=== PATIENT | male | born 1935 | race Caucasian/White ===

== ENCOUNTER 2023-05-02 19:00 | Emergency (ER) | payer MEDICARE, SELFPAY ==
[2023-05-02 19:20] VITALS: BP 172/79
[2023-05-02] MEDS: PERCOCET 5/325 1 TABLET PO (21:23)
--- NOTE | 2023-05-02 23:21 | ED.GENMED ---
History of Present Illness
General
Chief Complaint: Skin Problem
Source: patient, records and landcare facilitator
Exam Limitations: none
Time Seen by Provider: 05/02/23 19:48
Nursing documentation reviewed up to this point in time: agreed with
Travel History
Have you had any contact with someone who has COVID-19?: No
Do you have any symptoms of coronavirus? Fever > 100 degrees, chills, cough, shortness of breath, sore throat, loss of taste or smell, muscle aches, or headache?: No
History of Present Illness
History of Present Illness:
Patient is a 87-year-old male who was seen earlier today with an abscess of the scalp after having it repaired 11 days ago and striking it 3 days prior to that. Patient had fallen back and struck the back of his head. Patient is on Xarelto. CT at
that time was unremarkable. It is felt that the hematoma was palpated and no apparent laceration. However patient continued to bleed and returned 3 days later for repair. Patient had gone to his family doctor for suture removal and there was
found to be pus and abscess. Patient had it drained and iodoform gauze placed. However, it has continued bleeding and draining. Patient was placed on doxycycline.
Past History
Past History
ED Past Medical History: Arrthythmia (Atrial fibrillation), GERD, HTN and Other (Colitis)
ED Past Surgical History: Appendectomy, Cardiac (Catheterization 2005) and Other (Noncontributory)
Social History
Tobacco: Non-smoker
Alcohol: Occasional
Drug: None
Personal:
Living: with family
Employment: Employed
Family History
Family History: Other (Noncontributory)
Review of Systems
Review of Systems
All Other Systems: Not applicable
Phy Exam
Physical Exam
Physical Exam:
Physical Exam
General: mild distress, alert and appropriate, well nourished, well hydrated
HENT: Normocephalic with in the occiput a small incision with iodoform gauze and large eschar, supple with no lymphadenopathy
Eyes: Clear sclera, conjuctiva without injection
Neuro: Alert and oriented x 3, CN II - XII intact, no motor focality, no cerebellar dysfunction
Skin: See above
Psychiatric: well kept. interactive and cooperative
Extremities: No cyanosis
Course
Orders/Labs/Results
Orders:
Orders
05/02/23 21:19
Oxycodone/Acetaminophen [Percocet 5/325] 1 tablet PO NOW STA
Vital Signs
Initial and Last Documented VS:
Initial Vital Signs
Temp Pulse Resp BP Pulse Ox
98.4 F 65 20 172/79 97
05/02/23 19:20 05/02/23 19:20 05/02/23 19:20 05/02/23 19:20 05/02/23 19:20
Last Documented Vital Signs
Temp Pulse Resp BP Pulse Ox
98.4 F 65 20 172/79 97
05/02/23 19:20 05/02/23 19:20 05/02/23 19:20 05/02/23 19:20 05/02/23 19:20
*Radiology
Radiology exam reviewed: other (na)
*Pulse Oximetry
Patient hypoxic: no
*EKG
Interpreted by ED Provider?: NA
*Sales Forecast Analyst Interpretation
Rate: Sales Forecast Analyst- N/A
*Critical Care Note
Total Time (30-74mins, 75-104mins- exclusive of procedures): Not Applicable
Update Note
Update Note:
The area of eschar was sharply dissected out after being softened with hydrogen peroxide. The hematoma that was evacuated from the depth of the wound which in some places was as deep as a centimeter. Most of it was large clot. The wound then was
approximately a centimeter deep at its deepest and approximately 2-1/2 x 3 cm. This area was packed with iodoform gauze with good hemostasis. Given the fact that there was no cellulitis and no systemic signs of infection the doxycycline will be
stopped. This patient is to see his primary in 2 days to have it repacked or at least inspected. Patient is to go to the wound center 5 days. Patient is to hold his Xarelto.
ED Attending Note
-
Portions of this chart may have been created with voice recognition software.� Occasional wrong word or��sound alike� substitutions may have occurred due to the inherent limitations of voice recognition software.
Discharge Plan
Departure
Patient Disposition: Home (Routine Discharge)
Date of Disposition: 05/02/23
Time of Disposition: 23:21
Patient with high blood pressure during this ER visit?: Yes
Condition: Fair
Covid-19: Not Applicable
Discharge Problem:
Debridement of scalp wound
Instructions: Wound Care ([place]), [facility]
Prescriptions:
No Action
losartan 50 MG tablet
50 mg PO BID
glucosamine sulfate 2KCl 1,000 MG tablet
1,000 mg PO BID
[id number] [Cody Multivitamin For Men] 1 EACH tablet
1 ea PO DAILY
rivaroxaban [Xarelto] 20 MG tablet
20 mg PO QPM
atorvastatin 20 MG tablet
20 mg PO QPM
ascorbic acid (vitamin C) [Vitamin C] 500 MG tablet
1,900 mg PO DAILY
cholecalciferol (vitamin D3) [Vitamin D3] 1,000 UNIT capsule
1,000 unit PO DAILY
coenzyme Q10 [Co Q-10] 200 MG capsule
200 mg PO QPM
cyanocobalamin (vitamin B-12) 1,000 MCG capsule
1,000 mcg PO DAILY
amlodipine 5 MG tablet
2.5 mg PO HS
cetirizine 10 MG tablet
10 mg PO QPM
zinc 50 MG tablet
61 mg PO DAILY
Potassium Chloride [Klor-Con 10] 10 MEQ Tablet.Er
10 meq PO BID
fluticasone propionate [Flovent Diskus] 50 MCG blister with device
100 mcg IH QPM
omeprazole 20 MG capsule,delayed release(DR/EC)
20 mg PO DAILY
metoprolol succinate 100 MG tablet extended release 24 hr
100 mg PO DAILY Qty: 90 3RF
furosemide 20 MG tablet
20 mg PO Q48H Qty: 90 3RF
Rx Instructions:
One tablet every other day
oxycodone 5 mg tablet
5 mg PO Q4H PRN (Reason: Pain) Qty: 20 0RF
cephalexin 500 mg capsule
500 mg PO TID Qty: 15 0RF
doxycycline hyclate 100 mg tablet
100 mg PO BID Qty: 20 0RF
Referrals:
Ros Hernadez MD [Family Provider] - Keep scheduled appt
Activity Restrictions/Additional Instructions:
Continue present medications and therapy. You do not need to take the antibiotics. Keep the area clean with soap and water.
Interventions
Interventions:
*Risk Screen - Suicide Last Done: 05/02/23 19:20
*General Assessment Last Done: 05/02/23 19:20
*Neglect/Abuse Screening Last Done: 05/02/23 19:20
ED- Fall Risk Assessment Last Done: 05/02/23 19:20
*ED COVID-19 Vaccine History Last Done: 05/02/23 19:20
*Nursing Disposition Last Done: 05/03/23 00:17
Discharge Date and Time
Discharge Date/Time: 05/03/23 00:17
== END 2023-05-03 00:17 | disposition home or self-care (01) ==
LOC: EMR 19:00
PROVIDERS: EMERGENCY PHYSICIAN Emergency Medicine; FAMILY PHYSICIAN Student in an Organized Health Care Education/Training Program
DX: L02.811 Cutaneous abscess of head [any part, except face] (principal); I48.91 Unspecified atrial fibrillation; Z79.01 Long term (current) use of anticoagulants
CPT/HCPCS: 97597; 99283

== ENCOUNTER → 2023-05-21 08:37 | Outpatient (REF) | payer MEDICARE, SELFPAY | LOC: WOUND 08:37 | PROVIDERS: ATTENDING PHYSICIAN Surgery; REFERRING PHYSICIAN Student in an Organized Health Care Education/Training Program | DX: S01.01XA Laceration without foreign body of scalp, initial encounter (principal); I48.0 Paroxysmal atrial fibrillation; I25.10 Atherosclerotic heart disease of native coronary artery without angina pectoris; I42.1 Obstructive hypertrophic cardiomyopathy; J98.4 Other disorders of lung; J84.9 Interstitial pulmonary disease, unspecified; I27.20 Pulmonary hypertension, unspecified; Z79.01 Long term (current) use of anticoagulants; X58.XXXA Exposure to other specified factors, initial encounter | CPT/HCPCS: 11042; 11043 ==

== ENCOUNTER 2023-09-25 20:02 | Emergency (ER) | payer MEDICARE, SELFPAY ==
[2023-09-25 20:04] VITALS: BMI 25.0
[2023-09-25 20:14] VITALS: BP 162/76
[2023-09-25 20:19] LABS: Glucose - Point of Care 134 mg/dl (70-99)
[2023-09-25 20:22] LABS: % Basophils 0.6 % (0-2); % Eosinophils 3.2 % (0-6); % Immature Granulocytes 0.2 % (0-0.5); % Lymphocytes 17.5 % (20.5-51.1); % Monocytes 9.6 % (1.7-9.3); % Neutrophils 68.9 % (42.2-75.2); Absolute Basophils 0.1 10^3/uL (0-0.2); Absolute Eosinophils 0.3 10^3/uL (0-0.7); Absolute Lymphocytes 1.5 10^3/uL (1.2-3.4); Absolute Monocytes 0.8 10^3/uL (0.1-0.6); Hematocrit 37.2 % (39.0-52.0); Hemoglobin 12.3 g/dL (13.0-18.0); Mean Corp Hgb Conc. 33.1 g/dL (33.0-37.0); Mean Corpuscular Hgb 27.2 pg (27.0-31.0); Mean Corpuscular Volume 82.3 fL (80.0-94.0); Mean Platelet Volume 9.9 fL (7.4-10.4); Nucleated Red Blood Cells % 0 % (-); Platelet Count 190 10^3/uL (130-400); Red Blood Cell Count 4.52 10^6/uL (4.70-6.10); Red Cell Dist. Width 15.6 % (11.5-14.5); White Blood Cell Count 8.7 10^3/uL (4.8-10.8)
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
[2023-09-25 20:44] LABS: ALT (SGPT) 21 U/L (0-50); AST (SGOT) 34 U/L (17-59); Albumin 4.4 g/dl (3.5-5.0); Alkaline Phosphatase 82 U/L (38-126); Blood Urea Nitrogen 23 mg/dl (9-20); Calcium 9.7 mg/dl (8.4-10.2); Carbon Dioxide 28 mmol/L (22-30); Chloride 100 mmol/L (98-107); Estimated Creatinine Clearance 66 ml/min; Glucose 135 mg/dl (70-99); Potassium 3.7 mmol/L (3.5-5.1); Sodium 138 mmol/L (135-145); Total Bilirubin 1.8 mg/dl (0.2-1.3); Total Protein 7.3 g/dl (6.3-8.2); eGFR > 60.00
[2023-09-25 21:00] VITALS: BP 159/84
== END 2023-09-25 21:38 | disposition home or self-care (01) ==
LOC: EMR 20:02
PROVIDERS: EMERGENCY PHYSICIAN Emergency Medicine; FAMILY PHYSICIAN Student in an Organized Health Care Education/Training Program
DX: R55 Syncope and collapse (principal); I10 Essential (primary) hypertension; I48.91 Unspecified atrial fibrillation
CPT/HCPCS: 99284; 80053; 82962; 85025; 93005

== ENCOUNTER 2023-09-28 10:00 | Day surgery (SDC) | payer MEDICARE, SELFPAY ==
--- NOTE | 2023-09-28 15:26 | ITS.CL.CARDI ---
Inspecting Machine Adjuster - Cardioversion
Cardioversion
Procedure Report:
CARDIOVERSION REPORT
Date of Procedure: 09/28/2023
Referring: Edmundo Huynh MD
INDICATION: Recurrent PAF
MEDICATION: No AAD
ANESTHESIA: Propofol
CARDIOVERSION: Conversion of AF to NSR with single 150 J synchronized shock
COMPLICATIONS: None
CONCLUSION: Successful cardioversion of AF to NSR
RECOMMENDATION: Continue Xarelto and other medications
Copy to: Edmundo Huynh MD, Savanna Hernadez MD, PhD
Edmundo Huynh MD, FACC
== END 2023-09-28 15:30 | disposition home or self-care (01) ==
LOC: CATH 10:00
PROVIDERS: ATTENDING PHYSICIAN Internal Medicine Cardiovascular Disease; FAMILY PHYSICIAN Student in an Organized Health Care Education/Training Program
DX: I48.0 Paroxysmal atrial fibrillation (principal); R55 Syncope and collapse; I25.10 Atherosclerotic heart disease of native coronary artery without angina pectoris; I10 Essential (primary) hypertension; E78.5 Hyperlipidemia, unspecified; I44.0 Atrioventricular block, first degree; I08.1 Rheumatic disorders of both mitral and tricuspid valves; K21.9 Gastro-esophageal reflux disease without esophagitis; G47.33 Obstructive sleep apnea (adult) (pediatric); Z87.891 Personal history of nicotine dependence; Z79.01 Long term (current) use of anticoagulants
CPT/HCPCS: 92960; 93005

== ENCOUNTER → 2023-12-05 06:55 | Outpatient (REF) | payer MEDICARE, SELFPAY ==
[2023-12-05 08:50] LABS: Blood Urea Nitrogen 21 mg/dl (9-20); Calcium 9.7 mg/dl (8.4-10.2); Carbon Dioxide 23 mmol/L (22-30); Chloride 100 mmol/L (98-107); Glucose 115 mg/dl (70-99); Potassium 4.1 mmol/L (3.5-5.1); Sodium 135 mmol/L (135-145); eGFR > 60.00
== END ==
LOC: REG 06:55
PROVIDERS: ATTENDING PHYSICIAN Internal Medicine Cardiovascular Disease; FAMILY PHYSICIAN Student in an Organized Health Care Education/Training Program
DX: R60.9 Edema, unspecified (principal)
CPT/HCPCS: 36415; 80048

== ENCOUNTER → 2023-12-17 06:19 | Outpatient (REF) | payer MEDICARE, SELFPAY ==
[2023-12-17 07:27] LABS: % Basophils 0.8 % (0-2); % Eosinophils 3.8 % (0-6); % Immature Granulocytes 0.2 % (0-0.5); % Lymphocytes 16.9 % (20.5-51.1); % Monocytes 11.7 % (1.7-9.3); % Neutrophils 66.6 % (42.2-75.2); Absolute Basophils 0.1 10^3/uL (0-0.2); Absolute Eosinophils 0.3 10^3/uL (0-0.7); Absolute Lymphocytes 1.5 10^3/uL (1.2-3.4); Absolute Neutrophils 5.9 10^3/uL (1.4-6.5); Hemoglobin 11.3 g/dL (13.0-18.0); Mean Corp Hgb Conc. 31.4 g/dL (33.0-37.0); Mean Corpuscular Hgb 25.9 pg (27.0-31.0); Mean Corpuscular Volume 82.6 fL (80.0-94.0); Mean Platelet Volume 9.3 fL (7.4-10.4); Nucleated Red Blood Cells % 0 % (-); Platelet Count 246 10^3/uL (130-400); Red Blood Cell Count 4.36 10^6/uL (4.70-6.10); Red Cell Dist. Width 15.8 % (11.5-14.5); White Blood Cell Count 8.9 10^3/uL (4.8-10.8)
[2023-12-17 07:36] LABS: NT-proBNP 1130 pg/ml
[2023-12-17 08:03] LABS: ALT (SGPT) 24 U/L (0-50); AST (SGOT) 41 U/L (17-59); Albumin 4.3 g/dl (3.5-5.0); Alkaline Phosphatase 107 U/L (38-126); Blood Urea Nitrogen 17 mg/dl (9-20); Calcium 9.6 mg/dl (8.4-10.2); Carbon Dioxide 31 mmol/L (22-30); Chloride 99 mmol/L (98-107); Glucose 106 mg/dl (70-99); HDL Cholesterol 52 mg/dl; LDL Cholesterol, Calculated 48 mg/dl; Potassium 4.7 mmol/L (3.5-5.1); Sodium 138 mmol/L (135-145); Total Bilirubin 1.9 mg/dl (0.2-1.3); Total Cholesterol 111 mg/dl (50-199); Total Protein 7.3 g/dl (6.3-8.2); Triglyceride 57 mg/dl (10-149); Very Low Density Lipoprotein 11 mg/dl (0-30); eGFR > 60.00
[2023-12-17 10:39] LABS: TSH Reflex To Free T4 2.93 uIU/ml (0.47-4.68)
== END ==
LOC: REG 06:19
PROVIDERS: ATTENDING PHYSICIAN Student in an Organized Health Care Education/Training Program
DX: E78.2 Mixed hyperlipidemia (principal); M79.89 Other specified soft tissue disorders; I42.1 Obstructive hypertrophic cardiomyopathy; I48.0 Paroxysmal atrial fibrillation
CPT/HCPCS: 36415; 80053; 80061; 83880; 84443; 85025

== ENCOUNTER → 2023-12-18 15:47 | Outpatient (REF) | payer MEDICARE, SELFPAY | LOC: RAD 15:47 | PROVIDERS: ATTENDING PHYSICIAN Student in an Organized Health Care Education/Training Program | DX: M79.89 Other specified soft tissue disorders (principal) | CPT/HCPCS: 93970 ==

== ENCOUNTER 2023-12-20 12:54 | Inpatient (IN) | payer MEDICARE, SELFPAY ==
[2023-12-20] VITALS (19 sets, daily range): BP systolic 132–165; BP diastolic 51–85; PULSE 58; BMI 25.7
--- NOTE | 2023-12-20 10:39 | ED.GENMED ---
History of Present Illness
General
Chief Complaint: Chest Pain
Source: patient
Exam Limitations: none
Time Seen by Provider: 12/20/23 10:27
History of Present Illness
History of Present Illness:
See MDM
Past History
Past History
ED Past Medical History: Arrthythmia (Atrial fibrillation), GERD, HTN and Other (Colitis)
ED Past Surgical History: Appendectomy, Cardiac (Catheterization 2005) and Other (Noncontributory)
Social History
Tobacco: Non-smoker
Alcohol: Occasional
Drug: None
Personal:
Living: with family
Employment: Employed
Family History
Family History: Other (Noncontributory)
Phy Exam
Physical Exam
Physical Exam:
See MDM
Scores
Heart Score for Chest Pain Patients
STEMI patient?: No
History: Highly Suspicious
ECG: Nonspecific Repolarization
Age: >/= 65 years
Risk Factors: >/= 3 Risk Factors or History of CAD
Troponin: </= Normal Limit
Heart Score for Chest Pain Patients: 7
Heart Score Risk: 72.7 % MACE over next 6 weeks
Course
Orders/Labs/Results
Orders:
Orders
12/20/23 Lunch
NPO
Allow oral meds: Yes
Allow clear liquids: No
NPO with Ice Chips: Yes
12/20/23 10:29
Consult Cardiology [CARDIOLOGY CONSULT] Routine
Consulting Provider: Edmundo Huynh
Was physician already notified: Yes
CR Chest - 2 Views Urgent
Comment:
Reason For Exam: SOB
12/20/23 10:36
EKG [Electrocardiogram (*1)] Urgent
Reason for Study: Chest Pain
EKG- Treatment ONCE
12/20/23 10:50
Complete Blood Count/With Diff Urgent
Comprehensive Metabolic Panel Urgent
Ferritin Urgent
Comment: ADD ON
Iron Urgent
Comment: ADD ON
NT-proBNP Urgent
PTT Urgent
Prothrombin Time Urgent
TSH Urgent
Comment: ADD ON
Total Iron Binding Urgent
Comment: ADD ON
Troponin I Urgent
12/20/23 12:38
Admit/Transfer Patient As Directed
Co-Sign Provider:
Level of Care: Inpatient admission
Assign to:: IVU
Physician / Group: Espinoza
Diagnosis: ACS
Reason for Hospitalization: Above
Expected length of stay greater than two midnights?: Yes
ELOS- Estimated Length of Stay in days: 2
I certify the patient meets the requirements for IP care: Yes
12/20/23 12:42
Code Status As Directed
Resuscitation Status: Full Code
12/20/23 17:59
Ascorbic Acid [Vitamin C] 1,000 mg PO DAILY
Atenolol [Tenormin] 25 mg PO BID
Tramadol HCl [Ultram] 50 mg PO Q4HPRN PRN
coenzyme Q10 [Co Q-10] 200 mg PO Q48H
12/20/23 17:59
Add On- LAB Routine
Tests Added?: TSH, Iron, TIBC, Ferrtin
Anti-embolism (ANDREW) Hose As Directed
Type: Knee high
Pneumatic Compression Sleeves As Directed
Type: Knee high
Pneumatic Compression Sleeves As Directed
Type: Knee high
Cpap [RESP] Routine
Patient to use own unit?: Yes
Instructions: HS
DX Deep Vein Thrombosis Video Routine
12/20/23 18:00
Cetirizine HCl [Zyrtec] 10 mg PO QPM
12/20/23 20:00
Losartan [Cozaar] 50 mg PO BID
Potassium Chloride [KCl] 10 meq PO BID
12/21/23 05:35
BMP [Basic Metabolic Panel] IN AM
CBC/With Diff [Complete Blood Count/With Diff] IN AM
Lipid Profile [Cardiovascular Evaluation] IN AM
12/21/23 08:00
Cholecalciferol (Vitamin D3) [VITAMIN D3 (cholecalciferol)] 25 mcg PO DAILY
Cyanocobalamin [Vitamin B-12] 1,000 mcg PO DAILY
Diltiazem Extended Release [Cardizem Cd] 120 mg PO DAILY
Furosemide [Lasix] 20 mg PO DAILY
Multivitamin [Theragran] 1 tablet PO DAILY
glucosamine sulfate 2KCl 2,000 mg PO DAILY
Abnormal Lab Results
12/20/23
10:50
RBC 4.30 L 10^6/uL
(4.70-6.10)
Hgb 11.2 L g/dL
(13.0-18.0)
Hct 34.3 L %
(39.0-52.0)
MCV 79.8 L fL
(80.0-94.0)
MCH 26.0 L pg
(27.0-31.0)
MCHC 32.7 L g/dL
(33.0-37.0)
RDW 15.7 H %
(11.5-14.5)
Absolute Neuts (auto) 6.8 H 10^3/uL
(1.4-6.5)
Absolute Monos (auto) 1.0 H 10^3/uL
(0.1-0.6)
Lymphocytes % 16.2 L %
(20.5-51.1)
Monocytes % 10.2 H %
(1.7-9.3)
PT 15.1 H Sec
(11.4-14.6)
Creatinine 0.6 L mg/dL
(0.7-1.3)
Glucose 110 H mg/dl
(70-99)
TIBC 506 H ug/dl
(261-462)
% Saturation 10 L %
(20-50)
Total Bilirubin 1.8 H mg/dl
(0.2-1.3)
12/20/23 10:50
12/20/23 10:50
Vital Signs
Initial and Last Documented VS:
Initial Vital Signs
Temp Pulse Resp Pulse Ox
98.4 F 63 20 93
12/20/23 10:37 12/20/23 10:37 12/20/23 10:37 12/20/23 10:37
Last Documented Vital Signs
Temp Pulse Resp BP Pulse Ox
98.9 F 59 20 141/68 93
12/21/23 08:02 12/21/23 08:02 12/21/23 08:02 12/21/23 08:02 12/21/23 08:02
MDM/Problems Addressed
Differential Diagnosis Includes:
HPI and MDM Narrative:
88-year-old male presenting for evaluation of worsening shortness of breath with exertion. Patient has known history of heart failure and hypertrophic cardiomyopathy. Patient is followed closely by cardiology. There was a plan for catheterization
but patient becoming more symptomatic.
On exam, patient is sitting in bed comfortably. He does have bilateral pitting edema to both legs which she states is worse.
Physical exam
General: Well appearing and non-toxic
HEENT: protecting airway
Neck: appears supple
CV: No evidence of cyanosis. Regular rate and rhythm
Resp: No accessory muscle use. Lungs clear. Questional crackles at bases
Abd: Non-distended
Extremities: 2 pitting edema bilateral lower extremities
Neuro: alert
Psych: Normal affect
Skin: Intact
Problems Addressed including Acute and Chronic Conditions affecting care:
1. Acute exacerbation of congestive heart failure
Acuity: acute
Prognosis: unstable
Details: Given his prior history, case discussed with cardiology and will admit for catheterization
Updates
10:45 AM Case discussed with cardiology and plan for catheterization today in the afternoon
Differential Diagnosis (but not limited to): Congestive heart failure, coronary artery disease, pneumonia
Testing considered: D-dimer
Drug therapy (if applicable): OTC meds, please see d/c instruction regarding Rx drugs
Amount and/or Complexity of Data Reviewed
Clinical info obtained from: Patient
External data reviewed: History of congestive heart failure
Labs I independently reviewed (but not limited to): Stable anemia
Radiology: X-ray independently reviewed: Mild CHF exacerbation
Pulse Ox: not hypoxic
EKG independently reviewed: Sinus rhythm, normal axis, no STEMI
Crane Operator Cab: Sinus rhythm
Critical Care: N/A
Risk of Complication:
Social Determinants of health: Good social support
Discussed with other providers: Cardiology, hospitalist
Escalation of Care includes Admit/Obs: Given his cardiac history with worsening symptoms, will admit for cardiac catheterization
Occasional wrong word or 'sound a like' substitutions may have occurred due to the inherent limitations of voice recognition software. Read the chart carefully and recognize, using context, where substitutions have occurred.
*Critical Care Note
Total Time (30-74mins, 75-104mins- exclusive of procedures): Not Applicable
ED Attending Note
-
Portions of this chart may have been created with voice recognition software.� Occasional wrong word or��sound alike� substitutions may have occurred due to the inherent limitations of voice recognition software.
Discharge Plan
Departure
Patient Disposition: Admit
Date of Disposition: 12/20/23
Time of Disposition: 11:24
Presentation/result/management discussed w/ accepting MD/DO: Hospitalist
Discharge Problem:
Acute exacerbation of CHF (congestive heart failure)
Interventions
Interventions:
*Risk Screen - Suicide Last Done: 12/20/23 10:37
*General Assessment Last Done: 12/20/23 11:03
*Neglect/Abuse Screening Last Done: 12/20/23 10:37
ED- Fall Risk Assessment Last Done: 12/20/23 11:03
*ED COVID-19 Vaccine History Last Done: 12/20/23 10:37
*Nursing Disposition Last Done: 12/20/23 14:45
ED- Cardiac Assessment Last Done: 12/20/23 11:03
Discharge Date and Time
Discharge Date/Time: 12/20/23 14:45
[2023-12-20 11:00] LABS: % Basophils 0.4 % (0-2); % Eosinophils 2.5 % (0-6); % Immature Granulocytes 0.3 % (0-0.5); % Lymphocytes 16.2 % (20.5-51.1); % Monocytes 10.2 % (1.7-9.3); % Neutrophils 70.4 % (42.2-75.2); Absolute Eosinophils 0.2 10^3/uL (0-0.7); Absolute Lymphocytes 1.6 10^3/uL (1.2-3.4); Absolute Neutrophils 6.8 10^3/uL (1.4-6.5); Hematocrit 34.3 % (39.0-52.0); Hemoglobin 11.2 g/dL (13.0-18.0); Mean Corp Hgb Conc. 32.7 g/dL (33.0-37.0); Mean Corpuscular Volume 79.8 fL (80.0-94.0); Mean Platelet Volume 9.4 fL (7.4-10.4); Nucleated Red Blood Cells % 0 % (-); Platelet Count 231 10^3/uL (130-400); Red Cell Dist. Width 15.7 % (11.5-14.5); White Blood Cell Count 9.6 10^3/uL (4.8-10.8)
[2023-12-20 11:14] LABS: ALT (SGPT) 21 U/L (0-50); AST (SGOT) 36 U/L (17-59); Albumin 4.3 g/dl (3.5-5.0); Alkaline Phosphatase 105 U/L (38-126); Blood Urea Nitrogen 18 mg/dl (9-20); Calcium 9.5 mg/dl (8.4-10.2); Carbon Dioxide 28 mmol/L (22-30); Chloride 100 mmol/L (98-107); Glucose 110 mg/dl (70-99); Potassium 4.1 mmol/L (3.5-5.1); Sodium 137 mmol/L (135-145); Total Bilirubin 1.8 mg/dl (0.2-1.3); Total Protein 7.3 g/dl (6.3-8.2); eGFR > 60.00
[2023-12-20 11:16] LABS: INR 1.18; PT 15.1 Sec (11.4-14.6)
[2023-12-20 11:23] LABS: NT-proBNP 1270 pg/ml; Troponin I 0.014 ng/ml
--- NOTE | 2023-12-20 12:48 | HPS.HSE ---
Family Physician
-
Family Physician: Ros Hernadez MD
Chief Complaint
-
Exertional dyspnea and chest tightness. Peripheral edema.
History of Present Illness
Patient is 88 years old male with history of paroxysmal atrial fibrillation, hypertrophic cardiomyopathy, hypertension who presents to the emergency room with complaints of shortness of breath, exertional dyspnea and chest tightness with exertion.
Patient noticed exertional dyspnea and generalized tiredness since October 2023. He required admission in outside hospital and according to history required IV diuresis with significant weight reduction. Since that admission patient remains with
exertional dyspnea, periodic chest tightness mostly on the left side and persistent left greater than right lower extremity edema. Patient was seen by primary cardiology with plan for catheterization, with persistent symptoms presented to emergency
room.
He denies any fever, cough. Denies any gastrointestinal or urinary symptoms.
Medical History
Past Medical History
Past Medical History: Reports Arrhythmia (Paroxysmal atrial fibrillation), CHF (Hypertrophic cardiomyopathy), HTN and Hypercholesterolemia; Denies NIDDM
Past Surgical History: Reports Other (Ablation)
Social History
Tobacco: Non-smoker
Drug: None
Personal:
Living: With Family
Family History
Family History: Not pertinent
Allergies / Home Medications
Allergies reflects when Allergies were last updated in [facility].
Home Medications with original date entered in [facility]
Allergy/Medication List:
Allergies
Allergy/AdvReac Type Severity Reaction Status Date / Time
Sulfa (Sulfonamide Allergy Intermediate Rash Verified 12/20/23 10:47
Antibiotics)
prochlorperazine Allergy angioedema, Verified 12/20/23 10:47
anaphylaxis
sulfisoxazole Allergy Unknown Verified 12/20/23 10:47
clindamycin AdvReac GERD Verified 12/20/23 10:47
Home Medications
glucosamine sulfate 2KCl 1,000 mg tablet 2,000 mg PO DAILY Supplement 03/17/13
losartan 50 mg tablet 50 mg PO BID Blood pressure 03/17/13
khcetzie-khz-ntcsp 200 mcg-lycop 175 mcg-lutei 250 mcg-herb 178 tablet (Cody Multivitamin For Men) 1 ea PO DAILY Supplement 03/17/13
rivaroxaban 20 mg tablet (Xarelto) 20 mg PO QPM Blood clot prevention/tx 03/17/13
ascorbic acid (vitamin C) 500 mg tablet (Vitamin C) 1,000 mg PO DAILY Supplement 04/14/19
atorvastatin 20 mg tablet 20 mg PO Q48H High cholesterol 04/14/19
cholecalciferol (vitamin D3) 25 mcg (1,000 unit) capsule (Vitamin D3) 1,000 unit PO DAILY Supplement 04/14/19
coenzyme Q10 200 mg capsule (Co Q-10) 200 mg PO Q48H Supplement 04/14/19
cyanocobalamin (vitamin B-12) 1,000 mcg capsule 1,000 mcg PO DAILY Supplement 04/14/19
cetirizine 10 mg tablet 10 mg PO QPM Allergies 09/06/21
atenolol 25 mg tablet 25 mg PO BID 07/05/23
furosemide 20 mg tablet 20 mg PO DAILY 07/05/23
potassium chloride 10 mEq tablet,extended release 10 meq PO BID 07/05/23
acetaminophen 650 mg tablet,extended release (Tylenol Arthritis Pain) 1,300 mg PO PRN PRN pain 09/28/23
diltiazem HCl 120 mg capsule,extended release 24 hr, controlled (DILT-XR) 120 mg PO DAILY 09/28/23
omeprazole 40 mg capsule,delayed release 40 mg PO DAILY 09/28/23
tramadol 50 mg tablet 50 mg PO PRN PRN pain 09/28/23
Review of Systems
-
A 12 point ROS was completed and negative except as noted: Yes
Respiratory: Reports See HPI
Cardiac: Reports See HPI
Physical Exam
Vital Signs
Vital Signs
Temp Pulse Resp BP Pulse Ox
98.4 F 61 20 149/82 92
12/20/23 10:37 12/20/23 11:30 12/20/23 11:30 12/20/23 10:40 12/20/23 11:30
Physical Exam
General: Well Developed, Well Nourished and No Apparent Distress
HEENT: NormoCephalic, Moist mucous membranes, Atraumatic and PERRLA
Respiratory: Clear
Cardiac: Regular Rhythm (w/ occasional ectopy. ), Murmur, Peripheral Edema and Other (Bilateral left greater than right lower extremity edema); No JVD
GI: Soft, Non Tender and Non Distended
Musculoskeletal: Normal Gait & Station
Skin: Warm and Dry
Neuro: AO x 3 and Nonfocal/grossly intact
Laboratory Results
-
12/20/23 10:50
12/20/23 10:50
Laboratory Results
PT 15.1 Sec (11.4-14.6) H 12/20/23 10:50
INR 1.18 12/20/23 10:50
APTT 33.0 Sec (23.4-35.0) 12/20/23 10:50
Total Bilirubin 1.8 mg/dl (0.2-1.3) H 12/20/23 10:50
AST 36 U/L (17-59) 12/20/23 10:50
ALT 21 U/L (0-50) 12/20/23 10:50
Alkaline Phosphatase 105 U/L (38-126) 12/20/23 10:50
Troponin I 0.014 ng/ml 12/20/23 10:50
Data Reviewed
-
Lab Data: Labs Reviewed by me
Impression/Plan
-
IMPRESSION:
Presentation with exertional dyspnea, fatigue, periodic chest pressure and persistent bilateral lower extremity edema
Concern for accelerated angina.
Acute diastolic CHF
Conditions prior to admission:
Obstructive hypertrophic cardiomyopathy.
Paroxysmal atrial fibrillation
-History of cardioversion x 2
Anticoagulation with Xarelto.
Mixed hyperlipidemia.
Obstructive sleep apnea on nightly CPAP.
Pulmonary nodule.
Chronic anemia with microcytosis.
Essential hypertension
PLAN:
Presentation with exertional dyspnea, and chest pressure.
Recent nuclear stress test July 2022 with normal LVEF and normal perfusion.
ECG and cardiac markers on presentation with no ischemia
Plan is for cath
Hold Xarelto related patient to procedure
Obstructive hypertrophic cardiomyopathy.
Suspect acute CHF, diastolic type given exertional dyspnea and peripheral edema.
Recent echo with preserved ejection fraction, mild MR. Moderate to severe pulmonary hypertension. Brma-nw-pvpge shunt? Small PFO versus ASD.
Patient states that he has been adherent to dietary restrictions.
Plan possibly for right and left cath to determine volume status.
Outpatient regimen including atenolol, losartan, furosemide 20 mg daily with potassium supplementation.
Further guidance including diuresis with catheterization.
Essential hypertension
Will monitor blood pressure trend on preadmission regimen including atenolol, losartan, Cardizem and diuretics. Hold
Paroxysmal atrial fibrillation.
Recent cardioversion
In sinus rhythm upon presentation
Continue diltiazem
Hold Xarelto in anticipation for cardiac cath
Mild anemia with microcytosis.
He is recent colonoscopy 2020 with left-sided polyp and diverticulosis.
He does not report any symptoms of blood loss at this point
Will heme check stool.
Check iron studies
Dyslipidemia
Repeat lipid profile
Continue statin
Obstructive sleep apnea will continue CPAP at night.
He does have pulmonary hypertension which likely cardiac in nature
Would suggest outpatient pulmonary follow-up PFTs once volume status optimized.
Pulmonary nodule seen on CT chest 2019 at that time consistent with calcified granulomas.
Full code.
DVT prophylaxis Xarelto/mechanical
[2023-12-20 15:26] LABS: ACT-LR - POC 332 Seconds (116-155)
[2023-12-20 15:36] LABS: ACT-LR - POC 234 Seconds (116-155)
[2023-12-20 15:49] LABS: ACT-LR - POC 273 Seconds (116-155)
[2023-12-20] MEDS: NSS 500 IV (16:34)
--- NOTE | 2023-12-20 16:41 | ITS.CL.CATH ---
Addendum entered and electronically signed by Edmundo Huynh MD 12/20/23 17:51:
Addendum: Jayy had no chest discomfort with balloon occlusion of the LAD and similarly no chest discomfort with balloon occlusion of the diagonal branch. Accordingly, he has not impaired anginal warning system. Recommend serial screening stress
testing on a 1-2-year interval
Original Note:
[facility] - Catheterization
Cardiac Catheterization
Procedure Report:
CARDIAC CATHETERIZATION REPORT
Date of Procedure: 12/20/2023
Referring: Edmundo Huynh MD
Indication: Progressive exertional dyspnea/CHF with hypertrophic cardiomyopathy and known CAD
HEMODYNAMIC DATA
AO: 129/58
LV: 137/21
PCWP: 20
PA: 74/25
RV: 74/18
RA: 16
Oximetry: Ao 93%, PA 75%, cardiac output 7.9, cardiac index 4.1
There is a resting gradient of 7 mmHg across the left ventricular outflow tract. This gradient increases to 12 mmHg following PVC
LEFT VENTRICULOGRAPHY: Normal left ventricular wall motion with EF 68% with trace MR
CORONARY ANGIOGRAPHY
Dominance: Right
Left Main: Normal
LAD: Tandem 60% and 70% lesions distal to the takeoff of the first septal oyster floater and large first diagonal branch. There is 30% mid to distal LAD stenosis. The large first diagonal branch has tandem 80% proximal and 50% proximal to mid stenoses.
Circumflex: The circumflex proper has mild luminal irregularities. The large OM1 has 40% proximal stenosis. Medium sized OM 2 and OM 3 vessels have trivial luminal disease.
RCA: Dominant vessel with 20-30% stenosis proximal to the crux and otherwise mild luminal irregularities. This RCA terminates with a large PDA and large posterolateral system
FloWire assessment: At the conclusion the diagnostic study we proceeded with FloWire assessment of the tandem mid LAD disease. Heparin was used for anticoagulation. A 6 Czech EBU 3.5 guide catheter was used. A noodls wire was advanced into the
distal LAD. iFR measurements were 0.86, 0.84, and 0.83. These are all consistent with flow-limiting disease. Pullback showed that the drop in Pd/Pa was across the tandem mid LAD lesions. Accordingly, decision was made to proceed with
intervention of the LAD and also of the severely diseased first diagonal branch.
Angioplasty: The LAD disease was treated over the [place] wire. A 2.25 x 12 NC trek balloon was used to predilate the lesion to 12 akanksha with complete balloon expansion. We then placed a 3.0 x 18 Xience Skypoint SUNDEEP which was deployed for 14 akanksha.
Postdilatation was accomplished with a 3.0 NC trek to 17 akanksha along the entire length of the stent. The final angiographic result was outstanding with no residual stenosis. We then turned our attention to the high-grade diagonal disease. A short
BMW wire was advanced into the LAD and into the first diagonal branch across the 80% proximal stenosis in the 50% proximal to mid stenosis. We attempted to pass a 2.25 x 23 Xience SUNDEEP but it would not cross the lesion. The undeployed stent was
carefully removed and predilatation accomplished with a 2.25 x 12 NC trek to 12 akanksha. This allowed us to easily pass the 2.25 x 23 Xience SUNDEEP to the target location where was deployed at 14 akanksha then postdilated with a 2.5 NC trek to 17 akanksha. The
final angiographic result was outstanding. There were no procedural complications. Plavix 600 mg was administered at the procedure conclusion.
Closure Device: None-the procedure was performed via the right radial artery and right femoral vein. The Flo's test was normal prior to the procedure.
Radiation dose (mGy): 493
DAP (cm2.Gy): 43.3
Fluoroscopy time: 13.8 minutes
CONCLUSIONS:
1. Elevated filling pressures with severe pulmonary hypertension
2. No evidence of significant intracardiac shunt
3. Known hypertrophic cardiomyopathy with resting gradient of 7 mmHg across the LVOT. The gradient increases minimally to 12 mmHg following PVC
4. Normal left ventricular wall motion with EF 68%
5. Single-vessel CAD as described. The mid LAD disease is flow-limiting by FloWire criteria. The first diagonal disease is angiographically severe
6. Successful stenting of tandem 60 and 70% mid LAD lesions using 3.0 x 18 Xience janice point SUNDEEP
7. Successful stenting of tandem 80% and 50% D1 stenoses using 2.25 x 23 Xience janice point SUNDEEP postdilated with 2.5 mm noncompliant balloon
RECOMMENDATIONS: Triple therapy (Xarelto 15 mg, Plavix, aspirin) for 1 week then Xarelto 15 mg/Plavix for 12 months. After then would resume Xarelto 20 mg daily and stop Plavix in favor of aspirin 81 mg daily. Continue diuresis for elevated
pressures
Copy to: Ros Hernadez MD, PhD, Edmundo Huynh MD
Edmundo Huynh MD, [facility], [facility]
--- NOTE | 2023-12-20 17:36 | W.PN.UPDATE ---
Update Note
Progress Note Update
See cath report. On discharge would continue 40 mg bid (NOT 40AM and 20PM). Earlier this week I asked Jayy to hold atorvastatin for 2 wks due to severe fatigue just in case this was causing/contributing. Please remind him to complete a 2 wk
'holiday' off statin. OK for discharge tomorrow if stable.
ASA 81/Plavix 75/ Xarelto 15mg daily x one week then stop ASA and continue Plavix 75/Xarelto 15mg for 12 months. After then resume Xarelto 20mg and use ASA 81mg instead of Plavix.
[2023-12-20 19:04] LABS: Iron 53 ug/dl (49-181)
[2023-12-20 19:14] LABS: Percent Saturation 10 % (20-50); TSH 2.15 uIU/ml (0.47-4.68); Total Iron Binding Capacity 506 ug/dl (261-462)
[2023-12-20 19:18] LABS: Ferritin 37.8 ng/ml (17.9-464.0)
--- NOTE | 2023-12-20 19:21 | PTCARENOTE ---
Pt received post cath at 1800. Right rad site WNL. Right groin site soft, clean, dry and intact. Denies any chest pain or sob. Room air sat 93%.
[2023-12-20] MEDS: TENORMIN PO (20:23)
[2023-12-20] MEDS: ZYRTEC 10 MG PO (20:57)
[2023-12-20] MEDS: COZAAR 50 MG PO (20:57)
[2023-12-20] MEDS: KCL 10 MEQ PO (20:57)
[2023-12-20] MEDS: VITAMIN C 1000 MG PO (20:57)
[2023-12-20] MEDS: TENORMIN 25 MG PO (20:57)
--- NOTE | 2023-12-20 23:18 | PTCARENOTE ---
R radial band removed- without issues. R groin site- CDI. + pulses. Ambulating the room as a self. plan of care discussed- pt verbalized understanding. CAD and CHF booklet provided.
[2023-12-21 05:26] VITALS: BP 133/69
[2023-12-21 06:00] VITALS: BMI 25.2
[2023-12-21 06:01] LABS: % Basophils 0.6 % (0-2); % Eosinophils 2.8 % (0-6); % Immature Granulocytes 0.3 % (0-0.5); % Lymphocytes 13.2 % (20.5-51.1); % Neutrophils 71.1 % (42.2-75.2); Absolute Basophils 0.1 10^3/uL (0-0.2); Absolute Eosinophils 0.2 10^3/uL (0-0.7); Absolute Lymphocytes 1.2 10^3/uL (1.2-3.4); Absolute Monocytes 1.1 10^3/uL (0.1-0.6); Absolute Neutrophils 6.2 10^3/uL (1.4-6.5); Hematocrit 33.4 % (39.0-52.0); Hemoglobin 10.7 g/dL (13.0-18.0); Mean Corpuscular Hgb 25.8 pg (27.0-31.0); Mean Corpuscular Volume 80.5 fL (80.0-94.0); Mean Platelet Volume 9.9 fL (7.4-10.4); Nucleated Red Blood Cells % 0 % (-); Platelet Count 224 10^3/uL (130-400); Red Blood Cell Count 4.15 10^6/uL (4.70-6.10); Red Cell Dist. Width 15.6 % (11.5-14.5); White Blood Cell Count 8.7 10^3/uL (4.8-10.8)
[2023-12-21 06:24] LABS: Blood Urea Nitrogen 15 mg/dl (9-20); Calcium 9.2 mg/dl (8.4-10.2); Carbon Dioxide 24 mmol/L (22-30); Chloride 100 mmol/L (98-107); Estimated Creatinine Clearance 88 ml/min; Glucose 111 mg/dl (70-99); HDL Cholesterol 43 mg/dl; LDL Cholesterol, Calculated 52 mg/dl; Potassium 4.2 mmol/L (3.5-5.1); Sodium 133 mmol/L (135-145); Total Cholesterol 107 mg/dl (50-199); Triglyceride 64 mg/dl (10-149); Very Low Density Lipoprotein 12 mg/dl (0-30); eGFR > 60.00
[2023-12-21 08:02] VITALS: BP 141/68
[2023-12-21] MEDS: TENORMIN 25 MG PO (08:10)
[2023-12-21] MEDS: COZAAR 50 MG PO (08:11)
[2023-12-21] MEDS: LASIX 20 MG PO (08:11)
[2023-12-21] MEDS: VITAMIN B-12 1000 MCG PO (08:11)
[2023-12-21] MEDS: KCL 10 MEQ PO (08:11)
[2023-12-21] MEDS: THERAGRAN 1 TABLET PO (08:12)
[2023-12-21] MEDS: LOW STRENGTH ASPIRIN 81 MG PO (08:12)
[2023-12-21] MEDS: PLAVIX 75 MG PO (08:12)
[2023-12-21] MEDS: PROTONIX 40 MG PO (08:12)
[2023-12-21] MEDS: VITAMIN D3 (cholecalciferol) 25 MCG PO (08:13)
[2023-12-21] MEDS: VITAMIN C 1000 MG PO (08:13)
[2023-12-21] MEDS: CARDIZEM CD 120 MG PO (08:24)
--- NOTE | 2023-12-21 08:39 | W.PN.CD ---
Today's Communication / Plan
-
Triple therapy x1 week, then clopidogrel 75 mg daily + rivaroxaban 15 mg daily x 12 months.
After 12 months, d/c clopidogrel and restart aspirin 81 mg daily, increase rivaroxaban to 20 mg daily.
Furosemide increased to 40 mg PO BID.
BMP in one week to monitor renal function, potassium levels.
Stable for outpatient follow up.
Impression / Plan
-
Impression/Plan: 88 y/o male with HTN, HLD, PAF on rivaroxaban and HCM with HFpEF admitted with worsening SOB/OMSHER (likely his anginal equivalent) prompting cardiac catheterization and PCI of an obstructive mLAD lesion and large D1 lesion.
#CAD/Accelerating angina
-Acute.
-His anginal equivalent appears to be SOB/MOSHER, but this may be related to his HCM/HFpEF, indicating that his anginal warning system is impaired.
-Troponin [ ].
-S/P PCI of an 80% large D1 lesion (Xience Skypoint 2.25 x 23 SUNDEEP, post dilated with a 2.5 NCB) and an obstructive 60-70% mLAD lesion (iFR = 0.84, Xience Skypoint 3.0 x 18 SUNDEEP, post dilated with a 3.0 NCB).
-Antithrombotic therapy with ASA 81 mg shayy + clopidogrel 75 mg daily + rivaroxaban 15 mg daily x 7 days, then DC aspirin and maintain clopidogrel + rivaroxaban x 12 months. At one year, he can discontinue clopidogrel and start aspirin while
increasing his rivaroxaban dose to 20 mg daily (therapeutic).
-Currently completing a 2 week statin holiday. If he feels improved off of statin, he will require PCSK9i as an outpatient.
#HCM/HFpEF
-Chronic.
-Moderately elevated filling pressures at catheterization (LVEDP = 21 mmHg, PCWP = 20 mmHg).
-Furosemide increased to 40 mg PO BID (rather than 40 mg qAM, 20 mg qPM).
-BMP in one week to assess renal function, potassium.
#PHTN
-Chronic.
-Severe, post capillary (PCWP > 15, PVR < 3 harris units).
-Likely related to HCM (restrictive physiology, WHO group 2).
-Monitor with diuresis.
#PAF
-Currently in NSR.
-Rate/rhythm control with atenolol/diltiazem.
-CHADS2-Vasc = 5 (CHF, HTN, Age x2, vascular diseae).
-Therapeutic anticoagulation with rivaroxaban as detailed above.
#HTN
-Chronic, stable.
-Maintain home medications.
#HLD
-Chronic, stable.
-Currently on a statin holiday for some body aches.
-He should complete his holiday and report back if his symptoms have improved.
-If he is truly statin intolerant, we will consider PCSK9i.
-LDL at goal, currently 52.
Subjective/Interval History:
S/P PCI to LAD/D1 yesterday.
No subjective complaints.
DATA:
Cardiac Catheterization/PCI, 12/20/2023:
CONCLUSIONS:
1. Elevated filling pressures with severe pulmonary hypertension
2. No evidence of significant intracardiac shunt
3. Known hypertrophic cardiomyopathy with resting gradient of 7 mmHg across the LVOT. The gradient increases minimally to 12 mmHg following PVC
4. Normal left ventricular wall motion with EF 68%
5. Single-vessel CAD as described. The mid LAD disease is flow-limiting by FloWire criteria. The first diagonal disease is angiographically severe
6. Successful stenting of tandem 60 and 70% mid LAD lesions using 3.0 x 18 Xience janice point SUNDEEP
7. Successful stenting of tandem 80% and 50% D1 stenoses using 2.25 x 23 Xience janice point SUNDEEP postdilated with 2.5 mm noncompliant balloon
TTE, 04/12/2023:
CONCLUSIONS
Normal left ventricular systolic function.
Estimated left ventricular ejection fraction 65-70%.
Asymmetric septal hypertrophy.
Mitral annular calcification and mild mitral regurgitation.
Moderate tricuspid regurgitation.
Estimated pulmonary artery pressure of 66 mmHg
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
Compared to the previous study 07/02/2022 the PA systolic presure is mildly
lower. Previously estimated to be 75mmHg.
Physical Exam
Vital Signs/Labs
Vital Signs
Temp Pulse Resp BP Pulse Ox
37.2 C 60 20 133/69 93
12/21/23 08:02 12/21/23 06:00 12/21/23 08:02 12/21/23 05:26 12/21/23 08:02
12/19/23 12/20/23 12/21/23
11:59 11:59 11:59
Actual Weight 77.5 kg
12/21/23 05:35
12/21/23 05:35
PT 15.1 Sec (11.4-14.6) H 12/20/23 10:50
INR 1.18 12/20/23 10:50
APTT 33.0 Sec (23.4-35.0) 12/20/23 10:50
Triglycerides 64 mg/dl (10-149) 12/21/23 05:35
LDL Cholesterol, Calc 52 mg/dl 12/21/23 05:35
VLDL Cholesterol, Calc 12 mg/dl (0-30) 12/21/23 05:35
HDL Cholesterol 43 mg/dl 12/21/23 05:35
TSH 2.15 uIU/ml (0.47-4.68) 12/20/23 10:50
12/20/23
10:50
[id number] Pept 1270
LAB Results
12/20/23
10:50
Troponin I 0.014
Physical Exam
Constitutional: No acute distress and Comfortable
EENT: Anicteric and Moist mucous membranes
Cardiovascular: Rhythm & rate is regular, Pedal edema is absent, JVD pressure is normal, Systolic murmur present and S1S2 is normal
Respiratory: Respiratory effort normal, Lungs clear to auscul., Wheeze Absent, Crackles Absent and Rhonchi Absent
GI: Soft, Distention absent, Flat, Non tender and Normal bowel sounds
Neuro/Psych: AO x 3
Other: Cath Site (Right radial access site is C/D/I.)
Data Reviewed
-
Date of Service: December 21, 2023
Medical Decision Making: Reviewed Test Results, Independent Historian Assessment, Test Interpretation and Review of Case with other Provider
EKG: Tracing Personally Visualized and interpreted and Report Reviewed by me
Echo: Tracing Personally Visualized and interpreted and Report Reviewed by me
X-Ray/CT/US/MRI/NUC/PET: Image Personally Visualized and interpreted and Report Reviewed by me
Medical Tests (PFT, Pathology etc): Image Personally Visualized and interpreted and Report Reviewed by me
Labs: Labs Reviewed by me
Old Records: Reviewed
--- NOTE | 2023-12-21 09:52 | W.DS.TRANS ---
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
-
Discharge Instructions:
Discharge Diagnosis/Procedures Angioplasty with stent to LAD and Diagonal
artery
Diet Low Cholesterol
Driving Restrictions No driving for 24 hours
Other Services Cardiac Rehab
Instructions:
Stand-Alone Forms: DC Instructions- Cath/EP Lab
Changes to Home Medications: Yes
Discharge Medications:
DC Medications w/original date entered in [facility]
losartan 50 mg tablet 50 mg PO BID Blood pressure 03/17/13
ascorbic acid (vitamin C) 500 mg tablet (Vitamin C) 1,000 mg PO DAILY Supplement 04/14/19
cholecalciferol (vitamin D3) 25 mcg (1,000 unit) capsule (Vitamin D3) 1,000 unit PO DAILY Supplement 04/14/19
cyanocobalamin (vitamin B-12) 1,000 mcg capsule 1,000 mcg PO DAILY Supplement 04/14/19
cetirizine 10 mg tablet 10 mg PO QPM Allergies 09/06/21
atenolol 25 mg tablet 25 mg PO BID Blood Pressure 07/05/23
potassium chloride 10 mEq tablet,extended release 10 meq PO BID Electrolyte Repletion 07/05/23
therapeutic multivitamin 1 tab PO DAILY Supplement 12/20/23
aspirin 81 mg chewable tablet (Children's Aspirin) 81 mg PO DAILY #7 tabs 12/21/23
atorvastatin 20 mg tablet 20 mg PO Q48H High cholesterol #0 tabs 12/21/23
clopidogrel 75 mg tablet 75 mg PO DAILY #30 tabs 12/21/23
diltiazem HCl 120 mg capsule,extended release 24 hr 120 mg PO DAILY #30 caps 12/21/23
furosemide 20 mg tablet 40 mg (2 x 20 mg) PO BID Fluid Retention/Swelling #120 tabs 12/21/23
pantoprazole 40 mg tablet,delayed release 40 mg PO DAILY #30 tabs 12/21/23
rivaroxaban 15 mg tablet (Xarelto) 15 mg PO QPM #30 tabs 12/21/23
Home Medication Changes
ASA 81/Plavix 75/ Xarelto 15mg daily x one week then stop ASA and continue Plavix 75/Xarelto 15mg for 12 months. After then resume Xarelto 20mg and use ASA 81mg instead of Plavix.
Protonix replacing omeprazole
Lasix dose increased
Pending Results: No
--- NOTE | 2023-12-21 10:12 | CM ---
Reviewed chart. Met with Mr. Clarke to review discharge plans. He states prior to admission he resides alone in a multi -level home with six steps to enter. He states his spouse is at [facility]. He states he has a full flight of
steps to get to bedroom. He states he has a full bathroom on each level. He states prior to admission he was independent with ambulation and adls. He states he has a CPAP Machine at home and no other DME. He states he has a prescription plan.
Medical work-up in progress. The discharge plan is to return home when medically stable.
[2023-12-21] MEDS: NSS IV (11:23)
--- NOTE | 2023-12-21 11:28 | PTCARENOTE ---
Pt oob ad reji in the room. Denies any chest pain or sob. Right rad and groin sites dressings dry and intact with no hematoma. Pt discharged to home with a friend. Discharge instructions given and reviewed with good understanding.
== END 2023-12-21 11:32 | disposition home or self-care (01) | DRG 321 ==
LOC: IVU 12:54
PROVIDERS: ADMITTING PHYSICIAN Internal Medicine; CONSULT PHYSICIAN Internal Medicine Cardiovascular Disease; EMERGENCY PHYSICIAN Student in an Organized Health Care Education/Training Program; FAMILY PHYSICIAN Student in an Organized Health Care Education/Training Program
PROC: B2111ZZ Fluoroscopy of Multiple Coronary Arteries using Low Osmolar Contrast (ICD-10-PCS; 2023-12-20)
PROC: 4A023N8 Measurement of Cardiac Sampling and Pressure, Bilateral, Percutaneous Approach (ICD-10-PCS; 2023-12-20)
PROC: 027135Z Dilation of Coronary Artery, Two Arteries with Two Drug-eluting Intraluminal Devices, Percutaneous Approach (ICD-10-PCS; 2023-12-20)
PROC: 5A09357 Assistance with Respiratory Ventilation, Less than 24 Consecutive Hours, Continuous Positive Airway Pressure (ICD-10-PCS; 2023-12-20)
PROC: 4A033BC Measurement of Arterial Pressure, Coronary, Percutaneous Approach (ICD-10-PCS; 2023-12-20)
DX: I25.110 Atherosclerotic heart disease of native coronary artery with unstable angina pectoris (principal); I50.31 Acute diastolic (congestive) heart failure; I11.0 Hypertensive heart disease with heart failure; I48.0 Paroxysmal atrial fibrillation; K21.9 Gastro-esophageal reflux disease without esophagitis; I42.1 Obstructive hypertrophic cardiomyopathy; E78.2 Mixed hyperlipidemia; G47.33 Obstructive sleep apnea (adult) (pediatric); R91.1 Solitary pulmonary nodule; D64.9 Anemia, unspecified; I27.20 Pulmonary hypertension, unspecified; Z79.01 Long term (current) use of anticoagulants; Z79.899 Other long term (current) drug therapy
CPT/HCPCS: 71046; 80048; 80053; 80061; 82728; 83540; 83550; 83880; 84443; 84484; 85025; 85347; 85610; 85730; 93005; 93460; 93571; 94660; 99285; C1725; C1769; C1874; C1894; C9600; C9601; Q9967

== ENCOUNTER → 2024-01-03 10:10 | Outpatient (REF) | payer MEDICARE, SELFPAY ==
[2024-01-03 12:01] LABS: Blood Urea Nitrogen 21 mg/dl (9-20); Calcium 9.5 mg/dl (8.4-10.2); Carbon Dioxide 31 mmol/L (22-30); Chloride 99 mmol/L (98-107); Glucose 132 mg/dl (70-99); Potassium 3.6 mmol/L (3.5-5.1); Sodium 140 mmol/L (135-145); eGFR > 60.00
== END ==
LOC: REG 10:10
PROVIDERS: ATTENDING PHYSICIAN Nurse Practitioner; FAMILY PHYSICIAN Student in an Organized Health Care Education/Training Program
DX: I25.10 Atherosclerotic heart disease of native coronary artery without angina pectoris (principal); I50.32 Chronic diastolic (congestive) heart failure
CPT/HCPCS: 36415; 80048

== ENCOUNTER → 2024-01-24 09:59 | Outpatient (REF) | payer MEDICARE, SELFPAY | LOC: RAD 09:59 | PROVIDERS: ATTENDING PHYSICIAN Student in an Organized Health Care Education/Training Program | DX: M79.89 Other specified soft tissue disorders (principal) | CPT/HCPCS: 93970 ==

== ENCOUNTER → 2024-01-31 14:12 | Outpatient (REF) | payer MEDICARE, SELFPAY ==
[2024-01-31 14:48] LABS: % Basophils 0.7 % (0-2); % Eosinophils 3.4 % (0-6); % Immature Granulocytes 0.5 % (0-0.5); % Lymphocytes 18.5 % (20.5-51.1); % Neutrophils 64.9 % (42.2-75.2); Absolute Basophils 0.1 10^3/uL (0-0.2); Absolute Eosinophils 0.3 10^3/uL (0-0.7); Absolute Lymphocytes 1.5 10^3/uL (1.2-3.4); Absolute Neutrophils 5.4 10^3/uL (1.4-6.5); Hematocrit 30.8 % (39.0-52.0); Hemoglobin 10.1 g/dL (13.0-18.0); Mean Corp Hgb Conc. 32.8 g/dL (33.0-37.0); Mean Corpuscular Hgb 26.5 pg (27.0-31.0); Mean Corpuscular Volume 80.8 fL (80.0-94.0); Nucleated Red Blood Cells % 0 % (-); Platelet Count 199 10^3/uL (130-400); Red Blood Cell Count 3.81 10^6/uL (4.70-6.10); Red Cell Dist. Width 16.5 % (11.5-14.5); White Blood Cell Count 8.3 10^3/uL (4.8-10.8)
[2024-01-31 15:33] LABS: Blood Urea Nitrogen 23 mg/dl (9-20); Calcium 9.6 mg/dl (8.4-10.2); Carbon Dioxide 28 mmol/L (22-30); Chloride 98 mmol/L (98-107); Glucose 112 mg/dl (70-99); Sodium 137 mmol/L (135-145); eGFR > 60.00
== END ==
LOC: RCS 14:12
PROVIDERS: ATTENDING PHYSICIAN Internal Medicine Cardiovascular Disease; FAMILY PHYSICIAN Student in an Organized Health Care Education/Training Program
DX: I48.0 Paroxysmal atrial fibrillation (principal); D64.9 Anemia, unspecified; I50.32 Chronic diastolic (congestive) heart failure; I25.10 Atherosclerotic heart disease of native coronary artery without angina pectoris
CPT/HCPCS: 36415; 80048; 85025; 93005

== ENCOUNTER 2024-02-13 16:58 | Outpatient (RCR) | payer MEDICARE, SELFPAY | END 2024-02-13 23:59 | disposition home or self-care (01) | LOC: CRHB 16:58 | PROVIDERS: ATTENDING PHYSICIAN Internal Medicine Cardiovascular Disease | DX: I25.10 Atherosclerotic heart disease of native coronary artery without angina pectoris (principal); Z95.5 Presence of coronary angioplasty implant and graft | CPT/HCPCS: G0422; G0423 ==

== ENCOUNTER 2024-03-14 16:11 | Outpatient (RCR) | payer MEDICARE, SELFPAY | END 2024-03-14 23:59 | disposition home or self-care (01) | LOC: CRHB 16:11 | PROVIDERS: ATTENDING PHYSICIAN Internal Medicine Cardiovascular Disease | DX: I25.10 Atherosclerotic heart disease of native coronary artery without angina pectoris (principal); Z95.5 Presence of coronary angioplasty implant and graft | CPT/HCPCS: G0422; G0423 ==

== ENCOUNTER → 2024-03-20 14:27 | Outpatient (REF) | payer MEDICARE, SELFPAY ==
[2024-03-20 15:45] LABS: % Basophils 0.5 % (0-2); % Eosinophils 3.8 % (0-6); % Immature Granulocytes 0.4 % (0-0.5); % Lymphocytes 13.7 % (20.5-51.1); % Monocytes 9.1 % (1.7-9.3); % Neutrophils 72.5 % (42.2-75.2); Absolute Basophils 0.1 10^3/uL (0-0.2); Absolute Eosinophils 0.4 10^3/uL (0-0.7); Absolute Lymphocytes 1.4 10^3/uL (1.2-3.4); Absolute Monocytes 0.9 10^3/uL (0.1-0.6); Absolute Neutrophils 7.2 10^3/uL (1.4-6.5); Hematocrit 37.3 % (39.0-52.0); Hemoglobin 12.4 g/dL (13.0-18.0); Mean Corp Hgb Conc. 33.2 g/dL (33.0-37.0); Mean Corpuscular Volume 87.4 fL (80.0-94.0); Mean Platelet Volume 10.1 fL (7.4-10.4); Nucleated Red Blood Cells % 0 % (-); Platelet Count 198 10^3/uL (130-400); Red Blood Cell Count 4.27 10^6/uL (4.70-6.10); Red Cell Dist. Width 18.9 % (11.5-14.5); White Blood Cell Count 9.9 10^3/uL (4.8-10.8)
[2024-03-20 16:14] LABS: Iron 71 ug/dl (49-181)
[2024-03-20 16:24] LABS: Percent Saturation 17 % (20-50); Total Iron Binding Capacity 399 ug/dl (261-462)
[2024-03-20 16:50] LABS: Ferritin 53.1 ng/ml (17.9-464.0)
== END ==
LOC: REG 14:27
PROVIDERS: ATTENDING PHYSICIAN Student in an Organized Health Care Education/Training Program
DX: D50.9 Iron deficiency anemia, unspecified (principal)
CPT/HCPCS: 36415; 82728; 83540; 83550; 85025

== ENCOUNTER 2024-03-31 16:14 | Outpatient (RCR) | payer MEDICARE, SELFPAY | END 2024-03-31 23:59 | disposition home or self-care (01) | LOC: CRHB 16:14 | PROVIDERS: ATTENDING PHYSICIAN Internal Medicine Cardiovascular Disease | DX: I25.10 Atherosclerotic heart disease of native coronary artery without angina pectoris (principal); Z95.5 Presence of coronary angioplasty implant and graft | CPT/HCPCS: G0422; G0423 ==

== ENCOUNTER → 2024-04-08 06:47 | Outpatient (REF) | payer MEDICARE, SELFPAY ==
[2024-04-08 11:03] LABS: % Basophils 0.7 % (0-2); % Eosinophils 5.5 % (0-6); % Immature Granulocytes 0.2 % (0-0.5); % Lymphocytes 13.1 % (20.5-51.1); % Monocytes 6.8 % (1.7-9.3); % Neutrophils 73.7 % (42.2-75.2); Absolute Basophils 0.1 10^3/uL (0-0.2); Absolute Eosinophils 0.5 10^3/uL (0-0.7); Absolute Lymphocytes 1.2 10^3/uL (1.2-3.4); Absolute Monocytes 0.6 10^3/uL (0.1-0.6); Absolute Neutrophils 6.5 10^3/uL (1.4-6.5); Hemoglobin 14.4 g/dL (13.0-18.0); Mean Corp Hgb Conc. 32.7 g/dL (33.0-37.0); Mean Corpuscular Hgb 28.5 pg (27.0-31.0); Mean Platelet Volume 9.9 fL (7.4-10.4); Nucleated Red Blood Cells % 0 % (-); Platelet Count 233 10^3/uL (130-400); Red Blood Cell Count 5.06 10^6/uL (4.70-6.10); Red Cell Dist. Width 17.3 % (11.5-14.5); White Blood Cell Count 8.8 10^3/uL (4.8-10.8)
[2024-04-08 12:14] LABS: ALT (SGPT) 29 U/L (0-50); AST (SGOT) 39 U/L (17-59); Albumin 4.7 g/dl (3.5-5.0); Alkaline Phosphatase 100 U/L (38-126); Blood Urea Nitrogen 19 mg/dl (9-20); Calcium 9.7 mg/dl (8.4-10.2); Carbon Dioxide 33 mmol/L (22-30); Chloride 95 mmol/L (98-107); Glucose 133 mg/dl (70-99); Potassium 4.1 mmol/L (3.5-5.1); Sodium 141 mmol/L (135-145); Total Bilirubin 1.7 mg/dl (0.2-1.3); Total Protein 7.7 g/dl (6.3-8.2); eGFR > 60.00
[2024-04-08 12:23] LABS: NT-proBNP 1460 pg/ml
== END ==
LOC: RCS 06:47
PROVIDERS: ATTENDING PHYSICIAN Internal Medicine Cardiovascular Disease; FAMILY PHYSICIAN Student in an Organized Health Care Education/Training Program
DX: R06.09 Other forms of dyspnea (principal); I25.10 Atherosclerotic heart disease of native coronary artery without angina pectoris; I50.32 Chronic diastolic (congestive) heart failure; I42.2 Other hypertrophic cardiomyopathy; I48.0 Paroxysmal atrial fibrillation
CPT/HCPCS: 36415; 78452; 80053; 83880; 85025; 93017; A9500; J2785

== ENCOUNTER 2024-04-28 16:40 | Outpatient (RCR) | payer MEDICARE, SELFPAY | END 2024-04-28 23:59 | disposition home or self-care (01) | LOC: CRHB 16:40 | PROVIDERS: ATTENDING PHYSICIAN Internal Medicine Cardiovascular Disease | DX: I25.10 Atherosclerotic heart disease of native coronary artery without angina pectoris (principal); Z95.5 Presence of coronary angioplasty implant and graft | CPT/HCPCS: G0422; G0423 ==

== ENCOUNTER → 2024-04-29 08:03 | Outpatient (REF) | payer MEDICARE, SELFPAY | LOC: RCS 08:03 | PROVIDERS: ATTENDING PHYSICIAN Internal Medicine Cardiovascular Disease; FAMILY PHYSICIAN Student in an Organized Health Care Education/Training Program | DX: I42.2 Other hypertrophic cardiomyopathy (principal); I50.9 Heart failure, unspecified | CPT/HCPCS: 93306 ==

== ENCOUNTER → 2024-04-30 11:53 | Outpatient (REF) | payer MEDICARE, SELFPAY ==
[2024-04-30 14:19] LABS: Iron 114 ug/dl (49-181)
[2024-04-30 14:28] LABS: Percent Saturation 28 % (20-50); Total Iron Binding Capacity 404 ug/dl (261-462)
[2024-04-30 14:45] LABS: Ferritin 70.1 ng/ml (17.9-464.0)
== END ==
LOC: REG 11:53
PROVIDERS: FAMILY PHYSICIAN Student in an Organized Health Care Education/Training Program
DX: D50.9 Iron deficiency anemia, unspecified (principal)
CPT/HCPCS: 36415; 82728; 83540; 83550

== ENCOUNTER 2024-05-21 17:22 | Outpatient (RCR) | payer MEDICARE, SELFPAY | END 2024-05-21 23:59 | disposition home or self-care (01) | LOC: CRHB 17:22 | PROVIDERS: ATTENDING PHYSICIAN Internal Medicine Cardiovascular Disease; FAMILY PHYSICIAN Student in an Organized Health Care Education/Training Program | DX: I25.10 Atherosclerotic heart disease of native coronary artery without angina pectoris (principal); Z95.5 Presence of coronary angioplasty implant and graft | CPT/HCPCS: G0422; G0423 ==

== ENCOUNTER → 2024-05-27 12:06 | Outpatient (REF) | payer MEDICARE, SELFPAY ==
[2024-05-27 13:04] LABS: ALT (SGPT) 25 U/L (0-50); AST (SGOT) 38 U/L (17-59); Albumin 4.4 g/dl (3.5-5.0); Alkaline Phosphatase 88 U/L (38-126); Blood Urea Nitrogen 13 mg/dl (9-20); Carbon Dioxide 28 mmol/L (22-30); Chloride 100 mmol/L (98-107); Glucose 161 mg/dl (70-99); Potassium 3.9 mmol/L (3.5-5.1); Sodium 140 mmol/L (135-145); Total Bilirubin 1.3 mg/dl (0.2-1.3); Total Protein 7.2 g/dl (6.3-8.2); eGFR > 60.00
== END ==
LOC: REG 12:06
PROVIDERS: ATTENDING PHYSICIAN Internal Medicine Cardiovascular Disease; FAMILY PHYSICIAN Student in an Organized Health Care Education/Training Program
DX: I50.32 Chronic diastolic (congestive) heart failure (principal)
CPT/HCPCS: 36415; 80053

== ENCOUNTER 2024-06-15 11:45 | Emergency (ER) | payer MEDICARE, SELFPAY ==
[2024-06-15 12:06] VITALS: BP 182/85
--- NOTE | 2024-06-15 12:08 | ED.GENMED ---
History of Present Illness
General
Chief Complaint: Swallowing Problem
Time Seen by Provider: 06/15/24 12:08
History of Present Illness
History of Present Illness:
TIME OF INITIAL ENCOUNTER: 12:10 PM
HPI: The patient presents due to sensation of retained pill as he points to his anterior neck. He took a bigger than typical pill of zinc. He is able to clear his secretions and has no trouble swallowing. He has no trouble breathing.
EXAM:
GENERAL: Well appearing in no distress
HEENT: Moist oral mucosa, no evidence of foreign body to the posterior oropharynx, no palpable anterior neck mass
NEUROLOGIC: Excellent strength all extremities, no obvious coordination deficits
PSYCHIATRIC: Appropriate mental status, normal insight and judgement
EXTREMITIES: Nontender, no edema, moves all extremities equally
SKIN: No rash, no lesions
NUMBER AND COMPLEXITY OF PROBLEMS ADDRESSED AT THE ENCOUNTER
� Chronic conditions affecting care: A-fib, CHF, high blood pressure
� Acute Exacerbation and/or Progression of Chronic Illness: This is an acute problem
� Differential Diagnosis includes: Pill esophagitis
AMOUNT AND/OR COMPLEXITY OF DATA TO BE REVIEWED AND ANALYZED
� I performed an independent evaluation of and my interpretation is:
EKG:
CT:
X-rays:
Laboratory Studies:
Other:
� Review of other/old records: I reviewed records, the patient has been getting outpatient cardiac rehab
� Clinical information was obtained by an independent historian: None needed
� Prescriptions/Medications Considered but not given:
� Further testing considered but not performed: Considered imaging as the patient's pill may be radiopaque (Zinc) however GI did not feel this was necessary
RISK OF COMPLICATIONS AND/OR MORBIDITY OR MORTALITY OF PATIENT MANAGEMENT
� Social determinants of health affecting care: Lives at home
� Discussion with other providers: Discussed case with Dr. Garcia, covering for GI, who recommends Nexium in powder form
� Escalation of care including admission/observation vs risk of discharge considered: The patient is clearing his secretions and has no trouble drinking water here. Discussed with GI.
ANY OTHER UPDATES:
Just prior to discharge, the patient now reports no further symptoms and does not feel that he needs to follow-up with GI.
Past History
Past History
ED Past Medical History: Arrthythmia (Atrial fibrillation), GERD, HTN and Other (Colitis)
ED Past Surgical History: Appendectomy, Cardiac (Catheterization 2005) and Other (Noncontributory)
Social History
Tobacco: Non-smoker
Alcohol: Occasional
Drug: None
Personal:
Living: with family
Employment: Employed
Family History
Family History: Other (Noncontributory)
Phy Exam
Physical Exam
Physical Exam:
See HPI
Course
Vital Signs
Initial and Last Documented VS:
Initial Vital Signs
Temp Pulse Resp BP Pulse Ox
36.7 C 60 16 182/85 98
06/15/24 12:06 06/15/24 12:06 06/15/24 12:06 06/15/24 12:06 06/15/24 12:06
Last Documented Vital Signs
Temp Pulse Resp BP Pulse Ox
36.7 C 60 16 182/85 96
06/15/24 12:06 06/15/24 12:06 06/15/24 12:06 06/15/24 12:06 06/15/24 12:06
*Critical Care Note
Total Time (30-74mins, 75-104mins- exclusive of procedures): Not Applicable
ED Attending Note
-
Portions of this chart may have been created with voice recognition software.� Occasional wrong word or��sound alike� substitutions may have occurred due to the inherent limitations of voice recognition software.
Discharge Plan
Departure
Patient Disposition: Home (Routine Discharge)
Date of Disposition: 06/15/24
Time of Disposition: 12:29
Patient with high blood pressure during this ER visit?: Yes
Discharge Problem:
Pill esophagitis
Instructions: Esophagitis
Prescriptions:
New
esomeprazole magnesium [Nexium Packet] [address] for susp in packet
40 mg PO DAILY Qty: 14 0RF
No Action
losartan 50 MG tablet
50 mg PO BID
ascorbic acid (vitamin C) [Vitamin C] 500 MG tablet
1,000 mg PO DAILY
cholecalciferol (vitamin D3) [Vitamin D3] 1,000 UNIT capsule
1,000 unit PO DAILY
cyanocobalamin (vitamin B-12) 1,000 MCG capsule
1,000 mcg PO DAILY
cetirizine 10 MG tablet
10 mg PO QPM
atenolol 25 mg Tablet
25 mg PO BID
potassium chloride 10 mEq Tablet Extended Release
10 meq PO BID
therapeutic multivitamin Tablet
1 tab PO DAILY
aspirin [Children's Aspirin] 81 mg Tablet,Chewable
81 mg PO DAILY Qty: 7 0RF
diltiazem HCl 120 mg Capsule,Extended Release 24hr
120 mg PO DAILY Qty: 30 0RF
clopidogrel 75 mg Tablet
75 mg PO DAILY Qty: 30 0RF
pantoprazole 40 mg Tablet,Delayed Release (Dr/Ec)
40 mg PO DAILY Qty: 30 0RF
Xarelto 15 mg Tablet
15 mg PO QPM Qty: 30 0RF
atorvastatin 20 MG tablet
20 mg PO Q48H Qty: 0 0RF
Rx Instructions:
Resume after two weeks holiday on 12/30/23
furosemide 20 MG tablet
40 mg PO BID Qty: 120 0RF
Referrals:
Tony Garcia MD [Active] - Follow up in 2-3 days
Activity Restrictions/Additional Instructions:
I notified Dr. Wise, the on-call doctor with GI. She recommends that we prescribe Nexium and powdered form�I sent a prescription for this to your pharmacy. The sensation should continue to improve over the next several days could take over a
week to completely go away. Return here if worse or any other concerns.
Interventions
Interventions:
*Risk Screen - Suicide Last Done: 06/15/24 12:06
*General Assessment Last Done: 06/15/24 12:06
*Neglect/Abuse Screening Last Done: 06/15/24 12:06
*ED COVID-19 Vaccine History Last Done: 06/15/24 12:06
*Nursing Disposition Last Done: 06/15/24 12:45
LQ-Oqufod-Fcwodorctm Assessment Last Done: 06/15/24 12:16
ED- Pulmonary Assessment Last Done: 06/15/24 12:06
ED- Neurological Assessment Last Done: 06/15/24 12:06
ED-EENT Assessment Last Done: 06/15/24 12:16
ED Swallowing Screen Last Done: 06/15/24 12:06
Discharge Date and Time
Discharge Date/Time: 06/15/24 12:45
Print Language: MALTESE
== END 2024-06-15 12:45 | disposition home or self-care (01) ==
LOC: EMR 11:45
PROVIDERS: EMERGENCY PHYSICIAN Emergency Medicine; FAMILY PHYSICIAN Student in an Organized Health Care Education/Training Program
DX: K20.80 Other esophagitis without bleeding (principal); I48.91 Unspecified atrial fibrillation; I11.0 Hypertensive heart disease with heart failure; I50.9 Heart failure, unspecified; Z90.49 Acquired absence of other specified parts of digestive tract
CPT/HCPCS: 99282

== ENCOUNTER 2024-09-04 23:07 | Inpatient (IN) | payer MEDICARE, SELFPAY ==
[2024-09-04 21:01] VITALS: BMI 26.6
[2024-09-04 21:03] VITALS: BP 151/82
[2024-09-04 21:16] LABS: % Basophils 0.6 % (0-2); % Eosinophils 4.5 % (0-6); % Immature Granulocytes 0.4 % (0-0.5); % Monocytes 9.6 % (1.7-9.3); % Neutrophils 65.9 % (42.2-75.2); Absolute Basophils 0.1 10^3/uL (0-0.2); Absolute Eosinophils 0.4 10^3/uL (0-0.7); Absolute Lymphocytes 1.5 10^3/uL (1.2-3.4); Absolute Monocytes 0.8 10^3/uL (0.1-0.6); Absolute Neutrophils 5.3 10^3/uL (1.4-6.5); Hematocrit 45.1 % (39.0-52.0); Hemoglobin 14.7 g/dL (13.0-18.0); Mean Corp Hgb Conc. 32.6 g/dL (33.0-37.0); Mean Corpuscular Hgb 30.8 pg (27.0-31.0); Mean Corpuscular Volume 94.5 fL (80.0-94.0); Mean Platelet Volume 10.1 fL (7.4-10.4); Nucleated Red Blood Cells % 0 % (-); Platelet Count 156 10^3/uL (130-400); Red Blood Cell Count 4.77 10^6/uL (4.70-6.10); Red Cell Dist. Width 14.5 % (11.5-14.5); White Blood Cell Count 8.1 10^3/uL (4.8-10.8)
[2024-09-04 21:25] LABS: INR 2.98; PT 31.4 Sec (11.4-14.6)
[2024-09-04 21:26] LABS: APTT 49.6 Sec (23.4-35.0)
--- NOTE | 2024-09-04 21:36 | ED.GENMED ---
History of Present Illness
General
Chief Complaint: Chest Pain
Source: patient and records
Exam Limitations: none
Time Seen by Provider: 09/04/24 21:01
Nursing documentation reviewed up to this point in time: agreed with
History of Present Illness
History of Present Illness:
89-year-old male PAF CAD on Xarelto on Plavix believes he went into A-fib 3 days ago when he was in [facility] has had fatigue some shortness of breath dizziness, irregular rates but not fast nor particularly slow no fevers he has had leg
edema no weight gain takes a diuretic, similar symptoms when he required a stent previously, he has had cardioversions previously has not anything since 12 noon has not missed any doses of his Xarelto
Past History
Past History
ED Past Medical History: Arrthythmia (Atrial fibrillation), GERD, HTN and Other (Colitis)
ED Past Surgical History: Appendectomy, Cardiac (Catheterization 2005) and Other (Noncontributory)
Social History
Tobacco: Non-smoker
Alcohol: Occasional
Drug: None
Personal:
Living: with family
Employment: Employed
Family History
Family History: Other (Noncontributory)
Phy Exam
Physical Exam
Physical Exam:
Physical Exam
General: 89 male mild distress
Neck: No jaundice
Heart: Irregular
Lungs: Bibasilar crackles
Neuro: alert and oriented. no focal neurological deficits
Skin: no rash
Psychiatric: well kept. interactive and cooperative
Extremities: Lower extremity edema is present
Scores
Heart Failure Risk
Heart Failure Risk Score: Yes
History of Stroke or TIA: No
History of intubation for respiratory distress: No
Heart rate on ED arrival >/= 110: No
SaO2 <90% on arrival on room air: No
HR >/=110 during 3min walk test (or too ill to perform test): Yes
ECG has acute ischemic changes: No
Urea >/=12mmol/L (BUN 33.6mg/dL): No
Serum CO2>/=35mmol/L: No
Troponin I or T elevated to SD Level (0.4mg/dL): No
NT-proBNP >/=5,000ng/L (5,000pg/ml): No
HF Risk Score: 2
Admission Status: MEDIUM RISK 9.2% Consider observation or discharge to home with homecare & f/u visit to PCP/[place], or SNF for treatment
Heart Score for Chest Pain Patients
STEMI patient?: No
History: Slightly or Non-Suspicious
ECG: Nonspecific Repolarization
Age: >/= 65 years
Risk Factors: >/= 3 Risk Factors or History of CAD
Troponin: </= Normal Limit
Heart Score for Chest Pain Patients: 5
Heart Score Risk: 20.3% MACE over next 6 weeks
Course
Orders/Labs/Results
Orders:
Orders
09/04/24 20:59
Electrocardiogram (*1) Urgent
Reason for Study: Chest Pain
CXR2 [CR Chest - 2 Views ] Urgent
Comment:
Reason For Exam: cp
09/04/24 21:00
EKG- Treatment ONCE
09/04/24 21:03
Complete Blood Count/With Diff Urgent
Comprehensive Metabolic Panel Urgent
NT-proBNP Urgent
Comment: ADD ON
PTT Urgent
Prothrombin Time Urgent
Troponin I Urgent
09/04/24 21:17
Add On- LAB Urgent
Comments:: BNP
Tests Added?: BNP
09/04/24 22:11
Furosemide [Lasix] 60 mg IV NOW STA
09/04/24 22:36
Admit/Transfer Patient As Directed
Co-Sign Provider:
Level of Care: Inpatient admission
Assign to:: IVU
Physician / Group: brit reynolds
Diagnosis: Acute CHF, asymptomatic bradycardia
Reason for Hospitalization: Acute CHF, asymptomatic bradycardia
Expected length of stay greater than two midnights?: Yes
ELOS- Estimated Length of Stay in days: 4
I certify the patient meets the requirements for IP care: Yes
09/04/24 22:40
PRN Pain Medication Management As Directed
May give lesser potent ordered pain med per pt: Yes
preference::
Protocol:: Medication orders for pain may be administered in a
manner that supports deferring to patient preference
when the pt is:
- Requesting an ordered lesser potent pain medication.
Least to most potent pain medications are defined
as: acetaminophen < NSAID < tramadol < opioids
(morphine, oxycodone, hydromorphone).
- Requesting a lesser dose of the same medication IF
ORDERED.
- Requesting a less intrusive route of administration
if both routes are prescribed by the provider (PO <
IV).
09/05/24 00:03
Artificial Tears (Pf) [Refresh Eye Drops (Pf)] 1 drops OPHTH QIDPRN PRN
09/05/24 00:03
Consult Cardiology [CARDIOLOGY CONSULT] Routine
Consulting Provider: Jorje Araujo
Was physician already notified: Yes
Reason for consult: chf
Troponin I Urgent
Cpap [RESP] Routine
Patient to use own unit?: No
Set Pressure (cm H2O): 10
Instructions: full mask
09/05/24 03:00
Troponin I Urgent
09/05/24 08:00
Ascorbic Acid [Vitamin C] 1,000 mg PO DAILY
Atorvastatin [Lipitor] 20 mg PO Q48H
Cholecalciferol (Vitamin D3) [VITAMIN D3 (cholecalciferol)] 25 mcg PO DAILY
Clopidogrel Bisulfate [Plavix] 75 mg PO DAILY
Cyanocobalamin [Vitamin B-12] 1,000 mcg PO DAILY
Dapagliflozin [Farxiga] 5 mg PO DAILY
Ferrous Sulfate [Feosol] 325 mg PO BID
Furosemide [Lasix] 40 mg IV BID AT 0800,1600
Multivitamin [Theragran] 1 tablet PO DAILY
Pantoprazole [Protonix] 40 mg PO DAILY
Sacubitril 24/Valsartan 26 [Entresto 24 mg/26 mg] 1 tab PO BID
Zinc 50mg (Zinc Sulfate 220mg) [Zinc] 50 mg PO DAILY
09/05/24 22:00
Cetirizine HCl [Zyrtec] 10 mg PO HS
Rivaroxaban [Xarelto] 15 mg PO HS
Abnormal Lab Results
09/04/24
21:03
MCV 94.5 H fL
(80.0-94.0)
MCHC 32.6 L g/dL
(33.0-37.0)
Absolute Monos (auto) 0.8 H 10^3/uL
(0.1-0.6)
Lymphocytes % 19.0 L %
(20.5-51.1)
Monocytes % 9.6 H %
(1.7-9.3)
PT 31.4 H Sec
(11.4-14.6)
APTT 49.6 H Sec
(23.4-35.0)
Carbon Dioxide 33 H mmol/L
(22-30)
Glucose 141 H mg/dl
(70-99)
Total Bilirubin 2.2 H mg/dl
(0.2-1.3)
09/04/24 21:03
09/04/24 21:03
Vital Signs
Initial and Last Documented VS:
Initial Vital Signs
Temp Pulse Resp BP Pulse Ox
98.4 F 73 18 151/82 96
09/04/24 21:03 09/04/24 21:03 09/04/24 21:03 09/04/24 21:03 09/04/24 21:03
Last Documented Vital Signs
Temp Pulse Resp BP Pulse Ox
98.4 F 56 17 136/90 91
09/04/24 21:03 09/04/24 23:30 09/04/24 23:30 09/04/24 23:00 09/04/24 23:30
MDM/Problems Addressed
Differential Diagnosis Includes:
A-fib heart failure ACS electrolyte abnormality less likely infection
MDM/Problems Addressed:
Shortness of breath/AF/dizzy
Chronic conditions affecting care: CAD, Cardiomyopathy and Arrhythmia
Acute Exacerbation and/or Progression of Chronic Illness: CAD, Cardiomyopathy and Arrhythmia
*Radiology
Radiology exam reviewed: preliminary read by ED provider
*Pulse Oximetry
Patient hypoxic: no
*EKG
Interpreted by ED Provider?: Yes
Interpretation: normal
Comparison EKG: changes noted
Heart Rate: 78
*Critical Care Note
Total Time (30-74mins, 75-104mins- exclusive of procedures): Not Applicable
ED Attending Note
-
Portions of this chart may have been created with voice recognition software.� Occasional wrong word or��sound alike� substitutions may have occurred due to the inherent limitations of voice recognition software.
Discharge Plan
Departure
Patient Disposition: Admit
Date of Disposition: 09/04/24
Time of Disposition: 22:28
Admit to: IVU
Presentation/result/management discussed w/ accepting MD/DO: Hospitalist
Patient with high blood pressure during this ER visit?: No
Condition: Good
Discharge Problem:
Acute exacerbation of CHF (congestive heart failure), PAF (paroxysmal atrial fibrillation)
Interventions
Interventions:
*Risk Screen - Suicide Last Done: 09/04/24 21:09
*General Assessment Last Done: 09/04/24 21:09
*Neglect/Abuse Screening Last Done: 09/04/24 21:09
*ED COVID-19 Vaccine History Last Done: 09/04/24 21:09
*Nursing Disposition Last Done: 09/05/24 00:09
ED- Cardiac Assessment Last Done: 09/04/24 21:14
Discharge Date and Time
Discharge Date/Time: 09/05/24 00:10
[2024-09-04 21:37] LABS: ALT (SGPT) 39 U/L (0-50); AST (SGOT) 55 U/L (17-59); Albumin 4.1 g/dl (3.5-5.0); Alkaline Phosphatase 85 U/L (38-126); Blood Urea Nitrogen 20 mg/dl (9-20); Calcium 9.3 mg/dl (8.4-10.2); Carbon Dioxide 33 mmol/L (22-30); Chloride 98 mmol/L (98-107); Estimated Creatinine Clearance 74 ml/min; Glucose 141 mg/dl (70-99); Sodium 137 mmol/L (135-145); Total Bilirubin 2.2 mg/dl (0.2-1.3); Total Protein 6.8 g/dl (6.3-8.2); eGFR > 60.00
[2024-09-04 21:43] LABS: NT-proBNP 4380 pg/ml
--- NOTE | 2024-09-04 21:43 | HPS.HSE ---
Family Physician
-
Family Physician:
Chief Complaint
-
Dizzy, nauseous, MOSHER, x 3 days
History of Present Illness
89-year-old male from home complaining of feeling short of breath with dyspnea on exertion upon mild activities like getting dressed. He also complains of increased leg edema over the past 3 days. He denies any chest pain. he was given aspirin 324
mg en route by EMS he takes both Xarelto and Plavix daily for history of A-fib and cardiac stents. He denies fever, chills, sore throat, chest pain, palpitations, cough, abdominal pain, nausea, vomiting, diarrhea, urinary symptoms.
He has past medical history of paroxysmal A-fib, CAD�cardiac stents mid and large D1 LAD lesion, angina, pulmonary HTN, hypertrophic cardiomyopathy, HTN, HLD, sleep apnea/CPAP, ex-smoker, diverticulosis/diverticulitis, hemorrhoids status post
hemorrhoidectomy, arthritis, basal cell skin CA status post removal forehead 02/2002, GERD, bilateral eye lens replacement
Medical History
Past Medical History
Past Medical History: Reports Arrhythmia (Paroxysmal atrial fibrillation), CHF (Hypertrophic cardiomyopathy), HTN and Hypercholesterolemia; Denies NIDDM
Additional Past Medical History:
Paroxysmal A-fib
HCM
Severe pulm HTN PASP 90 mmHg
Chronic heart failure
HTN
HLD
Ex-smoker
Sleep apnea�CPAP
GERD
Diverticulosis/diverticulitis
Hemorrhoids
Bilateral lens replacements eyes
Basal cell removal forehead 03/07/2002
Past Surgical History: Reports Other
Additional Past Surgical History:
Basal cell removal forehead 03/07/2002
Tonsillectomy
Hemorrhoidectomy
Ablation x 2 paroxysmal A-fib
Cardiac cath 09/2005, 01/03/2024
Successful stenting of tandem 60 and 70% mid LAD lesions using 3.0 x 18 Xience janice point SUNDEEP
Successful stenting of tandem 80% and 50% D1 stenoses using 2.25 x 23 Xience janice point SUNDEEP postdilated with 2.5 mm noncompliant balloon
Social History
Tobacco: Non-smoker
Alcohol: Occasional (2 days of week 1 glass homemade wine)
Drug: None
Personal:
Living: With Family
Family History
Family History: Not pertinent
Allergies / Home Medications
Allergies reflects when Allergies were last updated in [facility].
Home Medications with original date entered in [facility]
Allergy/Medication List:
Allergies
Allergy/AdvReac Type Severity Reaction Status Date / Time
clindamycin Allergy GERD AND Verified 09/04/24 21:01
DIARRHEA
prochlorperazine Allergy angioedema, Verified 09/04/24 21:01
anaphylaxis
Sulfa (Sulfonamide Allergy Rash Verified 09/04/24 21:01
Antibiotics)
sulfisoxazole Allergy Unknown Verified 09/04/24 21:01
Home Medications
cholecalciferol (vitamin D3) 25 mcg (1,000 unit) capsule (Vitamin D3) 1,000 unit PO DAILY Supplement 04/14/19
cyanocobalamin (vitamin B-12) 1,000 mcg capsule 1,000 mcg PO DAILY Supplement 04/14/19
cetirizine 10 mg tablet 10 mg PO QPM Allergies 09/06/21
atenolol 25 mg tablet 25 mg PO BID Blood Pressure 07/05/23
potassium chloride 10 mEq tablet,extended release 10 meq PO BID Electrolyte Repletion 07/05/23
therapeutic multivitamin 1 tab PO DAILY Supplement 12/20/23
atorvastatin 20 mg tablet 20 mg PO Q48H High cholesterol #0 tabs 12/21/23
clopidogrel 75 mg tablet 75 mg PO DAILY #30 tabs 12/21/23
diltiazem HCl 120 mg capsule,extended release 24 hr 120 mg PO DAILY #30 caps 12/21/23
furosemide 20 mg tablet 40 mg (2 x 20 mg) PO BID Fluid Retention/Swelling #120 tabs 12/21/23
ascorbic acid (vitamin C) 1,000 mg tablet (Vitamin C) 1,000 mg PO DAILY 09/04/24
coenzyme Q10 100 mg capsule (CoQ-10) 100 mg PO Q48H 09/04/24
dapagliflozin propanediol 5 mg tablet (Farxiga) 5 mg PO DAILY 09/04/24
ferrous sulfate 325 mg (65 mg iron) tablet 325 mg PO BID 09/04/24
fluticasone propionate 50 mcg/actuation nasal spray,suspension 1 spray intranasal HS 09/04/24
glucosamine sulfate 500 mg tablet (Glucosamine) 1,000 mg PO DAILY 09/04/24
omeprazole 40 mg capsule,delayed release 40 mg PO DAILY 09/04/24
peg 400-propylene glycol (PF) 0.4 %-0.3 % eye drops in a dropperette (Systane (PF)) 1 drp BOTH EYES DAILYPRN PRN dry eyes 09/04/24
rivaroxaban 15 mg tablet (Xarelto) 15 mg PO HS 09/04/24
sacubitril 24 mg-valsartan 26 mg tablet (Entresto) 1 tab PO BID 09/04/24
zinc sulfate 50 mg zinc (220 mg) tablet 50 mg PO DAILY 09/04/24
Review of Systems
-
History Source: Patient
A 12 point ROS was completed and negative except as noted: Yes
Constitutional: Reports Weight Gain; Denies Fever or Chills
EENT: Denies Sore Throat or Runny Nose
Respiratory: Reports Trouble Breathing (MOSHER); Denies Cough
Cardiac: Denies Chest Pain, Diaphoresis, Palpitations or Syncope
Abdomen/GI: Denies Abdominal Pain, Nausea, Vomiting, Diarrhea, Constipated, Bloody Stools or Black Stools
: Denies Dysuria, Frequency, Flank Pain, Incontinence, Difficulty Voiding or Urgency
Musculoskeletal: Reports Edema (+2 bilateral lower leg edema); Denies Joint Pain
Skin: Denies Itching or Rash
Neurological: Denies Dizzy, Headache or Weakness
Endocrine: Reports No Symptoms
Hematologic/Lymphatic: Reports No Symptoms
Psych: Reports Calm
Physical Exam
Vital Signs
Vital Signs
Temp Pulse Resp BP Pulse Ox
98.4 F 73 18 151/82 96
09/04/24 21:03 09/04/24 21:03 09/04/24 21:03 09/04/24 21:03 09/04/24 21:03
Physical Exam
General: Conversant; No Pain or Chills
HEENT: NormoCephalic, Anicteric, PERRLA, [place] Conjunctivae and No Ptosis
Respiratory: Rales (Right lower lung); No Wheezes or Rhonchi
Cardiac: S1/S2, Bradycardia (Heart rate 43 to 57 bpm on monitor at bedside), Peripheral Edema (+2 bilateral lower extremity) and JVD; No Murmur, Rub or Gallop
Breast: Deferred by me
GI: Soft, Non Tender, Non Distended, Normal Bowel Sounds and No Hepatosplenomegaly
Rectal: Deferred by Provider
Genito-urinary: Deferred by me
Musculoskeletal: No Clubbing, No Cyanosis, Edema, Left Lower Extremity (+2 pitting) and Edema, Right Lower Extremity (+2 pitting); No Edema, Left Upper Extremity or Edema, Right Upper Extremity
Skin: Warm and Dry; No Rash
Neuro: No Motor Deficits, Nonfocal/grossly intact, Cranial Nerves Intact and No Sensory Deficits; No Slurred Speech, Facial Droop, Tremors or Sedated
Psych: Calm
Laboratory Results
-
09/04/24 21:03
09/04/24 21:03
Laboratory Results
PT 31.4 Sec (11.4-14.6) H 09/04/24 21:03
INR 2.98 09/04/24 21:03
APTT 49.6 Sec (23.4-35.0) H 09/04/24 21:03
Total Bilirubin 2.2 mg/dl (0.2-1.3) H 09/04/24 21:03
AST 55 U/L (17-59) 09/04/24 21:03
ALT 39 U/L (0-50) 09/04/24 21:03
Alkaline Phosphatase 85 U/L (38-126) 09/04/24 21:03
Troponin I 0.020 ng/ml 09/04/24 21:03
Data Reviewed
-
Diagnostic Radiology: Report Reviewed by me
Lab Data: Labs Reviewed by me
Impression/Plan
-
Impression/plan:
Admit to IVU
# Acute on chronic heart failure
#Hypertrophic cardiomyopathy-EF 65%
Feels winded with light MOSHER, leg edema denies CP
I/O, daily weights, weight gain 4 kg/8.8 LBS past 8 months 81.5 today <77.5 kg on 12/21/2023
BNP 4380 -baseline appears 1400 last was March 2024
-IV Lasix 60 mg given in ER
-Continue IV Lasix 40 mg twice daily
-Continue Entresto 1 tab twice daily, Farxiga 5 mg daily
-Check CXR
-Trend troponins
-Consult [facility] cardiology Dr. Araujo aware
2D echo 04/29/2024: EF 65 to 70%, septal hypertrophy, bilateral atrial enlargement, mitral annular calcification with mild MR, mild to moderate TR, pulm HTN PA pressure 90 mmHg
#Asymptomatic bradycardia
Heart rate as low as 43 bpm to 57 bpm on monitor at bedside
-Hold atenolol 25 mg twice daily, diltiazem 120 mg p.o. daily
#Severe pulm HTN
PASP 90 mmHg per echo 04/29/2024
#Chronic paroxysmal A-fib
-Consult [facility] cardiology Dr. Araujo aware
#CAD
#Angina Hx
-12/20/2023 S/P PCI of an 80% large D1 lesion (Xience [place] 2.25 x 23 SUNDEEP, post dilated with a 2.5 NCB) and an obstructive 60-70% mLAD lesion (iFR = 0.84, Xience [place] 3.0 x 18 SUNDEEP, post dilated with a 3.0 NCB).
-Continue aspirin 81 mg daily, Plavix 75 mg daily, Xarelto 15 mg every afternoon
Cardiac Catheterization/PCI, 12/20/2023:
1. Elevated filling pressures with severe pulmonary hypertension
2. No evidence of significant intracardiac shunt
3. Known hypertrophic cardiomyopathy with resting gradient of 7 mmHg across the LVOT. The gradient increases minimally to 12 mmHg following PVC
4. Normal left ventricular wall motion with EF 68%
5. Single-vessel CAD as described. The mid LAD disease is flow-limiting by [employer] criteria. The first diagonal disease is angiographically severe
6. Successful stenting of tandem 60 and 70% mid LAD lesions using 3.0 x 18 Xience janice point SUNDEEP
7. Successful stenting of tandem 80% and 50% D1 stenoses using 2.25 x 23 Xience janice point SUNDEEP postdilated with 2.5 mm noncompliant balloon
#HTN�benign
BP 151/82
-Hold atenolol, diltiazem due to bradycardia
#HLD
-Check lipid profile
-Continue atorvastatin 20 mg every 48 H
#Ex-smoker
#Sleep apnea�CPAP full mask setting 10
#GERD
-Continue omeprazole 40 mg daily or equivalent
#Dry eyes
-Continue artificial tears as needed
Other PMH:
Diverticulosis/diverticulitis
Hemorrhoids
Bilateral lens replacements eyes
Basal cell removal forehead 03/07/2002
DVT prophylaxis
Continue [employer] Xarelto 15 mg every afternoon
Full code
[2024-09-04 22:00] VITALS: BP 126/74
[2024-09-04 22:33] VITALS: BP 130/80
[2024-09-04 22:35] VITALS: BP 130/80
--- NOTE | 2024-09-04 22:47 | W.PN.UPDATE ---
Update Note
Progress Note Update
This is an addendum to H&P written by April Munson on 09/04/2024. Patient seen and examined independently with [facility].
89-year-old male past medical history of paroxysmal atrial fibrillation on Xarelto status post pulmonary vein isolation,, patent [place] with [id number] shunt, CAD status post stent on Plavix, hypertrophic cardiomyopathy/HFrEF, mild to
moderate tricuspid regurgitation, pulmonary hypertension, obstructive sleep apnea on CPAP, hypertension, GERD, distant upper GI bleeding, GERD, presenting with fatigue and shortness of breath and chest pressre with minimal activity. Increased lower
extremity edema.
EKG shows atrial fibrillation heart rate of 74. Heart rate fluctuating down to 40s.
Cardiac BNP of 4300. Chest x-ray report pending. Appears similar to prior when it appeared as interstitial pulmonary fibrosis.
Patient with acute CHF exacerbation.
Trend troponins. 40 IV Lasix twice daily. Hold atenolol and Cardizem.
Cardiology consulted.
[2024-09-04 23:00] VITALS: BP 136/90
[2024-09-04] MEDS: LASIX 60 MG IV (23:03)
[2024-09-05] VITALS (8 sets, daily range): BP systolic 136–149; BP diastolic 72–99; PULSE 57; BMI 26.6; BMI 26.3
[2024-09-05 01:42] LABS: Troponin I 0.019 ng/ml
--- NOTE | 2024-09-05 01:50 | PTCARENOTE ---
Received patient from ED. Pt AAOx3, pleasant. Pt A-fib on tele, denies any chest pain or SOB. Irregular pulses. HR in the 80's. +2 pitting edema in b/l lower extremities. Pt 97% on RA. RT bedside to place pt on CPAP. Pt frequently voiding using the
urinal. Pt oriented to the unit, call oliver is within reach.
[2024-09-05 04:44] LABS: Troponin I 0.021 ng/ml
[2024-09-05] MEDS: PLAVIX 75 MG PO (08:45)
[2024-09-05] MEDS: VITAMIN C 1000 MG PO (08:45)
[2024-09-05] MEDS: PROTONIX 40 MG PO (08:45)
[2024-09-05] MEDS: VITAMIN D3 (cholecalciferol) 25 MCG PO (08:45)
[2024-09-05] MEDS: FEOSOL 325 MG PO (08:45)
[2024-09-05] MEDS: ENTRESTO 24 MG/26 MG 1 TAB PO (08:45)
[2024-09-05] MEDS: ZINC 50 MG PO (08:46)
[2024-09-05] MEDS: LASIX 40 MG IV (08:46)
[2024-09-05] MEDS: THERAGRAN 1 TABLET PO (08:46)
[2024-09-05] MEDS: FARXIGA 5 MG PO (08:46)
[2024-09-05] MEDS: VITAMIN B-12 1000 MCG PO (08:46)
--- NOTE | 2024-09-05 09:22 | CON.CAR ---
Addendum entered and electronically signed by Jaswinder Gregorio MD 09/05/24 10:17:
I saw and examined the patient.
The [employer]'s note was reviewed and I agree with the note.
Comment: 89 yo male with CAD (drug-eluting stent to tandem lesions in the mid LAD and D1 12/20/2023), hypertension, paroxysmal atrial fibrillation on Xarelto, dyslipidemia, SERGIO on CPAP and pulmonary hypertension followed by Dr. Lopes at [place], who
presents to the ER with complaints of dyspnea on exertion, fatigue and chest pressure. HE was found to have a mild CHF exacerbation and in AF.
- IV diuresis has improved symptoms feeling normal
-DCCV today
- lasix 80 mg in am and 40 mg in pm, bmp early next week Sunday/Sunday
Likely d/c after DCCV
Original Note:
Consultation
Consultation Request
Date/Time Consultation Requested: 09/05/24 12a
Date/Time Consultation Performed: 09/05/24 9a
Requesting Provider: RUFINA Pop
Performing Provider: RUFINA Triana for Dr. Gregorio
Reason for Consultation: afib, chest pressure, sob
Medical History
-
Chief Complaint: sob/david, afib
History of Present Illness:
Mr. Clarke is an 89 yo male with CAD (drug-eluting stent to tandem lesions in the mid LAD and D1 12/20/2023), hypertension, paroxysmal atrial fibrillation on Xarelto, dyslipidemia, SERGIO on CPAP and pulmonary hypertension followed by Dr. Chau at
[place], who presents to the ER with complaints of dyspnea on exertion, fatigue and chest pressure. He was out of town since Sunday and began feeling dyspnea on exertion with fatigue and checked his [employer] mobile device that showed rate controlled
A-fib. His symptoms persisted and he noted chest pressure. He got home last night and when climbing the stairs had worsened dyspnea, therefore he came to the ER for evaluation. He was noted to be in rate controlled A-fib and have mild acute HFpEF
and therefore was admitted by the hospitalist. We are consulted for acute HFpEF, rate controlled A-fib and dyspnea exertion. He currently feels well at rest. EKG shows A-fib 74 bpm, nonspecific intraventricular conduction block. His troponin
trend 0.020, 0.019, 0.021. proBNP 4380, and chest x-ray with mild CHF.
Past Medical History
Past Medical History: Other (as above)
Social History
Tobacco: Former Smoker
Alcohol: Occasional
Personal:
Living: With Family
Employment: Retired
Family History
Family History: Reviewed & Not Pertinent
Allergies / Home Medications
Allergy/AdvReac Type Severity Reaction Status Date / Time
clindamycin Allergy GERD AND Verified 09/04/24 21:01
DIARRHEA
prochlorperazine Allergy angioedema, Verified 09/04/24 21:01
anaphylaxis
Sulfa (Sulfonamide Allergy Rash Verified 09/04/24 21:01
Antibiotics)
sulfisoxazole Allergy Unknown Verified 09/04/24 21:01
�Medication �Instructions �Recorded �Confirmed �Type
cholecalciferol (vitamin D3) 25 1,000 unit PO DAILY Supplement 04/14/19 09/04/24 History
mcg (1,000 unit) capsule (Vitamin
D3)
cyanocobalamin (vitamin B-12) 1,000 mcg PO DAILY Supplement 04/14/19 09/04/24 History
1,000 mcg capsule
cetirizine 10 mg tablet 10 mg PO HS Allergies 09/06/21 09/04/24 History
atenolol 25 mg tablet 25 mg PO BID Blood Pressure 07/05/23 09/04/24 History
potassium chloride 10 mEq 10 meq PO BID Electrolyte Repletion 07/05/23 09/04/24 History
tablet,extended release
therapeutic multivitamin 1 tab PO DAILY Supplement 12/20/23 09/04/24 History
atorvastatin 20 mg tablet 20 mg PO Q48H High cholesterol #0 12/21/23 09/04/24 Rx
tabs
clopidogrel 75 mg tablet 75 mg PO DAILY #30 tabs 12/21/23 09/04/24 Rx
diltiazem HCl 120 mg 120 mg PO DAILY #30 caps 12/21/23 09/04/24 Rx
capsule,extended release 24 hr
furosemide 20 mg tablet 40 mg (2 x 20 mg) PO BID Fluid 12/21/23 09/04/24 Rx
Retention/Swelling #120 tabs
ascorbic acid (vitamin C) 1,000 mg 1,000 mg PO DAILY Supplement 09/04/24 09/04/24 History
tablet (Vitamin C)
coenzyme Q10 100 mg capsule 100 mg PO Q48H Supplement 09/04/24 09/04/24 History
(CoQ-10)
dapagliflozin propanediol 5 mg 5 mg PO DAILY Diabetes 09/04/24 09/04/24 History
tablet (Farxiga)
ferrous sulfate 325 mg (65 mg 325 mg PO BID Supplement 09/04/24 09/04/24 History
iron) tablet
fluticasone propionate 50 1 spray intranasal HS Allergies 09/04/24 09/04/24 History
mcg/actuation nasal
spray,suspension
glucosamine sulfate 500 mg tablet 1,000 mg PO DAILY Supplement 09/04/24 09/04/24 History
(Glucosamine)
omeprazole 40 mg capsule,delayed 40 mg PO DAILY Gastrointestinal 09/04/24 09/04/24 History
release Issue
peg 400-propylene glycol (PF) 0.4 1 drp BOTH EYES DAILYPRN PRN dry 09/04/24 09/04/24 History
%-0.3 % eye drops in a dropperette eyes
(Systane (PF))
rivaroxaban 15 mg tablet (Xarelto) 15 mg PO HS Blood Clot 09/04/24 09/04/24 History
Prevention/Tx
sacubitril 24 mg-valsartan 26 mg 1 tab PO BID Heart 09/04/24 09/04/24 History
tablet (Entresto) Disease/Condition
zinc sulfate 50 mg zinc (220 mg) 50 mg PO DAILY Supplement 09/04/24 09/04/24 History
tablet
Review of Systems
-
History Source: Patient
All other systems: Negative unless noted
Physical Exam
Vital Signs
Temp Pulse Resp BP Pulse Ox
97.7 F 68 16 143/99 95
09/05/24 04:42 09/05/24 08:46 09/05/24 06:00 09/05/24 08:46 09/05/24 06:00
Lab Results
09/04/24 21:03
09/04/24 21:03
Troponin I 0.021 ng/ml 09/05/24 03:58
Imc-N-Smsnkznugws Pept 4380 pg/ml 09/04/24 21:03
Physical Exam
General: Well Developed, Well Nourished and No Apparent Distress
HEENT: Normocephalic, Anicteric and Moist Mucous Membranes
Respiratory: Crackles (bibasilar)
Cardiac: S1/S2, Irregular Rhythm and Peripheral Edema (mild b/l LE)
Breast: Deferred by me
GI: Soft, Non Tender and Normal Bowel Sounds
Rectal: Deferred by Provider
Genito-urinary: Clear Urine
Musculoskeletal: No Clubbing and No Cyanosis
Neuro: AO x 3
Hematologic/Lymphatic: No Lymphadenopathy
Psych: Calm
Impression / Plan
-
Afib - paroxysmal.
- Rate controlled on atenolol and diltiazem, continue.
- CHADS2-Vasc = 5 (CHF, HTN, Age x2, vascular disease).
- Therapeutic anticoagulation with rivaroxaban, continue.
- Will plan for cardioversion today.
CAD - symptoms of dyspnea on exertion and fatigue are similar to his anginal equivalent.
- Troponin trend 0.020, 0.019, 0.021.
- EKG A-fib 74 bpm, lateral infarct age undetermined.
- Status post drug-eluting stent to D1 and mid LAD 12/20/2023.
-Continue medical therapy with Xarelto 15 mg daily, Plavix 75 mg daily. Plan at 1 year to discontinue Plavix and start aspirin 81 mg daily with Xarelto 20 mg daily (therapeutic A-fib dose).
HFpEF - acute on chronic.
- EF 65-70% on echo 04/2024.
- He takes Lasix 40 mg twice daily at home, he denies missed doses and his weight has been stable at 174 pounds at home.
- Agree with IV diuresis Lasix 40 mg twice daily, monitor renal function closely and electrolytes.
PHTN - chronic, severe.
- Post capillary (PCWP > 15, PVR < 3 harris units) on cath 12/20/23.
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
- Has seen Dr. Lopes at [place], recommends continue Entresto and Farxiga.
HTN - chronic, stable.
- Continue home medications.
HLD - chronic, stable.
- Continue Lipitor 20mg Q48hr.
- LDL at goal, 52.
Data Reviewed
-
EKG: Tracing Personally Visualized and interpreted (EKG A-fib 74 bpm, lateral infarct age undetermined. )
Radiology: Report Reviewed by me (Mild CHF)
Medical Tests (Nuc Med, Echo etc): Report Reviewed by me (Echo 04/29/2024: Asymmetric septal hypertrophy EF 65-70%, TAVO, MAC with mild MR, aortic sclerosis without stenosis, severe PHTN with PASP 90 mmHg) and Other (Lexiscan 03/2024: normal, no
ischemia )
Labs: Labs Reviewed by me
Old Records: Reviewed
--- NOTE | 2024-09-05 10:31 | PTCARENOTE ---
Assumed care of patient this morning. Patient aaox3, pleasant. Pt diuresed with Lasix this morning. Pt able to use urinal for accurate I&O. Pt wanting to walk so we did 2 laps around IMU unit and then he sat in the lounge for about 25 minutes. Pt
settled back in bed. He denies any chest pain/pressure. He did have slight short of breath with increasing his walking speed. He reports he was 'testing himself.' He will be for cardioversion this afternoon per cardiology. Pt remains NPO.
Assessment, care and VS as charted.
--- NOTE | 2024-09-05 10:57 | W.PN.HOSP.TC ---
Today's Communication/Plan
-
IV diuresis
DCCV.
Assessment / Plan
Assessment / Plan
Impression:
Acute CHF exacerbation baseline chronic CHF preserved EF/HCM
Paroxysmal atrial fibrillation
CAD with history of stenting.
Pulmonary hypertension.
Obstructive sleep apnea on CPAP at night
Dyslipidemia
Plan:
Acute CHF preserved EF
Patient presents with gradual increase shortness of breath, tiredness, weight gain, bilateral lower extremity edema.
Noted with elevated pro CHF BNP of baseline.
Chest x-ray with chronic interstitial changes, not indicative of pulmonary edema.
Troponin and then normal range.
ECG atrial fibrillation.
Suspect dietary indiscretion could precipitate decompensation. Possibly paroxysmal A-fib contributing.
Good symptomatic response to IV diuresis. Patient reports good exercise tolerance today. Has been off oxygen
Continue IV Lasix for now.
Plan is to increase oral dose to 80 mg a.m. and 40 mg p.m.
Has been on GDMT including calcium channel quinn, Entresto, Farxiga
CAD
S/P PCI of an 80% large D1 lesion (Xience Skypoint 2.25 x 23 SUNDEEP, post dilated with a 2.5 NCB) and an obstructive 60-70% mLAD lesion (iFR = 0.84, Xience Skypoint 3.0 x 18 SUNDEEP, post dilated with a 3.0 NCB).
Continue Plavix.
Has intolerance to statin
Has been considered for PCSK9i.
HCM
Most current echo 05/08 with asymmetric septal hypertrophy with EF of 65-70%. Normal RV systolic function. Mild to moderate TR with pulmonary artery pressure at 90 mmHg.
Severe pulmonary hypertension with PCW P greater than 15 likely secondary to left heart failure.
Paroxysmal atrial fibrillation, currently rate controlled, plan is for DCCV today.
C- vascular score 5
Had been on anticoagulation with Xarelto
Obstructive sleep apnea
On nightly CPAP
Anticipated Discharge: Within 24 hours
Subjective/Interval History
-
Date of Service: September 05, 2024
Objective Data
-
Vital Signs:
Vital Signs
Temp Pulse Resp BP Pulse Ox
97.7 F 68 28 138/78 93
09/05/24 04:42 09/05/24 10:00 09/05/24 10:00 09/05/24 10:00 09/05/24 10:00
I&O
09/04/24 09/05/24 09/06/24
06:59 06:59 06:59
Output Total 2450 / 2450 650 / 650
Balance -2450 / -2450 -650 / -650
Physical Exam
-
General: Well Developed and No Apparent Distress
HEENT: Normocephalic, Atraumatic and Moist Mucous Membranes
Respiratory: Clear to Auscultation
Cardiac: Regular Rhythm, S1/S2 and Murmur; Negative Rub or Gallop
GI: Soft, Nontender, Nondistended and Normal Bowel Sounds; Negative Organomegaly
Rectal: Deferred by Provider
Musculoskeletal: No Clubbing, No Cyanosis and Other (+1 bilateral lower extremity edema)
Skin: Negative Rash
Neuro: Nonfocal/Grossly Intact
--- NOTE | 2024-09-05 13:45 | ITS.CL.CARDI ---
[facility] - Cardioversion
Cardioversion
Procedure Report:
Date of Procedure: 09/05/24
Procedure: Cardioversion
Indication: Symptomatic atrial fibrillation
Performing Physician: Jose Auguste MD
Technique: The patient was brought to the holding area. Signed informed consent was obtained. A time out was called and performed. The patient was anesthetized by the anesthesia service. Anticoagulation status was reviewed and appropriate. R2 pads
were placed anteriorly and posteriorly. A 200 J synchronized biphasic shock restored normal sinus rhythm without significant bradycardia. There were no complications.
Conclusion: Uncomplicated cardioversion from atrial fibrillation to sinus rhythm.
Recommendation: Routine post cardioversion care. Continue penitentiary anticoagulation.
--- NOTE | 2024-09-05 14:19 | W.DS.TRANS ---
DC Summary - [employer]
-
Discharge Instructions:
Discharge Diagnosis/Procedures Acute CHF exacerbation baseline chronic CHF
preserved EF/HCM
Paroxysmal atrial fibrillation
CAD with history of stenting.
Pulmonary hypertension.
Obstructive sleep apnea on CPAP at night
Dyslipidemia
Diet 2 Gram Sodium
Instructions:
Stand-Alone Forms:
Changes to Home Medications: Yes
Discharge Medications:
DC Medications w/original date entered in [employer]
cholecalciferol (vitamin D3) 25 mcg (1,000 unit) capsule (Vitamin D3) 1,000 unit PO DAILY Supplement 04/14/19
cyanocobalamin (vitamin B-12) 1,000 mcg capsule 1,000 mcg PO DAILY Supplement 04/14/19
cetirizine 10 mg tablet 10 mg PO HS Allergies 09/06/21
atenolol 25 mg tablet 25 mg PO BID Blood Pressure 07/05/23
potassium chloride 10 mEq tablet,extended release 10 meq PO BID Electrolyte Repletion 07/05/23
therapeutic multivitamin 1 tab PO DAILY Supplement 12/20/23
atorvastatin 20 mg tablet 20 mg PO Q48H High cholesterol #0 tabs 12/21/23
clopidogrel 75 mg tablet 75 mg PO DAILY #30 tabs 12/21/23
diltiazem HCl 120 mg capsule,extended release 24 hr 120 mg PO DAILY #30 caps 12/21/23
ascorbic acid (vitamin C) 1,000 mg tablet (Vitamin C) 1,000 mg PO DAILY Supplement 09/04/24
coenzyme Q10 100 mg capsule (CoQ-10) 100 mg PO Q48H Supplement 09/04/24
dapagliflozin propanediol 5 mg tablet (Farxiga) 5 mg PO DAILY Diabetes 09/04/24
ferrous sulfate 325 mg (65 mg iron) tablet 325 mg PO BID Supplement 09/04/24
fluticasone propionate 50 mcg/actuation nasal spray,suspension 1 spray intranasal HS Allergies 09/04/24
glucosamine sulfate 500 mg tablet (Glucosamine) 1,000 mg PO DAILY Supplement 09/04/24
omeprazole 40 mg capsule,delayed release 40 mg PO DAILY Gastrointestinal Issue 09/04/24
peg 400-propylene glycol (PF) 0.4 %-0.3 % eye drops in a dropperette (Systane (PF)) 1 drp BOTH EYES DAILYPRN PRN dry eyes 09/04/24
rivaroxaban 15 mg tablet (Xarelto) 15 mg PO HS Blood Clot Prevention/Tx 09/04/24
sacubitril 24 mg-valsartan 26 mg tablet (Entresto) 1 tab PO BID Heart Disease/Condition 09/04/24
zinc sulfate 50 mg zinc (220 mg) tablet 50 mg PO DAILY Supplement 09/04/24
furosemide 40 mg tablet (Lasix) 80 mg (2 x 40 mg) PO .see instruction #120 tabs 09/05/24
Home Medication Changes
Lasix dose increased
Pending Results: No
--- NOTE | 2024-09-05 16:11 | CM ---
Patient with Dx Acute CHF exacerbation who is s/p cardioversion today. Room air.
Met with patient who resides alone in a 2 story house.
The patient was independent in ADLs and ambulation.
He was active and driving.
Patient shares that his resides at [facility].
DME - CPAP
Prior VN - unsure which agency
PCP - [facility]
Pharmacy - [facility]
Offered VN and patient declined.
The patient says he feels ready for d/c home today. IMM completed. His friend will provide transport home.
No CM d/c needs identified.
Plan home today.
== END 2024-09-05 16:24 | disposition home or self-care (01) | DRG 291 ==
LOC: IMU 23:07
PROVIDERS: Clinical Nurse Specialist Family Health; Internal Medicine Cardiovascular Disease; ADMITTING PHYSICIAN Hospitalist; ATTENDING PHYSICIAN Internal Medicine; EMERGENCY PHYSICIAN Emergency Medicine; FAMILY PHYSICIAN Student in an Organized Health Care Education/Training Program; OTHER PHYSICIAN Internal Medicine Cardiovascular Disease
PROC: 5A2204Z Restoration of Cardiac Rhythm, Single (ICD-10-PCS; 2024-09-05)
DX: I11.0 Hypertensive heart disease with heart failure (principal); I50.33 Acute on chronic diastolic (congestive) heart failure; I42.2 Other hypertrophic cardiomyopathy; I48.0 Paroxysmal atrial fibrillation; K21.9 Gastro-esophageal reflux disease without esophagitis; G47.33 Obstructive sleep apnea (adult) (pediatric); I25.10 Atherosclerotic heart disease of native coronary artery without angina pectoris; I27.20 Pulmonary hypertension, unspecified; Z95.5 Presence of coronary angioplasty implant and graft; Z88.2 Allergy status to sulfonamides; Z88.1 Allergy status to other antibiotic agents; Z87.891 Personal history of nicotine dependence; Z85.828 Personal history of other malignant neoplasm of skin; Z79.899 Other long term (current) drug therapy; Z79.02 Long term (current) use of antithrombotics/antiplatelets; Z79.01 Long term (current) use of anticoagulants; Z79.84 Long term (current) use of oral hypoglycemic drugs
CPT/HCPCS: 71046; 80053; 83880; 84484; 85025; 85610; 85730; 87070; 93005; 99285

== ENCOUNTER → 2024-09-09 16:35 | Outpatient (REF) | payer MEDICARE, SELFPAY ==
[2024-09-09 16:59] LABS: Albumin 4.4 g/dl (3.5-5.0); Blood Urea Nitrogen 17 mg/dl (9-20); Calcium 9.9 mg/dl (8.4-10.2); Carbon Dioxide 32 mmol/L (22-30); Chloride 96 mmol/L (98-107); Glucose 114 mg/dl (70-99); Iron 119 ug/dl (49-181); Phosphorus 2.8 mg/dl (2.5-4.5); Potassium 3.5 mmol/L (3.5-5.1); Sodium 139 mmol/L (135-145); eGFR > 60.00
[2024-09-09 17:06] LABS: NT-proBNP 1390 pg/ml
[2024-09-09 17:08] LABS: Percent Saturation 30 % (20-50); Total Iron Binding Capacity 389 ug/dl (261-462)
[2024-09-09 17:30] LABS: TSH Reflex To Free T4 2.38 uIU/ml (0.47-4.68)
== END ==
LOC: CLAB 16:35
PROVIDERS: ATTENDING PHYSICIAN Student in an Organized Health Care Education/Training Program
DX: Z09 Encounter for follow-up examination after completed treatment for conditions other than malignant neoplasm (principal); I50.32 Chronic diastolic (congestive) heart failure; Z86.39 Personal history of other endocrine, nutritional and metabolic disease; I48.0 Paroxysmal atrial fibrillation
CPT/HCPCS: 36415; 80069; 82728; 83540; 83550; 83880; 84443

== ENCOUNTER → 2024-11-11 12:46 | Outpatient (REF) | payer MEDICARE, SELFPAY ==
[2024-11-11 14:30] LABS: % Basophils 0.4 % (0-2); % Eosinophils 3.6 % (0-6); % Immature Granulocytes 0.1 % (0-0.5); % Lymphocytes 17.1 % (20.5-51.1); % Monocytes 10.3 % (1.7-9.3); % Neutrophils 68.5 % (42.2-75.2); Absolute Eosinophils 0.3 10^3/uL (0-0.7); Absolute Lymphocytes 1.4 10^3/uL (1.2-3.4); Absolute Monocytes 0.9 10^3/uL (0.1-0.6); Absolute Neutrophils 5.7 10^3/uL (1.4-6.5); Hematocrit 49.2 % (39.0-52.0); Mean Corp Hgb Conc. 32.5 g/dL (33.0-37.0); Mean Corpuscular Hgb 30.6 pg (27.0-31.0); Mean Corpuscular Volume 94.1 fL (80.0-94.0); Mean Platelet Volume 10.8 fL (7.4-10.4); Nucleated Red Blood Cells % 0 % (-); Platelet Count 171 10^3/uL (130-400); Red Blood Cell Count 5.23 10^6/uL (4.70-6.10); Red Cell Dist. Width 13.2 % (11.5-14.5); White Blood Cell Count 8.4 10^3/uL (4.8-10.8)
[2024-11-11 15:12] LABS: Albumin 4.8 g/dl (3.5-5.0); Blood Urea Nitrogen 22 mg/dl (9-20); Calcium 9.7 mg/dl (8.4-10.2); Carbon Dioxide 34 mmol/L (22-30); Chloride 98 mmol/L (98-107); Glucose 96 mg/dl (70-99); Iron 119 ug/dl (49-181); Magnesium 2.4 mg/dl (1.6-2.3); Phosphorus 3.6 mg/dl (2.5-4.5); Potassium 4.1 mmol/L (3.5-5.1); Sodium 143 mmol/L (135-145); eGFR > 60.00
[2024-11-11 15:21] LABS: Percent Saturation 31 % (20-50); Total Iron Binding Capacity 374 ug/dl (261-462)
[2024-11-11 15:38] LABS: Ferritin 60.3 ng/ml (17.9-464.0)
== END ==
LOC: REG 12:46
PROVIDERS: ATTENDING PHYSICIAN Student in an Organized Health Care Education/Training Program; OTHER PHYSICIAN Student in an Organized Health Care Education/Training Program
DX: D50.9 Iron deficiency anemia, unspecified (principal); I50.32 Chronic diastolic (congestive) heart failure
CPT/HCPCS: 36415; 80069; 82728; 83540; 83550; 83735; 85025

== ENCOUNTER 2025-01-13 15:33 | Emergency (ER) | payer MEDICARE, SELFPAY ==
[2025-01-13] VITALS (38 sets, daily range): BP systolic 84–116; BP diastolic 52–88; BMI 23.9
[2025-01-13 15:57] LABS: Hematocrit 45.0 % (39.0-52.0); Hemoglobin 15.3 g/dL (13.0-18.0); Mean Corp Hgb Conc. 34.0 g/dL (33.0-37.0); Mean Corpuscular Volume 90.5 fL (80.0-94.0); Nucleated Red Blood Cells % 0 % (-); Platelet Count 183 10^3/uL (130-400); Red Cell Dist. Width 13.6 % (11.5-14.5)
[2025-01-13 16:07] LABS: INR 1.63; PT 19.5 Sec (11.4-14.6)
[2025-01-13 16:08] LABS: APTT 40.7 Sec (23.4-35.0)
[2025-01-13 16:26] LABS: Troponin I 0.017 ng/ml
[2025-01-13 16:27] LABS: ALT (SGPT) 24 U/L (0-50); AST (SGOT) 33 U/L (17-59); Albumin 4.8 g/dl (3.5-5.0); Alkaline Phosphatase 79 U/L (38-126); Blood Urea Nitrogen 21 mg/dl (9-20); Calcium 10.0 mg/dl (8.4-10.2); Carbon Dioxide 28 mmol/L (22-30); Chloride 104 mmol/L (98-107); Glucose 112 mg/dl (70-99); Potassium 4.3 mmol/L (3.5-5.1); Sodium 138 mmol/L (135-145); Total Protein 7.9 g/dl (6.3-8.2); eGFR > 60.00
--- NOTE | 2025-01-13 16:52 | ED.GENMED ---
History of Present Illness
General
Chief Complaint: Heart Rate Problem
Source: patient
Exam Limitations: none
Time Seen by Provider: 01/13/25 16:40
History of Present Illness
History of Present Illness:
See MDM
Past History
Past History
ED Past Medical History: Arrthythmia (Atrial fibrillation), GERD, HTN and Other (Colitis)
ED Past Surgical History: Appendectomy, Cardiac (Catheterization 2005) and Other (Noncontributory)
Social History
Tobacco: Non-smoker
Alcohol: Occasional
Drug: None
Personal:
Living: with family
Employment: Employed
Family History
Family History: Other (Noncontributory)
Phy Exam
Physical Exam
Physical Exam:
See MDM
Course
Orders/Labs/Results
Orders:
Orders
01/13/25 15:34
EKG [Electrocardiogram (*1)] Urgent
Reason for Study: Atrial Fibrillation
EKG- Treatment ONCE
01/13/25 15:50
Complete Blood Count/With Diff Urgent
Comprehensive Metabolic Panel Urgent
PT/INR [Prothrombin Time] Urgent
Is patient on Coumadin/Warfarin?: No
Comment: [email or web address]
PTT Urgent
Troponin I Urgent
01/13/25 16:50
0.9% Sodium Chloride 500 ml [Nss] 500 ml IV BOLUS
Diltiazem HCl [Cardizem] 5 mg IV NOW STA
01/13/25 17:31
Propofol [Diprivan] 20 ml .ROUTE .STK-MED
01/13/25 17:38
Electrocardiogram (*1) Urgent
Reason for Study: Abnormal EKG
EKG- Treatment ONCE
Abnormal Lab Results
01/13/25
15:50
WBC 11.2 H 10^3/uL
(4.8-10.8)
Absolute Neuts (auto) 7.9 H 10^3/uL
(1.4-6.5)
Absolute Monos (auto) 1.4 H 10^3/uL
(0.1-0.6)
Lymphocytes % 14.2 L %
(20.5-51.1)
Monocytes % 12.3 H %
(1.7-9.3)
PT 19.5 H Sec
(11.4-14.6)
APTT 40.7 H Sec
(23.4-35.0)
BUN 21 H mg/dl
(9-20)
Glucose 112 H mg/dl
(70-99)
Total Bilirubin 1.9 H mg/dl
(0.2-1.3)
01/13/25 15:50
01/13/25 15:50
Vital Signs
Initial and Last Documented VS:
Initial Vital Signs
Temp Pulse Resp BP Pulse Ox
98.4 F 68 16 113/63 96
01/13/25 15:35 01/13/25 15:35 01/13/25 15:35 01/13/25 15:35 01/13/25 15:35
Last Documented Vital Signs
Temp Pulse Resp BP Pulse Ox
98.4 F 51 16 105/62 96
01/13/25 17:33 01/13/25 18:55 01/13/25 18:55 01/13/25 18:55 01/13/25 18:55
Procedures
Moderate Sedation
ASA Risk Score: Class II
Chart and allergies reviewed: Yes
Consent for anesthesia obtained: Yes
Time out completed (validating right patient & procedure): Yes
Moderate Sedation Start Time(when first medication is given): 17:34
History of difficult intubation: No
Airway free of obstruction: Yes
Patient has a gag reflex: Yes
Patient is able to open mouth: Yes
Patient has no dentures: Yes
Patient has no loose teeth: Yes
Medication administered by Provider during Moderate Sedation: IV Propofol (mg)
Total dose administered: 60
Time drug administered: 17:34
Moderate Sedation Procedure End Time: 17:45
Cardioversion
Indication:: Afib
Performed by:: Zak Jones DO
Synchronized?: Yes
Energy Used: Other (100J)
Number of attempts: 1
Successful?: Yes
ASA Risk Score: Class II
Any reaction or bad outcome to prior sedation/anesthesia?: No history of a reaction
Sedation level to be attained: moderate
Chart and allergies reviewed: Yes
Patient reassessed prior to sedation: Yes
Time out completed at (validating right patient & procedure): 17:28
History of difficult intubation: No
Airway free of obstruction: Yes
Patient has a gag reflex: Yes
Patient is able to open mouth: Yes
Patient has no dentures: Yes
Patient has no loose teeth: Yes
Medication administered by Provider during Moderate Sedation: IV Propofol (mg)
Total dose administered: 60
Time drug administered: 17:34
Start Time: 17:34
Stop Time: 17:45
MDM/Problems Addressed
Differential Diagnosis Includes:
Note:
CHIEF COMPLAINT(S)
Atrial fibrillation.
HISTORY OF PRESENT ILLNESS
The patient is an 89-year-old male with a past medical history significant for congestive heart failure and A fib, who presents with new atrial fibrillation. The patient noted the onset of symptoms approximately midday today, around 11:30 AM, after
consuming a strong cup of iced coffee, which he acknowledges may have contributed to the arrhythmia. He initially recorded his rhythm as sinus on a home device but noted atrial fibrillation approximately 30 minutes later. The patient reported
feeling 'a little woozy' and a blood pressure reading was 108/68 mmHg, which he considered low for him. He denies taking any medications specifically for atrial fibrillation prior to arrival.
The patient is on Xarelto. He has experience with electrical cardioversion in the past and is agreeable to this if deemed necessary. He also takes lasix and Diltiazem.
PHYSICAL EXAM
General: Well appearing and non-toxic
HEENT: protecting airway
Neck: appears supple
CV: No evidence of cyanosis. Rate controlled A-fib
Resp: No accessory muscle use
Abd: Non-distended
Extremities: No deformities. No leg edema or tenderness
Neuro: alert
Psych: Normal affect
Skin: Intact
- Nursing notes reviewed and vital signs reviewed.
PROBLEM LIST
- Acute: atrial fibrillation
- Chronic: Congestive heart failure
PLAN
- Administer a small intravenous dose of Diltiazem to assist with rate control and observe for any conversion of rhythm.
- Provide a limited amount of intravenous fluids to maintain blood pressure without exacerbating congestive heart failure.
- Monitor the patient closely for conversion to normal sinus rhythm and re-evaluate based on lab results.
- Consider electrical cardioversion if there is no improvement with medication, with patients consent already obtained.
DIFFERENTIAL DIAGNOSIS
The Differential Diagnosis includes, in no particular order and is not limited to:
1. Paroxysmal atrial fibrillation
2. Atrial flutter
3. Sinus tachycardia secondary to caffeine
4. Hypertensive crisis
5. Acute coronary syndrome
CARE-UPDATE
01/13/25 - 17:49
Patient remains in rate-controlled AFib but symptomatic. Case discussed with interventional cardiology, and a bedside cardioversion was performed. Patient signed consent and tolerated the procedure well. Now converted to sinus rhythm and reports
feeling better.
SUMMARY OF ENCOUNTER
The patient, an 89-year-old male with a history of congestive heart failure, presented with new onset atrial fibrillation that began after the consumption of a strong cup of iced coffee. An intravenous dose of Diltiazem was administered for rate
control, and the patient was monitored closely for conversion to sinus rhythm. After further consultation with interventional cardiology, the patient underwent a successful bedside cardioversion and converted to sinus rhythm, which he tolerated well.
DISPOSITION
Discharge.
ASSESSMENT
atrial fibrillation in the context of congestive heart failure and potential caffeine-induced arrhythmia.
EMERGENCY TREATMENTS ADMINISTERED
Intravenous Diltiazem for rate control; electrical cardioversion performed.
MANAGEMENT OF THE PATIENTS CARE WAS DISCUSSED WITH
Interventional cardiology team.
PLAN
The patient is to follow up with cardiology to ensure continued stability and evaluation of atrial fibrillation.
FOLLOW-UP INSTRUCTIONS
The patient will follow up with cardiology.
MEDICATION RECONCILIATION
The patient was on a blood thinner, likely Apixaban, and is also taking Lixisenatide at home.
MEDICAL DECISION MAKING
-Complexity of Data Reviewed: Chronic conditions affecting care [congestive heart failure] Differential Diagnosis includes paroxysmal atrial fibrillation, atrial flutter, caffeine-induced tachyarrhythmia, and others.
-Data:
Category 1
Reviewed nursing notes and monitored for atrial fibrillation.
My independent review of the monitor: showed presence of atrial fibrillation with a moderate rate and occasional flutter type appearance.
Category 3
Discussion of management with interventional cardiology.
-Risk: Prescription medication was administered, including Diltiazem and electrical cardioversion, to manage the patients arrhythmia. The decision for discharge was made following a stable sinus rhythm and informed patient consent to follow up with
cardiology care.
DIAGNOSIS
- Atrial fibrillation, unspecified (I48.91)
- Congestive heart failure, unspecified (I50.9)
*Pulse Oximetry
SaO2: 98
Oxygen Mode of Delivery: Room air
Patient hypoxic: no
*Critical Care Note
Total Time (30-74mins, 75-104mins- exclusive of procedures): Not Applicable
ED Attending Note
-
Portions of this chart may have been created with voice recognition software.� Occasional wrong word or��sound alike� substitutions may have occurred due to the inherent limitations of voice recognition software.
Discharge Plan
Departure
Patient Disposition: Home (Routine Discharge)
Date of Disposition: 01/13/25
Time of Disposition: 19:32
Patient with high blood pressure during this ER visit?: No
Discharge Problem:
PAF (paroxysmal atrial fibrillation)
Instructions: Cardioversion - Discharge instructions, MODERATE SEDATION ADULT
Prescriptions:
No Action
cholecalciferol (vitamin D3) [Vitamin D3] 1,000 UNIT capsule
1,000 unit PO DAILY
cyanocobalamin (vitamin B-12) 1,000 MCG capsule
1,000 mcg PO DAILY
cetirizine 10 MG tablet
10 mg PO HS
atenolol 25 mg Tablet
25 mg PO BID
potassium chloride 10 mEq Tablet Extended Release
10 meq PO BID
therapeutic multivitamin Tablet
1 tab PO DAILY
diltiazem HCl 120 mg Capsule,Extended Release 24hr
120 mg PO DAILY Qty: 30 0RF
clopidogrel 75 mg Tablet
75 mg PO DAILY Qty: 30 0RF
atorvastatin 20 MG tablet
20 mg PO Q48H Qty: 0 0RF
ascorbic acid (vitamin C) [Vitamin C] 1,000 mg Tablet
1,000 mg PO DAILY
glucosamine sulfate [Glucosamine] 500 mg Tablet
1,000 mg PO DAILY
omeprazole 40 mg Capsule,Delayed Release(Dr/Ec)
40 mg PO DAILY
zinc sulfate 50 mg zinc (220 mg) Tablet
50 mg PO DAILY
ferrous sulfate 325 mg (65 mg iron) Tablet
325 mg PO BID
fluticasone propionate 50 mcg/actuation [place],Suspension
1 spray INTRANASAL HS
coenzyme Q10 [CoQ-10] 100 mg Capsule
100 mg PO Q48H
Systane (PF) 0.4-0.3 % Dropperette
1 drp BOTH EYES DAILYPRN PRN (Reason: dry eyes)
dapagliflozin propanediol [Farxiga] 5 mg Tablet
5 mg PO DAILY
sacubitril-valsartan [Entresto] 24-26 mg Tablet
1 tab PO BID
Xarelto 15 mg tablet
15 mg PO HS
furosemide [Lasix] 40 mg tablet
80 mg PO .see instruction Qty: 120 0RF
Rx Instructions:
80 mg in am
40 mg in pm
Referrals:
Ros Hernadez MD [Family Provider, Internal Medicine]
Activity Restrictions/Additional Instructions:
Please follow-up with your cardiology team and return for worsening symptoms.
Interventions
Interventions:
*Risk Screen - Suicide Last Done: 01/13/25 15:42
*General Assessment Last Done: 01/13/25 17:00
*Neglect/Abuse Screening Last Done: 01/13/25 15:42
*ED- Fall Risk Assessment Last Done: 01/13/25 17:00
*ED COVID-19 Vaccine History Last Done: 01/13/25 17:00
ED- Cardiac Assessment Last Done: 01/13/25 16:52
ED- Pulmonary Assessment Last Done: 01/13/25 16:52
Discharge Date and Time
Print Language: CAMBODIAN
[2025-01-13] MEDS: CARDIZEM 5 MG IV (16:54)
[2025-01-13] MEDS: NSS 500 IV (16:55)
== END 2025-01-13 20:28 | disposition home or self-care (01) ==
LOC: EMR 15:33
PROVIDERS: Student in an Organized Health Care Education/Training Program; EMERGENCY PHYSICIAN Student in an Organized Health Care Education/Training Program; FAMILY PHYSICIAN Student in an Organized Health Care Education/Training Program
DX: I48.0 Paroxysmal atrial fibrillation (principal); R42 Dizziness and giddiness; I11.0 Hypertensive heart disease with heart failure; I50.9 Heart failure, unspecified; K21.9 Gastro-esophageal reflux disease without esophagitis; K52.9 Noninfective gastroenteritis and colitis, unspecified; Z79.01 Long term (current) use of anticoagulants; Z79.899 Other long term (current) drug therapy; Z88.1 Allergy status to other antibiotic agents; Z88.2 Allergy status to sulfonamides; Z88.8 Allergy status to other drugs, medicaments and biological substances
CPT/HCPCS: 92960; 99285; 96374; 96361 ×2; 99152; 80053; 84484; 85025; 85610; 85730; 93005

== ENCOUNTER 2025-02-05 11:07 | Inpatient (IN) | payer MEDICARE, SELFPAY ==
[2025-02-05] VITALS (31 sets, daily range): BP systolic 78–115; BP diastolic 46–74; PULSE 67–82; BMI 26.1
[2025-02-05 03:40] LABS: Hematocrit 40.8 % (39.0-52.0); Hemoglobin 13.7 g/dL (13.0-18.0); Mean Corp Hgb Conc. 33.6 g/dL (33.0-37.0); Mean Corpuscular Volume 91.7 fL (80.0-94.0); Nucleated Red Blood Cells % 0 % (-); Platelet Count 173 10^3/uL (130-400); Red Cell Dist. Width 13.7 % (11.5-14.5)
--- NOTE | 2025-02-05 03:49 | ED.GENMED ---
History of Present Illness
General
Chief Complaint: Dizziness
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 ED visit January 13 with complaints of palpitations, found to be in
atrial fibrillation requiring cardioversion.)
Exam Limitations: none
Time Seen by Provider: 02/05/25 03:27
Nursing documentation reviewed up to this point in time: agreed with
History of Present Illness
History of Present Illness:
This is an 89-year-old gentleman with history of CAD, CHF, hypertrophic cardiomyopathy, paroxysmal atrial fibrillation with previous hospitalization here August of this year for exacerbation of CHF and was found to be in A-fib at that time
requiring electrical cardioversion. Diuretics were increased during that hospitalization.
He was last evaluated in this ED January 13 with complaints of palpitations and was noted to be in A-fib flutter with controlled ventricular response in the 60s. Underwent successful cardioversion at that time. Chronically maintained on Xarelto and
Plavix.
Tonight he awoke feeling that his CPAP was not working effectively, awoke moderately short of breath and also noted some chest pressure, heaviness and dizziness. Dizziness is much worse with sitting up and standing feeling moderately lightheaded.
Prior to going to bed he was feeling well and in fact he golfed 18 holes yesterday without symptomatology.
He has been weighing himself daily, weight has been fairly stable. He denies leg pain or swelling.
Upon EMS arrival noted to be hypotensive with systolic blood pressure in the 80s. Received 150 cc normal saline bolus prehospital.
He admits to mild nausea but has had no vomiting. No diarrhea or constipation. No black or tarry stools. No coughing or fever.
Past History
Past History
ED Past Medical History: Arrthythmia (Atrial fibrillation), CHF, GERD, HTN and Other (Colitis)
ED Past Surgical History: Appendectomy, Cardiac (Catheterization 2005) and Other (Noncontributory)
Social History
Tobacco: Non-smoker
Alcohol: Occasional
Drug: None
Personal:
Living: with family
Employment: Retired
Family History
Family History: Other (Noncontributory)
Phy Exam
Physical Exam
Physical Exam:
GENERAL: 89-year-old gentleman appears his stated age, awake and alert, pleasant, appears in no acute distress. Lying supine.
EYE: pupils equal and reactive. anicteric
NECK: Supple, nontender, no meningismus, no significant adenopathy. Mild JVD.
ENT: oral mucosa is moist. No rhinorrhea.
CARDIAC: Regular rhythm rate in the 60s, no murmur.
LUNGS: No acute respiratory distress, bibasilar rales noted right greater than left.
ABDOMEN: Soft, nondistended, without focal tenderness, no r/g, no cvat. normoactive BS.
NEUROLOGICAL: Alert and oriented x3, no focal neuro deficits.
SKIN: Warm and dry, normal color, skin intact. No rash.
MUSCULOSKELETAL: No clubbing or cyanosis. Trace pretibial edema. Peripheral pulses are full and equal b/l. No palpable tenderness.
PSYCH: Normal and appropriate interaction.
Course
Orders/Labs/Results
Orders:
Orders
02/05/25 03:32
Electrocardiogram (*1) Urgent
Reason for Study: Vertigo / Dizzy
02/05/25 03:33
EKG- Treatment ONCE
02/05/25 03:34
Complete Blood Count/With Diff Urgent
Comprehensive Metabolic Panel Urgent
NT-proBNP Urgent
Comment: ADDED
Prothrombin Time Urgent
Troponin I Urgent
02/05/25 03:40
Add On- LAB Urgent
Tests Added?: BNP
02/05/25 03:41
CR Chest Portable - 1 View Urgent
Comment:
Reason For Exam: SOB, CP , hypotension
Reason Study Needs to be Portable: Unable to Transport
02/05/25 04:09
Ondansetron Injectable [Zofran] 4 mg .ROUTE .STK-MED ONE
02/05/25 04:16
Ondansetron Injectable [Zofran] 4 mg IV NOW STA
02/05/25 04:19
Lactic Acid Urgent
02/05/25 05:39
Troponin I Urgent
02/05/25 06:35
Orthostatic VS- Treatment ONCE
Abnormal Lab Results
02/05/25
03:34
RBC 4.45 L 10^6/uL
(4.70-6.10)
MPV 10.7 H fL
(7.4-10.4)
Absolute Monos (auto) 0.9 H 10^3/uL
(0.1-0.6)
PT 21.5 H Sec
(11.4-14.6)
Glucose 109 H mg/dl
(70-99)
Total Bilirubin 1.5 H mg/dl
(0.2-1.3)
02/05/25 03:34
02/05/25 03:34
Vital Signs
Initial and Last Documented VS:
Initial Vital Signs
Pulse
66
02/05/25 03:10
Last Documented Vital Signs
Temp Pulse Resp BP Pulse Ox
95.8 F L 67 16 90/50 94
02/05/25 03:30 02/05/25 06:15 02/05/25 06:15 02/05/25 06:00 02/05/25 06:15
MDM/Problems Addressed
Differential Diagnosis Includes:
Acute hypotension, concern for dehydration, gastroenteritis, ACS, occult GI bleed, arrhythmia, recurrent CHF, vertigo.
EKG shows atrial fibrillation with controlled ventricular response in the 60s. Patient denies palpitations thus at this point unclear as to onset of atrial fibrillation.
Previous episodes of A-fib were not accompanied with hypotension.
A-fib is rate controlled, at this point no indication for urgent cardioversion especially is unclear as to how long has been in A-fib however reassuring that he has been compliant with Xarelto.
IV fluid bolus infusing.
EKG shows atrial fibrillation with controlled ventricular response in the 60s. LVH. Flattened/minimally flipped T wave in aVL which is new compared to previous, otherwise similar and unchanged.
Labs are pending.
Will check portable chest x-ray and continue IV fluids.
Chronic conditions affecting care: CAD, Cardiomyopathy and Arrhythmia
*Radiology
Radiology exam reviewed: preliminary read by ED provider (Chest x-ray shows diffuse interstitial fullness overall similar to previous August 2024.)
*Pulse Oximetry
SaO2: 97
Oxygen Mode of Delivery: Room air
Patient hypoxic: no
*EKG
Interpreted by ED Provider?: Yes
Interpretation: abnormal
Comparison EKG: changes noted (Atrial fibrillation has replaced sinus bradycardia noted on previous EKG January 13, 2025)
Rate: normal
Rhythm: a-fib
[place]: normal axis
Interval: normal QT interval
QRS Pattern: left vent hypertrophy
Ischemia: non-specific ST changes
*Screw Machine Operator [place] Type Interpretation
Rate: normal
Interpretation: abnormal
Rhythm: a-fib
*Critical Care Note
Total Time (30-74mins, 75-104mins- exclusive of procedures): Not Applicable
Update Note
Update Note:
With IV fluids blood pressure improving, now systolic in the 90s.
Shortly after arrival to the ED patient complaining of some nausea and also a sense of having to pass a bowel movement. He fears he may pass some diarrhea and requesting to ambulate to the bathroom. Due to hypotension, I have offered a bedside
commode versus bedpan. At this point he wishes to hold off on passing a bowel movement.
Will give an IV dose of Zofran for nausea.
Concern for potential GI illness such as gastroenteritis. Other consideration is ischemic bowel however abdomen is soft without appreciable tenderness. Will check lactic acid.
07:00
Nausea has resolved after 1 IV dose of Zofran.
Patient tolerating oral fluids.
He continues to deny chest pain. No shortness of breath. Abdomen remains soft without appreciable tenderness.
Troponin x 2 are negative.
Lactic acid is normal.
Patient has passed 1 bowel movement, somewhat hard in nature. No hematochezia.
Blood pressure remains in the 90s, overall unchanged with orthostatics however heart rate trends up from the 60s to the 80s while standing. He is however asymptomatic with standing and has ambulated to and from the bathroom without difficulty.
Monitor continues to show atrial fibrillation with controlled ventricular response in the 60s to 70s.
Again, I do not suspect A-fib is cause for hypotension as he has had PAF in the past without accompanying hypotension. And, as he is rate controlled, no indication for urgent cardioversion.
BNP 2800 but actually improved from previous hospitalization in August where BNP was over 4000.
Chest x-ray shows mild patchy interstitial fullness, overall similar to previous.
Currently without dyspnea on exertion nor shortness of breath. No clear-cut evidence of CHF exacerbation.
Will continue gentle hydration and will plan to admit to hospitalist service.
ED Attending Note
-
Portions of this chart may have been created with voice recognition software.� Occasional wrong word or��sound alike� substitutions may have occurred due to the inherent limitations of voice recognition software.
Discharge Plan
Departure
Patient Disposition: Admit
Date of Disposition: 02/05/25
Time of Disposition: 07:10
Admit to: Telemetry
Admit to doctor: Srinivas
Presentation/result/management discussed w/ accepting MD/DO: Hospitalist
Condition: Fair
Discharge Problem:
Acute hypotension, PAF with controlled ventricular response
Prescriptions:
No Action
cholecalciferol (vitamin D3) [Vitamin D3] 1,000 UNIT capsule
1,000 unit PO DAILY
cyanocobalamin (vitamin B-12) 1,000 MCG capsule
1,000 mcg PO DAILY
cetirizine 10 MG tablet
10 mg PO HS
atenolol 25 mg Tablet
25 mg PO BID
potassium chloride 10 mEq Tablet Extended Release
10 meq PO BID
therapeutic multivitamin Tablet
1 tab PO DAILY
diltiazem HCl 120 mg Capsule,Extended Release 24hr
120 mg PO DAILY Qty: 30 0RF
clopidogrel 75 mg Tablet
75 mg PO DAILY Qty: 30 0RF
atorvastatin 20 MG tablet
20 mg PO Q48H Qty: 0 0RF
ascorbic acid (vitamin C) [Vitamin C] 1,000 mg Tablet
1,000 mg PO DAILY
glucosamine sulfate [Glucosamine] 500 mg Tablet
1,000 mg PO DAILY
omeprazole 40 mg Capsule,Delayed Release(Dr/Ec)
40 mg PO DAILY
zinc sulfate 50 mg zinc (220 mg) Tablet
50 mg PO DAILY
ferrous sulfate 325 mg (65 mg iron) Tablet
325 mg PO BID
fluticasone propionate 50 mcg/actuation [place],Suspension
1 spray INTRANASAL HS
coenzyme Q10 [CoQ-10] 100 mg Capsule
100 mg PO Q48H
Systane (PF) 0.4-0.3 % Dropperette
1 drp BOTH EYES DAILYPRN PRN (Reason: dry eyes)
dapagliflozin propanediol [Farxiga] 5 mg Tablet
5 mg PO DAILY
sacubitril-valsartan [Entresto] 24-26 mg Tablet
1 tab PO BID
Xarelto 15 mg tablet
15 mg PO HS
furosemide [Lasix] 40 mg tablet
80 mg PO .see instruction Qty: 120 0RF
Rx Instructions:
80 mg in am
40 mg in pm
Referrals:
UNKNOWN - PT DOES,NOT KNOW [Family Provider]
Interventions
Interventions:
*Risk Screen - Suicide Last Done: 02/05/25 03:10
*General Assessment Last Done: 02/05/25 03:10
*Neglect/Abuse Screening Last Done: 02/05/25 03:10
*ED- Fall Risk Assessment Last Done: 02/05/25 03:10
*ED COVID-19 Vaccine History Last Done: 02/05/25 03:10
ED- Neurological Assessment Last Done: 02/05/25 03:42
ED- Cardiac Assessment Last Done: 02/05/25 03:42
ED Swallowing Screen Last Done: 02/05/25 03:42
Discharge Date and Time
Print Language: FRENCH
[2025-02-05 03:56] LABS: INR 1.81; PT 21.5 Sec (11.4-14.6)
[2025-02-05 04:08] LABS: ALT (SGPT) 20 U/L (0-50); AST (SGOT) 29 U/L (17-59); Albumin 4.2 g/dl (3.5-5.0); Alkaline Phosphatase 86 U/L (38-126); Blood Urea Nitrogen 19 mg/dl (9-20); Calcium 9.0 mg/dl (8.4-10.2); Carbon Dioxide 27 mmol/L (22-30); Chloride 103 mmol/L (98-107); Estimated Creatinine Clearance 65 ml/min; Glucose 109 mg/dl (70-99); Potassium 3.5 mmol/L (3.5-5.1); Sodium 139 mmol/L (135-145); Total Protein 6.6 g/dl (6.3-8.2); eGFR > 60.00
[2025-02-05 04:20] LABS: Troponin I 0.020 ng/ml
[2025-02-05] MEDS: ZOFRAN 4 MG IV (04:23)
[2025-02-05 06:20] LABS: Troponin I 0.021 ng/ml
--- NOTE | 2025-02-05 07:59 | HPS.HSE ---
Addendum entered and electronically signed by Bernard Espino MD 02/05/25 14:35:
Seen and examined by me independently in collaboration with the FP resident Jose.
Past medical history/social history/medication/allergies reviewed.
Lab data and imaging data reviewed.
Patient with a history of paroxysmal atrial fibrillation with a recent need of electrical cardioversion was in his usual state of health but last night he had to wake up because he was only feeling short of breath and his home monitor showed he was
in A-fib. He was also feeling dizzy and noted his blood pressure was low in his 80s so called an ambulance and presented to the ER.
Currently he is asymptomatic without chest pain, shortness of breath, dizziness. His blood pressure is improved. He is in A-fib but rate controlled.
Chest is clear. Bilateral lower extremity edema less than 1+. Chest x-ray does not suggest heart failure. BNP is higher than his recent baseline. CBC and BMP unremarkable. Troponins x 2 are in negative for an acute SC.
Clinical concern is of symptomatic A-fib.
Cardiology recommends admission for Tikosyn load. Patient will be admitted to IVU.
Echo will be obtained.
Full code
Original Note:
Family Physician
-
Family Physician: NOT KNOW UNKNOWN - PT DOES
Chief Complaint
-
Dizziness, Lightheadedness, Palpitations
History of Present Illness
Patient is an 89-year-old man with past medical history of paroxysmal A-fib with implantable loop recorder, HFpEF, CAD status post multivessel PCI, hyperlipidemia, essential hypertension pulmonary hypertension, SERGIO on home CPAP who presents to the
emergency room for symptoms of dizziness, palpitations, lightheadedness. Patient was in his usual state of health 02/04/2025 and was outside playing 18 holes of golf. He reports keeping hydrated. There was no shortness of breath chest pain
palpitations or other cardiac symptoms during exertion. He went home that night and went to bed with his CPAP as usual. Woke up in the middle of the night with symptoms of palpitations, lightheadedness, trouble breathing, reminiscent of being in
A-fib per prior episodes. Patient has implantable loop recorder which she was able to check on his phone and confirmed twice that he was in A-fib with a rate in the 80s (usual rate bradycardic in the 50s). He did not feel well enough to drive
himself in and so he called the ambulance. Of note, he had a recent ED visit on January 13, 2025 for symptomatic A-fib which required cardioversion. He was also seen at this hospital in August 2024 for acute exacerbation of heart failure and A-fib,
requiring cardioversion after sinus rhythm. The dose of Lasix at that time was increased to 80 mg in the a.m. and 40 mg p.m. at that time, which she has been continuing to today.
Pressures were 70s to 80s systolic and he was given IV bolus 150cc. ECG in the ED showed rate controlled atrial fibrillation. He has been taking his medication without missing a dose. At my time of seeing him he is resting comfortably in bed with
no acute complaints.
Medical History
Past Medical History
Past Medical History: Reports Arrhythmia, CAD, CHF, HTN and Hypercholesterolemia
Additional Past Medical History:
Pulmonary hypertension, SERGIO
Past Surgical History: Reports Other
Additional Past Surgical History:
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
Social History
Tobacco: Non-smoker
Alcohol: None
Drug: None
Living: Alone
Employment: Retired
Family History
Family History: Not pertinent
Allergies / Home Medications
Allergies reflects when Allergies were last updated in [employer].
Home Medications with original date entered in [employer]
Allergy/Medication List:
Allergies
Allergy/AdvReac Type Severity Reaction Status Date / Time
clindamycin Allergy GERD AND Verified 09/04/24 21:01
DIARRHEA
prochlorperazine Allergy angioedema, Verified 09/04/24 21:01
anaphylaxis
Sulfa (Sulfonamide Allergy Rash Verified 09/04/24 21:01
Antibiotics)
sulfisoxazole Allergy Unknown Verified 09/04/24 21:01
Home Medications
cholecalciferol (vitamin D3) 25 mcg (1,000 unit) capsule (Vitamin D3) 1,000 unit PO DAILY Supplement 04/14/19
cyanocobalamin (vitamin B-12) 1,000 mcg capsule 1,000 mcg PO DAILY Supplement 04/14/19
cetirizine 10 mg tablet 10 mg PO HS Allergies 09/06/21
atenolol 25 mg tablet 25 mg PO BID Blood Pressure 07/05/23
potassium chloride 10 mEq tablet,extended release 20 meq PO DAILY Electrolyte Repletion 07/05/23
therapeutic multivitamin 1 tab PO DAILY Supplement 12/20/23
diltiazem HCl 120 mg capsule,extended release 24 hr 120 mg PO DAILY #30 caps 12/21/23
ascorbic acid (vitamin C) 1,000 mg tablet (Vitamin C) 1,000 mg PO DAILY Supplement 09/04/24
dapagliflozin propanediol 5 mg tablet (Farxiga) 5 mg PO DAILY Diabetes 09/04/24
ferrous sulfate 325 mg (65 mg iron) tablet 325 mg PO DAILY Supplement 09/04/24
fluticasone propionate 50 mcg/actuation nasal spray,suspension 1 spray intranasal HS Allergies 09/04/24
glucosamine sulfate 500 mg tablet (Glucosamine) 1,000 mg PO DAILY Supplement 09/04/24
omeprazole 40 mg capsule,delayed release 40 mg PO DAILY Gastrointestinal Issue 09/04/24
peg 400-propylene glycol (PF) 0.4 %-0.3 % eye drops in a dropperette (Systane (PF)) 1 drp BOTH EYES DAILYPRN PRN dry eyes 09/04/24
sacubitril 24 mg-valsartan 26 mg tablet (Entresto) 1 tab PO BID Heart Disease/Condition 09/04/24
zinc sulfate 50 mg zinc (220 mg) tablet 50 mg PO DAILY Supplement 09/04/24
evolocumab 140 mg/mL subcutaneous pen injector (Repatha SureClick) 140 mg SC Q2W 02/05/25
furosemide 40 mg tablet (Lasix) 40 mg PO QPM 02/05/25
furosemide 40 mg tablet (Lasix) 80 mg PO DAILY 02/05/25
potassium chloride 10 mEq tablet,extended release 10 meq PO QPM 02/05/25
Review of Systems
-
History Source: Patient
A 12 point ROS was completed and negative except as noted: Yes
Constitutional: Reports No Symptoms
EENT: Reports No Symptoms
Respiratory: Reports No Symptoms
Cardiac: Reports No Symptoms
Abdomen/GI: Reports No Symptoms
: Reports No Symptoms
Musculoskeletal: Reports No Symptoms
Skin: Reports No Symptoms
Neurological: Reports No Symptoms
Endocrine: Reports No Symptoms
Hematologic/Lymphatic: Reports No Symptoms
Psych: Reports No Symptoms
Physical Exam
Vital Signs
Vital Signs
Temp Pulse Resp BP Pulse Ox
95.8 F L 67 16 90/50 94
02/05/25 03:30 02/05/25 06:15 02/05/25 06:15 02/05/25 06:00 02/05/25 06:15
Physical Exam
General: Well Developed, Well Nourished, No Apparent Distress, Comfortable and Conversant
HEENT: NormoCephalic, Anicteric, Moist mucous membranes, Atraumatic, PERRLA, [place] Conjunctivae, No Ptosis, Nose Appears Normal and Ears Appear Normal
Respiratory: Clear and Non Labored Respirations; No Wheezes, Rales or Rhonchi
Cardiac: S1/S2 and Irregular Rhythm; No Murmur, Rub or Gallop
Breast: N/A
GI: Soft, Non Tender, Non Distended and Normal Bowel Sounds
Rectal: Deferred by Provider
Genito-urinary: No costovertebral tender
Musculoskeletal: No Clubbing, No Cyanosis and No Edema
Skin: Warm, Dry and IV/Catheter Site
Neuro: AO x 3 and Nonfocal/grossly intact
Hematologic/Lymphatic: No Lymphadenopathy
Psych: Calm
Laboratory Results
-
02/05/25 03:34
02/05/25 03:34
Laboratory Results
PT 21.5 Sec (11.4-14.6) H 02/05/25 03:34
INR 1.81 02/05/25 03:34
Lactic Acid 1.7 mmol/L (0.7-2.0) 02/05/25 04:19
Total Bilirubin 1.5 mg/dl (0.2-1.3) H 02/05/25 03:34
AST 29 U/L (17-59) 02/05/25 03:34
ALT 20 U/L (0-50) 02/05/25 03:34
Alkaline Phosphatase 86 U/L (38-126) 02/05/25 03:34
Troponin I 0.021 ng/ml 02/05/25 05:39
Impression/Plan
-
Patient is an 89-year-old man with past medical history of paroxysmal A-fib with implantable loop recorder, requiring multiple cardioversions within the past 6 months, HFpEF, CAD status post multivessel PCI, hyperlipidemia, essential hypertension
pulmonary hypertension, SERGIO on home CPAP who presents to the emergency room for symptoms of dizziness, palpitations, lightheadedness.
#Paroxysmal Atrial Fibrillation
- recent ED visit in 01/13/2025 for symptomatic atrial fibrillation requiring cardioversion
- Afib on personal monitor during symptomatic episode which brought him to ED
- Seen by EP -- admit to IVU for trial of Tikosyn
- currently rate controlled afib
- admit to IVU
- c/w tele monitoring
- c/w OAC Xarelto
- c/w atenolol/Diltiazem per EP/Cardio discretion
#Acute Hypotension
- hypotensive in ED 70-90s/40-50s
- responsive to IV bolus 150cc and 500cc
- pressure now 100s/50s, MAP >65, asymptomatic
- possible component of dehydration vs. cardiogenic from afib
- finish out 500cc IVF, encourage PO intake, reassess in AM
#?Hypothermia
- no leukocytosis, tachypnea, or tachycardia, no respiratory, GI or urinary sx to suggest occult infection
- repeat sublingual temp by me 97.9F
- possible measurement error vs. consequence of hypotension, now resolved
#Chronic HFpEF
- Last echo 2023 showing LVEF 65-70%, with estimated severe pulm HTN, PA systolic pressure 90mmHg
- Pro-BNP here 2900
- c/w GDMT Daniel Abreu, BB
- c/w Lasix 80 mg AM, 40mg PM, KCl supplement
- trend I/Os, Daily weights
#CAD status post multivessel PCI
#Essential hypertension
#Hypercholesterolemia
- no anginal symptoms, negative troponins
- c/w GDMT as above
- takes repatha injections q2w as outpatient
- cholesterol lowering diet
#History of pulmonary hypertension
- Echo 2023 demonstrating severe pulmonary hypertension
- Follows with pulmonology outpatient Dr. Garrett
#SERGIO
- uses CPAP at night
- c/w CPAP 8mmH20
#GERD
- c/w PPI qd
#Iron deficiency
- c/w iron supplementation
PCP: Dr. Ros Hernadez
DVT PPx: On Xarelto
Code Status: Full Code
--- NOTE | 2025-02-05 10:41 | W.CARD.TIKOS ---
Initiate Tikosyn
-
I verify that the patient has not taken any verapamil (Isoptin/Calan), ketoconazole (Nizoral), cimetidine (Tagamet), trimethoprim (Trimpex), trimethoprim/sulfamethoxazole (Bactrim), megesterol (Megace), prochlorperazine (Compazine),
hydrochlorothiazide (HCTZ), dolutegravir (Tivicay) or any Class I or Class III anti-arrhythmic within the last three days
AND
I verify that the patient has not taken amiodarone within the last THREE months, or that the patient's amiodarone plasma concentration is <0.3 mcg/mL.
Creatinine 0.8 mg/dL (0.7-1.3) 02/05/25 03:34
Estimated Creat Clear 65 ml/min 02/05/25 03:34
Does patient have a Ventricular Conduction Abnormality: Yes
I have assessed the baseline QTc interval (using QT for heart rate less than 60 bpm) and deemed the patient is appropriate for Dofetilide therapy. I understand that Tikosyn is contraindicated if the QTc is >440msec (500msec in patients with
ventricular conduction abnormalities).
Dr. العلي saw patient today and recommends initiation of Dofetilide- will order.
Baseline QTc (in msec): 484
QTc interval is greater than 440msec without conduction abnormality OR greater than 500msec with a conduction abnormality, but acceptable to proceed per Cardiology attending.
Ordering Physician: Santo العلي
--- NOTE | 2025-02-05 10:49 | W.PN.UPDATE ---
Addendum entered and electronically signed by RUFINA Sepncer 02/05/25 10:59:
Xarelto ordered as he was on this on OP cardiac med list.
Original Note:
Update Note
Progress Note Update
Full consult per Dr. العلي who saw patient, but plan is to start dofetilide- orders placed. Stop diltiazem. Obtain echo- order placed.
--- NOTE | 2025-02-05 10:50 | CM ---
Patient seen at bedside in ED. Patient states that he lives alone at this time as his is in [place]. Patient home is 3 story and he has no DME at this time. Patient PCP is Dr. Savanna Camarillo and patient uses the [email or web address] pharmacy. Patient has no
DME. Patient reports that she has no needs at this time. CM will continue to follow for discharge planning needs.
Plan; home with no needs pending medical treatment plan
--- NOTE | 2025-02-05 10:58 | CON.CAR ---
Consultation
Consultation Request
Date/Time Consultation Requested: 02/05/25
Date/Time Consultation Performed: 02/05/25
Reason for Consultation: atrial fibrillation
Medical History
-
Chief Complaint: Symptomatic atrial fibrillation
History of Present Illness:
Mr. Clarke is an 89 years old man with CAD (drug-eluting stent to tandem lesions in the mid LAD and D1 12/20/2023), hypertension, h/p persistent atrial fibrillation s/p AF ablation (2019 - PVI, 2021 - PWI) now paroxysmal atrial fibrillation on
Xarelto, dyslipidemia, SERGIO on CPAP and pulmonary hypertension followed by Dr. Lopes at [facility], s/p Escalante ILR placed on 07/17/2023 for syncope presented to the ER with dizziness and not feeling well.
He was seen in the ER on 01/13/25 when he was noted to be in atrial flutter - atypical and underwent cardioversion. He has had recurrent AF that is paroxysmal since Aug 2024. He underwent DCCV on 09/05/24.
He had ILR placed [place] 07/17/2023 for unexplained syncope. The battery is depleted and could not be interrogated today.
He was noted to have baseline bradycardia and was wondering if he needs a pacemaker. His EKG done today when he presented showed AF - rate coenrolled in 60s. At the time of my evaluation, he was back in sinus rhythm in 50s to 60s bpm. The EKG did
show IVCD that is unchanged.
CXR done today showed vascular congestion but no effusion.
Last ECHO 04/29/2024:
1. Asymmetric septal hypertrophy with EF 65-70%
2. RVE with normal RV systolic function
3. TAVO
4. MAC with mild MR. No detectable DL
5. Aortic sclerosis without stenosis
6. Mild to moderate TR with severe pulmonary hypertension with estimated PA
systolic pressure 90mm Hg
Past Medical History
Past Medical History: Arrhythmias (PerAF), CAD, CHF, COPD, HTN and Hypercholesterolemia
Social History
Tobacco: Former Smoker
Alcohol: Occasional
Personal:
Living: With Family
Employment: Retired
Family History
Family History: Reviewed & Not Pertinent
Allergies / Home Medications
Allergy/AdvReac Type Severity Reaction Status Date / Time
clindamycin Allergy GERD AND Verified 09/04/24 21:01
DIARRHEA
prochlorperazine Allergy angioedema, Verified 09/04/24 21:01
anaphylaxis
Sulfa (Sulfonamide Allergy Rash Verified 09/04/24 21:01
Antibiotics)
sulfisoxazole Allergy Unknown Verified 09/04/24 21:01
�Medication �Instructions �Recorded �Confirmed �Type
cholecalciferol (vitamin D3) 25 1,000 unit PO DAILY Supplement 04/14/19 02/05/25 History
mcg (1,000 unit) capsule (Vitamin
D3)
cyanocobalamin (vitamin B-12) 1,000 mcg PO DAILY Supplement 04/14/19 02/05/25 History
1,000 mcg capsule
cetirizine 10 mg tablet 10 mg PO HS Allergies 09/06/21 02/05/25 History
atenolol 25 mg tablet 25 mg PO BID Blood Pressure 07/05/23 02/05/25 History
potassium chloride 10 mEq 20 meq PO DAILY Electrolyte 07/05/23 02/05/25 History
tablet,extended release Repletion
therapeutic multivitamin 1 tab PO DAILY Supplement 12/20/23 02/05/25 History
diltiazem HCl 120 mg 120 mg PO DAILY #30 caps 12/21/23 02/05/25 Rx
capsule,extended release 24 hr
ascorbic acid (vitamin C) 1,000 mg 1,000 mg PO DAILY Supplement 09/04/24 02/05/25 History
tablet (Vitamin C)
dapagliflozin propanediol 5 mg 5 mg PO DAILY Diabetes 09/04/24 02/05/25 History
tablet (Farxiga)
ferrous sulfate 325 mg (65 mg 325 mg PO DAILY Supplement 09/04/24 02/05/25 History
iron) tablet
fluticasone propionate 50 1 spray intranasal HS Allergies 09/04/24 02/05/25 History
mcg/actuation nasal
spray,suspension
glucosamine sulfate 500 mg tablet 1,000 mg PO DAILY Supplement 09/04/24 02/05/25 History
(Glucosamine)
omeprazole 40 mg capsule,delayed 40 mg PO DAILY Gastrointestinal 09/04/24 02/05/25 History
release Issue
peg 400-propylene glycol (PF) 0.4 1 drp BOTH EYES DAILYPRN PRN dry 09/04/24 02/05/25 History
%-0.3 % eye drops in a dropperette eyes
(Systane (PF))
sacubitril 24 mg-valsartan 26 mg 1 tab PO BID Heart 09/04/24 02/05/25 History
tablet (Entresto) Disease/Condition
zinc sulfate 50 mg zinc (220 mg) 50 mg PO DAILY Supplement 09/04/24 02/05/25 History
tablet
evolocumab 140 mg/mL subcutaneous 140 mg SC Q2W 02/05/25 02/05/25 History
pen injector (Repatha SureClick)
furosemide 40 mg tablet (Lasix) 40 mg PO QPM 02/05/25 02/05/25 History
furosemide 40 mg tablet (Lasix) 80 mg PO DAILY 02/05/25 02/05/25 History
potassium chloride 10 mEq 10 meq PO QPM 02/05/25 02/05/25 History
tablet,extended release
Review of Systems
-
All other systems: Negative unless noted
Physical Exam
Vital Signs
Temp Pulse Resp BP Pulse Ox
95.8 F L 54 23 100/62 95
02/05/25 03:30 02/05/25 10:15 02/05/25 10:15 02/05/25 10:00 02/05/25 06:45
Lab Results
02/05/25 03:34
02/05/25 03:34
Troponin I 0.021 ng/ml 02/05/25 05:39
Klj-L-Jgnzbwuaaan Pept 2850 pg/ml 02/05/25 03:34
Physical Exam
General: Well Developed, Well Nourished, No Apparent Distress and Other (feeling better now that he is back in sinus rhythm)
HEENT: Normocephalic and Moist Mucous Membranes
Respiratory: Clear and Non Labored Respirations
Cardiac: S1/S2, Regular Rhythm, Peripheral Edema and JVD
GI: Soft, Non Tender and Non Distended
Musculoskeletal: No Clubbing, No Cyanosis and No Edema
Skin: Warm and Dry
Neuro: Awake, Alert, Oriented, AO x 3 and No Motor Deficits
Impression / Plan
-
Mr. Clarke is an 89 years old man with CAD (drug-eluting stent to tandem lesions in the mid LAD and D1 12/20/2023), hypertension, h/p persistent atrial fibrillation s/p AF ablation (2019 - PVI, 2021 - PWI) now paroxysmal atrial fibrillation on
Xarelto, dyslipidemia, SERGIO on CPAP and pulmonary hypertension is here in mild CHF and recurrent atrial fibrillation.
Afib - paroxysmal.
- Persistent AF s/p abaltion and remained AF free for 5 years.
- Now paroxysmal AF noted. He was in atypical flutter on 01/13/25 s/p DCCV.
- Ablations included PVI (2019) and PWI (2021).
- Converted to sinus spontaneously and symptoms are improved.
- Bradycardiac - Rate controlled on atenolol and diltiazem. Will stop Diltiazem.
- Start Tikosyn for shelter rhythm control.
- TSH - 2.38 on 09/09/24
- ECHO to assess any ne changes.
- CHADS2-Vasc = 5 (CHF, HTN, Age x2, vascular disease).
- Therapeutic anticoagulation with rivaroxaban, continue.
- Tikosyn loading.
CAD - symptoms of dyspnea on exertion and fatigue are similar to his anginal equivalent.
- Troponin trend 0.020, 0.021.
- EKG A-fib 65 bpm, lateral infarct age undetermined.
- Status post drug-eluting stent to D1 and mid LAD 12/20/2023.
-Continue medical therapy with Xarelto 15 mg daily, Plavix 75 mg daily. Plan at 1 year to discontinue Plavix and start aspirin 81 mg daily with Xarelto 20 mg daily (therapeutic A-fib dose).
HFpEF - acute on chronic.
- EF 65-70% on echo 04/2024.
- He takes Lasix 40 mg twice daily at home, he denies missed doses.
- Dry weight is 174 and is at 176 lbs today.
- Elevated BNP but CXR is clear.
- Continue home dose of Lasix 40 mg twice daily, monitor renal function closely and electrolytes.
PHTN - chronic, severe.
- Post capillary (PCWP > 15, PVR < 3 harris units) on cath 12/20/23.
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
- Has seen Dr. Lopes at [facility], recommends continue Entresto and Farxiga.
HTN - chronic, stable.
- Continue home medications.
HLD - chronic, stable.
- Continue Lipitor 20mg Q48hr.
- LDL was at goal, 52.
Data Reviewed
-
EKG: Tracing Personally Visualized and interpreted and Report Reviewed by me
Radiology: Image Personally Visualized and interpreted and Report Reviewed by me
Medical Tests (Nuc Med, Echo etc): Image Personally Visualized and interpreted, Discussed with Nurse and Discussed with Patient
Labs: Labs Reviewed by me, Discussed with Physician, Discussed with Nurse and Discussed with Patient
Old Records: Reviewed
--- NOTE | 2025-02-05 15:54 | PTCARENOTE ---
Rec'd Pt A,A+OX3, denies pain. VSS.
--- NOTE | 2025-02-05 16:06 | CM ---
spoke to pt in room, discussed dofetilide loading. cm to check for availability at [facility] tomorrow.
[2025-02-05] MEDS: KCL 10 MEQ PO (18:02)
[2025-02-05] MEDS: LASIX 40 MG PO (18:02)
[2025-02-05] MEDS: XARELTO 20 MG PO (18:02)
[2025-02-05] MEDS: TIKOSYN 500 MCG PO (18:02)
[2025-02-05] MEDS: ENTRESTO 24 MG/26 MG 1 TAB PO (20:43)
--- NOTE | 2025-02-05 21:45 | PTCARENOTE ---
Pt.'s post Tikosyn dose #1 EKG reading 'sinus tachycardia' (rate 58?) with 2nd degree AV block with 3:1 AV conduction with PAC's, lateral infarct (age undetermined), QTc 439 ms. Pt. states he feels fine, denies any dizziness, SOB or chest
discomfort. BP 106/60. EKG shown to both Dr. Araujo and Neo Goddard , CV-PA; (per Dr. Araujo A -flutter with variable conduction in lead V1); instructed to hold atenolol for HR>60, still okay to administer next dose Tikosyn in AM . Pt. updated to plan
of care, understanding verbalized. Currently resting quietly.
[2025-02-05 22:59] LABS: Urine Character Clear (Clear)
[2025-02-05 23:10] LABS: Urine Red Blood Cell 0-2 /HPF (0-2)
[2025-02-06] VITALS (9 sets, daily range): BP systolic 119–165; BP diastolic 66–92; PULSE 66; BMI 25.5
[2025-02-06] MEDS: REFRESH EYE DROPS (PF) 1 DROPS BOTH EYES (02:55)
[2025-02-06] MEDS: TIKOSYN 500 MCG PO ×2 (06:02→17:50)
--- NOTE | 2025-02-06 07:50 | W.PN.HOSP.TC ---
Addendum entered and electronically signed by Bernard Espino MD 02/06/25 14:43:
Seen and examined by me independently in collaboration with the neuropsychology medical consultant.
Lab data reviewed.
Addendum as below :
Patient currently in sinus rhythm and asymptomatic. Hemodynamically stable.
Continue Tikosyn load.
Permanent pacemaker planned on Sunday.
Original Note:
Today's Communication/Plan
-
c/w Tikosyn per Cardiology
Echo pending
Assessment / Plan
Assessment / Plan
Patient is an 89-year-old man with past medical history of paroxysmal A-fib with implantable loop recorder, requiring multiple cardioversions within the past 6 months, HFpEF, CAD status post multivessel PCI, hyperlipidemia, essential hypertension
pulmonary hypertension, SERGIO on home CPAP who presents to the emergency room for symptoms of dizziness, palpitations, lightheadedness.
#Paroxysmal Atrial Fibrillation
- recent ED visit in 01/13/2025 for symptomatic atrial fibrillation requiring cardioversion
- Afib on personal monitor during symptomatic episode which brought him to ED
- Seen by EP -- admit to IVU for trial of Tikosyn
- c/w tele monitoring
- c/w OAC Xarelto
- c/w atenolol, stop Diltiazem
- ECG from 02/06 -- sinus rhythm with 1st degree AV block
#Chronic HFpEF
- Last echo 2023 showing LVEF 65-70%, with estimated severe pulm HTN, PA systolic pressure 90mmHg
- Pro-BNP here 2900
- c/w GDMT Daniel Abreu, BB
- c/w Lasix 80 mg AM, 40mg PM, KCl supplement
- trend I/Os, Daily weights
- repeat Echo pending
#CAD status post multivessel PCI
#Essential hypertension
#Hypercholesterolemia
- no anginal symptoms, negative troponins
- c/w GDMT as above
- takes repatha injections q2w as outpatient
- cholesterol lowering diet
#Acute Hypotension (resolved)
- hypotensive on arrival to ED 70-90s/40-50s
- responsive to IV bolus 150cc and 500cc
- pressure now 100s/50s, MAP >65, asymptomatic
- possible component of dehydration vs. cardiogenic from afib
- finish out 500cc IVF, encourage PO intake, reassess in AM
#?Hypothermia (resolved)
- no leukocytosis, tachypnea, or tachycardia, no respiratory, GI or urinary sx to suggest occult infection
- repeat sublingual temp by me 97.9F
- possible measurement error vs. consequence of hypotension, now resolved
#History of pulmonary hypertension
- Echo 2023 demonstrating severe pulmonary hypertension
- Follows with pulmonology outpatient Dr. Garrett
#SERGIO
- uses CPAP at home
- c/w CPAP 8mmH20
#GERD
- c/w PPI qd
#Iron deficiency
- c/w iron supplementation
PCP: Dr. Ros Hernadez
DVT PPx: On Xarelto
Code Status: Full Code
Anticipated Discharge: > 48 hours
Subjective/Interval History
-
Date of Service: February 06, 2025
Intermittent episodes of Afib on tele overnight, rate controlled, with one 2sec pause, asymptomatic. No acute complaints this morning and no other acute overnight events.
Objective Data
-
Vital Signs:
Vital Signs
Temp Pulse Resp BP Pulse Ox
97.6 F 72 20 119/66 93
02/06/25 07:36 02/06/25 04:00 02/06/25 07:36 02/06/25 02:53 02/06/25 07:36
I&O
02/05/25 02/06/25 02/07/25
06:59 06:59 06:59
Intake Total 480 / 480
Balance 480 / 480
Review of Systems
-
History Source: Patient
All other systems: Reviewed and negative
Constitutional: Reports No Symptoms
EENT: Reports No Symptoms Reported
Respiratory: Reports No Symptoms
Cardiac: Reports No Symptoms
Abdomen/GI: Reports No Symptoms
Breast: Reports N/A
Genitourinary: Reports No Symptoms
Musculoskeletal: Reports No Symptoms
Skin: Reports No Symptoms
Neuro: Reports No Symptoms
Endocrine: Reports No Symptoms
Hematologic / Lymphatic: Reports No Symptoms
Physical Exam
-
General: Well Developed, Well Nourished, No Apparent Distress and Comfortable
HEENT: Normocephalic, Atraumatic, Moist Mucous Membranes, Anicteric, [place] Conjunctivae, No Ptosis, PERRLA, Nose Appears Normal and Ears Appear Normal
Respiratory: Clear to Auscultation and Non Labored Respirations; Negative Wheezes, Rales or Rhonchi
Cardiac: Regular Rhythm and S1/S2; Negative Murmur, Rub or Gallop
Breast: N/A
GI: Soft, Nontender, Nondistended and Normal Bowel Sounds
Rectal: Deferred by Provider
Genito-urinary: No Costovertebral Tender
Musculoskeletal: No Clubbing, No Cyanosis and No Edema
Skin: Warm, Dry and IV Access / Catheter Site
Neuro: AO x 3
Psych: Calm
[2025-02-06] MEDS: KCL 20 MEQ PO (08:36)
[2025-02-06] MEDS: LASIX 80 MG PO (08:36)
[2025-02-06] MEDS: ENTRESTO 24 MG/26 MG 1 TAB PO ×2 (08:36→20:29)
[2025-02-06] MEDS: PROTONIX 40 MG PO (08:36)
[2025-02-06] MEDS: FARXIGA 5 MG PO (08:37)
[2025-02-06] MEDS: FEOSOL PO (08:37)
[2025-02-06] MEDS: ZINC 50 MG PO (08:37)
[2025-02-06 09:31] LABS: Blood Urea Nitrogen 18 mg/dl (9-20); Calcium 8.9 mg/dl (8.4-10.2); Carbon Dioxide 27 mmol/L (22-30); Chloride 104 mmol/L (98-107); Estimated Creatinine Clearance 74 ml/min; Glucose 110 mg/dl (70-99); Potassium 3.9 mmol/L (3.5-5.1); Sodium 138 mmol/L (135-145); eGFR > 60.00
--- NOTE | 2025-02-06 10:28 | CM ---
Reviewed chart. Met with Mr. Clarke to review discharge plans. He states prior to admission he resides alone in a two story home with six steps to enter. His spouse is currently in [facility]. He states prior to admission he
was independent with ambulation and adls. He has a CPAP MAchine at home and no other DME. He uses [facility]. Telephone call to [facility] to check on co-pay for Dofetilide 500 mcg bid. His co-pay is zero. [facility] has
Dofetilide 500 mcg in stock. Will need to send a script to [facility] for a three day supply of Dofetilide to go home with him. Medical work-up in progress. The discharge plan is to return home when medically stable.
--- NOTE | 2025-02-06 10:58 | W.PN.CD ---
Today's Communication / Plan
-
- PPM on Sunday
- Tikosyn loading til then
- Holding CCB and BB due to bradycardia
Impression / Plan
-
Mr. Clarke is an 89 years old man with CAD (drug-eluting stent to tandem lesions in the mid LAD and D1 12/20/2023), hypertension, h/p persistent atrial fibrillation s/p AF ablation (2019 - PVI, 2021 - PWI) now paroxysmal atrial fibrillation on
Xarelto, dyslipidemia, SERGIO on CPAP and pulmonary hypertension is here in mild CHF and recurrent atrial fibrillation.
Afib - paroxysmal.
- Persistent AF s/p abaltion and remained AF free for 5 years.
- Now paroxysmal AF noted. He was in atypical flutter on 01/13/25 s/p DCCV.
- Ablations included PVI (2019) and PWI (2021).
- Converted to sinus spontaneously and symptoms are improved.
- Bradycardiac - Rate controlled on atenolol and diltiazem. Will stop Diltiazem.
- Start Tikosyn for lifter rhythm control.
- TSH - 2.38 on 09/09/24
- ECHO to assess any ne changes.
- CHADS2-Vasc = 5 (CHF, HTN, Age x2, vascular disease).
- Therapeutic anticoagulation with rivaroxaban, continue.
- Tikosyn loading - dose 08/21 AM
- EKG is normal.
Tachy shahla syndrome
- Severe baseline bradycardia and AF/FL is induced with bradycardia.
- Case discussed in detail with his IC - Dr. Mixon from [place].
- The bradycardia is symptomatic and both of themn are interested in pursuing a dual chamber PPM.
- Plan for PPM on Sunday
CAD - symptoms of dyspnea on exertion and fatigue are similar to his anginal equivalent.
- Troponin trend 0.020, 0.021.
- EKG A-fib 65 bpm, lateral infarct age undetermined.
- Status post drug-eluting stent to D1 and mid LAD 12/20/2023.
-Continue medical therapy with Xarelto 15 mg daily, Plavix 75 mg daily. Plan at 1 year to discontinue Plavix and start aspirin 81 mg daily with Xarelto 20 mg daily (therapeutic A-fib dose).
HFpEF - acute on chronic.
- EF 65-70% on echo 04/2024.
- He takes Lasix 40 mg twice daily at home, he denies missed doses.
- Dry weight is 174 and is at 176 lbs today.
- Elevated BNP but CXR is clear.
- Continue home dose of Lasix 40 mg twice daily, monitor renal function closely and electrolytes.
PHTN - chronic, severe.
- Post capillary (PCWP > 15, PVR < 3 harris units) on cath 12/20/23.
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
- Has seen Dr. Lopes at [facility] and is now looking for another (Dr. Lopes has moved out of [place]), recommends continue Entresto and Farxiga.
HTN - chronic, stable.
- Continue home medications.
HLD - chronic, stable.
- Continue Lipitor 20mg Q48hr.
- LDL was at goal, 52.
Physical Exam
Vital Signs/Labs
Vital Signs
Temp Pulse Resp BP Pulse Ox
97.6 F 66 20 140/77 93
02/06/25 07:36 02/06/25 07:36 02/06/25 07:36 02/06/25 07:36 02/06/25 07:36
02/05/25 02/06/25 02/07/25
06:59 06:59 06:59
Actual Weight 80.1 kg 78.3 kg
02/05/25 03:34
02/06/25 08:47
PT 21.5 Sec (11.4-14.6) H 07/24/25 03:34
INR 1.81 02/05/25 03:34
02/05/25
03:34
Ali-Y-Lmlbwjsgniu Pept 2850
LAB Results
02/05/25 02/05/25
03:34 05:39
Troponin I 0.020 0.021
Physical Exam
Constitutional: No acute distress and Comfortable
EENT: Anicteric and Moist mucous membranes
Cardiovascular: Rhythm & rate is regular, Pedal edema is absent and JVD pressure is normal
Respiratory: Respiratory effort normal, Lungs clear to auscul. and Wheeze Absent
GI: Soft, Distention absent, Non tender and Normal bowel sounds
Neuro/Psych: Alert, Oriented and AO x 3
Data Reviewed
-
Date of Service: February 06, 2025
Medical Decision Making: Reviewed Test Results, Test Interpretation and Review of Case with other Provider
EKG: Tracing Personally Visualized and interpreted
Echo: Report Reviewed by me
Labs: Labs Reviewed by me
Old Records: Reviewed
--- NOTE | 2025-02-06 14:18 | PTCARENOTE ---
Assumed care at 0700. Patient comfortable at rest. EKG completed, VSS, call oliver in reach
[2025-02-06] MEDS: XARELTO 20 MG PO (17:50)
[2025-02-06] MEDS: LASIX 40 MG PO (17:51)
[2025-02-06] MEDS: KCL 10 MEQ PO (17:51)
--- NOTE | 2025-02-06 22:06 | PTCARENOTE ---
Received pt at change of shift resting in bed. SR on tele, HR in the 70's. EKG obtained 2 hrs post Tikosyn dose #3. pt ambulating in hallway, denies any CP or SOB. RT applied CPAP to pt for HS. Encouraged pt to call staff assistant with any
questions/concerns. Call oliver within reach
[2025-02-07] VITALS (8 sets, daily range): BP systolic 132–167; BP diastolic 77–86; PULSE 71; BMI 24.9
[2025-02-07 03:53] LABS: Blood Urea Nitrogen 17 mg/dl (9-20); Calcium 9.1 mg/dl (8.4-10.2); Carbon Dioxide 27 mmol/L (22-30); Chloride 102 mmol/L (98-107); Estimated Creatinine Clearance 87 ml/min; Glucose 96 mg/dl (70-99); Magnesium 1.8 mg/dl (1.6-2.3); Potassium 3.8 mmol/L (3.5-5.1); Sodium 138 mmol/L (135-145); eGFR > 60.00
[2025-02-07] MEDS: KCL 40 MEQ PO (04:22)
[2025-02-07] MEDS: MAGNESIUM SULFATE 50 IV (04:23)
--- NOTE | 2025-02-07 04:45 | PTCARENOTE ---
AM labs sent. pt with 6-beat run of vtach on tele monitor. pt OOB in chair, asymptomatic. HEIDI Martinez notified and ordered K and mag. Administered per order--see SEP.
--- NOTE | 2025-02-07 06:26 | PTCARENOTE ---
HEIDI Martinez instructed RN to hold 0600 dose of Tikosyn.
--- NOTE | 2025-02-07 07:31 | W.PN.HOSP.TC ---
Addendum entered and electronically signed by Bernard Espino MD 02/07/25 15:22:
Seen and examined by me independently in collaboration with the medical historian.
Lab data reviewed.
Addendum as below :
Patient remains asymptomatic. In sinus rhythm.
Bradycardia [id number] and diltiazem stopped. Tikosyn dose decreased.
Permanent pacemaker planned for Sunday.
Original Note:
Today's Communication/Plan
-
c/w Tikosyn loading per cardiology
PPM placement scheduled tentatively for Friday 02/09
Assessment / Plan
Assessment / Plan
Patient is an 89-year-old man with past medical history of paroxysmal A-fib with implantable loop recorder, requiring multiple cardioversions within the past 6 months, HFpEF, CAD status post multivessel PCI, hyperlipidemia, essential hypertension
pulmonary hypertension, SERGIO on home CPAP who presents to the emergency room for symptoms of dizziness, palpitations, lightheadedness.
#Paroxysmal Atrial Fibrillation
- recent ED visit in 01/13/2025 for symptomatic atrial fibrillation requiring cardioversion
- Afib on personal monitor during symptomatic episode which brought him to ED
- Seen by EP -- admit to IVU for trial of Tikosyn
- c/w tele monitoring
- c/w OAC Xarelto
- holding Diltiazem/BB per cardiology for bradycardia
- ECG from 02/06 -- sinus rhythm with 1st degree AV block
- PPM placement on Sunday
#Chronic HFpEF
- Last echo 2023 showing LVEF 65-70%, with estimated severe pulm HTN, PA systolic pressure 90mmHg
- Pro-BNP here 2900
- c/w GDMT Daniel Abreu, holding BB as above
- c/w Lasix 80 mg AM, 40mg PM, KCl supplement
- trend I/Os, Daily weights
- Echo 02/07
- LVEF 60%
- severe mitral annular calc, mod L and mild R atrial dilation, mild MR, mod TR, PASP est. 61mmHg
#CAD status post multivessel PCI
#Essential hypertension
#Hypercholesterolemia
- no anginal symptoms, negative troponins
- c/w GDMT as above
- takes repatha injections q2w as outpatient
- cholesterol lowering diet
#Acute Hypotension (resolved)
- hypotensive on arrival to ED 70-90s/40-50s
- responsive to IV bolus 150cc and 500cc
- pressure now 100s/50s, MAP >65, asymptomatic
- possible component of dehydration vs. cardiogenic from afib
- finish out 500cc IVF, encourage PO intake, reassess in AM
#?Hypothermia (resolved)
- no leukocytosis, tachypnea, or tachycardia, no respiratory, GI or urinary sx to suggest occult infection
- repeat sublingual temp by me 97.9F
- possible measurement error vs. consequence of hypotension, now resolved
#History of pulmonary hypertension
- Echo 2023 demonstrating severe pulmonary hypertension, repeat as above demonstrating improvement in PASP to 61mmHg
- Follows with pulmonology outpatient Dr. Garrett
#SERGIO
- uses CPAP at home
- c/w CPAP 8mmH20
#GERD
- c/w PPI qd
#Iron deficiency
- c/w iron supplementation
PCP: Dr. Ros Hernadez
DVT PPx: On Xarelto
Code Status: Full Code
Anticipated Discharge: > 48 hours
Subjective/Interval History
-
Date of Service: February 07, 2025
6 beat run of Vtach in early AM, asymptomatic. 6 AM dose Tikosyn held. Otherwise no acute complaints and no other overnight events.
Objective Data
-
Labs:
Laboratory Results
02/07/25
03:04
Sodium 138
Potassium 3.8
Chloride 102
Carbon Dioxide 27
BUN 17
Creatinine 0.6 L
Glucose 96
Calcium 9.1
Vital Signs:
Vital Signs
Temp Pulse Resp BP Pulse Ox
97.7 F 66 16 146/86 94
02/07/25 02:58 02/07/25 05:00 02/07/25 02:58 02/07/25 02:57 02/07/25 02:58
I&O
02/06/25 02/07/25 02/08/25
06:59 06:59 06:59
Intake Total 480 / 480 360 / 360
Output Total 150 / 150
Balance 480 / 480 210 / 210
Review of Systems
-
History Source: Patient
All other systems: Reviewed and negative
Constitutional: Reports No Symptoms
EENT: Reports No Symptoms Reported
Respiratory: Reports No Symptoms
Cardiac: Reports No Symptoms
Abdomen/GI: Reports No Symptoms
Genitourinary: Reports No Symptoms
Musculoskeletal: Reports No Symptoms
Skin: Reports No Symptoms
Neuro: Reports No Symptoms
Hematologic / Lymphatic: Reports No Symptoms
Physical Exam
-
General: Well Developed, Well Nourished, No Apparent Distress and Comfortable
HEENT: Normocephalic, Atraumatic, Moist Mucous Membranes, Anicteric, [place] Conjunctivae, No Ptosis, PERRLA, Nose Appears Normal and Ears Appear Normal
Respiratory: Clear to Auscultation and Non Labored Respirations; Negative Wheezes, Rales or Rhonchi
Cardiac: Regular Rhythm and S1/S2; Negative Murmur, Rub or Gallop
Breast: N/A
GI: Soft, Nontender, Nondistended and Normal Bowel Sounds
Rectal: Deferred by Provider
Genito-urinary: Deferred by me
Musculoskeletal: No Clubbing, No Cyanosis and No Edema
Skin: Warm, Dry and IV Access / Catheter Site
Neuro: AO x 3
Psych: Calm
--- NOTE | 2025-02-07 08:08 | W.PN.CD ---
Today's Communication / Plan
-
- Decrease Tikosyn dose to 250 mcg q12h
Impression / Plan
-
Mr. Clarke is an 89 years old man with CAD (drug-eluting stent to tandem lesions in the mid LAD and D1 12/20/2023), hypertension, h/p persistent atrial fibrillation s/p AF ablation (2019 - PVI, 2021 - PWI) now paroxysmal atrial fibrillation on
Xarelto, dyslipidemia, SERGIO on CPAP and pulmonary hypertension is here in mild CHF and recurrent atrial fibrillation.
Afib - paroxysmal.
- Persistent AF s/p abaltion and remained AF free for 5 years.
- Now paroxysmal AF noted. He was in atypical flutter on 01/13/25 s/p DCCV.
- Ablations included PVI (2019) and PWI (2021).
- Converted to sinus spontaneously and symptoms are improved.
- Bradycardiac - Rate controlled on atenolol and diltiazem. Will stop Diltiazem.
- Start Tikosyn for half-way rhythm control.
- TSH - 2.38 on 09/09/24
- ECHO 02/05/25: LVEF 60%, asymmetric septal hypertrophy; Moderate left atrial dilation. Mild right atrial dilation.
Severe mitral annular calcification, posterior > anterior with leaflet thickening and mitral sclerosis and mild mitral regurgitation.
At least moderate tricuspid regurgitation.
- CHADS2-Vasc = 5 (CHF, HTN, Age x2, vascular disease).
- Therapeutic anticoagulation with rivaroxaban, continue.
- Tikosyn loading - dose 09/18 last night.
- NSVT noted. Tikosyn was held this AM and now restarted with 250 mcg dose.
- EKG is unchanged with IVCD and QTc is stable.
Tachy shahla syndrome
- Severe baseline bradycardia and AF/FL is induced with bradycardia.
- Case discussed in detail with his IC - Dr. Mixon from [place].
- Atenolol and Dilt is discontinued. Plan to start Toprol after the PPM.
- The bradycardia is symptomatic and both of them are interested in pursuing a dual chamber PPM.
- Plan for PPM on Sunday
CAD - symptoms of dyspnea on exertion and fatigue are similar to his anginal equivalent.
- Troponin trend 0.020, 0.021.
- EKG A-fib 65 bpm, lateral infarct age undetermined.
- Status post drug-eluting stent to D1 and mid LAD 12/20/2023.
- Xarelto 20 mg qPM - continued.
HFpEF - acute on chronic.
- EF 65-70% on echo 04/2024.
- He takes Lasix 40 mg twice daily at home, he denies missed doses.
- Dry weight is 174 and is at 176 lbs today.
- Elevated BNP but CXR is clear.
- Continue home dose of Lasix 40 mg twice daily, monitor renal function closely and electrolytes.
PHTN - chronic, severe.
- Post capillary (PCWP > 15, PVR < 3 harris units) on cath 12/20/23.
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
- Has seen Dr. Lopes at [place] and is now looking for another (Dr. Lopes has moved out of [place]), recommends continue Entresto and Farxiga.
HTN - chronic, stable.
- Continue home medications.
HLD - chronic, stable.
- Continue Lipitor 20mg Q48hr.
- LDL was at goal, 52.
Physical Exam
Vital Signs/Labs
Vital Signs
Temp Pulse Resp BP Pulse Ox
97.7 F 66 16 146/86 94
02/07/25 02:58 02/07/25 05:00 02/07/25 02:58 02/07/25 02:57 02/07/25 02:58
02/06/25 02/07/25 02/08/25
06:59 06:59 06:59
Actual Weight 78.3 kg 76.4 kg
02/05/25 03:34
02/07/25 03:04
PT 21.5 Sec (11.4-14.6) H 02/05/25 03:34
INR 1.81 02/05/25 03:34
Magnesium 1.8 mg/dl (1.6-2.3) 02/07/25 03:04
02/05/25
03:34
Tbu-M-Uyvqimemjpn Pept 2850
LAB Results
02/05/25 02/05/25
03:34 05:39
Troponin I 0.020 0.021
Physical Exam
Constitutional: No acute distress and Comfortable
EENT: Anicteric and Moist mucous membranes
Cardiovascular: Rhythm & rate is regular, Pedal edema is absent and JVD pressure is normal
Respiratory: Respiratory effort normal, Lungs clear to auscul. and Wheeze Absent
GI: Soft, Non tender and Normal bowel sounds
Neuro/Psych: Alert, Oriented and AO x 3
Data Reviewed
-
Date of Service: February 07, 2025
Medical Decision Making: Reviewed Test Results, Test Interpretation and Review of Case with other Provider
EKG: Tracing Personally Visualized and interpreted
Echo: Report Reviewed by me
Labs: Labs Reviewed by me
Old Records: Reviewed
[2025-02-07] MEDS: ZINC 50 MG PO (08:24)
[2025-02-07] MEDS: LASIX 80 MG PO (08:25)
[2025-02-07] MEDS: ENTRESTO 24 MG/26 MG 1 TAB PO ×2 (08:25→20:04)
[2025-02-07] MEDS: FEOSOL 325 MG PO (08:26)
[2025-02-07] MEDS: PROTONIX 40 MG PO (08:26)
[2025-02-07] MEDS: FARXIGA 5 MG PO (08:31)
[2025-02-07] MEDS: TIKOSYN 250 MCG PO ×2 (08:41→20:04)
[2025-02-07] MEDS: TIKOSYN PO (13:28)
[2025-02-07] MEDS: LASIX 40 MG PO (17:57)
[2025-02-07] MEDS: XARELTO 20 MG PO (17:57)
[2025-02-07] MEDS: KCL 10 MEQ PO (17:57)
--- NOTE | 2025-02-07 18:16 | PTCARENOTE ---
Pt received this am with no c/o dizziness, lightheadedness, or sob. Tikosyn dose decreased to 250mg. Pt tolerating well. No further NSVT. Pt oob ad reji in the room and the hallway.
--- NOTE | 2025-02-07 22:43 | PTCARENOTE ---
Assumed care of the pt @ 1900. Pt is AAOx3 ambulating in the room. SR 1st degree AVB on the monitor VSS #5 dose Tikosyn given and 2 post EKG done QTc 451. Call oliver within reach. Respiratory placed pt on CPAP at 2215.
[2025-02-08 04:40] VITALS: BP 155/86
[2025-02-08 04:45] VITALS: BMI 24.4
[2025-02-08 05:29] LABS: Blood Urea Nitrogen 20 mg/dl (9-20); Calcium 9.5 mg/dl (8.4-10.2); Carbon Dioxide 30 mmol/L (22-30); Chloride 101 mmol/L (98-107); Estimated Creatinine Clearance 74 ml/min; Glucose 109 mg/dl (70-99); Potassium 3.8 mmol/L (3.5-5.1); Sodium 137 mmol/L (135-145); eGFR > 60.00
[2025-02-08 07:52] VITALS: BP 159/91
[2025-02-08] MEDS: KCL 20 MEQ PO (07:54)
[2025-02-08] MEDS: ZINC 50 MG PO (07:54)
[2025-02-08] MEDS: FARXIGA 5 MG PO (07:54)
[2025-02-08] MEDS: PROTONIX 40 MG PO (07:54)
[2025-02-08] MEDS: LASIX 80 MG PO (07:54)
[2025-02-08] MEDS: ENTRESTO 24 MG/26 MG 1 TAB PO ×2 (07:54→20:06)
[2025-02-08] MEDS: TIKOSYN 250 MCG PO ×2 (07:54→20:06)
[2025-02-08] MEDS: FEOSOL 325 MG PO (07:54)
--- NOTE | 2025-02-08 08:44 | W.PN.HOSP.TC ---
Today's Communication/Plan
-
c/w with Tikosyn loading per cardiology
speak with cards regarding BB/CCB as pt has been hypertensive and non-bradycardic
Assessment / Plan
Assessment / Plan
Patient is an 89-year-old man with past medical history of paroxysmal A-fib with implantable loop recorder, requiring multiple cardioversions within the past 6 months, HFpEF, CAD status post multivessel PCI, hyperlipidemia, essential hypertension
pulmonary hypertension, SERGIO on home CPAP who presents to the emergency room for symptoms of dizziness, palpitations, lightheadedness.
#Paroxysmal Atrial Fibrillation
- recent ED visit in 01/13/2025 for symptomatic atrial fibrillation requiring cardioversion
- Afib on personal monitor during symptomatic episode which brought him to ED
- Seen by EP -- admit to IVU for trial of Tikosyn
- c/w tele monitoring
- c/w OAC Xarelto
- holding Diltiazem/BB per cardiology for initial bradycardia
- ECG from 02/06 -- sinus rhythm with 1st degree AV block
- PPM placement on Sunday
#Chronic HFpEF
- Last echo 2023 showing LVEF 65-70%, with estimated severe pulm HTN, PA systolic pressure 90mmHg
- Pro-BNP here 2900
- c/w GDMT Daniel Abreu, holding BB as above
- c/w Lasix 80 mg AM, 40mg PM, KCl supplement
- trend I/Os, Daily weights
- Echo 02/07
- LVEF 60%
- severe mitral annular calc, mod L and mild R atrial dilation, mild MR, mod TR, PASP est. 61mmHg
#CAD status post multivessel PCI
#Essential hypertension
#Hypercholesterolemia
- no anginal symptoms, negative troponins
- c/w GDMT as above
- takes repatha injections q2w as outpatient
- cholesterol lowering diet
#Acute Hypotension (resolved)
- hypotensive on arrival to ED 70-90s/40-50s
- responsive to IV bolus 150cc and 500cc
- pressure now 100s/50s, MAP >65, asymptomatic
- possible component of dehydration vs. cardiogenic from afib
- finish out 500cc IVF, encourage PO intake, reassess in AM
#?Hypothermia (resolved)
- no leukocytosis, tachypnea, or tachycardia, no respiratory, GI or urinary sx to suggest occult infection
- repeat sublingual temp by me 97.9F
- possible measurement error vs. consequence of hypotension, now resolved
#History of pulmonary hypertension
- Echo 2023 demonstrating severe pulmonary hypertension, repeat as above demonstrating improvement in PASP to 61mmHg
- Follows with pulmonology outpatient Dr. Garrett
#SERGIO
- uses CPAP at home
- c/w CPAP 8mmH20
#GERD
- c/w PPI qd
#Iron deficiency
- c/w iron supplementation
PCP: Dr. Ros Hernadez
DVT PPx: On Xarelto
Code Status: Full Code
Anticipated Discharge: > 48 hours
Subjective/Interval History
-
Date of Service: February 08, 2025
no acute complaints, no acute overnight events.
Objective Data
-
Labs:
Laboratory Results
02/08/25
04:44
Sodium 137
Potassium 3.8
Chloride 101
Carbon Dioxide 30
BUN 20
Creatinine 0.7
Glucose 109 H
Calcium 9.5
Vital Signs:
Vital Signs
Temp Pulse Resp BP Pulse Ox
97.6 F 90 22 159/91 97
02/08/25 07:51 02/08/25 07:54 02/08/25 07:51 02/08/25 07:54 02/08/25 07:52
I&O
02/07/25 02/08/25 02/09/25
06:59 06:59 06:59
Intake Total 360 / 360
Output Total 150 / 150
Balance 210 / 210
Review of Systems
-
History Source: Patient
All other systems: Reviewed and negative
Constitutional: Reports No Symptoms
EENT: Reports No Symptoms Reported
Respiratory: Reports No Symptoms
Cardiac: Reports No Symptoms
Abdomen/GI: Reports No Symptoms
Breast: Reports N/A
Genitourinary: Reports No Symptoms
Musculoskeletal: Reports No Symptoms
Skin: Reports No Symptoms
Neuro: Reports No Symptoms
Endocrine: Reports No Symptoms
Hematologic / Lymphatic: Reports No Symptoms
Allergy / Immunology: Reports No Symptoms
Physical Exam
-
General: Well Developed, Well Nourished, No Apparent Distress and Comfortable
HEENT: Normocephalic, Atraumatic, Moist Mucous Membranes, Anicteric, [place] Conjunctivae, No Ptosis, PERRLA, Nose Appears Normal and Ears Appear Normal
Respiratory: Clear to Auscultation; Negative Wheezes, Rales or Rhonchi
Cardiac: S1/S2 and Irregular Rhythm; Negative Murmur, Rub or Gallop
Breast: N/A
GI: Soft, Nontender, Nondistended and Normal Bowel Sounds
Rectal: Deferred by Provider
Genito-urinary: Deferred by me
Musculoskeletal: No Clubbing, No Cyanosis and No Edema
Skin: Warm, Dry and IV Access / Catheter Site
Neuro: AO x 3
Psych: Calm
--- NOTE | 2025-02-08 09:43 | PTCARENOTE ---
Pt is AOx3, no complaints of pain or discomfort. SR w/ !st HB on tele monitor, VSS. Tikosyn dose #6 given this AM. Call oliver within reach.
--- NOTE | 2025-02-08 09:46 | W.PN.CD ---
Today's Communication / Plan
-
- PPM in AM
- Holding Dilt and Atenolol
- Plan to start Toprol XL post PPM.
Impression / Plan
-
Mr. Clarke is an 89 years old man with CAD (drug-eluting stent to tandem lesions in the mid LAD and D1 12/20/2023), hypertension, h/p persistent atrial fibrillation s/p AF ablation (2019 - PVI, 2021 - PWI) now paroxysmal atrial fibrillation on
Xarelto, dyslipidemia, SERGIO on CPAP and pulmonary hypertension is here in mild CHF and recurrent atrial fibrillation.
Afib - paroxysmal.
- Persistent AF s/p abaltion and remained AF free for 5 years.
- Now paroxysmal AF noted. He was in atypical flutter on 01/13/25 s/p DCCV.
- Ablations included PVI (2019) and PWI (2021).
- Converted to sinus spontaneously and symptoms are improved.
- Bradycardiac - Rate controlled on atenolol and diltiazem. Will stop Diltiazem.
- Start Tikosyn for prison rhythm control.
- TSH - 2.38 on 09/09/24
- ECHO 02/05/25: LVEF 60%, asymmetric septal hypertrophy; Moderate left atrial dilation. Mild right atrial dilation.
Severe mitral annular calcification, posterior > anterior with leaflet thickening and mitral sclerosis and mild mitral regurgitation.
At least moderate tricuspid regurgitation.
- CHADS2-Vasc = 5 (CHF, HTN, Age x2, vascular disease).
- Therapeutic anticoagulation with rivaroxaban, continue.
- Tikosyn loading - dose 5/6 last night.
- no more NSVT noted. Tikosyn is reduced at 250 mcg dose q12h.
- EKG is unchanged with IVCD and QTc is stable.
Tachy shahla syndrome
- Severe baseline bradycardia and AF/FL is induced with bradycardia.
- Case discussed in detail with his IC - Dr. Mixon from [place].
- Atenolol and Dilt is discontinued. Plan to start Toprol after the PPM.
- The bradycardia is symptomatic and both of them are interested in pursuing a dual chamber PPM.
- Plan for PPM on Sunday
- NPO after midnight.
CAD - symptoms of dyspnea on exertion and fatigue are similar to his anginal equivalent.
- Troponin trend 0.020, 0.021.
- EKG A-fib 65 bpm, lateral infarct age undetermined.
- Status post drug-eluting stent to D1 and mid LAD 12/20/2023.
- Xarelto 20 mg qPM - continued.
HFpEF - acute on chronic.
- EF 65-70% on echo 04/2024.
- He takes Lasix 40 mg twice daily at home, he denies missed doses.
- Dry weight is 174 and is at 176 lbs today.
- Elevated BNP but CXR is clear.
- Continue home dose of Lasix 40 mg twice daily, monitor renal function closely and electrolytes.
PHTN - chronic, severe.
- Post capillary (PCWP > 15, PVR < 3 harris units) on cath 12/20/23.
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
- Has seen Dr. Lopes at [place] and is now looking for another (Dr. Lopes has moved out of [place]), recommends continue Entresto and Farxiga.
HTN - chronic, stable.
- Continue home medications.
HLD - chronic, stable.
- Continue Lipitor 20mg Q48hr.
- LDL was at goal, 52.
Physical Exam
Vital Signs/Labs
Vital Signs
Temp Pulse Resp BP Pulse Ox
97.6 F 90 22 159/91 97
02/08/25 07:51 02/08/25 07:54 02/08/25 07:51 02/08/25 07:54 02/08/25 07:52
02/07/25 02/08/25 02/09/25
06:59 06:59 06:59
Actual Weight 76.4 kg 75 kg
PT 21.5 Sec (11.4-14.6) H 02/05/25 03:34
INR 1.81 02/05/25 03:34
Magnesium 1.8 mg/dl (1.6-2.3) 02/07/25 03:04
02/05/25
03:34
Tcy-Z-Nzwhysptwhv Pept 2850
Physical Exam
Constitutional: No acute distress and Comfortable
EENT: Anicteric and Moist mucous membranes
Cardiovascular: Rhythm & rate is regular, Pedal edema is absent and JVD pressure is normal
Respiratory: Respiratory effort normal, Lungs clear to auscul. and Wheeze Absent
GI: Soft, Flat, Non tender and Normal bowel sounds
Neuro/Psych: Alert, Oriented and AO x 3
Data Reviewed
-
Date of Service: February 08, 2025
Medical Decision Making: Reviewed Test Results, Test Interpretation and Review of Case with other Provider
EKG: Tracing Personally Visualized and interpreted
Echo: Report Reviewed by me
Labs: Labs Reviewed by me
Old Records: Reviewed
[2025-02-08 11:38] LABS: Hematocrit 43.5 % (39.0-52.0); Hemoglobin 15.1 g/dL (13.0-18.0); Mean Corp Hgb Conc. 34.7 g/dL (33.0-37.0); Mean Corpuscular Volume 88.8 fL (80.0-94.0); Platelet Count 179 10^3/uL (130-400); Red Cell Dist. Width 13.2 % (11.5-14.5)
[2025-02-08 11:52] VITALS: BP 140/85
[2025-02-08 12:06] LABS: ALT (SGPT) 21 U/L (0-50); AST (SGOT) 31 U/L (17-59); Albumin 4.3 g/dl (3.5-5.0); Alkaline Phosphatase 66 U/L (38-126); Blood Urea Nitrogen 18 mg/dl (9-20); Calcium 9.4 mg/dl (8.4-10.2); Carbon Dioxide 31 mmol/L (22-30); Chloride 101 mmol/L (98-107); Estimated Creatinine Clearance 87 ml/min; Glucose 115 mg/dl (70-99); Potassium 4.1 mmol/L (3.5-5.1); Sodium 137 mmol/L (135-145); Total Protein 7.2 g/dl (6.3-8.2); eGFR > 60.00
[2025-02-08 15:40] VITALS: BP 156/82
[2025-02-08] MEDS: XARELTO 20 MG PO (17:17)
[2025-02-08] MEDS: KCL 10 MEQ PO (17:17)
[2025-02-08] MEDS: LASIX 40 MG PO (17:17)
[2025-02-08 20:11] VITALS: BP 155/93
--- NOTE | 2025-02-08 22:17 | PTCARENOTE ---
Assumed care of the pt @ 1900. Pt is AAOx3 SR on the monitor VSS Denies CP. Pt is up ambulating in [place] this evening. Pt was instructed on plan of care including NPO after midnight for PPM procedure tomorrow. Pt verbalized understanding. Call oliver
within reach
[2025-02-08 22:22] VITALS: BP 144/83
[2025-02-09] VITALS (10 sets, daily range): BP systolic 102–171; BP diastolic 68–107; BMI 24.4
[2025-02-09 06:19] LABS: Hematocrit 44.0 % (39.0-52.0); Hemoglobin 15.1 g/dL (13.0-18.0); Mean Corp Hgb Conc. 34.3 g/dL (33.0-37.0); Mean Corpuscular Volume 89.1 fL (80.0-94.0); Platelet Count 199 10^3/uL (130-400); Red Cell Dist. Width 13.3 % (11.5-14.5)
[2025-02-09 06:46] LABS: ALT (SGPT) 21 U/L (0-50); AST (SGOT) 28 U/L (17-59); Albumin 4.5 g/dl (3.5-5.0); Alkaline Phosphatase 86 U/L (38-126); Blood Urea Nitrogen 25 mg/dl (9-20); Calcium 10.0 mg/dl (8.4-10.2); Carbon Dioxide 28 mmol/L (22-30); Chloride 100 mmol/L (98-107); Estimated Creatinine Clearance 74 ml/min; Glucose 115 mg/dl (70-99); HDL Cholesterol 61 mg/dl; LDL Cholesterol, Calculated 47 mg/dl; Potassium 4.0 mmol/L (3.5-5.1); Sodium 137 mmol/L (135-145); Total Protein 7.5 g/dl (6.3-8.2); Very Low Density Lipoprotein 17 mg/dl (0-30); eGFR > 60.00
--- NOTE | 2025-02-09 07:18 | W.PN.HOSP.TC ---
Addendum entered and electronically signed by Justo Barker MD 02/11/25 14:33:
for ppm placement
tikosyn started
Original Note:
Today's Communication/Plan
-
- PPM has been placed
- f/u cardiology regarding medication adjustments/restarting
Assessment / Plan
Assessment / Plan
Patient is an 89-year-old man with past medical history of paroxysmal A-fib with implantable loop recorder, requiring multiple cardioversions within the past 6 months, HFpEF, CAD status post multivessel PCI, hyperlipidemia, essential hypertension
pulmonary hypertension, SERGIO on home CPAP who presents to the emergency room for symptoms of dizziness, palpitations, lightheadedness.
#Paroxysmal Atrial Fibrillation
- recent ED visit in 01/13/2025 for symptomatic atrial fibrillation requiring cardioversion
- Afib on personal monitor during symptomatic episode which brought him to ED
- Seen by EP -- admit to IVU for trial of Tikosyn
- c/w tele monitoring
- c/w OAC Xarelto
- holding Diltiazem/BB per cardiology for initial bradycardia
- ECG from 02/06 -- sinus rhythm with 1st degree AV block
- PPM has been placed on 02/09/2025, likely discharge to home tomorrow
- follow up cardiology regarding medication adjustments/restarts
#Chronic HFpEF
- Last echo 2023 showing LVEF 65-70%, with estimated severe pulm HTN, PA systolic pressure 90mmHg
- Pro-BNP here 2900
- c/w GDMT Entresto, Farxiga, holding BB as above
- c/w Lasix 80 mg AM, 40mg PM, KCl supplement
- trend I/Os, Daily weights
- Echo 02/07
- LVEF 60%
- severe mitral annular calc, mod L and mild R atrial dilation, mild MR, mod TR, PASP est. 61mmHg
#CAD status post multivessel PCI
#Essential hypertension
#Hypercholesterolemia
- no anginal symptoms, negative troponins
- c/w GDMT as above
- takes repatha injections q2w as outpatient
- cholesterol lowering diet
#Acute Hypotension (resolved)
- hypotensive on arrival to ED 70-90s/40-50s
- responsive to IV bolus 150cc and 500cc
- pressure now 100s/50s, MAP >65, asymptomatic
- possible component of dehydration vs. cardiogenic from afib
- finish out 500cc IVF, encourage PO intake, reassess in AM
#?Hypothermia (resolved)
- no leukocytosis, tachypnea, or tachycardia, no respiratory, GI or urinary sx to suggest occult infection
- repeat sublingual temp by me 97.9F
- possible measurement error vs. consequence of hypotension, now resolved
#History of pulmonary hypertension
- Echo 2023 demonstrating severe pulmonary hypertension, repeat as above demonstrating improvement in PASP to 61mmHg
- Follows with pulmonology outpatient Dr. Garrett
#SERGIO
- uses CPAP at home
- c/w CPAP 8mmH20
#GERD
- c/w PPI qd
#Iron deficiency
- c/w iron supplementation
PCP: Dr. Ros Hernadez
DVT PPx: On Xarelto
Code Status: Full Code
Anticipated Discharge: Within 24 hours
Subjective/Interval History
-
Date of Service: February 09, 2025
Patient is doing well, I saw him pre-procedure. denies chest pain, shortness of breath
Objective Data
-
Labs:
Laboratory Results
02/09/25
05:55
WBC 10.0
Hgb 15.1
Hct 44.0
Plt Count 199
Sodium 137
Potassium 4.0
Chloride 100
Carbon Dioxide 28
BUN 25 H
Creatinine 0.7
Glucose 115 H
Calcium 10.0
Total Bilirubin 2.2 H
AST 28
ALT 21
Alkaline Phosphatase 86
Vital Signs:
Vital Signs
Temp Pulse Resp BP Pulse Ox
97.8 F 73 16 160/96 95
02/09/25 05:41 02/09/25 05:41 02/09/25 05:41 02/09/25 05:39 02/09/25 05:41
Review of Systems
-
History Source: Other (per HPI)
Physical Exam
-
General: Comfortable
HEENT: Normocephalic and Atraumatic
Respiratory: Clear to Auscultation
Cardiac: Regular Rhythm and Murmur (holosystolic murmur near left parasternal border)
GI: Soft and Nontender
Musculoskeletal: Other (no lower extremity edema)
Skin: Warm and Dry
Neuro: Awake and Alert
Psych: Calm
[2025-02-09] MEDS: ENTRESTO 24 MG/26 MG 1 TAB PO ×2 (08:34→19:59)
[2025-02-09] MEDS: PROTONIX 40 MG PO (08:34)
[2025-02-09] MEDS: TIKOSYN 250 MCG PO ×2 (08:35→19:59)
--- NOTE | 2025-02-09 10:02 | CM ---
Reviewed chart. Met with Mr. Clarke to review discharge plans. He states he is feeling well, waiting for his PPM. Telephone call to [facility] to check if they have Dofetilide 250 in stock. [facility] only has Thirty tablets in stock. He will
need a script sent to [facility] for a three day supply to go home with him. Prior to admission he resides alone in a two story home with six steps to enter. Prior to admission he was independent with ambulation and adls. He has a CPAP
Machine at home. He has a prescription plan and uses [facility]. Medical work-up in progress. The discharge plan is to return home when medically stable
--- NOTE | 2025-02-09 10:08 | W.PN.CD ---
Today's Communication / Plan
-
- PPM today
Impression / Plan
-
Mr. Clarke is an 89 years old man with CAD (drug-eluting stent to tandem lesions in the mid LAD and D1 12/20/2023), hypertension, h/p persistent atrial fibrillation s/p AF ablation (2019 - PVI, 2021 - PWI) now paroxysmal atrial fibrillation on
Xarelto, dyslipidemia, SERGIO on CPAP and pulmonary hypertension is here in mild CHF and recurrent atrial fibrillation.
Afib - paroxysmal.
- Persistent AF s/p abaltion and remained AF free for 5 years.
- Now paroxysmal AF noted. He was in atypical flutter on 01/13/25 s/p DCCV.
- Ablations included PVI (2019) and PWI (2021).
- Converted to sinus spontaneously and symptoms are improved.
- Bradycardiac - Rate controlled on atenolol and diltiazem. Holding both.
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
- TSH - 2.38 on 09/09/24
- ECHO 02/05/25: LVEF 60%, asymmetric septal hypertrophy; Moderate left atrial dilation. Mild right atrial dilation.
Severe mitral annular calcification, posterior > anterior with leaflet thickening and mitral sclerosis and mild mitral regurgitation.
At least moderate tricuspid regurgitation.
- CHADS2-Vasc = 5 (CHF, HTN, Age x2, vascular disease).
- Therapeutic anticoagulation with rivaroxaban, continue.
- Tikosyn loading - complete.
- no more NSVT noted. Tikosyn is reduced at 250 mcg dose q12h.
- EKG is unchanged with IVCD and QTc is stable.
Tachy shahla syndrome
- Severe baseline bradycardia and AF/FL is induced with bradycardia.
- Case discussed in detail with his IC - Dr. Mixon from [place].
- Atenolol and Dilt is discontinued. Plan to start Toprol after the PPM.
- The bradycardia is symptomatic and both of them are interested in pursuing a dual chamber PPM.
- Plan for PPM today
CAD - symptoms of dyspnea on exertion and fatigue are similar to his anginal equivalent.
- Troponin trend 0.020, 0.021.
- EKG A-fib 65 bpm, lateral infarct age undetermined.
- Status post drug-eluting stent to D1 and mid LAD 12/20/2023.
- Xarelto 20 mg qPM - continued.
HFpEF - acute on chronic.
- EF 65-70% on echo 04/2024.
- He takes Lasix 40 mg twice daily at home, he denies missed doses.
- Dry weight is 174 and is at 176 lbs today.
- Elevated BNP but CXR is clear.
- Continue home dose of Lasix 40 mg twice daily, monitor renal function closely and electrolytes.
PHTN - chronic, severe.
- Post capillary (PCWP > 15, PVR < 3 harris units) on cath 12/20/23.
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
- Has seen Dr. Lopes at [place] and is now looking for another (Dr. Lopes has moved out of [place]), recommends continue Entresto and Farxiga.
HTN - chronic, stable.
- Continue home medications.
HLD - chronic, stable.
- Continue Lipitor 20mg Q48hr.
- LDL was at goal, 52.
Physical Exam
Vital Signs/Labs
Vital Signs
Temp Pulse Resp BP Pulse Ox
97.7 F 79 20 149/88 96
02/09/25 07:55 02/09/25 09:00 02/09/25 07:55 02/09/25 08:38 02/09/25 07:55
02/08/25 02/09/25 02/10/25
06:59 06:59 06:59
Actual Weight 75 kg 74.8 kg
02/09/25 05:55
02/09/25 05:55
PT 21.5 Sec (11.4-14.6) H 02/05/25 03:34
INR 1.81 02/05/25 03:34
Magnesium 1.8 mg/dl (1.6-2.3) 02/07/25 03:04
Triglycerides 85 mg/dl (10-149) 02/09/25 05:55
LDL Cholesterol, Calc 47 mg/dl 02/09/25 05:55
VLDL Cholesterol, Calc 17 mg/dl (0-30) 02/09/25 05:55
HDL Cholesterol 61 mg/dl 02/09/25 05:55
02/05/25
03:34
Xir-R-Pfpetbkfqco Pept 2850
Physical Exam
Constitutional: No acute distress and Comfortable
EENT: Anicteric and Moist mucous membranes
Cardiovascular: Rhythm & rate is regular, Pedal edema is absent and JVD pressure is normal
Respiratory: Respiratory effort normal, Lungs clear to auscul. and Wheeze Absent
GI: Soft, Non tender and Normal bowel sounds
Neuro/Psych: Alert, Oriented and AO x 3
Data Reviewed
-
Date of Service: February 09, 2025
Medical Decision Making: Reviewed Test Results, Test Interpretation and Review of Case with other Provider
EKG: Tracing Personally Visualized and interpreted
Echo: Report Reviewed by me
Labs: Labs Reviewed by me
Old Records: Reviewed
[2025-02-09] MEDS: VANCOCIN 200 IV (10:36)
[2025-02-09] MEDS: FLUSH (NSS) 1 FLUSH IV (10:36)
--- NOTE | 2025-02-09 12:38 | ITS.CL.PACE ---
Asset Availability Leader - Pacemaker Implant
Pacemaker Implant
Procedure Report:
Conduction system pacing Permanent Pacemaker Placement:
Mr. Clarke is an 89 yrs old gentleman with h/o atrial fibrillation s/p ablation, HTN and HFpEF who has developed sick sinus syndrome with severe symptmatic bradycardia leading to discontinuation of beta blockers and calcium channel blockers and is
advised for PPM.
Indications:
Sick sinus syndrome and Tachy Cristian syndrome
Date of the Procedure:
02/09/25
Pre-Operative Diagnosis: Sick sinus syndrome and Tachy Cristina syndrome
Post-Operative Diagnosis: Sick sinus syndrome and Tachy Cristian syndrome
Procedure Performed: Conduction system pacing permanent pacemaker
Performing Physician:
Santo العلي MD
Anesthesia:
See anesthesia report.
Detailed Description of the Procedure:
The patient was identified using hospital identification and informed consent obtained for the procedure. The risks were explained to the patient and the family including, but not limited to: Bleeding, infection, arrhythmia, stroke,
vascular/cardiac/lung puncture, surgery, pacemaker dependency/device malfunction. All questions were answered.
A surgical pause was performed in accordance with hospital regulations. Anesthesia service provided sedation as reported separately. Antibiotics administered IV for risk of bacterial colonization. After obtaining informed and written consent, the
patient was brought to the electrophysiology laboratory.
The initial rhythm was sinus bradycardia.
The procedure site was meticulously prepared with surgical scrub and allowed to dry with no pooling. Sterile draping was applied to cover the procedure site. The image intensifier was draped with sterile bag and positioned over the patient.
A surgical pause and time out was performed immediately prior to the procedure with review of her medical history, recent labs, allergies and medications with site of procedure identified and consent noted in the chart. Antibiotics pre operatively
given. All team members concurred.
The left infraclavicular region was prepped and draped in the usual sterile fashion. Local anesthesia was administered subcutaneously using 1% lidocaine / Bupivacaine. The left cephalic vein cutdown was performed with an incision at the
delto-pectoral groove, and vascular sheath was introduced for lead access.
A subcutaneous pocket was created with blunt dissection and use of electrocautery. Hemostasis was excellent.
The guide wire was advanced to the RA and was advanced to the RV. The preformed curved long hemostatic peel away HIS sheath was advanced into the RV cavity. A left bundle pacing wire was advanced into the sheath to the tip with ventricular signals
noted with unipolar manner.
The HIS location was identified under guidance of the fluoroscopy and the pacing wire signals. The sheath with the pacing lead was moved deeper into the RV cavity on the septum at a more inferior and distal to the HIS signals.
There was sheath approximation confirmed on SAMOAN view. Once adequate signals were noted on the electrograms of the pacing lead in the sheath with W pattern signals on the RV septum, the lead was advanced and clockwise turns were done under
fluoroscopic guidance. The septum was engaged and the lead was paced intermittently after every 2-3 turns. The Impedance of the lead was measured that remained stable around 1000 Ohm. The lead was paced and septal pacing was noted. The sheath was
placed again to the septum and the lead was advanced 2-3 turns with pacing with each advancement. The ventricular capture was monitored throughout and the captures gradually changed from RV pacing to non-selective pacing to LBB pacing with R wave on
V1 morphology. �
The long guiding sheath was cut and removed from the RV without change in lead position, impedance, sensing, or capture. The lead was sutured to the underlying pectoralis fascia with 2-0 Ethibond stitches.
Then the attention was given to atrial lead. Atrial active lead was placed in the RA and into the RAA. There were excellent impedance and thresholds.
The leads were attached to the pulse generator in standard configuration with acceptable sensing and threshold parameters. The pocket was irrigated with antibiotic solution; the pocket was inspected with no active bleeding noted. The device and the
leads were placed in the pocket.
The pocket was rinsed with antibiotics soaked solution. A Tyrx pouch was placed around the PPM and the leads.
Deep subcutaneous tissues were closed with three layers of 2-0 V loc sutures; and the dermis was reopposed using a running 4-0 Monochryl subcuticular suture.
Sponge counts / sharp counts were appropriate.
Procedure End:
The procedure was tolerated well. Aquacel bandaged was applied.
Estimated Blood loss:
5 cc
Specimens Removed:
No cultures and no specimens were obtained. No intraoperative pathology was identified.
Urine output:
None
Packs / Drains/ Tubes:
None
Instrument / Sponge Count Correct:
Yes
Flouro time:
2.1min / 0.7 Gycm2
Complications of the Procedure:
None
Condition of Patient at Time of Transfer:
Hemodynamically stable with no neurological or vascular compromise.
Device information:�
Generator: [employer] SYSTEM[employer]; Model: W1DR01; Serial # [id number]�
����������� RA pacing lead: Medtronic; Model: 5076-52; Serial # [id number]
����������� Measured data on the RV lead was sensing of 4.8 mV, impedance of 533 ohms and threshold of 0.75 V at 0.4ms. �
����������� RV LBB pacing lead: Medtronic; Model: 3830-69; Serial # [id number]
����������� Measured data on the RV lead was sensing of 20mV, impedance of 1140 ohms and threshold of 0.5 V at 0.4ms�
PROGRAMMING PARAMETERS:�
Cristian parameter settings were AAIR <=> DDDR 70-130 �
����������� Paced AV interval: 180ms
����������� Sensed AV interval: 150 ms.
����������� Rate Adaptive A-V Interval: on
����������� Mode switch ON
�
Summary:
Successful implantation of MRI compatible dual chamber conduction system pacing permanent pacemaker.
Results/Recommendations:
-Please follow up CXR�
1. Please provide patient with adequate pain control�
2. Atrial rate is set at high rates with addition of Tikosyn and start of Metoprolol. Plan to reduce to 60 bpm in 1-2 months.
Instructions to be given to patient:�
- Please follow up with [facility] at [address] [place] [address] ([phone]) to get your wound checked in 2 weeks of your discharge. Then follow with
- Do not wet incision site until after it is evaluated at cardiology clinic. No baths or showers until then. Sponge baths / showers are OK but dab dry the dressing after it is wet.�
- Allow 'steri strips' to fall off on their own�
- Do not lift left elbow above shoulder, particularly with sudden jerking movements, for 1 month�
- Do not lift anything weighing more than 5 pounds with the left arm for 1 month�
- If you notice any fevers, shortness of breath, lightheadedness, chest pain, or worsening swelling in the wound site, please contact the arrhythmia clinic, contact your real estate associate, or present to the hospital for evaluation.�
Santo العلي MD
Electrophysiology
--- NOTE | 2025-02-09 12:46 | ITS.CL.IMPLP ---
Quality Control Tester - Implant Loop
Implant Loop
Procedure Report:
Procedure: Extraction of Loop Recorder.
Date of the procedure: 02/09/25
Procedure Physician: Santo العلي MD [facility]
Indication: Old ILR and now s/p PPM placement.
Description of the procedure:
Patient was brought to the holding area after informed consent was obtained. The time out was performed immediately before the procedure.
The left parasternal chest area was prepped and draped in sterile fashion with chlorahexidine prep x 3 times. Lidocaine 1% was injected subcutaneously for local anesthesia. The loop recorder was palpated and the location was identified. An incision
was made at the previous insertion location. The blunt dissection was done to identify the location of the ILR. The capsule was cut and the ILR was pulled out of the capsule. The dermis was closed with 4-0 Monocryl sutures and steristrips and a
pressure Tegaderm dressing was placed.
There were no immediate complications.
Patient can be discharged home.
Explanted device:
[employer] JOT - Assert-IQ; Model: 5300 Serial #:[id number]
Conclusion:
Successful removal of the loop recorder.
--- NOTE | 2025-02-09 13:00 | PTCARENOTE ---
Rec'd report from Maria Del Rosario in the EP lab & rec'd pt back AAOX3, mildly drowsy but easily arousable. Pt c/o 3/10 L chest wall pain at his new device site. PRN Tylenol administered as ordered. Pt w/L chest wall device site w/post-op dressing including
gauze pressure dressing C/D/I w/no signs or symptoms of bleeding or hematoma & LUE immobilizer in place. Pt's VSS w/HR in the 70's & BP 116/80 on arrival back to the unit. Pt is SR w/occas PVC's w/occas v-pacing on telemetry monitoring. LUE
restrictions discussed w/pt & caregiver. Pt w/call oliver within reach & plan of care ongoing.
[2025-02-09] MEDS: LASIX 80 MG PO (13:26)
[2025-02-09] MEDS: FEOSOL 325 MG PO (13:26)
[2025-02-09] MEDS: ZINC 50 MG PO (13:26)
[2025-02-09] MEDS: ANESTHETIC LOZENGE 1 LOZENGE PO (13:26)
[2025-02-09] MEDS: TOPROL XL 50 MG PO ×2 (13:27→20:00)
[2025-02-09] MEDS: TYLENOL 650 MG PO ×3 (13:27→22:20)
[2025-02-09] MEDS: KCL 20 MEQ PO (13:27)
[2025-02-09] MEDS: FARXIGA 5 MG PO (13:37)
[2025-02-09] MEDS: KCL 10 MEQ PO (18:21)
[2025-02-09] MEDS: XARELTO 20 MG PO (18:22)
[2025-02-09] MEDS: LASIX 40 MG PO (18:22)
[2025-02-10] MEDS: VANCOCIN 200 IV (00:13)
[2025-02-10 04:31] VITALS: BP 134/89; BMI 24.6
[2025-02-10 04:55] LABS: Hematocrit 42.8 % (39.0-52.0); Hemoglobin 14.5 g/dL (13.0-18.0); Mean Corp Hgb Conc. 33.9 g/dL (33.0-37.0); Mean Corpuscular Volume 89.9 fL (80.0-94.0); Platelet Count 180 10^3/uL (130-400); Red Cell Dist. Width 13.2 % (11.5-14.5)
[2025-02-10] MEDS: TYLENOL 650 MG PO (04:55)
[2025-02-10 05:24] LABS: ALT (SGPT) 17 U/L (0-50); AST (SGOT) 29 U/L (17-59); Albumin 4.0 g/dl (3.5-5.0); Alkaline Phosphatase 76 U/L (38-126); Blood Urea Nitrogen 21 mg/dl (9-20); Calcium 9.2 mg/dl (8.4-10.2); Carbon Dioxide 30 mmol/L (22-30); Chloride 102 mmol/L (98-107); Estimated Creatinine Clearance 74 ml/min; Glucose 96 mg/dl (70-99); Potassium 4.1 mmol/L (3.5-5.1); Sodium 137 mmol/L (135-145); Total Protein 6.7 g/dl (6.3-8.2); eGFR > 60.00
--- NOTE | 2025-02-10 06:35 | PTCARENOTE ---
Pt Apaced on monitor, VSS. c/o left shoulder/chest mild pain. Tylenol PRN given. Pt independent int room. Call benito w/in reach
--- NOTE | 2025-02-10 07:15 | W.PN.HOSP.TC ---
Addendum entered and electronically signed by Ellis Casas MD, Resident 02/11/25 16:38:
Patient is an 89-year-old man with past medical history of paroxysmal A-fib with implantable loop recorder, requiring multiple cardioversions within the past 6 months, HFpEF, CAD status post multivessel PCI, hyperlipidemia, essential hypertension
pulmonary hypertension, SERGIO on home CPAP who was admitted for an episode of atrial fibrillation and underwent pacemaker placement on 02/09/2025.
Please see updated problem below
# Suspected acute on chronic HFpEF with acute component resolved
- Pro-BNP during this admission 2900; it is suspected that an acute exacerbation of chronic HFpEF may have occurred.
- However, since this is less than a prior BNP lab value of 4000, the discrepancy in the BNP suggests that he may have not had an acute on chronic HFpEF exacerbation. That being said, this type of exacerbation cannot necessarily be excluded.
- c/w GDMT Debra Abreuga
- c/w Lasix 80 mg AM, 40mg PM, KCl supplement.
- Patient has been receiving lasix 80mg AM, 40mg PM, and per med reconciliation is taking this at home as well. Upon discharge, he was continued on these doses.
- Echo 02/07/2025
- LVEF 60%
- severe mitral annular calc, mod L and mild R atrial dilation, mild MR, mod TR, PASP est. 61mmHg
- Last echo in 2023 showing LVEF 65-70%, with estimated severe pulm HTN, PA systolic pressure 90mmHg
Addendum entered and electronically signed by Justo Barker MD 02/11/25 14:32:
ppm placed, toelrated procedure well
cardizem and atenolol stopped
started on toprolol and tikosyn
dc home
More than 30 minutes spent in discharge including
Final examination of the patient
Summarizing hospital stay
Instructions for continuing care to all relevant caregivers
Preparation of discharge records, prescriptions, and referral forms
Total time spent (in minutes):33m
Original Note:
Today's Communication/Plan
-
discharge to home
Assessment / Plan
Assessment / Plan
Patient is an 89-year-old man with past medical history of paroxysmal A-fib with implantable loop recorder, requiring multiple cardioversions within the past 6 months, HFpEF, CAD status post multivessel PCI, hyperlipidemia, essential hypertension
pulmonary hypertension, SERGIO on home CPAP who was admitted for an episode of atrial fibrillation and underwent pacemaker placement on 02/09/2025.
#Paroxysmal Atrial Fibrillation
- Had pacemaker placed on 02/09/2025
- Medication plan confirmed with cardiology:
- continue Tikosyn 250mg q12h
- Start toprol 50mg bid
- Continue Xarelto 20 mg qpm
- discontinue atenolol, diltiazem
- Cardiology is okay with discharge today 02/10
#Chronic HFpEF
- Last echo 2023 showing LVEF 65-70%, with estimated severe pulm HTN, PA systolic pressure 90mmHg
- Pro-BNP here 2900
- c/w GDMT Debra Abreuga
- c/w Lasix 80 mg AM, 40mg PM, KCl supplement
- Echo 02/07
- LVEF 60%
- severe mitral annular calc, mod L and mild R atrial dilation, mild MR, mod TR, PASP est. 61mmHg
#CAD status post multivessel PCI
#Essential hypertension
#Hypercholesterolemia
- c/w GDMT as above
- repatha injections q2w as outpatient
- cholesterol lowering diet
# Chronic issues per below
#History of pulmonary hypertension
- Echo 2023 demonstrating severe pulmonary hypertension, repeat as above demonstrating improvement in PASP to 61mmHg
- Follows with pulmonology outpatient Dr. Garrett
#SERGIO
- uses CPAP at home
- c/w CPAP 8mmH20
#GERD
- c/w PPI qd
#Iron deficiency
- c/w iron supplementation
PCP: Dr. Ros Hernadez
DVT PPx: On Xarelto
Code Status: Full Code
Anticipated Discharge: Today
Subjective/Interval History
-
Date of Service: February 10, 2025
He feels well this morning, denies dyspnea, chest pain, headaches, abdominal pain. He is ready to go home and has arranged for a ride at 11am.
Objective Data
-
Labs:
Laboratory Results
02/10/25
04:37
WBC 8.2
Hgb 14.5
Hct 42.8
Plt Count 180
Sodium 137
Potassium 4.1
Chloride 102
Carbon Dioxide 30
BUN 21 H
Creatinine 0.7
Glucose 96
Calcium 9.2
Total Bilirubin 1.7 H
AST 29
ALT 17
Alkaline Phosphatase 76
Vital Signs:
Vital Signs
Temp Pulse Resp BP Pulse Ox
97.7 F 70 20 134/89 95
02/10/25 04:31 02/10/25 05:00 02/10/25 04:31 02/10/25 04:31 02/10/25 04:31
I&O
02/09/25 02/10/25 02/11/25
06:59 06:59 06:59
Intake Total 2139
Balance 2139
Review of Systems
-
Constitutional: Reports No Symptoms
EENT: Reports No Symptoms Reported
Respiratory: Reports No Symptoms
Cardiac: Reports No Symptoms
Abdomen/GI: Reports No Symptoms
Neuro: Reports No Symptoms
Physical Exam
-
General: No Apparent Distress
HEENT: Normocephalic and Atraumatic
Respiratory: Clear to Auscultation
Cardiac: Regular Rhythm and Murmur (holosystolic murmur near left parasternal border on my exam)
GI: Nontender
Musculoskeletal: Other (no lower extremity edema)
Skin: Warm and Dry
Neuro: Awake and Alert
Psych: Calm
[2025-02-10 07:24] VITALS: BP 145/83
[2025-02-10] MEDS: ZINC 50 MG PO (07:57)
[2025-02-10] MEDS: FARXIGA 5 MG PO (07:57)
[2025-02-10] MEDS: ENTRESTO 24 MG/26 MG 1 TAB PO (07:57)
[2025-02-10] MEDS: PROTONIX 40 MG PO (07:57)
[2025-02-10] MEDS: LASIX 80 MG PO (07:58)
[2025-02-10] MEDS: FEOSOL 325 MG PO (07:58)
[2025-02-10] MEDS: TOPROL XL 50 MG PO (07:58)
[2025-02-10] MEDS: TIKOSYN 250 MCG PO (07:58)
[2025-02-10] MEDS: KCL 20 MEQ PO (07:58)
--- NOTE | 2025-02-10 09:50 | CM ---
Reviewed chart. Asked N.P to send three day script for Dofetilide to go to . Pharmacy for a three day supply to go home with him. Telephone call to [facility] to check if Dofetilide script has been fiiled. Script is ready for pick-up. Met
with Mr. Clarke to review above. He has a zero co-pay. Prior to admission resides alone in a two story home with six steps to enter. Prior to admission he was independent with ambulation and adls. He has a CPAP Machine at home and no other DME.
He has a prescription plan and uses [facility]. Medical work-up in progress. The discharge plan is to return home when medically stable.
--- NOTE | 2025-02-10 11:15 | PTCARENOTE ---
Pt received this am with no c/o of any pain or sob. Left chest pressure dressing removed by Dr. العلي. Aquacell dressing intact, site with no redness or swelling. Pt oob ad reji in the hallway and the room. Pt discharged to home with a friend.
Discharge instructions given and reviewed with good understanding and all questions answered. Pt sent with the extra doses of Tikosyn as ordered for our pharmacy.
--- NOTE | 2025-02-10 15:36 | W.DCSUMMARY ---
Discharge Summary
Discharge Data
Date of Admission: 02/05/25
Date of Discharge: 02/10/25
-
Pending Results: No
Hospital Course
Discharging Physician : Ellis Casas MD; Justo Barker MD
Disposition : Home
Principal Discharge diagnosis : Paroxysmal Atrial Fibrillation
Chronic Discharge diagnosis : Chronic HFpEF, CAD status post multivessel PCI, Essential hypertension, Hypercholesterolemia, SERGIO, GERD, Iron deficiency
Hospital Course :
89 yo M paroxysmal A-fib with implantable loop recorder, HFpEF, CAD status post multivessel PCI, hyperlipidemia, essential hypertension pulmonary hypertension, SERGIO on home CPAP who presents to the emergency room for symptoms of dizziness,
palpitations, lightheadedness. Patient was in his usual state of health 02/04/2025 and was outside playing 18 holes of golf. He reports keeping hydrated. There was no shortness of breath chest pain palpitations or other cardiac symptoms during
exertion. He went home that night and went to bed with his CPAP as usual. Woke up in the middle of the night with symptoms of palpitations, lightheadedness, trouble breathing, reminiscent of being in A-fib per prior episodes. Patient has
implantable loop recorder which she was able to check on his phone and confirmed twice that he was in A-fib with a rate in the 80s (usual rate bradycardic in the 50s). He did not feel well enough to drive himself in and so he called the ambulance.
Of note, he had a recent ED visit on January 13, 2025 for symptomatic A-fib which required cardioversion. He was also seen at this hospital in August 2024 for acute exacerbation of heart failure and A-fib, requiring cardioversion after sinus rhythm.
The dose of Lasix at that time was increased to 80 mg in the a.m. and 40 mg p.m. at that time, which she has been continuing to today.
Initial Blood pressures were 70s to 80s systolic and he was given IV bolus 150cc. ECG in the ED showed rate controlled atrial fibrillation. He has been taking his medication without missing a dose. ED labs n/f troponin x 2 are negative; Lactic acid
is normal. BNP 2800 but actually improved from previous hospitalization in August where BNP was over 4000. Chest x-ray shows mild patchy interstitial fullness, overall similar to previous.
He was then admitted for further management to address the following problems.
# Paroxysmal atrial fibrillation
For paroxysmal atrial fibrillation, in consultation with cardiology, the patient was started with Tikosyn (completed loading doses over 6 days) and then had a permanent pacemaker placed on 02/09/2025. His medication regimen was adjusted to
discontinue atenolol and diltiazem, while continuing rivaroxaban for anticoagulation. Atenolol was discontinued due to concern for bradycardia. Upon discharge, the patient was advised to continue Tikosyn and start Toprol (metoprolol succinate).
# Permanent pacemaker placement
The patient tolerated the procedure well. Vital signs remained within normal limits and the patient denies chest pain, dyspnea, or palpitations after completing the procedure.
# Tachy-Cristian syndrome
In consultation with cardiology and the patient's primary interventional cardiology from [place], and the patient himself, the plan was made for pacemaker placement due to severe baseline bradycardia, which may be inducing atrial fibrillation and/or
atrial flutter. The pacemaker was placed on 02/09/2025.
#Chronic HFpEF
At admission, the patient's proBNP was elevated at 2900 but not as high as prior (4000). A recent ejection fraction was 65-70% on echo from April 2024. A repeat echocardiogram on 02/05/2025 noted LVEF of 60% and moderate tricuspid regurgitation
(which is able to be auscultated on physical exam), and a pulmonary artery systolic pressure of 61 mmHg which is similar to the findings from 04/2024. His GDMT medications were continued, which include Entresto, Farxiga, furosemide, and KCl
supplement. The beta-quinn, atenolol, was discontinued due to concern for bradycardia, as mentioned above.
#CAD status post multivessel PCI
#Essential hypertension
#Hypercholesterolemia
The patient denies anginal symptoms, and lab studies disclosed negative troponins x2. GDMT as specified per above can be continued. He notes that he takes Repatha (evolocumab) injections and lipitor as outpatient and has been instructed to continue
those upon discharge. He was counseled to adhere to a cholesterol lowering diet.
# Acute Hypotension (resolved)
EMS notes that the patient was hypotensive to 80s/50s during transport to ED. During this admission, his BP ranged initially from 100s/60s, and he received fluid boluses earlier during the course of his hospitalization. More recently near discharge,
the blood pressure readings were near 140s/70-80s.
# Chronic issues
The patient has been advised to continue CPAP for SERGIO; omeprazole for GERD; iron supplementation for iron deficiency. He was also advised to follow-up with pulmonology outpatient (Dr. Garrett) to manage his PMH of pulmonary hypertension.
Important imaging findings :
CXR (02/05/2025):
FINDINGS:
Lines and tubes: None.
Lungs: The lungs show increased reticulonodular markings which are stable considering difference in imaging technique and likely due to pulmonary fibrosis. There is no pneumothorax. There are no definitive pleural effusions. There is mild flattening
of the diaphragms suggesting COPD.
Heart: The heart is mildly enlarged. The patient is rotated to the right.
Osseous structures: Visualized osseous structures are within normal limits.
IMPRESSION:
No acute disease of the chest. Stable findings suggesting pulmonary fibrosis.
Mild cardiomegaly. Stable
Mild flattening of the diaphragms suggesting COPD. Stable
CXR (02/09/2025):
FINDINGS: Interval placement of left chest wall pacemaker with lead tips over the right atrium and the right ventricle. There is no evidence for pneumothorax.
Increased interstitial markings within the mid to lower lungs, probably slightly increased compared to examination of November 23, 2022. Findings suggest interstitial fibrosis and/or changes of chronic congestive heart failure.
Cardiac silhouette size is enlarged. Vasculature does not appear to be actively congested, and no significant pleural effusions are identified.
IMPRESSION:
Interval placement of left chest wall pacemaker with lead tips over the right atrium and the right ventricle.
There is no evidence for pneumothorax.
ECHOCARDIOGRAM (02/05/2025):
CONCLUSIONS
Normal left ventricular size with asymmetric septal hypertrophy. Left
ventricular ejection fraction is 60%. Diastolic function indeterminate due to
mitral annular calcification.
Normal right ventricular size and function.
Moderate left atrial dilation.
Mild right atrial dilation.
Severe mitral annular calcification, posterior > anterior with leaflet
thickening and mitral sclerosis and mild mitral regurgitation.
At least moderate tricuspid regurgitation.
The IVC is mildly dilated with normal inspiratory collapse.
Color flow pattern suggestive of PFO/ASD.
Severe pulmonary hypertension. PASP estimated at 61 mmHg assuming a right
atrial pressure of 8 mmHg.
Compared to prior study of 04/29/2024, asymmetric septal hypertrophy remains
unchanged, LV systolic function is similar, the atria appear slightly less
dilated, tricuspid regurgitation remains moderate and pulmonary hypertension
remains severe, though significantly lower (now 61 mmHg compared to 90 mmHg).
Procedure findings :
Permanent pacemaker placement on (02/09/2025)
Discharge Plan
-
Patient Disposition: Home (Routine Discharge)
Discharge Diagnosis/Procedures: Paroxysmal Atrial Fibrillation, Chronic HFpEF, CAD status post multivessel PCI, Essential hypertension, Hypercholesterolemia, SERGIO, GERD, Iron deficiency,
Condition: Good
Diet: 2 Gram Sodium
Activity: As tolerated
Driving Restrictions: As prior to admission
Bathing Restrictions: None
Stand Alone Forms: DC Inst - Implanted Device
Referrals:
Santo العلي MD [Active, Cardiology] - in one to two weeks
UNKNOWN - PT DOES,NOT KNOW [Family Provider]
Prescriptions:
New
dofetilide 250 mcg Capsule
250 mcg PO Q12 Qty: 60 2RF
acetaminophen 325 mg Tablet
650 mg PO Q4HPRN PRN (Reason: MILD PAIN) Qty: 60 0RF
metoprolol succinate 50 mg Tablet Extended Release 24 Hr
50 mg PO BID Qty: 60 0RF
Chloraseptic Sore Throat 6-10 mg Lozenge
1 muna PO Q4HPRN PRN (Reason: sore throat) Qty: 3 0RF
Xarelto 20 mg Tablet
20 mg PO QPM Qty: 30 0RF
Continued
cholecalciferol (vitamin D3) [Vitamin D3] 1,000 UNIT capsule
1,000 unit PO DAILY
cyanocobalamin (vitamin B-12) 1,000 MCG capsule
1,000 mcg PO DAILY
cetirizine 10 MG tablet
10 mg PO HS
potassium chloride 10 mEq Tablet Extended Release
20 meq PO DAILY
therapeutic multivitamin Tablet
1 tab PO DAILY
ascorbic acid (vitamin C) [Vitamin C] 1,000 mg Tablet
1,000 mg PO DAILY
glucosamine sulfate [Glucosamine] 500 mg Tablet
1,000 mg PO DAILY
omeprazole 40 mg Capsule,Delayed Release(Dr/Ec)
40 mg PO DAILY
zinc sulfate 50 mg zinc (220 mg) Tablet
50 mg PO DAILY
ferrous sulfate 325 mg (65 mg iron) Tablet
325 mg PO DAILY
fluticasone propionate 50 mcg/actuation [place],Suspension
1 spray INTRANASAL HS
Systane (PF) 0.4-0.3 % Dropperette
1 drp BOTH EYES DAILYPRN PRN (Reason: dry eyes)
dapagliflozin propanediol [Farxiga] 5 mg Tablet
5 mg PO DAILY
sacubitril-valsartan [Entresto] 24-26 mg Tablet
1 tab PO BID
furosemide [Lasix] 40 mg Tablet
40 mg PO QPM
potassium chloride 10 mEq Tablet Extended Release
10 meq PO QPM
Repatha SureClick 140 mg/mL Pen Injector
140 mg SC Q2W
furosemide [Lasix] 40 mg tablet
80 mg PO DAILY
Discontinued
atenolol 25 mg Tablet
25 mg PO BID
diltiazem HCl 120 mg capsule,extended release 24hr
120 mg PO DAILY
Discharge Orders:
Discharge Patient (As Directed); Ordered 02/10/25
Ordered By: Justo Barker
Care Plan Goals
Care Plan Goals:
Problem: Readiness for enhanced knowledge related to diagnosis and treatment plan
Goal: Understand your diagnosis and treatment plan needs, including medications if applicable.
Instructions: Know your diagnosis, underlying causes and treatment plan options, including medications if applicable. Consult with your health care team to learn about your diagnosis and treatment plan, including medications if applicable.
Discharge Date and Time
Discharge Date/Time: 02/10/25 11:15
Print Language: SOUTH AFRICAN
--- NOTE | 2025-02-11 08:01 | PN.CDI ---
CDI
- -
CDI:
Physician Documentation Request
Admit Date: 02/05/25 11:07
Dear Doctor Mj and Dr. Casas,
Please review the following and provide your response in the progress notes.
The purpose of this query is to ensure the accuracy of the conditions reported for your patient.
Diagnosis:
The diagnosis of Acute on Chronic HFpEF is documented in the record, Cardiology PN, 02/09.
Clinical indicators:
Cardiology, PN, 02/09
#HFpEF - acute on chronic.
#...- He takes Lasix 40 mg twice daily at home, he denies missed doses.
#...- Dry weight is 174 and is at 176 lbs today.
#...- Elevated BNP but CXR is clear.
#- Continue home dose of Lasix 40 mg twice daily, monitor renal function closely
#...and electrolytes.
PN, 02/10
#Chronic HFpEF
#...- Pro-BNP here 2900
#...- c/w Lasix 80 mg AM, 40mg PM, KCl supplement
Discharge Summary, 02/10
#Chronic HFpEF
#...At admission, the patient's proBNP was elevated at 2900 but not as high as prior (4000).
#...A recent ejection fraction was 65-70% on echo from April 2024.
#...A repeat echocardiogram on 02/05/2025 noted LVEF of 60%
#...and moderate tricuspid regurgitation (which is able to be auscultated on physical exam),
#...and a pulmonary artery systolic pressure of 61 mmHg
#...which is similar to the findings from 04/2024.
#...GDMT medications were continued, which include Entresto, Farxiga, furosemide,
#...and KCl supplement.
#Discharge Medication
#furosemide [Lasix] 40 mg Tablet
#40 mg PO QPM
Medications
#Furosemide (Furosemide 40 Mg Tablet) 40 mg PO QPM MYRON
Stop: 03/05/25 17:59
Last Admin: 02/09/25 18:22 Dose: 40 mg
02/05, 02/06, 02/07, 02/08, 02/09
#lasix 40 mg po
#Furosemide (Furosemide 80 Mg Tablet) 80 mg PO DAILY MYRON
Stop: 03/06/25 07:59
Last Admin: 02/10/25 07:58 Dose: 80 mg
02/06, 02/07, 02/08, 02/09, 02/10
#Lasix 80 mg po
Please clarify the acuity of the documented HFpEF and increased po dose of lasix (40 mg and 80mg po) during the admission
Acute on chronic HFpEF
Chronic HFpEF only
A more appropriate diagnosis, reflecting the patient's condition(please specify)
Other (please specify)
Use of terms such as suspected, likely, concern for, or probable (associated with a specific diagnosis that is being evaluated, monitored, or treated as if it exists) are acceptable and can be coded in the inpatient setting, when documented at the
time of discharge.
Thank you,
Kimberlee Polanco RN BSN CCDS
CDI Specialist
Please contact via tiger text
Please use your independent medical judgment in providing your response.
== END 2025-02-10 11:15 | disposition home or self-care (01) | DRG 242 ==
LOC: IVU 11:07
PROVIDERS: ADMITTING PHYSICIAN Internal Medicine; ATTENDING PHYSICIAN Hospitalist; CONSULT PHYSICIAN Internal Medicine Cardiovascular Disease; EMERGENCY PHYSICIAN Emergency Medicine
PROC: 5A09357 Assistance with Respiratory Ventilation, Less than 24 Consecutive Hours, Continuous Positive Airway Pressure (ICD-10-PCS; 2025-02-05)
PROC: 02HK3JZ Insertion of Pacemaker Lead into Right Ventricle, Percutaneous Approach (ICD-10-PCS; 2025-02-09)
PROC: 3E0102A Introduction of Anti-Infective Envelope into Subcutaneous Tissue, Open Approach (ICD-10-PCS; 2025-02-09)
PROC: 0JH606Z Insertion of Pacemaker, Dual Chamber into Chest Subcutaneous Tissue and Fascia, Open Approach (ICD-10-PCS; 2025-02-09)
PROC: 02H63JZ Insertion of Pacemaker Lead into Right Atrium, Percutaneous Approach (ICD-10-PCS; 2025-02-09)
PROC: 0JPT02Z Removal of Monitoring Device from Trunk Subcutaneous Tissue and Fascia, Open Approach (ICD-10-PCS; 2025-02-09)
DX: I48.0 Paroxysmal atrial fibrillation (principal); I50.33 Acute on chronic diastolic (congestive) heart failure; E78.00 Pure hypercholesterolemia, unspecified; I11.0 Hypertensive heart disease with heart failure; I25.10 Atherosclerotic heart disease of native coronary artery without angina pectoris; I27.20 Pulmonary hypertension, unspecified; G47.33 Obstructive sleep apnea (adult) (pediatric); I49.5 Sick sinus syndrome; I95.9 Hypotension, unspecified; R68.0 Hypothermia, not associated with low environmental temperature; K21.9 Gastro-esophageal reflux disease without esophagitis; E61.1 Iron deficiency; I42.2 Other hypertrophic cardiomyopathy; J44.9 Chronic obstructive pulmonary disease, unspecified; Z95.5 Presence of coronary angioplasty implant and graft; Z87.891 Personal history of nicotine dependence; Z79.01 Long term (current) use of anticoagulants
CPT/HCPCS: 33208; 33286; 71045; 80048; 80053; 80061; 81003; 81015; 83605; 83735; 83880; 84443; 84484; 85025; 85027; 85610; 87070; 87086; 87147; 93005; 93306; 94660; 96361; 96374; 99285; C1785; C1887; C1892; C1898

== ENCOUNTER 2025-02-13 13:29 | Emergency (ER) | payer MEDICARE, SELFPAY ==
[2025-02-13 13:39] VITALS: BP 154/132
[2025-02-13] MEDS: NORCO 5/325 1 TABLET PO (14:22)
--- NOTE | 2025-02-13 14:36 | ED.GENMED ---
History of Present Illness
General
Chief Complaint: Musculo-Skeletal Complaint
Source: patient and spouse
Exam Limitations: none
Time Seen by Provider: 02/13/25 14:01
History of Present Illness
History of Present Illness:
Patient with nontraumatic left shoulder pain. Very positional in nature. Severe with abduction. Some with flexion and extension. No distal numbness tingling or weakness. Patient had a pacemaker placed 4 days ago. Was in a sling for days.
Denies chest pain shortness of breath pleuritic pain or any other complaints
Past History
Past History
ED Past Medical History: Arrthythmia (Atrial fibrillation), CHF, GERD, HTN and Other (Colitis)
ED Past Surgical History: Appendectomy, Cardiac (Catheterization 2005) and Other (Noncontributory)
Social History
Tobacco: Non-smoker
Alcohol: Occasional
Drug: None
Personal:
Living: with family
Employment: Retired
Family History
Family History: Other (Noncontributory)
Review of Systems
Review of Systems
All Other Systems: Not applicable
Phy Exam
Physical Exam
Physical Exam:
GENERAL: Alert and oriented in no apparent distress. Ambulating without difficulty
EYE: Orbits normal.
NECK: Supple, nontender
CARDIAC: Regular rate and rhythm without any obvious murmurs. Pacemaker bandage left upper chest wall without surrounding ecchymosis or erythema
LUNGS: Clear breath sounds,normal
NEUROLOGICAL: Alert and oriented , grossly non-focal
SKIN: Warm and dry, no rash or lesion, no discoloration, skin intact.
MUSCULOSKELETAL: No edema,no deformity.Good color. Very point tender to the left proximal lateral shoulder and anteriorly. Severe pain with attempted abduction. Some pain with flexion and extension. Good distal pulses and color. No unusual
swelling.
PSYCH: Normal and appropriate interaction.
Course
Orders/Labs/Results
Orders:
Orders
02/13/25 13:31
Shoulder, Left, Trauma CR [CR Shoulder, Trauma - Left] Urgent
Comment:
Reason For Exam: shoulder pain 1 day after pacemaker insertion.
02/13/25 14:16
Hydrocodone 5/APAP 325 [Graham 5/325] 1 tablet PO NOW STA
02/13/25 14:18
CXR2 [CR Chest - 2 Views ] Urgent
Comment:
Reason For Exam: Left shoulder pain. Recent pacer.
Vital Signs
Initial and Last Documented VS:
Initial Vital Signs
Temp Pulse Resp BP Pulse Ox
98.1 F 74 16 154/132 97
02/13/25 13:39 02/13/25 13:39 02/13/25 13:39 02/13/25 13:39 02/13/25 13:39
Last Documented Vital Signs
Temp Pulse Resp BP Pulse Ox
98.1 F 74 16 144/74 97
02/13/25 13:39 02/13/25 13:39 02/13/25 13:39 02/13/25 15:51 02/13/25 14:40
MDM/Problems Addressed
Differential Diagnosis Includes:
Patient symptoms are very musculoskeletal in nature. Nothing to suspect cardiac issue or direct pacer issue. Calcific tendinitis by x-ray. Cardiology did assess to get a chest x-ray just to double check the leads. No need or indication for
interrogation or cardiac workup at this time. Nothing to suspect a DVT of the arm. Patient is anticoagulated. No swelling no warmth or erythema. Nothing to suspect infectious issue related to the pacemaker. Discussed with orthopedics who can
see the patient shortly. Has a history of the same.
*Radiology
Radiology exam reviewed: preliminary read by ED provider (Stable x-ray. Pacemaker leads okay calcific tendinitis)
*Pulse Oximetry
SaO2: 97
Oxygen Mode of Delivery: Room air
Patient hypoxic: no
*Critical Care Note
Total Time (30-74mins, 75-104mins- exclusive of procedures): Not Applicable
ED Attending Note
-
Portions of this chart may have been created with voice recognition software.� Occasional wrong word or��sound alike� substitutions may have occurred due to the inherent limitations of voice recognition software.
Discharge Plan
Departure
Patient Disposition: Home (Routine Discharge)
Date of Disposition: 02/13/25
Time of Disposition: 14:39
Patient with high blood pressure during this ER visit?: Yes
Discharge Problem:
Calcific tendinitis left shoulder, Recent pacemaker placement
Instructions: Tendinopathy (DC), Shoulder pain - ED discharge instructions, BLOOD PRESSURE
Prescriptions:
New
hydrocodone-acetaminophen 5-325 mg tablet
1 tab PO Q6H PRN (Reason: Pain) Qty: 14 0RF
No Action
cholecalciferol (vitamin D3) [Vitamin D3] 1,000 UNIT capsule
1,000 unit PO DAILY
cyanocobalamin (vitamin B-12) 1,000 MCG capsule
1,000 mcg PO DAILY
cetirizine 10 MG tablet
10 mg PO HS
potassium chloride 10 mEq Tablet Extended Release
20 meq PO DAILY
therapeutic multivitamin Tablet
1 tab PO DAILY
ascorbic acid (vitamin C) [Vitamin C] 1,000 mg Tablet
1,000 mg PO DAILY
glucosamine sulfate [Glucosamine] 500 mg Tablet
1,000 mg PO DAILY
omeprazole 40 mg Capsule,Delayed Release(Dr/Ec)
40 mg PO DAILY
zinc sulfate 50 mg zinc (220 mg) Tablet
50 mg PO DAILY
ferrous sulfate 325 mg (65 mg iron) Tablet
325 mg PO DAILY
fluticasone propionate 50 mcg/actuation [place],Suspension
1 spray INTRANASAL HS
Systane (PF) 0.4-0.3 % [place]rette
1 drp BOTH EYES DAILYPRN PRN (Reason: dry eyes)
dapagliflozin propanediol [Farxiga] 5 mg Tablet
5 mg PO DAILY
sacubitril-valsartan [Entresto] 24-26 mg Tablet
1 tab PO BID
furosemide [Lasix] 40 mg Tablet
40 mg PO QPM
potassium chloride 10 mEq Tablet Extended Release
10 meq PO QPM
Repatha SureClick 140 mg/mL Pen Injector
140 mg SC Q2W
furosemide [Lasix] 40 mg tablet
80 mg PO DAILY
dofetilide 250 mcg Capsule
250 mcg PO Q12 Qty: 60 2RF
acetaminophen 325 mg Tablet
650 mg PO Q4HPRN PRN (Reason: MILD PAIN) Qty: 60 0RF
metoprolol succinate 50 mg Tablet Extended Release 24 Hr
50 mg PO BID Qty: 60 0RF
Chloraseptic Sore Throat 6-10 mg Lozenge
1 muna PO Q4HPRN PRN (Reason: sore throat) Qty: 3 0RF
Xarelto 20 mg Tablet
20 mg PO QPM Qty: 30 0RF
Referrals:
Ros Hernadez MD [Family Provider, Internal Medicine]
Activity Restrictions/Additional Instructions:
Follow-up per cardiology. Return immediately with chest pain shortness of breath lightheadedness feeling like you are in a pass out or any other symptoms of concern related to the recent pacemaker insertion.
Dr. Boss will see you now for further evaluation of your shoulder
The prescription was sent to your pharmacy for stronger pain medication if you need
Interventions
Interventions:
*Risk Screen - Suicide Last Done: 02/13/25 13:39
*General Assessment Last Done: 02/13/25 13:39
*Neglect/Abuse Screening Last Done: 02/13/25 14:13
*ED- Fall Risk Assessment Last Done: 02/13/25 15:10
*ED COVID-19 Vaccine History Last Done: 02/13/25 13:39
*Nursing Disposition Last Done: 02/13/25 15:10
ED-Musculoskeletal Assessment Last Done: 02/13/25 14:13
Discharge Date and Time
Discharge Date/Time: 02/13/25 15:12
Print Language: BARBADIAN
[2025-02-13 15:51] VITALS: BP 144/74
== END 2025-02-13 15:12 | disposition home or self-care (01) ==
LOC: EMR 13:29
PROVIDERS: EMERGENCY PHYSICIAN Emergency Medicine; FAMILY PHYSICIAN Student in an Organized Health Care Education/Training Program
DX: M75.32 Calcific tendinitis of left shoulder (principal); I48.91 Unspecified atrial fibrillation; I11.0 Hypertensive heart disease with heart failure; I50.9 Heart failure, unspecified; K21.9 Gastro-esophageal reflux disease without esophagitis; K52.9 Noninfective gastroenteritis and colitis, unspecified; Z95.0 Presence of cardiac pacemaker; Z79.01 Long term (current) use of anticoagulants
CPT/HCPCS: 99284; 71046; 73030

== ENCOUNTER → 2025-03-13 06:42 | Outpatient (REF) | payer MEDICARE, SELFPAY ==
[2025-03-13 08:09] LABS: HDL Cholesterol 70 mg/dl; LDL Cholesterol, Calculated 50 mg/dl; Very Low Density Lipoprotein 12 mg/dl (0-30)
== END ==
LOC: REG 06:42
PROVIDERS: ATTENDING PHYSICIAN Student in an Organized Health Care Education/Training Program; FAMILY PHYSICIAN Student in an Organized Health Care Education/Training Program
DX: I25.10 Atherosclerotic heart disease of native coronary artery without angina pectoris (principal)
CPT/HCPCS: 36415; 80061

== ENCOUNTER 2025-03-21 13:49 | Inpatient (IN) | payer MEDICARE, SELFPAY ==
[2025-03-21] VITALS (44 sets, daily range): BP systolic 66–138; BP diastolic 43–95; PULSE 71; BMI 27.3
[2025-03-21 10:50] LABS: Hematocrit 44.4 % (39.0-52.0); Hemoglobin 15.2 g/dL (13.0-18.0); Mean Corp Hgb Conc. 34.2 g/dL (33.0-37.0); Mean Corpuscular Volume 90.1 fL (80.0-94.0); Nucleated Red Blood Cells % 0 % (-); Platelet Count 156 10^3/uL (130-400); Red Cell Dist. Width 12.9 % (11.5-14.5)
[2025-03-21 11:09] LABS: ALT (SGPT) 25 U/L (0-50); AST (SGOT) 39 U/L (17-59); Albumin 4.3 g/dl (3.5-5.0); Alkaline Phosphatase 75 U/L (38-126); Blood Urea Nitrogen 14 mg/dl (9-20); Calcium 9.2 mg/dl (8.4-10.2); Carbon Dioxide 24 mmol/L (22-30); Chloride 105 mmol/L (98-107); Estimated Creatinine Clearance 74 ml/min; Glucose 126 mg/dl (70-99); Potassium 4.2 mmol/L (3.5-5.1); Sodium 137 mmol/L (135-145); Total Protein 7.0 g/dl (6.3-8.2); eGFR > 60.00
[2025-03-21] MEDS: NSS 1000 IV (11:39)
[2025-03-21 11:48] LABS: Troponin I 0.015 ng/ml
[2025-03-21] MEDS: LEVOPHED 250 IV (12:15)
--- NOTE | 2025-03-21 12:21 | ED.GENMED ---
History of Present Illness
General
Chief Complaint: Heart Rate Problem
Source: patient and other (friend)
Time Seen by Provider: 03/21/25 10:35
History of Present Illness
History of Present Illness:
Note:
CHIEF COMPLAINT(S)
Chest pain, weakness, and diaphoresis.
HISTORY OF PRESENT ILLNESS
The patient is an 89-year-old male presenting with weakness, sweating, and chest pain that began suddenly this morning. He reports feeling well the previous day with no history of fever. He describes the chest pain as not dull and initially a little
sharp. He denies any previous episodes similar to this pain. The patient had a pacemaker implanted six weeks ago due to atrial fibrillation for which he had recurrent episodes over the past 20 years. The patient reports that after the pacemaker
insertion, there were no issues and he felt 'fantastic.' His blood pressure upon arrival was noted to be low at 73 mmHg. He expresses concern about the possibility of an acute myocardial infarction and has a 'terrible feeling' that something bad is
about to happen if not intervened quickly. He has been taking Rivaroxaban (Xarelto). His vitals also showed a blood pressure of 90/75 during the conversation. He denies any abdominal pain or blood in the stool but reports hemorrhoids without active
bleeding.
PAST MEDICAL AND SURGICAL HISTORY
- Atrial Fibrillation for 20 years.
- Pacemaker implantation 6 weeks ago for atrial fibrillation management.
- History of heart murmur.
SOCIAL DETERMINANTS AFFECTING HEALTH
The patient expresses concern about his health due to the recent onset of symptoms and fears of an acute myocardial infarction, affecting his state of mind and stressing the need for urgent care.
MEDICATIONS
- Rivaroxaban (Xarelto), verified use.
REVIEW OF SYSTEMS
- Cardiovascular: Chest pain onset this morning, history of heart murmur.
- Hematologic: No blood in stool or significant bleeding despite current hemorrhoids.
PHYSICAL EXAM
General: Alert, expressing concerns about his condition. appears ill
Skin: Warm, dry.
Head: Normocephalic, atraumatic.
Neck: Supple, trachea midline.
Eye, Ears, Nose, Mouth, and Throat: Oral mucosa moist.
Cardiovascular: Normal peripheral perfusion, No edema. Irregularly irregular with harsh systolic murmur
Respiratory: Respirations are non-labored.
Gastrointestinal: Abdomen nondistended.
Back: Normal range of motion, Normal alignment.
Musculoskeletal: Normal ROM, normal strength.
Neurological: Alert and oriented to person, place, time, and situation. No focal neurological deficit observed.
Psychiatric: Cooperative, appropriate mood & affect.
PROBLEM LIST
- Acute chest pain
- Hypotension
- Atrial fibrillation with pacemaker.
- Valvulopathy
PLAN
- Obtain a chest X-ray.
- Obtain an electrocardiogram (EKG).
DIFFERENTIAL DIAGNOSIS
The Differential Diagnosis includes, in no particular order and is not limited to:
1. Acute myocardial infarction (AMI)
2. Pulmonary embolism
3. Aortic dissection
4. Congestive heart failure exacerbation
5. Pericarditis
6. Pneumothorax
7. Gastroesophageal reflux disease (GERD)
8. Pulmonary infection
9. Anxiety disorder
10. Cardiac arrhythmia
CARE-UPDATE
03/21/25 - 12:24
Cardiology consulted for bedside evaluation. h/o severe pulmonary hypertension and significant mitral annular calcification observed on recent echo. Moderate tricuspid regurgitation also noted. Await further recommendations post-assessment.
CARE-UPDATE
03/21/25 - 12:42
Cardiology was consulted; current left ventricular ejection fraction shows improvement. Recommended increase in medication dosage to 20 mg.
Disposition:
SUMMARY OF ENCOUNTER
An 89-year-old male with a history of atrial fibrillation, heart failure, and coronary artery disease presented with hypotension, atrial fibrillation, and chest tightness. The patient was evaluated in the emergency department where an EKG was
performed, which showed nonspecific findings without ST elevation. Troponin levels were 0.015, which is close to his baseline of 0.021 from previous records. A CBC and CMP were both normal. A chest X-ray revealed a narrow mediastinum with slight
prominence of vascular markings. Despite administration of Levophed, the patient remained hypotensive. Cardiology was consulted, and after a bedside ultrasound showed no pericardial effusion, it was decided by interventional cardiology to take the
patient to the cardiac catheterization lab. Aspirin was administered as ordered by cardiology. Do not suspect aortic dissection given chest x-ray and equal blood pressures bilaterally. Suspect cardiogenic shock as he is afebrile and no clinical
evidence of sepsis. He is anticoagulated and not hypoxic so do not suspect pulmonary embolism.
MANAGEMENT OF THE PATIENTS CARE WAS DISCUSSED WITH
Cardiology was consulted and discussed management with interventional cardiology.
INDEPENDENT REVIEW OF LABS AND INTERPRETATION OF TESTS
-My independent review of EKG shows nonspecific findings; no ST elevation noted.
-My independent review of troponin level is 0.015, indicating levels near baseline.
-My independent review of CBC is normal.
-My independent review of CMP is normal.
-My independent chest X-ray interpretation is a narrow mediastinum with slight prominence of vascular markings.
MEDICATION RECONCILIATION
Aspirin was administered as ordered by cardiology.
MEDICAL DECISION MAKING
-Complexity of Data Reviewed: Chronic conditions affecting care, including atrial fibrillation, heart failure, and coronary artery disease. Differential diagnosis includes Acute myocardial infarction (AMI), pulmonary embolism, aortic dissection,
congestive heart failure exacerbation, pericarditis, pneumothorax, gastroesophageal reflux disease (GERD), pulmonary infection, anxiety disorder, and cardiac arrhythmia.
-Data:
Category 1: Tests and documents reviewed include independent interpretation of EKG, chest X-ray, CBC, CMP, and troponin level. External records reviewed include comparison of current and past troponin levels.
Category 3: Discussion of management with cardiology and interventional cardiology regarding patient care and decision to take the patient to the cardiac catheterization lab.
DIAGNOSIS
1. Hypotension (ICD-10: I95.9)
2. Atrial fibrillation (ICD-10: I48.91)
3. Chest Pain, unspecified (ICD-10: R07.9)
Past History
Past History
ED Past Medical History: Arrthythmia (Atrial fibrillation), CHF, GERD, HTN and Other (Colitis)
ED Past Surgical History: Appendectomy, Cardiac (Catheterization 2005) and Other (Noncontributory)
Social History
Tobacco: Non-smoker
Alcohol: Occasional
Drug: None
Personal:
Living: with family
Employment: Retired
Family History
Family History: Other (Noncontributory)
Phy Exam
Physical Exam
Physical Exam:
.
Course
Orders/Labs/Results
Orders:
Orders
03/21/25 10:34
Electrocardiogram (*1) Urgent
Reason for Study: Atrial Fibrillation
03/21/25 10:35
EKG- Treatment ONCE
03/21/25 10:39
Complete Blood Count/With Diff Urgent
Comprehensive Metabolic Panel Urgent
NT-proBNP Urgent
Comment: ADD ON
Troponin I Urgent
03/21/25 11:10
CR Chest Portable - 1 View Stat
Comment:
Reason For Exam: cp
Reason Study Needs to be Portable: Unable to Transport
03/21/25 11:16
Electrocardiogram (*1) Urgent
Reason for Study: Atrial Fibrillation
Other Reason for Exam: repeat EKG
EKG- Treatment ONCE
03/21/25 11:45
0.9% Sodium Chloride 1000 ml [Nss] 1,000 ml IV Wide Open mls/hr
03/21/25 11:55
Add On- LAB Urgent
Tests Added?: BNP
03/21/25 12:06
NORepinephrine 4 MG/250 ML [Levophed] 4 mg in 250 ml .ROUTE .STK-MED
03/21/25 12:08
NORepinephrine 4 MG/250 ML [Levophed] 4 mg in 250 ml IV NOW
Initial dose in mcg/min, then titrate:: 2
Titrate to keep:: MAP > 65 mmHg
Titrate by mcg/min:: 1-2 mcg/min
Frequency of titrations (minutes):: 5
Maximum dose in ICU in mcg/min:: 30
Maximum dose in IMU in mcg/min:: 8
Maximum dose in IVU in mcg/min:: 4
Begin to taper infusion when:: Remained at goal for 4hrs
Taper by mcg/min:: 1-2 mcg/min
Frequency of taper (minutes) if patient maintains goal:: 30
Taper to off?: Yes
If infusion off & no longer maintaining goal:: Contact Provider
03/21/25 12:32
Electrocardiogram (*1) Urgent
Reason for Study: Chest Pain
EKG- Treatment ONCE
03/21/25 13:13
Aspirin Chewable [Low Strength Aspirin] 324 mg .ROUTE .STK-MED ONE
Heparin 5,000 units .ROUTE .STK-MED ONE
03/21/25 13:19
Admit/Transfer Patient As Directed
Co-Sign Provider:
Level of Care: Inpatient admission
Assign to:: CVICU
Physician / Group: micaela
Diagnosis: cardiogenic shock
Reason for Hospitalization: cardiogenic shock
Expected length of stay greater than two midnights?: Yes
ELOS- Estimated Length of Stay in days: 5
I certify the patient meets the requirements for IP care: Yes
Code Status As Directed
Resuscitation Status: Full Code
03/21/25 13:23
Fentanyl Citrate/Pf [Sublimaze] 100 mcg .ROUTE .STK-MED ONE
Heparin 10,000 units .ROUTE .STK-MED ONE
Heparin 1000 Units/500 ml [Heparin] 1,000 units in 500 ml .ROUTE .STK-MED
Midazolam HCl [Versed] 2 mg .ROUTE .STK-MED ONE
Verapamil Injectable [Isoptin/Verapamil Injection] 5 mg .ROUTE .STK-MED ONE
03/21/25 13:24
Heparin Sodium,Porcine/Ns/Pf [Heparin 2000 Units/1000 ml] 2,000 unit in 1,000 ml .ROUTE .STK-MED
Lidocaine HCl/Pf [Xylocaine-Mpf 1% Vial] 100 mg .ROUTE .STK-MED ONE
Nitroglycerin [Tridil] 1,500 mcg .ROUTE .STK-MED ONE
Abnormal Lab Results
03/21/25
10:39
MPV 10.5 H fL
(7.4-10.4)
Absolute Monos (auto) 0.8 H 10^3/uL
(0.1-0.6)
Glucose 126 H mg/dl
(70-99)
Total Bilirubin 1.7 H mg/dl
(0.2-1.3)
03/21/25 10:39
03/21/25 10:39
Vital Signs
Initial and Last Documented VS:
Initial Vital Signs
Pulse Resp BP Pulse Ox
103 18 79/52 100
03/21/25 10:34 03/21/25 10:34 03/21/25 10:34 03/21/25 10:34
Last Documented Vital Signs
Temp Pulse Resp BP Pulse Ox
97.7 F 124 14 85/65 98
03/21/25 10:35 03/21/25 13:25 03/21/25 13:25 03/21/25 13:35 03/21/25 13:20
*Pulse Oximetry
SaO2: 96
Oxygen Mode of Delivery: Room air
Patient hypoxic: no
*Parker Interpretation
Rate: tachycardiac
Interpretation: abnormal
Rhythm: a-fib
*Critical Care Note
Total Time (30-74mins, 75-104mins- exclusive of procedures): 65 minutes
ED Attending Note
-
Portions of this chart may have been created with voice recognition software.� Occasional wrong word or��sound alike� substitutions may have occurred due to the inherent limitations of voice recognition software.
Discharge Plan
Departure
Patient Disposition: Admit
Date of Disposition: 03/21/25
Time of Disposition: 12:22
Admit to: IMU
Presentation/result/management discussed w/ accepting MD/DO: Hospitalist
Discharge Problem:
Cardiogenic shock, Atrial fibrillation with RVR
Interventions
Interventions:
*Risk Screen - Suicide Last Done: 03/21/25 10:35
*General Assessment Last Done: 03/21/25 10:35
*Neglect/Abuse Screening Last Done: 03/21/25 10:35
*Nursing Disposition Last Done: 03/21/25 13:45
ED- Cardiac Assessment Last Done: 03/21/25 11:00
ED- Pulmonary Assessment Last Done: 03/21/25 11:00
Discharge Date and Time
Discharge Date/Time: 03/21/25 13:46
--- NOTE | 2025-03-21 13:32 | HPS.HSE ---
Family Physician
-
Family Physician: Ros Hernadez MD
Chief Complaint
-
chest pain
History of Present Illness
89-year-old gentleman with past medical history of CAD status post PCI to the LAD/D1 in tandem in December 2023, persistent atrial fibrillation status post permanent pacemaker placement on 02/09/2025 when he was noted to be bradycardic on necessary rate
controlling agents, pulmonary hypertension (followed by For fever), GERD, sleep apnea, ELLA who presented for urgent eval ration of chest pain. Patient reports he was in his usual state of health until this morning when he woke up and noted he
had chest pressure across the top of his chest associated with an elevated heart rate. He checked his Kardia device and was in atrial fibrillation. He had nausea and diaphoresis prompting him to seek care. Since arrival in the ED, he has ongoing
symptoms of chest pressure. He rates it a 5 out of 10. Blood pressure has been hypotensive and he has been started on levophed.
Medical History
Past Medical History
Past Medical History: Reports Arrhythmia (Persistent AF, now Paroxysmal, s/p PPM 02/09/25), CAD (s/p PC SUNDEEP LAD and D1 12/20/23), CHF, HTN and Hypercholesterolemia
Additional Past Medical History:
Pulmonary hypertension, SERGIO, ELLA
Past Surgical History: Reports Other
Additional Past Surgical History:
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
Social History
Tobacco: Non-smoker
Alcohol: None
Drug: None
Living: Alone
Employment: Retired
Family History
Family History: Not pertinent
Allergies / Home Medications
Allergies reflects when Allergies were last updated in [facility].
Home Medications with original date entered in [facility]
Allergy/Medication List:
Allergies prochlorperazine/Compazine
Per last note 03/10/2025 and [facility]:
Dofetilide to 50 mcg 1 capsule every 12 hours
Entresto 24/26 mg 1 tablet orally twice daily
Farxiga 5 mg tablet once daily
Fluticasone 50 mcg 2 sprays into each nostril daily
Lasix 40 mg tablet: 2 tablets a.m. 1 tablet p.m.
Metoprolol succinate 50 mg twice daily
Omeprazole 40 mg daily
Potassium 10 mEq 2 AM 1 PM
Rivaroxaban 20 mg 1 tablet daily.
Repatha 140 mg/mL every 2 weeks subcu autoinjector.
If medication reconciliation has not been performed, why?: Other (emergency management in acute decompensation )
Review of Systems
-
A 12 point ROS was completed and negative except as noted: Yes
Physical Exam
Vital Signs
Vital Signs
Temp Pulse Resp BP Pulse Ox
97.7 F 107 17 80/56 97
03/21/25 10:35 03/21/25 12:55 03/21/25 12:55 03/21/25 12:55 03/21/25 12:55
Physical Exam
General: Appears in Distress and Other (clammy and pale)
HEENT: NormoCephalic and Moist mucous membranes
Respiratory: Clear; No Wheezes, Rales or Rhonchi
Cardiac: S1/S2 and Irregular Rhythm; No Murmur, Rub, Gallop or Peripheral Edema
GI: Soft, Non Tender, Non Distended and Normal Bowel Sounds
Genito-urinary: Deferred by me
Musculoskeletal: No Clubbing and No Cyanosis
Neuro: AO x 3
Laboratory Results
-
03/21/25 10:39
03/21/25 10:39
Laboratory Results
Total Bilirubin 1.7 mg/dl (0.2-1.3) H 03/21/25 10:39
AST 39 U/L (17-59) 03/21/25 10:39
ALT 25 U/L (0-50) 03/21/25 10:39
Alkaline Phosphatase 75 U/L (38-126) 03/21/25 10:39
Troponin I 0.015 ng/ml 03/21/25 10:39
BED side Echo didn't show any significant large pericardial edema
Data Reviewed
-
Critical Care Time (in minutes): 85 minutes
Medical Tests (Nuc Med, Echo, EKG etc): Image Personally Visualized and interpreted (CXR normal heart silhouette, mild cephalization)
Impression/Plan
-
IMPRESSION:
Cardiogenic shock: this is a threat to life
ACS: seems to be primary concern, received aspirin
Atrial fib with rvr-initial rates were 90-110's, increased with vasopressor. He tool Xarelto last night
Chronic conditions:
CAD with prior PCI
tachybrady syndrome s/p ppm : interrogated in ED 85.7% apaces , <00.1% v oacesd, 1 Brief NSVT 03/20/25, now in fib
pHTN
ELLA
htn
hld
PLAN:
Continue Levophed with titration to keep MAP >65
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
full med reconcilliation upon improvement
heparin bolus prior to cath
Data:
ECG afib with NSIVD, intermittent pacing
ECHO 02/05/25: LVEF 60%, asymmetric septal hypertrophy; Moderate left atrial dilation. Mild right atrial dilation.
Severe mitral annular calcification, posterior > anterior with leaflet thickening and mitral sclerosis and mild mitral regurgitation.
At least moderate tricuspid regurgitation.
[2025-03-21 14:30] LABS: B.E. -5.8 mmol/L; HCO3 21.9 mmol/L (21-28); O2 Saturation % 99.3 % (94-98); PCO2 50 mmHg (35-48); PO2 168 mmHg (83-108); Potassium 3.6 mMOL/L (3.5-5.1); Sodium 134 mMOL/L (136-145)
--- NOTE | 2025-03-21 15:23 | ITS.CL.CATH ---
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
Cardiac Catheterization
Procedure Report:
CARDIAC CATHETERIZATION REPORT
Date of Procedure: 03/21/2025
Referring: Kimberlee Bey M.D.
INDICATION: Abrupt onset chest pain, known coronary artery disease, hypotension.
PROCEDURE:
1. Left heart catheterization.
2. Coronary angiography.
3. Left ventriculography.
4. DC cardioversion x 2.
5. Titration of vasoactive medications.
6. Placement of a left radial artery pressure line.
7. Placement of a right IJ triple-lumen central venous catheter.
A total of 97 minutes of procedural/moderate sedation was utilized. An independent medical assistant instructor was present to assist with and help manage the patient's level of consciousness and physiologic status.
ACCESS:
1. 6 Angolan right radial artery using a modified Seldinger technique.
2. 3 Angolan left radial artery (pressure line) using a modified Seldinger technique.
3. 8 Angolan right internal jugular vein (triple-lumen CVC) using a modified Seldinger technique with a micropuncture kit under ultrasound guidance.
CATHETERS:
1. 5 Angolan JR4.
2. 5 Angolan JL 3.5.
3. 5 Angolan angled pigtail.
HEMODYNAMIC DATA
Weight (kg): 77.6
AO (s/d/x, mmHg): 96/56/70
LV (s/x mmHg): 96/15
LEFT VENTRICULOGRAPHY: Performed in an LAKE projection. Normal cavity size with evidence of hypertrophic cardiomyopathy and hyperdynamic systolic function. Left ventricular ejection fraction estimated at >75%. There are no regional wall motion
abnormalities. There is mild to moderate mitral valve regurgitation. There is no evidence of aortic valve insufficiency. The aortic root, ascending aorta and visualized descending aorta appear normal without evidence of dissection.
CORONARY ANGIOGRAPHY
Dominance: Right.
Left Main: Normal size, bifurcating vessel. There is no coronary artery disease.
LAD: Normal size vessel giving rise to 1 significant diagonal. Patent stents are observed in the mid LAD and in the proximal margin of the first diagonal without evidence of in-stent restenosis. A myocardial bridge is observed in the mid LAD
distal to the stented segment. There are minor luminal irregularities in the remainder of the LAD.
Ramus: Congenitally absent.
Circumflex: Normal size, nondominant vessel giving rise to 2 obtuse marginals. There is a hazy lucency in the ostium of the circumflex observed in the ARMENIAN caudal projection. This lucency is not seen in any other projection suggesting that the
lucency is dropout artifact. There is a 30% lesion in the proximal margin of OM1, unchanged from prior. The second obtuse marginal is a small vessel.
RCA: Large size, dominant vessel with a large RPDA and a large parallel posterolateral branch. There are minor luminal irregularities.
INTERVENTION(S)
1. Titration of vasoactive medications.
2. Initiation of amiodarone bolus and drip.
3. DC cardioversion x 2.
4. Placement of right IJ central venous catheter.
Narrative:
Coronary angiography was performed in standard fashion. There was an area of lucency seen in the ostium of the circumflex. On further interrogation, this appeared to be artifact due to the concentration of contrast in the left main and LAD causing
dropout in the ostium of the circumflex. The haziness was not visible in any other angiogram and there was no evidence of circumflex compromise on left ventriculography.
After consulting with Dr. Bey, the decision was made to change pressor support from norepinephrine to phenylephrine in an attempt to decrease myocardial contractility given the relatively low LVEDP and to attempt DC cardioversion. The
patient was given appropriate and DC cardioversion was attempted at 200 J. Unfortunately, the patient remained in sedation atrial fibrillation. The patient was given 150 mg of amiodarone as an IV bolus and started on a drip at 1 mg/min. In the
interim, we titrated down the norepinephrine and placed a left radial arterial line.
Once the amiodarone had had some time to circulate, the cardioversion pads were placed in an anterior posterior position and DC cardioversion was repeated at 200 J. This time, the patient converted to normal sinus rhythm. Over the course of the
next several minutes, we noticed a significant improvement in the patient's hemodynamics and blood pressure. Norepinephrine was discontinued. It became clear that the patient would benefit from continuous IV amiodarone infusion. A right internal
jugular central venous catheter was placed for direct infusion.
Once all the lines were sutured in place and secured, the patient was transferred to the CVICU in stable condition on phenylephrine and amiodarone.
Closure Device: Vascular band for the right radial artery.
Radiation (mGy): 275.79
DAP (cm2.Gy): 19.6303
Fluoroscopy time (minutes): 2.0
CONCLUSIONS
1. Right dominant circulation with patent stents in the mid LAD and proximal diagonal, a 30% lesion in the proximal margin of OM1 and luminal irregularities in the remainder of the entire coronary tree.
2. Mildly elevated filling pressures (LVEDP = 15 mmHg at 77.6 kg).
3. Recurrent atrial fibrillation with hemodynamic compromise in the setting of hypertrophic cardiomyopathy, requiring hemodynamic support and DC cardioversion.
RECOMMENDATIONS:
1. Expectant management after cardiac catheterization via right radial approach.
2. Limited weight bearing on both wrists for one week.
3. Focus on rhythm control as the patient is clearly intolerant of atrial fibrillation and requires an atrial kick.
4. IV amiodarone drip. We will convert to p.o., likely on Sunday.
5. Consultation with EP regarding consideration of repeat AF ablation.
6. Titrate vasoactive medications to maintain MAP >65 mmHg.
Copy to: Jonny Ga M.D., PhD, Ros Hernadez M.D., PhD
Gurjit Pagan DO, FACC, FACP
--- NOTE | 2025-03-21 15:45 | PTCARENOTE ---
Pt received from optical laboratory technician. Upon arrival, bleeding noted to be from left wrist where mikaela had been placed, [place] dislodged, optical laboratory technician RN holding pressure, TR band applied with 8ml. Pt alert and oriented x4. Denies pain, shortness of breath, and
nausea. SORIANO with equal strength throughout. Occasional SR, primarily A-paced on tele at a rate of 70bpm. BP 112/59 on arrival. Jarod gtt on standby on arrival. Bilateral radial and DP pulses palpable. No edema noted. Heart tones audible. POX 91% on 4L
NC, difficulty to obtain accurate pleth, ear pulse ox obtained. Lung clear throughout. No cough noted. Abdomen soft, round, nontender. +BS. Last BM reported yesterday. Right radial cath site with TR band in place, soft, nontender. Pt due to void,
educated on importance of measuring output in urinal for specimen. Right AC 18g PIV intact. Right IJ triple lumen CVC intact, all ports flushed. Amio gtt infusing at 1mg/min through central line. See MAR for medication administration. See worklist
for complete nursing assessment. Plan of care reviewed and patient in agreement.
[2025-03-21 16:02] LABS: Magnesium 1.9 mg/dl (1.6-2.3)
[2025-03-21 16:20] LABS: INR 1.52; PT 18.5 Sec (11.4-14.6)
[2025-03-21 16:21] LABS: APTT 58.0 Sec (23.4-35.0)
[2025-03-21 16:37] LABS: Magnesium 1.8 mg/dl (1.6-2.3)
[2025-03-21 16:40] LABS: Troponin I 0.340 ng/ml
[2025-03-21 17:02] LABS: Glucose - Point of Care 153 mg/dl (70-99)
--- NOTE | 2025-03-21 17:15 | PTCARENOTE ---
POX 88-89% on 6L, Dr. Bey notified. RT at bedside to place pt on 8L midflow NC. POX 99%.
[2025-03-21 18:00] LABS: Urine Character Clear (Clear)
[2025-03-21 18:15] LABS: Urine Squamous Cell 0-2 /LPF (Few)
[2025-03-21 18:17] LABS: Urine Red Blood Cell 0-2 /HPF (0-2)
[2025-03-21] MEDS: XARELTO 20 MG PO (19:02)
[2025-03-21 19:16] LABS: Troponin I 1.070 ng/ml
--- NOTE | 2025-03-21 20:30 | PTCARENOTE ---
Patient received resting in bed watching television. Patient A+A+Ox3. No neurological deficits noted. No c/o headache, dizziness or lightheadedness. Patient with no c/o pain or discomfort. SpO2 98% Midflow 4L O2. No c/o SOB. Lungs clear. No
adventitious breath sounds noted. Permanent Pacemaker - A-Paced. Underlying rhythm Sinus Rhythm with First Degree AV Block. Heart rate 70. Blood pressure 112/69 (82). Patient with no c/o chest pain, pressure or discomfort. Amiodarone gtt
infusing at 1mg/min (33.3 ml/hr) x 6hrs then decrease to 0.5 mg/min (16.7 ml/hr) x 18 hrs. Right I.J. T.L.C intact and patent. Right wrist and left wrist dressing intact - No hematoma, bleeding or oozing - Positive circulation, sensation and
mobility to right and left upper extremities. Assessment as documented.
[2025-03-21] MEDS: TOPROL XL 50 MG PO (20:41)
[2025-03-21] MEDS: ENTRESTO 24 MG/26 MG 1 TAB PO (20:42)
[2025-03-21 22:40] LABS: Troponin I 2.030 ng/ml
[2025-03-21] MEDS: BENADRYL 25 MG PO (23:15)
[2025-03-21] MEDS: TYLENOL 650 MG PO (23:15)
[2025-03-22] VITALS (17 sets, daily range): BP systolic 90–134; BP diastolic 54–81; BMI 25.2
--- NOTE | 2025-03-22 | PTCARENOTE ---
Patient resting in bed watching [employer] football. O2 at 6L via NC. SpO2 95%. Troponin sent - 2.030. EKG completed - Sinus Rhythm with First Degree AV Block. GARAGE LABORER for CT Surgery, Derrick Augustin GARAGE LABORER, updated on Troponin result and EKG result.
bus monitor: A-Pacing. Heart rate 70. Blood pressure 104/59 (74). No c/o chest pain, pressure or discomfort. Patient voided 125 ml ervin urine. Patient requested Tylenol Severe Allergy for HS - Substitute with Benadryl 25 mg PO and Tylenol
650 mg PO. Respiratory Therapist placed patient on CPAP 6.0 with 6L O2 HS. Right wrist and left wrist dressings intact - Positive circulation, sensation and mobility to bilateral upper extremities - No c/o numbness, tingling, pain or discomfort.
Amiodarone gtt infusing at 0.5 mg/min (16.7 ml/hr). Right I.J. T.L.C. intact and patent. Patient now sleeping. No further changes from previous assessment.
--- NOTE | 2025-03-22 03:00 | PTCARENOTE ---
Patient sleeping. CPAP off per patient request. O2 at 6L via NC. SpO2 99%. Assessment/Interventions as documented.
[2025-03-22 04:36] LABS: Hematocrit 37.4 % (39.0-52.0); Hemoglobin 12.5 g/dL (13.0-18.0); Mean Corp Hgb Conc. 33.4 g/dL (33.0-37.0); Mean Corpuscular Volume 90.6 fL (80.0-94.0); Platelet Count 144 10^3/uL (130-400); Red Cell Dist. Width 13.1 % (11.5-14.5)
[2025-03-22 05:20] LABS: Blood Urea Nitrogen 23 mg/dl (9-20); Calcium 9.1 mg/dl (8.4-10.2); Carbon Dioxide 28 mmol/L (22-30); Chloride 103 mmol/L (98-107); Estimated Creatinine Clearance 52 ml/min; Glucose 117 mg/dl (70-99); Potassium 4.1 mmol/L (3.5-5.1); Sodium 134 mmol/L (135-145); eGFR > 60.00
--- NOTE | 2025-03-22 06:15 | PTCARENOTE ---
Patient A+A+Ox3. No neurological deficits noted. No c/o pain or discomfort. AM lab work collected and sent. EKG completed. Patient given CHG bath and linens changed. Patient to bathroom with minimal assistance. Steady gait. No c/o headache,
dizziness or lightheadedness. Voided 150 ml ervin urine. Washed face and brushed teeth. Standing scale weight 77.5 kg. Patient ambulated to lounge and back to room without difficulty. No c/o SOB. No MOSHER. No c/o chest pain, pressure or
discomfort. SpO2 room air 96%. OOB in chair. Assessment/Interventions as documented.
--- NOTE | 2025-03-22 08:11 | W.PN.CD ---
Today's Communication / Plan
-
89-year-old gentleman with past medical history of CAD status post PCI to the LAD/D1 in tandem in December 2023, persistent atrial fibrillation status post permanent pacemaker placement on 02/09/2025 when he was noted to be bradycardic on necessary rate
controlling agents, pulmonary hypertension (followed by For [facility]), GERD, sleep apnea, ELLA who presented for urgent evaluation of chest pain, palpitations. In the ED he was hypotensive requiring vasopressor support. He was emergently sent to
the labor relations manager.
IMPRESSION:
Cardiogenic shock: this is a threat to life
-improved
-No evidence of ACS
-seems to have been due to loss of atrial kick and AF
Atrial fib with rvr-back in sinus, loading amiodarone
HCM: will make best efforts to maintain sinus
Type II [place]: due to acute hypotension
-
Chronic conditions:
CAD with prior PCI
HFpEF: chronic, CVP 8, hold lasix home 'dry weight' 165lb. Is euvolemic now
tachybrady syndrome s/p ppm : interrogated in ED 85.7% apaces , <00.1% v oacesd, 1 Brief NSVT 03/20/25, now in fib
pHTN
htn
hld
PLAN:
trend cbc/troponin
reassess cvp at 1pm
hold am lasix
complete IV amiodarone load with transition to po
echo in am to assess LVOT gradient
downgrade to IVU
Data:
LHC: 03/22/25
HEMODYNAMIC DATA
Weight (kg): 77.6
AO (s/d/x, mmHg): 96/56/70
LV (s/x mmHg): 96/15
LEFT VENTRICULOGRAPHY: Performed in an LAKE projection. Normal cavity size with evidence of hypertrophic cardiomyopathy and hyperdynamic systolic function. Left ventricular ejection fraction estimated at >75%. There are no regional wall motion
abnormalities. There is mild to moderate mitral valve regurgitation. There is no evidence of aortic valve insufficiency. The aortic root, ascending aorta and visualized descending aorta appear normal without evidence of dissection.
CORONARY ANGIOGRAPHY
Dominance: Right.
Left Main: Normal size, bifurcating vessel. There is no coronary artery disease.
LAD: Normal size vessel giving rise to 1 significant diagonal. Patent stents are observed in the mid LAD and in the proximal margin of the first diagonal without evidence of in-stent restenosis. A myocardial bridge is observed in the mid LAD
distal to the stented segment. There are minor luminal irregularities in the remainder of the LAD.
Ramus:Congenitally absent.
Circumflex: Normal size, nondominant vessel giving rise to 2 obtuse marginals. There is a hazy lucency in the ostium of the circumflex observed in the BENGALI caudal projection. This lucency is not seen in any other projection suggesting that the
lucency is dropout artifact. There is a 30% lesion in the proximal margin of OM1, unchanged from prior. The second obtuse marginal is a small vessel.
RCA: Large size, dominant vessel with a large RPDA and a large parallel posterolateral branch. There are minor luminal irregularities.
Given no clear evidence of ACS--> pt under went DCCV x2. WIth resultant improvement in bp. Amiodarone initiatied.
ECG afib with NSIVD, intermittent pacing
ECHO 02/05/25: LVEF 60%, asymmetric septal hypertrophy; Moderate left atrial dilation. Mild right atrial dilation.
Severe mitral annular calcification, posterior > anterior with leaflet thickening and mitral sclerosis and mild mitral regurgitation.
At least moderate tricuspid regurgitation.
Impression / Plan
-
trend cbc/troponin
reassess cvp at 1pm
hold am lasix
complete IV amiodarone load with transition to po
echo in am to assess LVOT gradient
downgrade to IVU
Physical Exam
Vital Signs/Labs
Vital Signs
Temp Pulse Resp BP Pulse Ox
97.9 F 97 14 115/74 97
03/22/25 05:35 03/22/25 06:00 03/22/25 05:35 03/22/25 05:35 03/22/25 05:35
03/21/25 03/22/25 03/23/25
06:59 06:59 06:59
Actual Weight 170 lb 13.732 oz
03/22/25 04:10
03/22/25 04:10
PT 18.5 Sec (11.4-14.6) H 03/21/25 16:01
INR 1.52 03/21/25 16:01
APTT 58.0 Sec (23.4-35.0) H 03/21/25 16:01
Magnesium 1.8 mg/dl (1.6-2.3) 03/21/25 16:01
03/21/25
10:39
Bgc-S-Kcqxvubdsrs Pept 748
LAB Results
03/21/25 03/21/25 03/21/25
10:39 16:01 18:31
Troponin I 0.015 0.340 H* D 1.070 H* D
03/21/25
21:57
Troponin I 2.030 H* D
Physical Exam
Constitutional: No acute distress
Cardiovascular: Rhythm & rate is regular, Pedal edema is absent, Diastolic murmur absent and Systolic murmur present (all areas)
Respiratory: Respiratory effort normal, Lungs clear to auscul., Wheeze Absent, Crackles Absent and Rhonchi Absent
Neuro/Psych: AO x 3
Other: Cardiac Device Site (ra sites well healed, IJ in place)
Data Reviewed
-
Date of Service: March 22, 2025
Medical Decision Making: Review of Case with other Provider (apaced vsensed ns ivcd compared to the prior a pacing has replaced sinus rhythm)
EKG: Other
[2025-03-22] MEDS: PROTONIX 40 MG PO (08:19)
[2025-03-22] MEDS: FARXIGA 5 MG PO (08:19)
[2025-03-22] MEDS: ENTRESTO 24 MG/26 MG 1 TAB PO ×2 (08:19→20:34)
[2025-03-22] MEDS: TOPROL XL 50 MG PO ×2 (08:19→20:34)
--- NOTE | 2025-03-22 09:00 | PTCARENOTE ---
received PT AAOx4 w/o complaints of pain, Apaced on monitor VSS w/ amio gtt running; RA 95% O2; GI and WNL; bilateral wrist access sights CDI w/ ecchymosis on L wrist, traced w/ skin marker; PIV & RIJC wnl; see worklist for detailed assessment
[2025-03-22 09:51] LABS: Troponin I 2.310 ng/ml
[2025-03-22 10:32] LABS: Glycohemoglobin (HgbA1c) 6.0 % (4.0-5.6)
--- NOTE | 2025-03-22 12:00 | PTCARENOTE ---
no change from previous assessment
[2025-03-22 13:30] LABS: Hematocrit 40.5 % (39.0-52.0); Hemoglobin 13.6 g/dL (13.0-18.0); Mean Corp Hgb Conc. 33.6 g/dL (33.0-37.0); Mean Corpuscular Volume 90.8 fL (80.0-94.0); Platelet Count 143 10^3/uL (130-400); Red Cell Dist. Width 13.1 % (11.5-14.5)
[2025-03-22 13:59] LABS: Troponin I 1.650 ng/ml
[2025-03-22] MEDS: PACERONE 400 MG PO ×2 (14:54→20:34)
--- NOTE | 2025-03-22 17:25 | PTCARENOTE ---
no change from previous assessment
[2025-03-22] MEDS: XARELTO 20 MG PO (18:21)
--- NOTE | 2025-03-22 20:30 | PTCARENOTE ---
Patient received OOB in chair talking with friend. Patient A+A+Ox3. No neurological deficits noted. No c/o headache, dizziness or lightheadedness. Ambulating without difficulty. No c/o SOB. Room air. SpO2 98%. Permanent Pacemaker - A-Pacing
- Heart rate 70. Blood pressure 117/63 (80). Patient with no c/o chest pain, pressure or discomfort. Voiding without difficulty. Left wrist - Dressing intact - Large area of ecchymosis - Positive circulation, sensation and mobility to left upper
extremity - No c/o numbness, tingling, pain or discomfort. Right wrist - Dressing intact - Ecchymotic - Positive circulation, sensation and mobility to right upper extremity. Assessment as documented.
[2025-03-22] MEDS: BENADRYL 25 MG PO (20:47)
[2025-03-22] MEDS: TYLENOL 650 MG PO (20:47)
[2025-03-22] MEDS: OCEAN, SALINE MIST 2 SPRAYS NASAL (20:47)
--- NOTE | 2025-03-23 | PTCARENOTE ---
Patient sleeping without difficulty. Assessment as documented.
[2025-03-23 04:49] VITALS: BP 143/86
[2025-03-23 05:00] VITALS: BP 143/86
--- NOTE | 2025-03-23 05:00 | PTCARENOTE ---
Patient sleeping. No c/o pain or discomfort. Assessment/Interventions as documented.
[2025-03-23 05:17] LABS: Hematocrit 37.6 % (39.0-52.0); Hemoglobin 12.6 g/dL (13.0-18.0); Mean Corp Hgb Conc. 33.5 g/dL (33.0-37.0); Mean Corpuscular Volume 90.4 fL (80.0-94.0); Platelet Count 149 10^3/uL (130-400); Red Cell Dist. Width 13.0 % (11.5-14.5)
[2025-03-23 05:48] LABS: Blood Urea Nitrogen 20 mg/dl (9-20); Calcium 9.5 mg/dl (8.4-10.2); Carbon Dioxide 27 mmol/L (22-30); Chloride 105 mmol/L (98-107); Estimated Creatinine Clearance 74 ml/min; Glucose 104 mg/dl (70-99); Potassium 3.9 mmol/L (3.5-5.1); Sodium 136 mmol/L (135-145); eGFR > 60.00
[2025-03-23 06:00] VITALS: BMI 25.2
[2025-03-23 09:14] VITALS: BP 150/78
[2025-03-23] MEDS: TOPROL XL 50 MG PO (09:17)
[2025-03-23] MEDS: ENTRESTO 24 MG/26 MG 1 TAB PO (09:17)
[2025-03-23] MEDS: FARXIGA 5 MG PO (09:17)
[2025-03-23] MEDS: PACERONE 400 MG PO (09:17)
[2025-03-23] MEDS: PROTONIX 40 MG PO (09:17)
--- NOTE | 2025-03-23 09:31 | PTCARENOTE ---
assumed care of pt from previous shift RN, paced rhythm on tele, VSS. + peripheral pulses, trace edema to bilateral lower extremities. Lungs diminished, pox 99% on RA. +bs, tolerating PO intake, voids spontaneously. CVC and PIV flush easily. Pt
denies pain. Plan of care reviewed and questions encouraged.
--- NOTE | 2025-03-23 09:57 | W.PN.CD ---
Today's Communication / Plan
-
- ECHO today
- Device interrogation today
- Downgrade to IVU.
Impression / Plan
-
Mr. Clarke is an 89 years old man with CAD (drug-eluting stent to tandem lesions in the mid LAD and D1 12/20/2023), hypertension, h/p persistent atrial fibrillation s/p AF ablation (2019 - PVI, 2021 - PWI) now paroxysmal atrial fibrillation on
Xarelto, dyslipidemia, SERGIO on CPAP and pulmonary hypertension is here in recurrent atrial fibrillation.
Afib - paroxysmal.
- Persistent AF s/p ablation and remained AF free for 5 years.
- Now paroxysmal AF noted. atypical flutter on 01/13/25 s/p DCCV.
- Presented to the ER on 03/21/25 in atypical atrial flutter.
- Ablations included PVI (2019) and PWI (2021).
- s/p DCCV in rn labor and delivery and symptoms are improved.
- Patient with hypertrophic cardiomyopathy and is on Lasix and now with PPM in place was volume depleted leading to episode of NSVT that resulted in AF/FL.
- Tikosyn for half-way rhythm control.
- TSH - 2.38 on 09/09/24
- ECHO 02/05/25: LVEF 60%, asymmetric septal hypertrophy; Moderate left atrial dilation. Mild right atrial dilation.
- Severe mitral annular calcification, posterior > anterior with leaflet thickening and mitral sclerosis and mild mitral regurgitation. At least moderate tricuspid regurgitation.
- ECHO pending today
- CHADS2-Vasc = 5 (CHF, HTN, Age x2, vascular disease).
- Therapeutic anticoagulation with rivaroxaban, continue.
NSVT
- with hypertrophic CMP and volume depletion and hx of CHF (HFpEF), will start him on Amiodarone
- Switch IV Amio to PO - 400 mg BID x 1 week then 200 mg QD
Tachy shahla syndrome
- s/p conduction system pacing Medtronic dual chamber PPM in place.
- PPM interrogated in ER.
- ECHO and PPM interrogation today.
CAD - symptoms of dyspnea on exertion and fatigue are similar to his anginal equivalent.
- Troponin lead due to type II [place] with demand ischemia with NSVT and AF/FL.
- s/p cath on 03/21/25: Patent stents.
- Right dominant circulation with patent stents in the mid LAD and proximal diagonal, a 30% lesion in the proximal margin of OM1 and luminal irregularities in the remainder of the entire coronary tree.
- Status post drug-eluting stent to D1 and mid LAD 12/20/2023.
- Xarelto 20 mg qPM - continued.
HFpEF - acute on chronic.
- EF 65-70% on echo 04/2024.
- Likely volume depleted.
- Change Lasix to 40 mg QOD (from 40 mg QD / BID)
- He takes Lasix 40 mg twice daily at home, he denies missed doses.
- Dry weight is 174 and is at 170lbs today.
- With PPM in place and improved cardiac output, needs better flilling.
PHTN - chronic, severe.
- Post capillary - cath on 03/21 showed PCWP of 15 (was > 15, PVR < 3 harris units) on cath 12/20/23.
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
- Has seen Dr. Lopes at [facility] and is now looking for another (Dr. Lopes has moved out of [place]), recommends continue Entresto and Farxiga.
HTN - chronic, stable.
- Continue home medications.
HLD - chronic, stable.
- Continue Lipitor 20mg Q48hr.
- LDL was at goal, 52.
Physical Exam
Vital Signs/Labs
Vital Signs
Temp Pulse Resp BP Pulse Ox
98.2 F 70 18 150/78 99
03/23/25 08:00 03/23/25 09:15 03/23/25 08:00 03/23/25 09:14 03/23/25 09:40
03/22/25 03/23/25 03/24/25
06:59 06:59 06:59
Actual Weight 77.5 kg 77.3 kg
03/23/25 04:59
03/23/25 04:59
PT 18.5 Sec (11.4-14.6) H 03/21/25 16:01
INR 1.52 03/21/25 16:01
APTT 58.0 Sec (23.4-35.0) H 03/21/25 16:01
Magnesium 1.8 mg/dl (1.6-2.3) 03/21/25 16:01
03/21/25
10:39
Xyw-P-Fsbxganlhhi Pept 748
LAB Results
03/21/25 03/21/25 03/21/25
10:39 16:01 18:31
Troponin I 0.015 0.340 H* D 1.070 H* D
03/21/25 03/22/25 03/22/25
21:57 09:08 13:20
Troponin I 2.030 H* D 2.310 H* 1.650 H* D
Physical Exam
Constitutional: No acute distress and Comfortable
EENT: Anicteric and Moist mucous membranes
Cardiovascular: Rhythm & rate is regular, Pedal edema is absent and JVD pressure is normal
Respiratory: Respiratory effort normal, Lungs clear to auscul. and Wheeze Absent
GI: Soft, Non tender and Normal bowel sounds
Neuro/Psych: Alert, Oriented and AO x 3
Other: Cardiac Device Site
Data Reviewed
-
Date of Service: March 23, 2025
Medical Decision Making: Reviewed Test Results, Test Interpretation and Review of Case with other Provider
EKG: Tracing Personally Visualized and interpreted
Echo: Report Reviewed by me
Labs: Labs Reviewed by me
Old Records: Reviewed
--- NOTE | 2025-03-23 12:04 | PTCARENOTE ---
echo being done at bedside
[2025-03-23 12:43] VITALS: BP 124/77
--- NOTE | 2025-03-23 13:23 | W.CARD.DEVCH ---
Cardiac Device Check
-
Device: Pacemaker
Construction Estimator: Medtronic
The patient's device was interrogated with assistance of the device community representative followed by a complete physician review. The device had normal function. No abnormalities seen.
Patient is episode on 03/21/2025 was reviewed in detail. He had a 9 beat episode of nonsustained ventricular tachycardia that started his symptoms and pushed him into atrial fibrillation/flutter.
Patient did have a history of a atypical atrial flutter before and he presented in atypical flutter in the ER. Will continue to monitor especially with his pacemaker in place.
Discontinuing Tikosyn and switching to amiodarone.
--- NOTE | 2025-03-23 13:51 | PTCARENOTE ---
IJ CVC removed by CT BEVERLY.
--- NOTE | 2025-03-23 14:30 | CM ---
Chart reviewed. Patient is independent of ADLS, lives alone in a 2 S[address], 6 JÚNI[address] or ramp access, 0 DME[facility] Patient's 's caregiver assist with needs at home. Plan is for the patient to return home. CM to follow
--- NOTE | 2025-03-23 15:29 | PN.CDI ---
CDI
- -
CDI:
Physician Documentation Request
Admit Date: 03/21/25 13:49
Dear Doctor Severiano,
Please review the following and provide your response in the progress notes.
Clinical Indicators:
Pt admitted with cardiogenic shock, afib RVR, and Type II [place]: due to acute hypotension
03/21 RN Note: ' POX 88-89% on 6L, Dr. Bey notified. RT at bedside to place pt on 8L midflow NC. POX 99%.'
Pt noted to be placed on 6L Midflow 03/21 18:00- 21:00; then CPAP 03/22 01:00 - 3:00.
Clarify which of the following accurately represents the patient's respiratory status:
Acute respiratory failure
Hypoxia Only
Other
Additional information for Respiratory Failure:
Recognized criteria for Respiratory Failure (Source: Gale Franklin. 2018June 04.
Documentation tips: Acute Respiratory Failure, The Hospitalist.)
ABGs: (1 or more) Symptoms Please indicate type if known
1. p)2 <60 or RA SPO2 <91% on RA 1. Tachypnea, SOB, dyspnea Hypoxic
2. pCO2 >45 and pH <7.35 2. Use of accessory muscles Hypercapnic
3. pO2 decrease of pCO2 increase by 3. Pallor or cyanosis Hypoxic and Hypercapnic
10 mmHg from baseline if known 4. Anxiety or restlessness Unable to determine
4. P/F Ratio (pO2/FiO2)nless than 300 5. Unable to speak in full sentences
Use of terms such as suspected, likely, concern for, or probable (associated with a specific diagnosis that is being evaluated, monitored, or treated as if it exists) are acceptable and can be coded in the inpatient setting, when documented at the
time of discharge.
Thank you,
Michelle Flores RN, BSN
CDI Specialist
[facility] [employer]
Please use your independent medical judgment in providing your response.
--- NOTE | 2025-03-23 15:36 | PTCARENOTE ---
IV line and tele monitor discontinued. 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
--- NOTE | 2025-03-23 16:49 | PTCARENOTE ---
amiodarone dose clarified with Muna Perez, 400mg daily for 1 week then 200mg daily. Pt updated via telephone.
--- NOTE | 2025-03-23 18:10 | W.DS.TRANS ---
Addendum entered and electronically signed by Muna Perez NP 03/23/25 18:23:
Pt follow up appointment DR. العلي 04/09/25 3pm
Original Note:
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
-
Discharge Instructions:
Discharge Diagnosis/Procedures PAF, CAD, Chronic heart failure preserved
ejection fraction ,non sustained ventricular
tachycardia
Diet 2 Gram Sodium,Low Cholesterol
Activity No restrictions
Driving Restrictions As prior to admission
Blood Work BMP in 1 week- order was sent to [facility] .
Specialty Instructions Weigh Daily
Instructions:
Stand-Alone Forms: DC Instructions- Cath/EP Lab
Changes to Home Medications: Yes
Discharge Medications:
DC Medications w/original date entered in [facility]
cholecalciferol (vitamin D3) 25 mcg (1,000 unit) capsule (Vitamin D3) 1,000 unit PO DAILY Supplement 04/14/19
cyanocobalamin (vitamin B-12) 1,000 mcg capsule 1,000 mcg PO DAILY Supplement 04/14/19
therapeutic multivitamin 1 tab PO DAILY Supplement 12/20/23
ascorbic acid (vitamin C) 1,000 mg tablet (Vitamin C) 1,000 mg PO DAILY Supplement 09/04/24
dapagliflozin propanediol 5 mg tablet (Farxiga) 5 mg PO DAILY Heart Failure 09/04/24
ferrous sulfate 325 mg (65 mg iron) tablet 325 mg PO DAILY Supplement 09/04/24
fluticasone propionate 50 mcg/actuation nasal spray,suspension 1 spray intranasal HS Allergies 09/04/24
glucosamine sulfate 500 mg tablet (Glucosamine) 1,000 mg PO DAILY Supplement 09/04/24
omeprazole 40 mg capsule,delayed release 40 mg PO DAILY Gastrointestinal Issue 09/04/24
peg 400-propylene glycol (PF) 0.4 %-0.3 % eye drops in a dropperette (Systane (PF)) 1 drp BOTH EYES DAILYPRN PRN dry eyes 09/04/24
sacubitril 24 mg-valsartan 26 mg tablet (Entresto) 1 tab PO BID Heart Failure 09/04/24
zinc sulfate 50 mg zinc (220 mg) tablet 50 mg PO DAILY Supplement 09/04/24
evolocumab 140 mg/mL subcutaneous pen injector (Repatha SureClick) 140 mg SC Q2W High Cholesterol 02/05/25
diphenhydramine 12.5 mg-acetaminophen 500 mg tablet 1 tab PO DAILYPRN PRN allergies 03/21/25
metoprolol succinate 50 mg tablet,extended release 24 hr 50 mg PO BID Heart Failure 03/21/25
rivaroxaban 20 mg tablet (Xarelto) 20 mg PO QPM Blood Clot Prevention/Tx 03/21/25
amiodarone 200 mg tablet 400 mg (2 x 200 mg) PO BID #60 tabs 03/23/25
furosemide 40 mg tablet (Lasix) 40 mg PO Q OTHER DAY #30 tabs 03/23/25
potassium chloride 10 mEq tablet,extended release 20 meq (2 x 10 mEq) PO Q OTHER DAY Electrolyte Repletion #0 tabs 03/23/25
Home Medication Changes
Stop dofetilide.
Change lasix to 40mg by mouth every other day.
Change potassium to 10meq 2 tab by mouth every other day.
Start amiodarone 200mg tab 2 tab by mouth twice daily x 1 week then 1 tab by mouth daily.
Pending Results: No
== END 2025-03-23 17:17 | disposition home or self-care (01) | DRG 280 ==
LOC: CVICU 13:49
PROVIDERS: Internal Medicine Cardiovascular Disease; Physician Assistant; ADMITTING PHYSICIAN Internal Medicine Cardiovascular Disease; EMERGENCY PHYSICIAN Emergency Medicine; FAMILY PHYSICIAN Student in an Organized Health Care Education/Training Program
PROC: B2151ZZ Fluoroscopy of Left Heart using Low Osmolar Contrast (ICD-10-PCS; 2025-03-21)
PROC: 02HV33Z Insertion of Infusion Device into Superior Vena Cava, Percutaneous Approach (ICD-10-PCS; 2025-03-21)
PROC: 4A023N7 Measurement of Cardiac Sampling and Pressure, Left Heart, Percutaneous Approach (ICD-10-PCS; 2025-03-21)
PROC: 5A2204Z Restoration of Cardiac Rhythm, Single (ICD-10-PCS; 2025-03-21)
PROC: B2111ZZ Fluoroscopy of Multiple Coronary Arteries using Low Osmolar Contrast (ICD-10-PCS; 2025-03-21)
PROC: 5A09357 Assistance with Respiratory Ventilation, Less than 24 Consecutive Hours, Continuous Positive Airway Pressure (ICD-10-PCS; 2025-03-21)
PROC: 4B02XSZ Measurement of Cardiac Pacemaker, External Approach (ICD-10-PCS; 2025-03-23)
DX: I48.19 Other persistent atrial fibrillation (principal); I50.33 Acute on chronic diastolic (congestive) heart failure; I21.A1 Myocardial infarction type 2; R57.0 Cardiogenic shock; I25.10 Atherosclerotic heart disease of native coronary artery without angina pectoris; I47.20 Ventricular tachycardia, unspecified; I48.4 Atypical atrial flutter; I27.20 Pulmonary hypertension, unspecified; K21.9 Gastro-esophageal reflux disease without esophagitis; G47.33 Obstructive sleep apnea (adult) (pediatric); E78.00 Pure hypercholesterolemia, unspecified; I11.0 Hypertensive heart disease with heart failure; I49.5 Sick sinus syndrome; E86.9 Volume depletion, unspecified; I42.2 Other hypertrophic cardiomyopathy; Z79.01 Long term (current) use of anticoagulants; Z79.899 Other long term (current) drug therapy; Z95.0 Presence of cardiac pacemaker; Z95.5 Presence of coronary angioplasty implant and graft
CPT/HCPCS: 36556; 36620; 71045; 80048; 80053; 81003; 81015; 82330; 82805; 82962; 83036; 83735; 83880; 84100; 84132; 84302; 84484; 85025; 85027; 85610; 85730; 93005; 93306; 93458; 93567; 94660; 96361; 96374; 99152; 99153; 99291; C1769; C1894; Q9967

== ENCOUNTER → 2025-03-27 09:52 | Outpatient (REF) | payer MEDICARE, SELFPAY ==
[2025-03-27 11:35] LABS: ALT (SGPT) 27 U/L (0-50); AST (SGOT) 34 U/L (17-59); Albumin 4.6 g/dl (3.5-5.0); Alkaline Phosphatase 73 U/L (38-126); Blood Urea Nitrogen 13 mg/dl (9-20); Calcium 9.6 mg/dl (8.4-10.2); Carbon Dioxide 30 mmol/L (22-30); Chloride 101 mmol/L (98-107); Glucose 144 mg/dl (70-99); Potassium 4.0 mmol/L (3.5-5.1); Sodium 139 mmol/L (135-145); Total Protein 7.4 g/dl (6.3-8.2); eGFR > 60.00
== END ==
LOC: REG 09:52
PROVIDERS: ATTENDING PHYSICIAN Internal Medicine Cardiovascular Disease; FAMILY PHYSICIAN Student in an Organized Health Care Education/Training Program; OTHER PHYSICIAN Internal Medicine Cardiovascular Disease
DX: I50.32 Chronic diastolic (congestive) heart failure (principal); I25.10 Atherosclerotic heart disease of native coronary artery without angina pectoris
CPT/HCPCS: 36415; 80053; 83880

== ENCOUNTER → 2025-04-17 16:06 | Outpatient (REF) | payer MEDICARE, SELFPAY | LOC: RAD 16:06 | PROVIDERS: ATTENDING PHYSICIAN Student in an Organized Health Care Education/Training Program | DX: R05.3 Chronic cough (principal); J45.901 Unspecified asthma with (acute) exacerbation | CPT/HCPCS: 71046 ==

== ENCOUNTER → 2025-06-08 16:28 | Outpatient (REF) | payer MEDICARE, SELFPAY ==
[2025-06-08 17:42] LABS: Albumin 4.6 g/dl (3.5-5.0); Blood Urea Nitrogen 21 mg/dl (9-20); Calcium 9.8 mg/dl (8.4-10.2); Carbon Dioxide 32 mmol/L (22-30); Chloride 99 mmol/L (98-107); Glucose 102 mg/dl (70-99); Potassium 3.8 mmol/L (3.5-5.1); Sodium 137 mmol/L (135-145); eGFR > 60.00
== END ==
LOC: REG 16:28
PROVIDERS: ATTENDING PHYSICIAN Internal Medicine Cardiovascular Disease; FAMILY PHYSICIAN Student in an Organized Health Care Education/Training Program
DX: I50.32 Chronic diastolic (congestive) heart failure (principal)
CPT/HCPCS: 36415; 80069

== ENCOUNTER 2025-06-09 08:20 | Inpatient (IN) | payer MEDICARE, SELFPAY ==
[2025-06-09] VITALS (14 sets, daily range): BP systolic 75–141; BP diastolic 45–79; BMI 25.8
--- NOTE | 2025-06-09 05:16 | ED.GENMED ---
History of Present Illness
<Nuha Chiang PA-C - Last Filed: 06/09/25 06:16>
General
Chief Complaint: Dizziness
Source: patient
Exam Limitations: none
Time Seen by Provider: 06/09/25 05:05
Nursing documentation reviewed up to this point in time: agreed with
History of Present Illness
History of Present Illness:
89-year-old male past medical history of CHF on Lasix, A-fib on Xarelto status post recent pacemaker placement, ACS, presents to ER today with concerns of dizziness and lightheadedness upon waking him from sleep. He reports that when he woke up, he
felt sudden dizziness and felt sensation he was going to pass out. He felt sweaty at this time as well. He had no chest pain. Mild shortness of breath. He checked his heart rate and noted it to be over 100. He called EMS. Upon arrival, he was
acutely hypotensive blood pressure systolically in the 70s to 80s. Palpitations have resolved but lightheadedness persists. Of note, he was on amiodarone but this was stopped recently as he has had side effects which he does not recall. He was
started on Entresto and Farxiga. He is compliant with Xarelto. He has no abdominal pain, nausea, or vomiting. No fevers or chills. He was feeling well the past few days up until this point.
Past History
<Ashish Kessler MD - Last Filed: 06/09/25 06:51>
Past History
ED Past Medical History: Arrthythmia (Atrial fibrillation), CHF, GERD, HTN and Other (Colitis)
ED Past Surgical History: Appendectomy, Cardiac (Catheterization 2005) and Other (Noncontributory)
Social History
Tobacco: Non-smoker
Alcohol: Occasional
Drug: None
Personal:
Living: with family
Employment: Retired
Family History
Family History: Other (Noncontributory)
Review of Systems
<Nuha Chiang PA-C - Last Filed: 06/09/25 06:16>
Review of Systems
All Other Systems: ROS reviewed and negative except as documented in HPI and ROS
Phy Exam
<Nuha Chiang PA-C - Last Filed: 06/09/25 06:16>
Physical Exam
Physical Exam:
General: Patient is well appearing and in no acute distress; non-toxic
Skin: Warm and dry, no rashes or lesions
Head: Normocephalic, atraumatic
Eyes: Sclera non-icteric. EOMs intact.
Cardiac: Heart rate irregularly irregular, no murmurs
Peripheral Vascular: Bilateral lower extremity edema, 2+ DP and PT pulses b/l
Pulm: Normal respiratory effort, no wheezes, rales, or rhonchi
Abdomen: No abdominal tenderness to palpation
Neuro: CN II-XII intact, no focal neurologic deficits.
Psychiatric: Appropriate mood and affect.
Course
<JOE Daly Last Filed: 06/09/25 06:16>
Orders/Labs/Results
Orders:
Orders
06/09/25 04:58
EKG [Electrocardiogram (*1)] Urgent
Reason for Study: Fatigue / Weakness
06/09/25 04:59
EKG- Treatment ONCE
06/09/25 05:03
Complete Blood Count/With Diff Urgent
Comprehensive Metabolic Panel Urgent
06/09/25 05:07
pacemaker [Interrogate Pacemaker- Treatment] ONCE
CXR2 [CR Chest - 2 Views ] Urgent
Comment:
Reason For Exam: SOB
06/09/25 05:10
Pro-BNP [NT-proBNP] Urgent
Troponin I Urgent
06/09/25 05:44
CARDIOLOGY CONSULT Urgent
Consulting Provider: Hoang Garcia
Was physician already notified: Yes
06/09/25 05:47
0.9% Sodium Chloride 1000 ml [Nss] 1,000 ml IV BOLUS
06/09/25 05:50
Potassium Chloride [KCl] 20 meq 0.9% Sodium Chloride 250 ml [Nss] 250 ml IV NOW
06/09/25 05:57
Ondansetron Injectable [Zofran] 4 mg IV NOW STA
Abnormal Lab Results
06/09/25
05:03
RBC 4.65 L 10^6/uL
(4.70-6.10)
MCHC 32.8 L g/dL
(33.0-37.0)
MPV 10.7 H fL
(7.4-10.4)
Absolute Monos (auto) 0.9 H 10^3/uL
(0.1-0.6)
Potassium 3.2 L mmol/L
(3.5-5.1)
BUN 23 H mg/dl
(9-20)
Glucose 112 H mg/dl
(70-99)
Total Bilirubin 1.7 H mg/dl
(0.2-1.3)
06/09/25 05:03
06/09/25 05:03
Vital Signs
Initial and Last Documented VS:
Initial Vital Signs
Temp Pulse Ox
36.4 C 98
06/09/25 04:56 06/09/25 04:56
Last Documented Vital Signs
Temp Pulse Resp BP Pulse Ox
36.4 C 90 23 90/58 96
06/09/25 04:56 06/09/25 06:30 06/09/25 06:30 06/09/25 06:26 06/09/25 06:30
<Ashish Kessler MD - Last Filed: 06/09/25 06:51>
Orders/Labs/Results
Orders:
Orders
06/09/25 04:58
EKG [Electrocardiogram (*1)] Urgent
Reason for Study: Fatigue / Weakness
06/09/25 04:59
EKG- Treatment ONCE
06/09/25 05:03
Complete Blood Count/With Diff Urgent
Comprehensive Metabolic Panel Urgent
06/09/25 05:07
pacemaker [Interrogate Pacemaker- Treatment] ONCE
CXR2 [CR Chest - 2 Views ] Urgent
Comment:
Reason For Exam: SOB
06/09/25 05:10
Pro-BNP [NT-proBNP] Urgent
Troponin I Urgent
06/09/25 05:44
CARDIOLOGY CONSULT Urgent
Consulting Provider: Hoang Garcia
Was physician already notified: Yes
06/09/25 05:47
0.9% Sodium Chloride 1000 ml [Nss] 1,000 ml IV BOLUS
06/09/25 05:50
Potassium Chloride [KCl] 20 meq 0.9% Sodium Chloride 250 ml [Nss] 250 ml IV NOW
06/09/25 05:57
Ondansetron Injectable [Zofran] 4 mg IV NOW STA
Abnormal Lab Results
06/09/25
05:03
RBC 4.65 L 10^6/uL
(4.70-6.10)
MCHC 32.8 L g/dL
(33.0-37.0)
MPV 10.7 H fL
(7.4-10.4)
Absolute Monos (auto) 0.9 H 10^3/uL
(0.1-0.6)
Potassium 3.2 L mmol/L
(3.5-5.1)
BUN 23 H mg/dl
(9-20)
Glucose 112 H mg/dl
(70-99)
Total Bilirubin 1.7 H mg/dl
(0.2-1.3)
06/09/25 05:03
06/09/25 05:03
Vital Signs
Initial and Last Documented VS:
Initial Vital Signs
Temp Pulse Ox
36.4 C 98
06/09/25 04:56 06/09/25 04:56
Last Documented Vital Signs
Temp Pulse Resp BP Pulse Ox
36.4 C 90 23 90/58 96
06/09/25 04:56 06/09/25 06:30 06/09/25 06:30 06/09/25 06:26 06/09/25 06:30
<Nuha Chiang PA-C - Last Filed: 06/09/25 06:16>
MDM/Problems Addressed
Differential Diagnosis Includes:
acute CHF, ACS, decompensated afib, aflutter, pacemaker dysfunction
MDM/Problems Addressed:
89-year-old male past medical history of CHF on Lasix, A-fib on Xarelto status post recent pacemaker placement, ACS, presents to ER today with concerns of dizziness and lightheadedness upon waking him from sleep.
He also felt lightheaded and diaphoretic at the time. Currently, he has no chest pain, notes that his lightheadedness persists.
He was found to be in A-fib on cardiac monitoring with a normal rate.
Of note, patient was recently discharged from the hospital on 03/23/25, he did have a replaced with Dr. العلي as well.
Pacemaker evaluation reveals atrial under sensing and atrial flutter since 2:13 AM.
Spoke to Dr. Garcia from patient's cardiology group via tiger text and telephone, will hold off on cardioversion at this time and continue IV fluids
Dr. Garcia en route to evaluate patient at bedside
Chronic conditions affecting care:
CHF, afib on xarelto, GERD, HLP, HTN
<Nuha Chiang PA-C - Last Filed: 06/09/25 06:16>
*Pulse Oximetry
Patient hypoxic: no
*EKG
Interpreted by ED Provider?: Yes
EKG Intrepretation Date: 06/09/25
Interpretation: normal
Comparison EKG: changes noted
Heart Rate: 86
Rate: normal
Rhythm: a-fib
[place]: normal axis
*Critical Care Note
Total Time (30-74mins, 75-104mins- exclusive of procedures): Not Applicable
Data Reviewed
Review of Other/Old Records Reveals: Records (Reviewed discharge summary from 03/23/2025, patient seen for persistent A-fib status post pacemaker placement found to be in cardiogenic shock) and Other (reviewed visit from apr 13, 2025 in external
medical summary)
Source: patient
<Ashish Kessler MD - Last Filed: 06/09/25 06:51>
*Pulse Oximetry
SaO2: 98
Oxygen Mode of Delivery: Room air
<Nuha Chiang PA-C - Last Filed: 06/09/25 06:16>
Patient Management
Discussion with other providers: Director Of Institutional Research (cardiology Dr. Garcia)
<Nuha Chiang PA-C - Last Filed: 06/09/25 06:16>
Update Note
Update Note:
Update, patient feeling nauseated, will give dose of Zofran
ED Attending Note
<Ashish Kessler MD - Last Filed: 06/09/25 06:51>
ED Attending Note
Patient seen and examined by attending physician: Yes
I performed a history and physical exam of patient and discussed management with resident, I reviewed resident's note and agree with documented findings and plan of care.: Yes
ED Attending Note:
I have seen and evaluated the patient with a [id number] encounter. I have spoken to the advance practicer provider and involved in the medical history, the physical exam, medical decision making.
Evaluation and management service: agree unless noted differently below.
Results interpretation: agree unless noted differently below.
Focused HPI: 89-year-old male with a past medical history of hypertension, hyperlipidemia, CAD, CHF, atrial fibrillation on Xarelto, SERGIO who presents to the ER for evaluation of dizziness and palpitations. Of note patient was admitted to the [facility] with chest pain and rapid atrial fibrillation in early March. At that time he had heart cath which showed no obstructive disease. He was started on amiodarone and converted to sinus rhythm. He says that after discharge amiodarone was
discontinued although he is not entirely sure why; he was started on Entresto and Farxiga. He has been following with Dr. Bey and Dr. العلي. Tonight he woke up around 4:30 AM and felt significant dizziness, checked his Purchext wali and was
noted to be in A-fib with heart rate over 100. Called EMS to bring her to the hospital. Palpitations have improved but still feels lightheaded here. Denies chest pain. He reports mild short of breath. Denies any other acute complaints. Reports
he has been in his normal state of health recently and has been compliant with all medications including Xarelto.
Physical exam: Awake and alert, nontoxic-appearing. He is hypotensive, heart rate in the 80s, A-fib on the monitor. He has a systolic murmur, irregular rhythm on heart auscultation. Lungs sound clear bilaterally. No significant edema or JVD
noted.
Medical Decision Makin-year-old male presents for evaluation of dizziness and palpitations this evening. Vitals and exam are as above. His EKG here shows atrial fibrillation rate controlled. Large-bore IV access established labs sent off
including a CBC and a CMP. Provide IV fluids, low threshold for cardioversion but hold off for the time being pending discussion with cardiology.
Labs reviewed: CBC unremarkable, CMP shows mild hypokalemia which we will replete IV. Troponin negative, proBNP slightly elevated. Chest x-ray prominent pulmonary vasculature no renée edema. Cardiology at bedside assessing. Clinical reassessment
patient's blood pressure has improved with fluids, heart rate 80s A-fib on the monitor.
Cardiology planning for interrogation in the EP lab, possible cardioversion. Will take to their service.
-
Portions of this chart may have been created with voice recognition software.� Occasional wrong word or��sound alike� substitutions may have occurred due to the inherent limitations of voice recognition software.
Discharge Plan
Departure
Patient Disposition: Admit
Date of Disposition: 06/09/25
Time of Disposition: 06:50
Admit to doctor: Jose
Presentation/result/management discussed w/ accepting MD/DO: Cardiology
Discharge Problem:
Atrial fibrillation
Prescriptions:
No Action
cholecalciferol (vitamin D3) [Vitamin D3] 1,000 UNIT capsule
1,000 unit PO DAILY
cyanocobalamin (vitamin B-12) 1,000 MCG capsule
1,000 mcg PO DAILY
therapeutic multivitamin Tablet
1 tab PO DAILY
ascorbic acid (vitamin C) [Vitamin C] 1,000 mg Tablet
1,000 mg PO DAILY
glucosamine sulfate [Glucosamine] 500 mg Tablet
1,000 mg PO DAILY
omeprazole 40 mg Capsule,Delayed Release(Dr/Ec)
40 mg PO DAILY
zinc sulfate 50 mg zinc (220 mg) Tablet
50 mg PO DAILY
ferrous sulfate 325 mg (65 mg iron) Tablet
325 mg PO DAILY
fluticasone propionate 50 mcg/actuation [place],Suspension
1 spray INTRANASAL HS
Systane (PF) 0.4-0.3 % Dropperette
1 drp BOTH EYES DAILYPRN PRN (Reason: dry eyes)
dapagliflozin propanediol [Farxiga] 5 mg Tablet
5 mg PO DAILY
sacubitril-valsartan [Entresto] 24-26 mg Tablet
1 tab PO BID
Repatha SureClick 140 mg/mL Pen Injector
140 mg SC Q2W
diphenhydramine-acetaminophen 12.5-500 mg Tablet
1 tab PO DAILYPRN PRN (Reason: allergies)
metoprolol succinate 50 mg tablet extended release 24 hr
50 mg PO BID
Xarelto 20 mg tablet
20 mg PO QPM
furosemide [Lasix] 40 mg tablet
40 mg PO Q OTHER DAY Qty: 30 0RF
potassium chloride 10 mEq Tablet Extended Release
20 meq PO Q OTHER DAY Qty: 0 0RF
Rx Instructions:
2 tab by mouth every other day with lasix dosing
amiodarone 200 mg tablet
400 mg PO BID Qty: 60 0RF
Rx Instructions:
amiodarone 400mg po twice daily x 1 week then 200mg daily.
Referrals:
Ros Hernadez MD [Family Provider, Internal Medicine]
Interventions
Interventions:
*Risk Screen - Suicide Last Done: 06/09/25 04:56
*General Assessment Last Done: 06/09/25 04:56
*Neglect/Abuse Screening Last Done: 06/09/25 04:56
*ED- Fall Risk Assessment Last Done: 06/09/25 04:56
*ED COVID-19 Vaccine History Last Done: 06/09/25 04:56
*ED Influenza Vaccine History Last Done: 06/09/25 04:56
ED- Neurological Assessment Last Done: 06/09/25 04:56
ED- Cardiac Assessment Last Done: 06/09/25 04:56
ED Swallowing Screen Last Done: 06/09/25 06:07
Discharge Date and Time
Print Language: AUSTRALIAN
[2025-06-09 05:22] LABS: Hematocrit 42.7 % (39.0-52.0); Hemoglobin 14.0 g/dL (13.0-18.0); Mean Corp Hgb Conc. 32.8 g/dL (33.0-37.0); Mean Corpuscular Volume 91.8 fL (80.0-94.0); Nucleated Red Blood Cells % 0 % (-); Platelet Count 175 10^3/uL (130-400); Red Cell Dist. Width 13.9 % (11.5-14.5)
[2025-06-09 05:34] LABS: ALT (SGPT) 35 U/L (0-50); AST (SGOT) 30 U/L (17-59); Albumin 4.0 g/dl (3.5-5.0); Alkaline Phosphatase 95 U/L (38-126); Blood Urea Nitrogen 23 mg/dl (9-20); Calcium 9.5 mg/dl (8.4-10.2); Carbon Dioxide 28 mmol/L (22-30); Chloride 101 mmol/L (98-107); Estimated Creatinine Clearance 47 ml/min; Glucose 112 mg/dl (70-99); Potassium 3.2 mmol/L (3.5-5.1); Sodium 138 mmol/L (135-145); Total Protein 6.7 g/dl (6.3-8.2); eGFR > 60.00
[2025-06-09 05:52] LABS: Troponin I 0.032 ng/ml
[2025-06-09] MEDS: KCL 260 MEQ IV (06:00)
[2025-06-09] MEDS: NSS 1000 IV (06:00)
[2025-06-09] MEDS: ZOFRAN 4 MG IV (06:00)
--- NOTE | 2025-06-09 07:04 | W.PN.CD ---
Today's Communication / Plan
-
Plan as noted. Full note dictated
Impression / Plan
-
89 years old man with CAD (drug-eluting stent to tandem lesions in the mid LAD and D1 12/20/2023), hypertension, h/p persistent atrial fibrillation s/p AF ablation (2019 - PVI, 2021 - PWI), PPPM Medtronic on Xarelto, dyslipidemia, SERGIO on CPAP and
pulmonary hypertension . Patient had a presentation back in March with chest discomfort and atrial fibrillation. Went emergently to the [facility] and had no new obstructive disease. Patient was cardioverted and given amiodarone. He had issues
with tacky bradycardia and had pacemaker implantation. He was seen in follow-up by EP and was taken off of amiodarone. Patient woke up this morning feeling a bit short of breath clammy and lightheaded presented to the ER with hypotension with
systolics in the 70s and 80s which responded to IV fluids. Patient noted to be A-fib. Confirmed by [facility] interrogation.
Atrial fibrillation- paroxysmal.
-Patient with hypertrophic cardiomyopathy and has not tolerated A-fib well. Patient now with recurrent A-fib initially with low blood pressures which have improved. Reviewed with EP regarding additional rhythm control strategies. Initial plan
for electrical cardioversion. After assessment Dr. العلي question was raised of whether the patient's gone in and out of A-fib. Device will be reinterrogated to see if patient is having paroxysmal A-fib or has just been continuously in A-fib
since early this morning. If persistent would likely pursue with electrical cardioversion with additional plan for antiarrhythmic therapy as directed by EP. Could consider putting patient back on amiodarone depending on level of symptoms he was
having. May be able to get away with low dosing. Plan for patient to be brought to the [facility] for further interrogation device and likely electrical cardioversion.
Additional history regarding A-fib as noted below.
- Persistent AF s/p ablation and remained AF free for 5 years until recent recurrences this fall. After his last admission he was on amiodarone for 1 month and then discontinued by EP.
- atypical flutter on 01/13/25 s/p DCCV.
- Presented to the ER on 03/21/25 in atypical atrial flutter. Electrical cardioversion performed in [facility]
- Ablations included PVI (2019) and PWI (2021).
- ECHO 02/05/25: LVEF 60%, asymmetric septal hypertrophy; Moderate left atrial dilation. Mild right atrial dilation.Severe mitral annular calcification, posterior > anterior with leaflet thickening and mitral sclerosis and mild mitral regurgitation.
At least moderate tricuspid regurgitation.
- CHADS2-Vasc = 5 (CHF, HTN, Age x2, vascular disease).
- Xarelto
NSVT
- with hypertrophic CMP and volume depletion and hx of CHF (HFpEF), patient had been on amiodarone but then discontinued. After a month. Further discussion with EP patient had been on amiodarone for a couple years which was then discontinued more
recently he was on it for a month. Per EP patient had some nonspecific symptoms and was taken off.
.
Hypertrophic cardiomyopathy-
Pacemaker. Medtronic. Recent implant earlier this year. Device interrogation as noted. Further review by EP
CAD previous history of coronary stenting. Most recent procedure stenting of D1 and mid LAD 12/20/2023. Catheterization last admission with patent stents and no new obstructive disease. Continue with medical therapy
HFpEF - chronic.
- EF 65-70% on echo 04/2024.
-Patient with hypertrophic cardiomyopathy. Does not tolerate A-fib well. Will try to continue with rhythm control. Currently respiratory status stable. Patient's received some additional IV fluids in the ER. Will monitor respiratory status
closely.
.
PHTN - chronic, severe.
- Post capillary - cath on 03/21 showed PCWP of 15 (was > 15, PVR < 3 harris units) on cath 12/20/23.
-Per prior notes has seen Dr. Lopes at [facility] and is now looking for another (Dr. Lopes has moved out of [place]),
HLD -
- Continue Lipitor at current dosing
Physical Exam
Vital Signs/Labs
Vital Signs
Temp Pulse Resp BP Pulse Ox
97.5 F 86 16 101/53 94
06/09/25 04:56 06/09/25 07:00 06/09/25 07:00 06/09/25 07:00 06/09/25 07:00
06/08/25 06/09/25 06/10/25
06:59 06:59 06:59
Actual Weight 79.1 kg
06/09/25 05:03
06/09/25 05:03
06/09/25
05:10
[id number] Pept 1270
LAB Results
06/09/25
05:10
Troponin I 0.032
Physical Exam
Constitutional: No acute distress
EENT: Anicteric and Other
Cardiovascular: Rhythm & rate is regular
Respiratory: Respiratory effort normal, Wheeze Absent and Rhonchi Absent
GI: Distention absent
Neuro/Psych: Alert
Data Reviewed
-
Date of Service: June 09, 2025
Medical Decision Making: Reviewed Test Results
Echo: Report Reviewed by me
Medical Tests (PFT, Pathology etc): Report Reviewed by me
Labs: Labs Reviewed by me
[2025-06-09] MEDS: BETAPACE 80 MG PO ×2 (08:20→19:51)
--- NOTE | 2025-06-09 09:18 | ITS.CL.CARDI ---
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
Cardioversion
Procedure Report:
Cardioversion:
Mr. Clarke is a very pleasant 89 yrs old pleasant gentleman with hx of atrial fibrillation s/p AF ablations x2, anticoagulated with Xarelto, s/p dual chamber PPM (Medtronic) now in atrial flutter /fibrillationis here for elective DV cardioversion.
Date of the Procedure:
06/09/2025
Indications:
Recurrence of symptomatic atrial fibrillation
Pre-Operative Diagnosis:
Recurrent Atrial fibrillation
Post-Operative Diagnosis:
Recurrent Atrial fibrillation
Procedure Performed:
DCCV
Performing Physician:
Santo العلي MD
Anesthesia:
See anesthesia records
Pre-procedure Trans-esophageal Echocardiography:
Deferred. Patient has been on uninterrupted chronic anticoagulation therapy with Xarelto.
Detailed Description of the Procedure:
Written informed consent was obtained from the patient after a full explanation of the risks and benefits of the procedure including the risks of sedation and anesthesia.
The patient was brought to the electrophysiology laboratory in stable condition in fasting state. Continuous electrocardiographic and hemodynamic monitoring was initiated. Zoll patches were applied with henrietta-posterior locations.
The initial rhythm was atrial fibrillation.
Cardioversion:
A pre-procedure and anesthesia administration, a surgical pause was done with time out. The anesthesia commenced with anesthesia services. Once adequate anesthesia achieved, one synchronized 200J shock was delivered to the chest via Zoll patches
placed with anabaptist of sinus rhythm. The patient remained hemodynamically stable throughout.
Procedure End:
There was paced rhythm noted post cardioversion.
Complications of the Procedure:
None
Condition of Patient at Time of Transfer:
Hemodynamically stable with no neurological or vascular compromise.
Summary:
Successful cardioversion and anabaptist of normal sinus rhythm.
--- NOTE | 2025-06-09 09:21 | W.CARD.DEVCH ---
Cardiac Device Check
-
Device: Pacemaker
Pharmacologist: Medtronic
The patient's device was interrogated personally. The device had normal function. No abnormalities seen.
The onset of AF/Fl was noted at 3:15 am today on 06/09/25. Pt was highly symptomatic with onset of AF.
--- NOTE | 2025-06-09 13:12 | PTCARENOTE ---
Rec'd Pt A,A+Ox3 denies pain, VSS. Pt A-paced on monitor.
--- NOTE | 2025-06-09 14:05 | CM ---
Reviewed chart. Met with Mr. Clarke to review discharge plans. He states prior to admission he resides alone in a four story home with five steps to enter. He states he has a full flight of steps to get to bedroom/full bathroom. He states he has a
powder room on the first floor. He states prior to admission he was independent with ambulation and adls. He states he has a CPAP Machine at home. He states he has a prescription plan and uses [facility]. Medical work-up in progress. The
discharge plan is to return home when medically stable.
--- NOTE | 2025-06-09 14:53 | W.PN.UPDATE ---
Update Note
Progress Note Update
Patient's device interrogation shows recurrent atrial fibrillation.
Patient underwent DC cardioversion which was successful in achieving paced rhythm.
With recurrence of atrial fibrillation, patient needs antiarrhythmic drug therapy. Patient has previously tried the Tikosyn but was not able to tolerate with nonsustained VT. he was started on amiodarone for that. His amiodarone was discontinued and
plan was to washout with switch to sotalol.
With his recurrence of A-fib, we will admit patient for sotalol loading.
Patient's QTc is 480 ms.
Patient is pacemaker atrial rate was increased to 70 bpm.
With patient's hypertrophic cardiomyopathy, we will avoid volume depletion.
Continue Xarelto 20 mg nightly
Sotalol loading as per protocol with plan for at least 5 doses before discharge.
[2025-06-09] MEDS: XARELTO 20 MG PO (17:37)
[2025-06-09] MEDS: SILVADENE 1 APPLIC TOPICAL (17:38)
--- NOTE | 2025-06-09 17:50 | PTCARENOTE ---
Pt c/o itching/burning on back. Mia Hernadnes notified, silavdene cream ordered and applied to reddened skin on back and chest.
[2025-06-09] MEDS: ENTRESTO 24 MG/26 MG 1 TAB PO (19:52)
[2025-06-09] MEDS: KCL 20 MEQ PO (21:14)
--- NOTE | 2025-06-10 02:16 | PTCARENOTE ---
Received pt @ change of shift. AAOx3, sitting in bed. VSS-- A-paced on monitor. Denies pain and discomfort @ this time. Discussed next Sotalol dose and EKG to follow two hours afterwards. Pt verbalizes understanding. Pt concerned about KCl being
rescheduled until the AM. Reached out to Dr. Araujo-- ordered PO 20 mg KCl now-- see MAR. Plan of care ongoing. Call oliver within reach.
[2025-06-10 04:09] VITALS: BP 122/73; BMI 25.0
[2025-06-10 04:44] LABS: Blood Urea Nitrogen 27 mg/dl (9-20); Calcium 9.0 mg/dl (8.4-10.2); Carbon Dioxide 26 mmol/L (22-30); Chloride 104 mmol/L (98-107); Estimated Creatinine Clearance 52 ml/min; Glucose 92 mg/dl (70-99); Potassium 4.0 mmol/L (3.5-5.1); Sodium 135 mmol/L (135-145); eGFR > 60.00
--- NOTE | 2025-06-10 07:45 | W.PN.CD ---
Today's Communication / Plan
-
continue sotalol load with intensive monitoring on ecg and tele
plan for d/c tomorrow if stable
continue to monitor volume status
Impression / Plan
-
89 years old man with CAD (drug-eluting stent to tandem lesions in the mid LAD and D1 12/20/2023), hypertension, h/p persistent atrial fibrillation s/p AF ablation (2019 - PVI, 2021 - PWI), PPM Medtronic on Xarelto, dyslipidemia, SERGIO on CPAP, NSVT
and pulmonary hypertension . Patient with admission in s March when he had hypotension in the setting of AF rvr--cardioverted, amiodaon loaded then titrated off. Representation with afib and hypotension 06/09/25.
Atrial fibrillation with RVR- paroxysmal. H/o PVI 2019 and 2021
-needs rhythm control as rvr typically results in hypotension given HOCM
-s/p DCCV 06/09/25
-plan for sotalol load as intolerant to Dofetilide (NSVT) and se with Amiodarone, EP recommending d/c after 5th dose
-QTC stable at 457m/s today
- CHADS2-Vasc = 5 (CHF, HTN, Age x2, vascular disease).
- Xarelto
NSVT
- Of note suggests other precipitating factors may have contributed including bradycardia. Also seems patient had been on dofetilide. Patient continues to follow-up with EP regarding this issue. Can monitor for A-fib on telemetry and with device
checks.
HFpEF - chronic.
- EF 65-70% on echo 04/2024.
.
Hypertrophic cardiomyopathy-volume control is a tight rope walk, will try to keep euvolemic.
PHTN - chronic, severe.
- Post capillary - cath on 03/21 showed PCWP of 15 (was > 15, PVR < 3 harris units) on cath 12/20/23.
-Per prior notes has seen Dr. Lopes at [place] and is now looking for another (Dr. Lopes has moved out of [place]),
Pacemaker. Medtronic. Recent implant earlier this year. Device interrogation as noted. Further review by EP
CAD previous history of coronary stenting. Most recent procedure stenting of D1 and mid LAD 12/20/2023. Catheterization last admission with patent stents and no new obstructive disease. Continue with medical therapy
HLD -
- Continue Lipitor at current dosing
- ECHO 02/05/25: LVEF 60%, asymmetric septal hypertrophy; Moderate left atrial dilation. Mild right atrial dilation.Severe mitral annular calcification, posterior > anterior with leaflet thickening and mitral sclerosis and mild mitral regurgitation.
At least moderate tricuspid regurgitation.
Physical Exam
Vital Signs/Labs
Vital Signs
Temp Pulse Resp BP Pulse Ox
97.9 F 80 18 122/73 91
06/10/25 04:07 06/10/25 04:09 06/10/25 04:07 06/10/25 04:09 06/10/25 04:07
06/09/25 06/10/25 06/11/25
06:59 06:59 06:59
Actual Weight 174 lb 6.17 oz 168 lb 13.985 oz
06/09/25 05:03
06/10/25 04:15
06/09/25
05:10
Wfc-C-Mckvartccjg Pept 1270
LAB Results
06/09/25
05:10
Troponin I 0.032
Physical Exam
Constitutional: No acute distress
Cardiovascular: Rhythm & rate is regular, Pedal edema is absent and Systolic murmur absent
Respiratory: Respiratory effort normal, Lungs clear to auscul., Wheeze Absent, Crackles Absent and Rhonchi Absent
Neuro/Psych: AO x 3
Data Reviewed
-
Date of Service: June 10, 2025
Medical Decision Making: Review of Case with other Provider (Dr العلي, recommends discharge after 5th dose if stable)
[2025-06-10 08:06] VITALS: BP 129/81
[2025-06-10] MEDS: LASIX 20 MG PO (08:15)
[2025-06-10] MEDS: FARXIGA 10 MG PO (08:15)
[2025-06-10] MEDS: KCL 20 MEQ PO (08:15)
[2025-06-10] MEDS: PROTONIX 40 MG PO (08:15)
[2025-06-10] MEDS: BETAPACE 80 MG PO ×2 (08:15→20:46)
[2025-06-10] MEDS: ENTRESTO 24 MG/26 MG 1 TAB PO ×2 (08:15→20:47)
--- NOTE | 2025-06-10 10:20 | CM ---
Addendum entered by Dayna Flores 06/10/25 14:54:
Telephone call to [facility] to check on hours for , . [facility] is closed on . Telephone callto [facility] on [address]. [facility] Is opened to 10:00 a.m to 2;00 p.m. Reviewed with Mr. Clarke he is agreeable to
going to [facility] for his script if discharged tomorrow.
Original Note:
Reviewed chart. Met with Mr. Clarke to review discharge plans. He states he is feeling better and hoping to go home soon. Prior to admission he resides alone in a four story home with five steps to enter. He has a full flight of steps to get to
bedroom/full bathroom. He has a powder room on the first floor. Prior to admission he was independent with ambulation and adls. He has a CPAP Machine at home. He has a prescription plan and uses [facility]. Medical work-up in progress. The
discharge plan is to return home when medically stable.
[2025-06-10 14:41] VITALS: BP 144/76
[2025-06-10 15:53] VITALS: BP 142/86
[2025-06-10] MEDS: XARELTO 20 MG PO (17:19)
[2025-06-10 20:46] VITALS: BP 159/89
--- NOTE | 2025-06-10 21:13 | PTCARENOTE ---
Rec'd pt at change of shift. Pt AAO*3, Vpaced on tele monitor, and VSS. Pt denies any pain or discomfort. Pt refused colace and not given. Pt given 4th dose of betapace and ekg ordered. Pt now resting with call oliver in reach. See MAR and
flowchart for full pt care and assessment.
[2025-06-10 22:02] VITALS: BP 132/79
[2025-06-11 03:27] VITALS: BP 158/90
[2025-06-11 03:28] VITALS: BP 158/90
[2025-06-11 03:38] VITALS: BMI 26.3
[2025-06-11 04:40] LABS: Blood Urea Nitrogen 22 mg/dl (9-20); Calcium 9.0 mg/dl (8.4-10.2); Carbon Dioxide 27 mmol/L (22-30); Chloride 104 mmol/L (98-107); Estimated Creatinine Clearance 65 ml/min; Glucose 103 mg/dl (70-99); Potassium 4.2 mmol/L (3.5-5.1); Sodium 134 mmol/L (135-145); eGFR > 60.00
[2025-06-11 07:22] VITALS: BP 135/72
[2025-06-11] MEDS: ENTRESTO 24 MG/26 MG 1 TAB PO (08:07)
[2025-06-11] MEDS: BETAPACE 80 MG PO (08:08)
[2025-06-11] MEDS: PROTONIX 40 MG PO (08:08)
[2025-06-11] MEDS: FARXIGA 10 MG PO (08:09)
--- NOTE | 2025-06-11 08:17 | W.PN.CD ---
Today's Communication / Plan
-
Resume furosemide 20 mg PO QOD.
EKG 2 hours post fifth sotalol dose.
If QTc is normal/acceptable, he can be discharged.
Impression / Plan
-
Impression/Plan: 89 year old man with CAD (drug-eluting stent to tandem lesions in the mid LAD and D1, 12/20/2023), hypertension, tachy-shahla syndrome s/p PPM, dyslipidemia, SERGIO on CPAP, pulmonary hypertension, asymmetric hypertrophic cardiomyopathy
complicated by poorly tolerated paroxysmal atrial fibrillation (SOB/hypotension) s/p AF ablation x2 (2019 - PVI, 2021 - PWI), previously intolerant of dofetilide (NSVT), but responded to amiodarone, now readmitted with recurrent AF leading to
hypotension after amiodarone was stopped as an outpatient.
#Atrial fibrillation with RVR
-Paroxysmal, poorly tolerated.
-H/o PVI 2019 and 2021.
-He requires rhythm control as RVR typically results in hypotension given HOCM and poor ventricular elasticity/loss of atrial kick.
-DCCV 06/09/25 with religion of NSR.
-Sotalol load as intolerant to Dofetilide (NSVT). Fifth dose given this morning. EKG in 2 hours.
-CHADS2-Vasc = 5 (CHF, HTN, Age x2, vascular disease).
-Therapeutic anticoagulation with rivaroxaban.
#NSVT
-Notes suggests other precipitating factors may have contributed including bradycardia.
-Also seems patient had been on dofetilide.
-Patient continues to follow-up with EP regarding this issue.
#HFpEF
-Chronic.
-EF 65-70% on echo 04/2024.
-GDMT as hemodynamics will tolerate. Volume status is always tenuous.
-Diuretics: Furosemide 20 mg QOD.
-Beta blockers: None at this time given rhythm control strategy.
-ACEI/ARB/ARNi: LVEF > 40%.
-MRA: LVEF > 40%.
-SGLT2i: Dapagliflozin 10 mg daily.
-ICD: Not currently indicated. 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
#Hypertrophic cardiomyopathy
-Chronic.
-Volume control is a tight rope walk, will try to keep euvolemic.
-Resume home diuretics.
#PHTN
-Chronic, severe.
-Post capillary - cath on 03/21/2025 showed PCWP of 15 (was > 15, PVR < 3 harris units) on cath 12/20/23.
-Per prior notes has seen Dr. Lopes at [place] and is now looking for another physician (Dr. Lopes has moved out of [place]).
SSS/Tachy-Shahla Syndrome
-Chronic, s/p Medtronic PPM.
-Device interrogation shows symptomatic onset of AF.
#CAD
-Chronic, stable.
-Currently chest pain free.
-Cardiac catheterization (03/21/2025) showed no new CAD, patent prior stents (D1 and mid LAD 12/20/2023).
-Risk factor modification as tolerated.
#HLD
-Chronic, stable.
-Continue atorvastatin at current dosing.
#Dispo
-IVU status.
-Full code.
-If EKG 2 hours post 5th dose of sotalol shows normal/acceptable QTc, he can be discharged.
Subjective/Interval History:
Sotalol loading concludes this morning.
Weight fluctuating. It is important to avoid dehydration.
EKG after 4th dose of sotalol shows a QTc of 445 ms.
DATA:
TTE, 03/23/2025:
SUMMARY
1. Normal left ventricular function.
2. Moderate asymmetric left ventricular hypertrophy of the septal wall.
3. Left ventricular ejection fraction is normal with an ejection fraction of 58 % by Villa's biplane method of discs.
4. Right ventricular size and systolic function are within normal limits.
5. Indexed left atrial volume is severely abnormal (>48 ml/m2).
6. Moderately dilated right atrium.
7. Dense mitral annular calcification. Mild to moderate mitral valve regurgitation.
8. Aortic valve sclerosis of multiple aortic cusps; but no aortic stenosis.
9. Moderate to severe tricuspid regurgitation.
10. Small atrial septal defect consistent with a prior atrial septectomy. There is left to right shunting through the interatrial septum.
11. Compared to a prior transthoracic echocardiogram study from 02/05/2025 The left atrium is now severely dilated. PASP has risen to 75 mmHg.
Cardiac Catheterization, 03/21/2025:
CONCLUSIONS
1. Right dominant circulation with patent stents in the mid LAD and proximal diagonal, a 30% lesion in the proximal margin of OM1 and luminal irregularities in the remainder of the entire coronary tree.
2. Mildly elevated filling pressures (LVEDP = 15 mmHg at 77.6 kg).
3. Recurrent atrial fibrillation with hemodynamic compromise in the setting of hypertrophic cardiomyopathy, requiring hemodynamic support and DC cardioversion.
Physical Exam
Vital Signs/Labs
Vital Signs
Temp Pulse Resp BP Pulse Ox
36.8 C 77 16 135/72 93
06/11/25 03:27 06/11/25 07:22 06/11/25 03:27 06/11/25 07:22 06/11/25 03:27
06/09/25 06/10/25 06/11/25
11:59 11:59 11:59
Actual Weight 79.1 kg 76.6 kg 80.8 kg
06/09/25 05:03
06/11/25 03:40
06/09/25
05:10
Hoa-D-Wbhytcwwfvk Pept 1270
LAB Results
06/09/25
05:10
Troponin I 0.032
Physical Exam
Constitutional: No acute distress and Comfortable
EENT: Anicteric and Moist mucous membranes
Cardiovascular: Rhythm & rate is regular, Pedal edema is absent, JVD pressure is normal, S1S2 is normal and Murmur/rub/gallop absent
Respiratory: Respiratory effort normal, Lungs clear to auscul., Wheeze Absent, Crackles Absent and Rhonchi Absent
GI: Soft, Distention absent, Flat, Non tender and Normal bowel sounds
Neuro/Psych: AO x 3
Data Reviewed
-
Date of Service: June 11, 2025
Medical Decision Making: Reviewed Test Results, Independent Historian Assessment and Test Interpretation
EKG: Tracing Personally Visualized and interpreted and Report Reviewed by me
Echo: Tracing Personally Visualized and interpreted and Report Reviewed by me
X-Ray/CT/US/MRI/NUC/PET: Image Personally Visualized and interpreted and Report Reviewed by me
Medical Tests (PFT, Pathology etc): Image Personally Visualized and interpreted and Report Reviewed by me
Labs: Labs Reviewed by me
Old Records: Reviewed
--- NOTE | 2025-06-11 10:30 | PTCARENOTE ---
Pt OOB in chair, denied pain this morning, he just had an EKG 2 hrs after am dose of Sotolol given. Result TT'd to Dr Pagan
--- NOTE | 2025-06-11 10:53 | W.DS.TRANS ---
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
-
Discharge Instructions:
Discharge Diagnosis/Procedures Atrial fibrillation, sotalol initiation,
cardioversion
Diet Low Cholesterol,2 Gram Sodium
Activity As tolerated
Driving Restrictions As prior to admission
Bathing Restrictions OK to Shower
Instructions:
Stand-Alone Forms:
Changes to Home Medications: Yes
Discharge Medications:
DC Medications w/original date entered in [employer]
cholecalciferol (vitamin D3) 25 mcg (1,000 unit) capsule (Vitamin D3) 1,000 unit PO DAILY Supplement 04/14/19
cyanocobalamin (vitamin B-12) 1,000 mcg capsule 1,000 mcg PO DAILY Supplement 04/14/19
therapeutic multivitamin 1 tab PO DAILY Supplement 12/20/23
ascorbic acid (vitamin C) 1,000 mg tablet (Vitamin C) 1,000 mg PO DAILY Supplement 09/04/24
dapagliflozin propanediol 5 mg tablet (Farxiga) 10 mg PO DAILY Heart Failure 09/04/24
fluticasone propionate 50 mcg/actuation nasal spray,suspension 1 spray intranasal HS Allergies 09/04/24
glucosamine sulfate 500 mg tablet (Glucosamine) 1,000 mg PO DAILY Supplement 09/04/24
omeprazole 40 mg capsule,delayed release 40 mg PO DAILY Gastrointestinal Issue 09/04/24
peg 400-propylene glycol (PF) 0.4 %-0.3 % eye drops in a dropperette (Systane (PF)) 1 drp BOTH EYES DAILYPRN PRN dry eyes 09/04/24
sacubitril 24 mg-valsartan 26 mg tablet (Entresto) 1 tab PO BID Heart Failure 09/04/24
zinc sulfate 50 mg zinc (220 mg) tablet 50 mg PO DAILY Supplement 09/04/24
evolocumab 140 mg/mL subcutaneous pen injector (Repatha SureClick) 140 mg SC Q2W High Cholesterol 02/05/25
diphenhydramine 12.5 mg-acetaminophen 500 mg tablet 1 tab PO DAILYPRN PRN allergies 03/21/25
rivaroxaban 20 mg tablet (Xarelto) 20 mg PO QPM Blood Clot Prevention/Tx 03/21/25
potassium chloride 10 mEq tablet,extended release 20 meq (2 x 10 mEq) PO Q OTHER DAY Electrolyte Repletion #0 tabs 03/23/25
furosemide 40 mg tablet (Lasix) 20 mg PO Q OTHER DAY 06/09/25
sotalol 80 mg tablet 80 mg PO Q12H #60 tabs 06/10/25
Home Medication Changes
Start sotalol 80 mg twice daily.
Stop metoprolol.
Pending Results: No
== END 2025-06-11 11:32 | disposition home or self-care (01) | DRG 309 ==
LOC: IVU 08:20
PROVIDERS: Nurse Practitioner Gerontology; ADMITTING PHYSICIAN Internal Medicine Cardiovascular Disease; EMERGENCY PHYSICIAN Emergency Medicine; FAMILY PHYSICIAN Student in an Organized Health Care Education/Training Program
PROC: 4B02XSZ Measurement of Cardiac Pacemaker, External Approach (ICD-10-PCS; 2025-06-09)
PROC: 5A2204Z Restoration of Cardiac Rhythm, Single (ICD-10-PCS; 2025-06-09)
DX: I48.0 Paroxysmal atrial fibrillation (principal); I50.32 Chronic diastolic (congestive) heart failure; E87.6 Hypokalemia; I25.10 Atherosclerotic heart disease of native coronary artery without angina pectoris; G47.33 Obstructive sleep apnea (adult) (pediatric); I27.20 Pulmonary hypertension, unspecified; K21.9 Gastro-esophageal reflux disease without esophagitis; H26.9 Unspecified cataract; I05.8 Other rheumatic mitral valve diseases; I11.0 Hypertensive heart disease with heart failure; E78.5 Hyperlipidemia, unspecified; I42.2 Other hypertrophic cardiomyopathy; I47.20 Ventricular tachycardia, unspecified; Z79.899 Other long term (current) drug therapy; Z79.01 Long term (current) use of anticoagulants; Z95.0 Presence of cardiac pacemaker; Z95.5 Presence of coronary angioplasty implant and graft
CPT/HCPCS: 71046; 80048; 80053; 83880; 84484; 85025; 87070; 87147; 92960; 93005; 93288; 96361; 96374; 96375; 99285

== ENCOUNTER 2025-07-04 12:52 | Inpatient (IN) | payer MEDICARE, SELFPAY ==
[2025-07-04] VITALS (8 sets, daily range): BP systolic 110–175; BP diastolic 72–101; BMI 28.2; BMI 26.5
[2025-07-04 11:43] LABS: Urine Character Clear (Clear)
--- NOTE | 2025-07-04 11:43 | ED.GENMED ---
History of Present Illness
General
Chief Complaint: Fatigue
Source: patient and spouse
Exam Limitations: none
Time Seen by Provider: 07/04/25 11:29
Nursing documentation reviewed up to this point in time: agreed with
History of Present Illness
History of Present Illness:
Note:
CHIEF COMPLAINT(S)
Increasing fatigue and shortness of breath.
HISTORY OF PRESENT ILLNESS
The patient is an 89-year-old male presenting with increasing fatigue and shortness of breath. He reports a progressive loss of stamina and becomes notably short of breath, particularly when walking up inclines or climbing stairs, necessitating rest
to catch his breath. This has been a concern as he describes himself as typically high-energy and is now experiencing significant reduction in energy levels. He notes that he had similar symptoms approximately 18 months ago, prior to the placement
of two stents. There is no accompanying chest pain either currently or previously. The patient reports chronic swelling, described as 'real swelling,' which he manages with diuretics, indicating it is a persistent baseline condition. He denies any
fever or emesis. The patient noticed a change in his urine color, describing it as 'real dark,' which led to speculation about a possible urinary tract infection, although he has no history of such infections. Anemia is suspected due to observed
paleness under the eyes, and the patient awaits lab results. He is scheduled for a chest X-ray and pacemaker evaluation.
PHYSICAL EXAM
General: Alert, no acute distress.
Skin: Warm, dry.
Head: Normocephalic, atraumatic.
Neck: Supple, trachea midline.
Ears, Nose, Mouth and Throat: Oral mucosa moist. Some paleness noted under the eyes.
Cardiovascular: Normal peripheral perfusion, No edema.
Respiratory: Respirations are non-labored.
Gastrointestinal: Abdomen nondistended.
Back: Normal range of motion, Normal alignment.
Musculoskeletal: Normal range of motion, normal strength.
Neurological: Alert and oriented to person, place, time, and situation, No focal neurological deficit observed.
Psychiatric: Cooperative, appropriate mood & affect.
PLAN
1. Obtain a chest X-ray to evaluate any underlying pulmonary causes of shortness of breath.
2. Evaluate pacemaker function for any irregularities or significant events.
3. Laboratory work is pending to assess for anemia.
4. Investigate dark urine to rule out potential urinary tract infection or other renal issues.
DIFFERENTIAL DIAGNOSIS
The Differential Diagnosis includes, in no particular order and is not limited to:
1. Anemia
2. Heart failure
3. Chronic obstructive pulmonary disease (COPD)
4. Coronary artery disease
5. Renal failure
6. Pulmonary embolism
7. Chronic kidney disease
8. Deconditioning due to chronic illness
9. Atrial fibrillation
10. Peripheral vascular disease
EKG
My independent EKG interpretation is:
- Rhythm: Atrial paced rhythm
- Heart Rate: Not specified
- Intervals: Prolonged heavy conduction
- Notable Observations: Occasional PVCs (Premature Ventricular Contractions)
- [place]: Not specified
- Abnormalities: Electron chipal hypertrophy
- QTc Interval: Normal
- Ischemia: No signs of ischemia
Disposition:
SUMMARY OF ENCOUNTER
The patient presented to the emergency department with an exacerbation of congestive heart failure (CHF), characterized by increasing fatigue and shortness of breath. Given the severity of symptoms and the patients history, treatment with furosemide
(Lasix) was initiated.
DISPOSITION
Admission
ASSESSMENT
The patient is experiencing an exacerbation of chronic heart failure, contributing to symptoms of fatigue and dyspnea due to potential fluid overload.
EMERGENCY TREATMENTS ADMINISTERED
Furosemide (Lasix)
MANAGEMENT OF THE PATIENTS CARE WAS DISCUSSED WITH
Discussion with Dr. Garcia, cardiology, who will see the patient in consultation.
PLAN
The patient is to be admitted under the care of a hospitalist for further management and observation of CHF exacerbation. Continue furosemide therapy and monitor fluid status closely.
MEDICAL DECISION MAKING
- Complexity of Data Reviewed: Chronic conditions affecting care include congestive heart failure and potential renal impairment. Differential diagnosis includes anemia, heart failure exacerbation, chronic obstructive pulmonary disease, coronary
artery disease, renal failure, pulmonary embolism, and atrial fibrillation.
- Data:
Category 1: Independent interpretation of EKG was consistent with previously noted atrial paced rhythm and occasional premature ventricular contractions. No new ischemic changes were observed.
Category 3: Management discussed with Dr. Ramirez regarding the severity of the exacerbation and need for inpatient care.
DIAGNOSIS
Congestive Heart Failure Exacerbation (ICD-10: I50.9)
Past History
Past History
ED Past Medical History: Arrthythmia (Atrial fibrillation), CHF, GERD, HTN and Other (Colitis)
ED Past Surgical History: Appendectomy, Cardiac (Catheterization 2005) and Other (Noncontributory)
Social History
Tobacco: Non-smoker
Alcohol: Occasional
Drug: None
Personal:
Living: with family
Employment: Retired
Family History
Family History: Other (Noncontributory)
Phy Exam
Physical Exam
Physical Exam:
.
Scores
Heart Failure Risk
Heart Failure Risk Score: Yes
History of Stroke or TIA: No
History of intubation for respiratory distress: No
Heart rate on ED arrival >/= 110: No
SaO2 <90% on arrival on room air: No
HR >/=110 during 3min walk test (or too ill to perform test): Yes
ECG has acute ischemic changes: No
Urea >/=12mmol/L (BUN 33.6mg/dL): No
Serum CO2>/=35mmol/L: No
Troponin I or T elevated to UT Level (0.4mg/dL): No
NT-proBNP >/=5,000ng/L (5,000pg/ml): Yes
HF Risk Score: 3
Admission Status: HIGH RISK 15.9% Consider SNF treatment or admission to hospital
Course
Orders/Labs/Results
Orders:
Orders
07/04/25 Breakfast
Cholesterol Lowering
At Your Request: Full Participation
Fluid Restriction: 1200 mL/day (40 oz)
Cholesterol Lowering: Sodium, 2 Gram
07/04/25 10:29
Electrocardiogram (*1) Urgent
Reason for Study: Shortness of Breath
07/04/25 10:30
EKG- Treatment ONCE
07/04/25 10:47
COVID-19 Antigen Urgent
Source: Nasal Swab
INF RAPID [Influenza A+B Rapid Molecular] Urgent
YASMIN Source: Nasal Swab
Specimen Description:
07/04/25 11:06
Complete Blood Count/With Diff Urgent
Comprehensive Metabolic Panel Urgent
NT-proBNP Urgent
Troponin I Urgent
07/04/25 11:16
Urinalysis Reflex To Culture Urgent
Date Specimen was Collected: 07/04/25
Time Specimen was Collected: 10:29
Urine Microscopic Reflex Cult Urgent
Urine Culture Urgent
YASMIN Source: U
Specimen Description:
Date Specimen was Collected: 07/04/25
Time Specimen was Collected: 10:29
07/04/25 11:33
CR Chest - 2 Views Urgent
Comment:
Reason For Exam: short of breath
07/04/25 11:43
Interrogate Pacemaker- Treatment ONCE
07/04/25 12:15
Furosemide [Lasix] 40 mg IV NOW STA
07/04/25 12:42
Admit/Transfer Patient As Directed
Co-Sign Provider:
Level of Care: Inpatient admission
Assign to:: Telemetry
Physician / Group: celi monreal
Diagnosis: CHF exacerbation
Reason for Telemetry: Acute Heart Failure
Date to Stop Telemetry: 07/07/25
Time to Stop Telemetry: 11:00
Reason for Hospitalization: CHf exacerbation
Expected length of stay greater than two midnights?: Yes
ELOS- Estimated Length of Stay in days: 3
I certify the patient meets the requirements for IP care: Yes
PRN Pain Medication Management As Directed
May give lesser potent ordered pain med per pt: Yes
preference::
Protocol:: Medication orders for pain may be administered in a
manner that supports deferring to patient preference
when the pt is:
- Requesting an ordered lesser potent pain medication.
Least to most potent pain medications are defined
as: acetaminophen < NSAID < tramadol < opioids
(morphine, oxycodone, hydromorphone).
- Requesting a lesser dose of the same medication IF
ORDERED.
- Requesting a less intrusive route of administration
if both routes are prescribed by the provider (PO <
IV).
07/04/25 12:43
Code Status As Directed
Resuscitation Status: Full Code
07/07/25 11:00
DC Protocol for Telemetry ONCE
Abnormal Lab Results
07/04/25 07/04/25
11:06 11:16
MPV 10.6 H fL
(7.4-10.4)
Absolute Monos (auto) 1.2 H 10^3/uL
(0.1-0.6)
Lymphocytes % 14.7 L %
(20.5-51.1)
Monocytes % 12.8 H %
(1.7-9.3)
Glucose 106 H mg/dl
(70-99)
Total Bilirubin 3.1 H mg/dl
(0.2-1.3)
Troponin I 0.037 H* ng/ml
Urine Ketones 1+ A
(Negative)
Ur Occult Blood Reflex 3+ A
(Negative)
Leukocyte Esterase Rfl 1+ A
(Negative)
Urine RBC 7-10 A /HPF
(0-2)
Urine Bacteria (Reflex) Few A
(Negative)
Urine Glucose 3+ A
(Negative)
Urine Albumin (Reflex) 3+ A
(Neg - Trace)
07/04/25 11:06
07/04/25 11:06
Vital Signs
Initial and Last Documented VS:
Initial Vital Signs
Temp Pulse Resp BP Pulse Ox
97.5 F 62 22 110/82 94
07/04/25 10:25 07/04/25 10:25 07/04/25 10:25 07/04/25 10:25 07/04/25 10:25
Last Documented Vital Signs
Temp Pulse Resp BP Pulse Ox
97.5 F 67 13 142/79 93
07/04/25 10:25 07/04/25 12:43 07/04/25 12:15 07/04/25 12:43 07/04/25 11:45
*Pulse Oximetry
SaO2: 93
Oxygen Mode of Delivery: Room air
Patient hypoxic: no
*Critical Care Note
Total Time (30-74mins, 75-104mins- exclusive of procedures): Not Applicable
ED Attending Note
-
Portions of this chart may have been created with voice recognition software.� Occasional wrong word or��sound alike� substitutions may have occurred due to the inherent limitations of voice recognition software.
Discharge Plan
Departure
Patient Disposition: Admit
Date of Disposition: 07/04/25
Time of Disposition: 12:16
Admit to: IVU
Presentation/result/management discussed w/ accepting MD/DO: Hospitalist
Patient with high blood pressure during this ER visit?: No
Condition: Good
Discharge Problem:
Acute exacerbation of CHF (congestive heart failure)
Interventions
Interventions:
*General Assessment Last Done: 07/04/25 10:25
[facility] Fall Risk Assessment Tool Last Done: 07/04/25 10:20
[2025-07-04 11:47] LABS: Hematocrit 43.2 % (39.0-52.0); Hemoglobin 14.5 g/dL (13.0-18.0); Mean Corp Hgb Conc. 33.6 g/dL (33.0-37.0); Mean Corpuscular Volume 91.3 fL (80.0-94.0); Nucleated Red Blood Cells % 0 % (-); Platelet Count 186 10^3/uL (130-400); Red Cell Dist. Width 13.6 % (11.5-14.5)
[2025-07-04 11:50] LABS: ALT (SGPT) 25 U/L (0-50); AST (SGOT) 29 U/L (17-59); Albumin 4.2 g/dl (3.5-5.0); Alkaline Phosphatase 71 U/L (38-126); Blood Urea Nitrogen 19 mg/dl (9-20); Calcium 9.3 mg/dl (8.4-10.2); Carbon Dioxide 26 mmol/L (22-30); Chloride 102 mmol/L (98-107); Estimated Creatinine Clearance 63 ml/min; Glucose 106 mg/dl (70-99); Potassium 3.7 mmol/L (3.5-5.1); Sodium 137 mmol/L (135-145); Total Protein 7.0 g/dl (6.3-8.2); eGFR > 60.00
[2025-07-04 12:00] LABS: COVID-19 Antigen Negative (Negative)
[2025-07-04 12:10] LABS: Troponin I 0.037 ng/ml
--- NOTE | 2025-07-04 12:19 | HPS.HSE ---
Family Physician
-
Family Physician: Ros Hernadez MD
Chief Complaint
-
sob and fatigue
History of Present Illness
89-year-old with past medical history for coronary artery disease, GERD, A-fib, cardiomyopathy, sleep apnea, PAF, hypertension, hyperlipidemia presented to us with short of breath and fatigue for past 1 week. Patient was traveling last week to
[facility]. patient stated worsening fatigue during the travel and he was sob with exertion, which made his use the wheelchair. denied LE edema, weight gain. denied runny nose,cough, congestion,chest pain. denied MANE,dizzy or syncope.
denied abdominal pain,n,v,d. denied dysuria or hematuria.
Concern for CHF exacerbation. Patient received a dose of Lasix in ER. Admitted for further management
Medical History
Past Medical History
Past Medical History: Reports Other
Additional Past Medical History:
Coronary artery disease, thyroid nodule, bilateral cataracts, GERD, upper GI bleed, thyroid nodules, paroxysmal A-fib, hypertrophic cardiomyopathy, sleep apnea, diverticular disease, basal cell carcinoma, PAF, colon polyps, hypertension,
diverticulitis
Past Surgical History: Reports Other
Additional Past Surgical History:
Hemorrhoidectomy, tonsillectomy, cardioversion, cardiac stents, pacemaker placement
Social History
Tobacco: Non-smoker
Alcohol: None
Drug: None
Family History
Family History: Not pertinent
Allergies / Home Medications
Allergies reflects when Allergies were last updated in [employer].
Home Medications with original date entered in [employer]
Allergy/Medication List:
Allergies
Allergy/AdvReac Type Severity Reaction Status Date / Time
clindamycin Allergy GERD AND Verified 07/04/25 10:25
DIARRHEA
prochlorperazine Allergy angioedema, Verified 07/04/25 10:25
anaphylaxis
Sulfa (Sulfonamide Allergy Rash Verified 07/04/25 10:25
Antibiotics)
sulfisoxazole Allergy Unknown Verified 07/04/25 10:25
Home Medications
cholecalciferol (vitamin D3) 25 mcg (1,000 unit) capsule (Vitamin D3) 1,000 unit PO DAILY Supplement 04/14/19
cyanocobalamin (vitamin B-12) 1,000 mcg capsule 1,000 mcg PO DAILY Supplement 04/14/19
therapeutic multivitamin 1 tab PO DAILY Supplement 12/20/23
ascorbic acid (vitamin C) 1,000 mg tablet (Vitamin C) 1,000 mg PO DAILY Supplement 09/04/24
dapagliflozin propanediol 5 mg tablet (Farxiga) 10 mg PO DAILY Heart Failure 09/04/24
fluticasone propionate 50 mcg/actuation nasal spray,suspension 1 spray intranasal HS Allergies 09/04/24
glucosamine sulfate 500 mg tablet (Glucosamine) 1,000 mg PO DAILY Supplement 09/04/24
omeprazole 40 mg capsule,delayed release 40 mg PO DAILY Gastrointestinal Issue 09/04/24
peg 400-propylene glycol (PF) 0.4 %-0.3 % eye drops in a dropperette (Systane (PF)) 1 drp BOTH EYES DAILYPRN PRN dry eyes 09/04/24
sacubitril 24 mg-valsartan 26 mg tablet (Entresto) 1 tab PO BID Heart Failure 09/04/24
zinc sulfate 50 mg zinc (220 mg) tablet 50 mg PO DAILY Supplement 09/04/24
evolocumab 140 mg/mL subcutaneous pen injector (Repatha SureClick) 140 mg SC Q2W High Cholesterol 02/05/25
diphenhydramine 12.5 mg-acetaminophen 500 mg tablet 1 tab PO DAILYPRN PRN allergies 03/21/25
rivaroxaban 20 mg tablet (Xarelto) 20 mg PO QPM Blood Clot Prevention/Tx 03/21/25
potassium chloride 10 mEq tablet,extended release 20 meq (2 x 10 mEq) PO Q OTHER DAY Electrolyte Repletion #0 tabs 03/23/25
furosemide 40 mg tablet (Lasix) 20 mg PO Q OTHER DAY 06/09/25
sotalol 80 mg tablet 80 mg PO Q12H #60 tabs 06/10/25
Review of Systems
-
Constitutional: Reports Fatigue
EENT: Reports No Symptoms
Respiratory: Reports Trouble Breathing
Cardiac: Reports No Symptoms
Abdomen/GI: Reports No Symptoms
: Reports No Symptoms
Musculoskeletal: Reports No Symptoms
Skin: Reports No Symptoms
Neurological: Reports Weakness
Endocrine: Reports No Symptoms
Hematologic/Lymphatic: Reports No Symptoms
Psych: Reports No Symptoms
Physical Exam
Vital Signs
Vital Signs
Temp Pulse Resp BP Pulse Ox
97.5 F 62 28 110/82 93
07/04/25 10:25 07/04/25 11:25 07/04/25 11:25 07/04/25 10:07/04/25 11:43
Physical Exam
General: Well Developed, Well Nourished and No Apparent Distress
HEENT: NormoCephalic, Moist mucous membranes and Atraumatic
Respiratory: Rales
Cardiac: S1/S2 and Regular Rhythm; No Murmur or Rub
GI: Soft, Non Tender, Non Distended and Normal Bowel Sounds; No Organomegaly
Rectal: Deferred by Provider
Musculoskeletal: No Clubbing, No Cyanosis and Other (Bilateral lower extremities edema)
Skin: Rash
Neuro: AO x 3 and Nonfocal/grossly intact
Psych: Calm
Laboratory Results
-
07/04/25 11:06
07/04/25 11:06
Laboratory Results
Total Bilirubin 3.1 mg/dl (0.2-1.3) H 07/04/25 11:06
AST 29 U/L (17-59) 07/04/25 11:06
ALT 25 U/L (0-50) 07/04/25 11:06
Alkaline Phosphatase 71 U/L (38-126) 07/04/25 11:06
Troponin I 0.037 ng/ml H* 07/04/25 11:06
Data Reviewed
-
Diagnostic Radiology: Report Reviewed by me
Lab Data: Labs Reviewed by me
Impression/Plan
-
# CHF exacerbation
# History of hypertrophic cardiomyopathy
- Diuretic continued, strict BERNARDO, daily weight, fluid restriction
- Obtain echocardiogram
-Farxiga continued
-Entresto continued
- Cardiology consulted
- BNP 7130
- Chest x-ray pending
--EF 65-70% on echo 04/2024.
# Troponin elevation likely non ischemic DC in setting of CHF exacerbation
- Troponin 0.037, continue to trend Trope
- Patient denies chest pain
- EKG with paced rhythm with occasional PVCs
# Paroxysmal atrial fibrillation
#SSS/Tachy-Cristian Syndrome
-Chronic, s/p Medtron
-H/o PVI 2019 and 2021.
-DCCV 06/09/25 with gnosticism of NSR.
- Xarelto continued, sotalol continued
#PHTN
#CAD
-Chronic, stable.
-Currently chest pain free.
-Cardiac catheterization (03/21/2025) showed no new CAD, patent prior stents (D1 and mid LAD 12/20/2023)..
#HLD
-Chronic, stable.
-Continue atorvastatin at current dosing.
#SERGIO
- uses CPAP at home
- c/w CPAP 8mmH20
#GERD
- c/w PPI qd
# DVT prophylax
-Xarelto
# CODE STATUS
-Full code
--- NOTE | 2025-07-04 12:33 | W.PN.UPDATE ---
Update Note
Progress Note Update
This note serves as an addendum to the H&P by conventional underwriter Josesito LIZAMA�
HPI�
89M HX CAD (SUNDEEP to tandem lesions in the mid LAD and D1 12/20/2023), hypertension, persistent AF s/p AF ablation (2019 - PVI, 2021 - PWI), PPM Medtronic on Xarelto, dyslipidemia, SERGIO on CPAP, NSVT and pulmonary hypertension seen at ER:
- reports fatigue and sob worse with exertion x 4 days.
- Appetite is good, sleeping a lot. no pain, fever, or chills.
PHX: as above
Relevant VS
03/23/25
06:00 06/11/25
03:38 07/04/25
11:26
Actual Weight 77.3 kg 80.8 kg 84 kg
Vital Signs
Temp Pulse Resp BP Pulse Ox
97.5 F 69 13 110/82 93
07/04/25 10:25 07/04/25 12:15 07/04/25 12:15 07/04/25 10:25 07/04/25 11:45
PE
Gen: NAD
HEENT: anicteric
Neck: No JVD
Lungs: symmetric AE
Cor: RRR S1 S2
Abdomen:�soft , NT, NG
TREE TRIMMER HELPER: AAO3 , NFND
MS:No edema
Psych:Nl mood and affect
Relevant Data�
06/09/25 07/04/25
05:10 11:06
WBC 9.3
Hgb 14.5
Plt Count 186
Creatinine 0.8
eGFR > 60.00
Troponin I 0.037 H*
Qna-D-Yinufawfkds Pept 1270 7130
EKG
Atrial-paced rhythm with prolonged AV conduction WITH OCCASIONAL PREMATURE
VENTRICULAR COMPLEXES
LEFT VENTRICULAR HYPERTROPHY WITH QRS WIDENING AND REPOLARIZATION ABNORMALITY
( [place] product , Romhilt-Shine )
CANNOT RULE OUT ANTERIOR INFARCT , AGE UNDETERMINED
ABNORMAL ECG
WHEN COMPARED WITH ECG OF 11-Jun-2025 10:13,
PREMATURE VENTRICULAR COMPLEXES ARE NOW PRESENT
MINIMAL CRITERIA FOR ANTERIOR INFARCT ARE NOW PRESENT
CXR
Bilateral reticulonodular opacities compatible with known pulmonary fibrosis. Interstitial pulmonary edema may also be present. Small left and trace right pleural effusions. No pneumothorax. Stable left cardiac conduction device. Stable mild
enlargement of the cardiac silhouette. Chronic degenerative changes of the spine.
ECHO 02/05/25:
LVEF 60%, asymmetric septal hypertrophy; Moderate left atrial dilation. Mild right atrial dilation.Severe mitral annular calcification, posterior > anterior with leaflet thickening and mitral sclerosis and mild mitral regurgitation. At least
moderate tricuspid regurgitation.
Last hospitalist admission:
ASSESSMENT & PLAN
Acute on chr HFpEF
Gained Wt about 4 kg over 3-4 weeks if ER wt is accurate
Nl Renal function
Known HOCM with tenuous with Vol management
- IV lasix 40 daily
- FU daily Wt and BMP
- CBC card consult
PHTN - chronic, severe.
- Post capillary - cath on 03/21 showed PCWP of 15
Atrial-paced rhythm
AF with RVR- paroxysmal. H/o PVI 2019 and 2021
HX intolerant to Dofetilide (NSVT)
Known CHADS2-Vasc = 5 (CHF, HTN, Age x2, vascular disease).
-s/p DCCV 06/09/25
- on Xarelto
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
NSVT HX
Pacemaker. Medtronic.
CAD previous history of coronary stenting.
Most recent SUNDEEP of D1 and mid LAD 12/20/2023.
- Catheterization last admission with patent stents and no new obstructive disease. Continue with medical therapy
HLD -
- Continue Lipitor
DVT Px: Xarelto
Code: Full code
IP TLM
[2025-07-04] MEDS: LASIX 40 MG IV (12:43)
[2025-07-04 13:25] LABS: Urine Squamous Cell 0-2 /LPF (Few)
--- NOTE | 2025-07-04 14:09 | CM ---
Chart reviewed and spoke with patient and his friend Page at ED bedside
His in 03/2026
Lives alone in [address]
independent with ADLs and ambulation
DME CPAP
PCP Ros Hernadez
[facility]
no hx of VN nor SNF
Dtr in [place] and son in [place]
DCP is to return home with HHC if needed
Cm will continue to follow up for any dcp needs
--- NOTE | 2025-07-04 14:56 | CON.CAR ---
Consultation
Consultation Request
Date/Time Consultation Requested: 07/04/2025
Date/Time Consultation Performed: 07/04/2025
Requesting Provider: Dr. Sandoval
Performing Provider: Dr. Garcia
Reason for Consultation: Shortness of breath and elevated troponin
Medical History
-
Chief Complaint: Shortness of breath
History of Present Illness:
89 year old male with CAD (drug-eluting stent to tandem lesions in the mid LAD and D1 12/20/2023), paroxysmal atrial fibrillation s/p AF ablation (2019 - PVI, 2021 - PWI) and recent cardioversion (06/09/2025), permanent pacemaker implantation, chronic
HFpEF, moderate to severe TR, pulmonary hypertension (followed by Dr. Lopes at [facility]), hypertension, hyperlipidemia, and SERGIO (on CPAP) presenting with progressive dyspnea for the past few days and fatigue. The patient has been traveling a lot via
airplane and recently returned last night. He has not taken Lasix over the past 2 days. He has been noticing progressive dyspnea and some increased abdominal girth and mild lower extremity swelling. He has gained approximately 10 pounds since
being discharged from the hospital 3 weeks ago. His cardiac BNP is now high as it has ever been at 7130 (it was 1270 on 06/09/2025).
Last ECHO 03/23/2025:
1. Normal left ventricular function.
2. Moderate asymmetric left ventricular hypertrophy of the septal wall.
3. Left ventricular ejection fraction is normal with an ejection fraction of 58 % by Villa's biplane method of discs.
4. Right ventricular size and systolic function are within normal limits.
5. Indexed left atrial volume is severely abnormal (>48 ml/m2).
6. Moderately dilated right atrium.
7. Dense mitral annular calcification. Mild to moderate mitral valve regurgitation.
8. Aortic valve sclerosis of multiple aortic cusps; but no aortic stenosis.
9. Moderate to severe tricuspid regurgitation.
10. Small atrial septal defect consistent with a prior atrial septectomy. There is left to right shunting through the interatrial septum.
11. Compared to a prior transthoracic echocardiogram study from 02/05/2025 The left atrium is now severely dilated. PASP has risen to 75 mmHg.
Past Medical History
Past Medical History: Arrhythmias (PerAF), CAD, CHF, COPD, HTN and Hypercholesterolemia
Past Surgical History: Cardiac (PVI x 2, PCI)
Social History
Tobacco: Former Smoker
Alcohol: Occasional
Personal:
Living: With Family
Employment: Retired
Family History
Family History: Reviewed & Not Pertinent
Allergies / Home Medications
Allergy/AdvReac Type Severity Reaction Status Date / Time
clindamycin Allergy GERD AND Verified 07/04/25 10:25
DIARRHEA
prochlorperazine Allergy angioedema, Verified 07/04/25 10:25
anaphylaxis
Sulfa (Sulfonamide Allergy Rash Verified 07/04/25 10:25
Antibiotics)
sulfisoxazole Allergy Unknown Verified 07/04/25 10:25
�Medication �Instructions �Recorded �Confirmed �Type
cholecalciferol (vitamin D3) 25 1,000 unit PO DAILY Supplement 04/14/19 07/04/25 History
mcg (1,000 unit) capsule (Vitamin
D3)
cyanocobalamin (vitamin B-12) 1,000 mcg PO DAILY Supplement 04/14/19 07/04/25 History
1,000 mcg capsule
therapeutic multivitamin 1 tab PO DAILY Supplement 12/20/23 06/09/25 History
ascorbic acid (vitamin C) 1,000 mg 1,000 mg PO DAILY Supplement 09/04/24 07/04/25 History
tablet (Vitamin C)
dapagliflozin propanediol 5 mg 10 mg PO DAILY Heart Failure 09/04/24 07/04/25 History
tablet (Farxiga)
fluticasone propionate 50 1 spray intranasal HS Allergies 09/04/24 07/04/25 History
mcg/actuation nasal
spray,suspension
glucosamine sulfate 500 mg tablet 1,000 mg PO DAILY Supplement 09/04/24 06/09/25 History
(Glucosamine)
omeprazole 40 mg capsule,delayed 40 mg PO DAILY Gastrointestinal 09/04/24 07/04/25 History
release Issue
peg 400-propylene glycol (PF) 0.4 1 drp BOTH EYES DAILYPRN PRN dry 09/04/24 07/04/25 History
%-0.3 % eye drops in a dropperette eyes
(Systane (PF))
sacubitril 24 mg-valsartan 26 mg 1 tab PO BID Heart Failure 09/04/24 07/04/25 History
tablet (Entresto)
zinc sulfate 50 mg zinc (220 mg) 50 mg PO DAILY Supplement 09/04/24 07/04/25 History
tablet
evolocumab 140 mg/mL subcutaneous 140 mg SC Q2W High Cholesterol 02/05/25 07/04/25 History
pen injector (Repatha Jasonick)
diphenhydramine 12.5 1 tab PO DAILYPRN PRN allergies 03/21/25 07/04/25 History
mg-acetaminophen 500 mg tablet
rivaroxaban 20 mg tablet (Xarelto) 20 mg PO QPM Blood Clot 03/21/25 07/04/25 History
Prevention/Tx
potassium chloride 10 mEq 20 meq (2 x 10 mEq) PO Q OTHER DAY 03/23/25 07/04/25 Rx
tablet,extended release Electrolyte Repletion #0 tabs
furosemide 40 mg tablet (Lasix) 20 mg PO Q OTHER DAY 06/09/25 07/04/25 History
sotalol 80 mg tablet 80 mg PO Q12H #60 tabs 06/10/25 07/04/25 Rx
Review of Systems
-
History Source: Patient
All other systems: Negative unless noted
Physical Exam
Vital Signs
Temp Pulse Resp BP Pulse Ox
97.5 F 67 13 142/79 93
07/04/25 10:25 07/04/25 12:43 07/04/25 12:15 07/04/25 12:43 07/04/25 11:45
Lab Results
07/04/25 11:06
07/04/25 11:06
Troponin I 0.037 ng/ml H* 07/04/25 11:06
Hay-A-Qdcvregyfcs Pept 7130 pg/ml 07/04/25 11:06
Physical Exam
General: No Apparent Distress and Comfortable
HEENT: Normocephalic and Anicteric
Respiratory: Rhonchi (Right base)
Cardiac: S1/S2, Regular Rhythm, Murmur (08/21) and Peripheral Edema (Trace-1+)
Breast: N/A
GI: Soft
Rectal: Deferred by Provider
Musculoskeletal: Edema (Trace-1+)
Skin: Warm and Dry
Neuro: AO x 3
Psych: Calm
Impression / Plan
-
89 year old male with CAD (drug-eluting stent to tandem lesions in the mid LAD and D1 12/20/2023), paroxysmal atrial fibrillation (on Xarelto) s/p AF ablation (2019 - PVI; 2021 - PWI) and recent cardioversion (06/09/2025), permanent pacemaker
implantation, chronic HFpEF, moderate to severe TR, pulmonary hypertension (followed by Dr. Lopes at [facility]), hypertension, hyperlipidemia (statin-intolerant; on Repatha), and SERGIO (on CPAP) presenting with progressive dyspnea for the past few days
and fatigue. The patient has been traveling a lot via airplane and recently returned last night. He has not taken Lasix over the past 2 days. He has been noticing progressive dyspnea and some increased abdominal girth and mild lower extremity
swelling. He has gained approximately 10 pounds since being discharged from the hospital 3 weeks ago. His cardiac BNP is now high as it has ever been at
Acute on chronic HFpEF:
- The patient has gained approximately 10 pounds since being discharged from the hospital 3 weeks ago.
- Cardiac BNP is now as high as its ever been at 7130 (it was 1270 on 06/09/2025).
- Patient has been traveling and has not taken Lasix over the past 2 days.
- Recommend diuresing with Lasix 40 mg IV BID (the patient typically takes Lasix 20 mg QOD).
- Continue dapagliflozin.
- Continue Entresto.
- Monitor daily weights and I/O's.
Moderate to severe TR/pulmonary hypertension:
- Contributing to the above.
- Diuresis as above.
Troponin elevation:
- Most likely chronic nonischemic myocardial injury in the setting of CHF.
CAD:
- Ddrug-eluting stent to tandem lesions in the mid LAD and D1 on 12/20/2023.
- Appears to be stable currently; denies any chest pain.
- On Xarelto at home.
PPM:
- Stable.
PAF:
- Continue sotalol and Xarelto.
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
Data Reviewed
-
EKG: Tracing Personally Visualized and interpreted (Atrial paced rhythm with prolonged AV conduction at 67 bpm and LVH with QRS widening and occasional PVCs.)
Radiology: Report Reviewed by me (Chest x-ray: Possible pulmonary edema)
Labs: Labs Reviewed by me
[2025-07-04] MEDS: XARELTO 20 MG PO (18:29)
[2025-07-04 19:22] LABS: Troponin I 0.037 ng/ml
[2025-07-04] MEDS: ENTRESTO 24 MG/26 MG 1 TAB PO (21:16)
[2025-07-04] MEDS: BETAPACE 80 MG PO (21:16)
--- NOTE | 2025-07-04 21:33 | PTCARENOTE ---
received the patient from the ED. AAOx3. patient states feeling better. denies any cp/sob. SR and Apaced on tele-60s. PVCs noted. bp 143/72. LE edema noted. L>R. assisted patient with setting up cpap machine. answered all questions. oob to the
chair. patient refusing CHF folder; 'i have plenty.' call oliver within reach. makes needs known.
[2025-07-05] VITALS (7 sets, daily range): BP systolic 125–157; BP diastolic 67–83; BMI 26.7
[2025-07-05 00:37] LABS: Troponin I 0.028 ng/ml
[2025-07-05 06:43] LABS: Hematocrit 41.4 % (39.0-52.0); Hemoglobin 13.8 g/dL (13.0-18.0); Mean Corp Hgb Conc. 33.3 g/dL (33.0-37.0); Mean Corpuscular Volume 88.8 fL (80.0-94.0); Platelet Count 177 10^3/uL (130-400); Red Cell Dist. Width 13.4 % (11.5-14.5)
[2025-07-05 06:50] LABS: Troponin I 0.029 ng/ml
[2025-07-05 06:57] LABS: Blood Urea Nitrogen 21 mg/dl (9-20); Calcium 8.8 mg/dl (8.4-10.2); Carbon Dioxide 28 mmol/L (22-30); Chloride 101 mmol/L (98-107); Estimated Creatinine Clearance 72 ml/min; Glucose 96 mg/dl (70-99); HDL Cholesterol 39 mg/dl; LDL Cholesterol, Calculated 22 mg/dl; Magnesium 1.8 mg/dl (1.6-2.3); Potassium 3.4 mmol/L (3.5-5.1); Sodium 137 mmol/L (135-145); Very Low Density Lipoprotein 10 mg/dl (0-30); eGFR > 60.00
[2025-07-05] MEDS: ENTRESTO 24 MG/26 MG 1 TAB PO ×2 (08:17→19:47)
[2025-07-05] MEDS: BETAPACE 80 MG PO ×2 (08:17→19:45)
[2025-07-05] MEDS: PROTONIX 40 MG PO (08:18)
[2025-07-05] MEDS: FARXIGA 10 MG PO (08:22)
[2025-07-05] MEDS: LASIX 40 MG IV (08:22)
--- NOTE | 2025-07-05 12:12 | W.PN.CD ---
Today's Communication / Plan
-
- Continue Lasix 40 mg IV daily (the patient typically takes Lasix 20 mg QOD).
- Continue to monitor daily weights and I/O's.
Impression / Plan
-
89 year old male with (primarily known to Dr. Bey) CAD (drug-eluting stent to tandem lesions in the mid LAD and D1 12/20/2023), paroxysmal atrial fibrillation (on Xarelto) s/p AF ablation (2019 - PVI; 2021 - PWI) and recent cardioversion
(06/09/2025), permanent pacemaker implantation, chronic HFpEF, moderate to severe TR, pulmonary hypertension (followed by Dr. Lopes at [facility]), hypertension, hyperlipidemia (statin-intolerant; on Repatha), and SERGIO (on CPAP) presenting with
progressive dyspnea for the past few days and fatigue. The patient has been traveling a lot via airplane and recently returned last night. He has not taken Lasix over the past 2 days. He has been noticing progressive dyspnea and some increased
abdominal girth and mild lower extremity swelling. He has gained approximately 10 pounds since being discharged from the hospital 3 weeks ago. His cardiac BNP is now high as it has ever been at
Acute on chronic HFpEF/HOCM:
- The patient has gained approximately 10 pounds since being discharged from the hospital 3 weeks ago.
- Cardiac BNP is now as high as its ever been at 7130 (it was 1270 on 06/09/2025).
- Patient has been traveling and had not taken Lasix over the past 2 days prior to admission.
- Continue Lasix 40 mg IV daily (the patient typically takes Lasix 20 mg QOD).
- Continue dapagliflozin.
- Continue Entresto.
- Continue to monitor daily weights and I/O's.
Moderate to severe TR/pulmonary hypertension:
- Contributing to the above.
- Continue diuresis as above.
Troponin elevation:
- Most likely chronic nonischemic myocardial injury in the setting of CHF.
CAD:
- Drug-eluting stent to tandem lesions in the mid LAD and D1 on 12/20/2023.
- Appears to be stable currently; denies any chest pain.
- On Xarelto at home.
PPM:
- Stable.
PAF:
- Continue sotalol and Xarelto.
- engine monitor.
Physical Exam
Vital Signs/Labs
Vital Signs
Temp Pulse Resp BP Pulse Ox
97.2 F 69 20 139/81 94
07/05/25 11:20 07/05/25 08:00 07/05/25 11:20 07/05/25 07:47 07/05/25 11:20
07/04/25 07/05/25 07/06/25
06:59 06:59 06:59
Actual Weight 79.1 kg 79.5 kg
07/05/25 05:58
07/05/25 05:58
Magnesium 1.8 mg/dl (1.6-2.3) 07/05/25 05:58
Triglycerides 54 mg/dl (10-149) 07/05/25 05:58
LDL Cholesterol, Calc 22 mg/dl 07/05/25 05:58
VLDL Cholesterol, Calc 10 mg/dl (0-30) 07/05/25 05:58
HDL Cholesterol 39 mg/dl 07/05/25 05:58
07/04/25
11:06
Dmh-X-Szrecaygjbk Pept 7130
LAB Results
07/04/25 07/04/25 07/04/25
11:06 18:34 23:43
Troponin I 0.037 H* 0.037 H* 0.028
07/05/25
05:58
Troponin I 0.029
Physical Exam
Constitutional: No acute distress and Comfortable
EENT: Anicteric
Cardiovascular: Rhythm & rate is regular, Pedal edema present (Trace), Systolic murmur present (2/6) and S1S2 is normal
Respiratory: Respiratory effort normal and Rhonchi Present (Bibasilar)
GI: Soft
Neuro/Psych: AO x 3
Other: Skin (Warm, dry, intact)
Data Reviewed
-
Date of Service: July 05, 2025
EKG: Tracing Personally Visualized and interpreted (Telemetry: Atrial paced rhythm, occasional PVCs)
Echo: Tracing Personally Visualized and interpreted (03/23/2025: LVEF 58%; moderate to severe TR.)
Labs: Labs Reviewed by me
[2025-07-05] MEDS: KCL 40 MEQ PO (15:21)
--- NOTE | 2025-07-05 17:00 | PTCARENOTE ---
Pt received this am oob ad reji, ambulating in the hallway. Denies any pain or sob. Apaced on the monitor, rate in the 60's to 70's. No c/o offered. Voiding clear yellow urine in the urinal.
[2025-07-05] MEDS: XARELTO 20 MG PO (17:10)
--- NOTE | 2025-07-05 17:48 | W.PN.HOSP.TC ---
Today's Communication/Plan
-
Assessment / Plan
Assessment / Plan
General: No Apparent Distress, Comfortable and Conversant
HEENT: NormoCephalic, Moist mucous membranes, Atraumatic
Respiratory: Rales bilaterally, Non Labored Respirations
Cardiac: S1/S2 and Regular Rhythm; No Rub or Gallop
GI: Soft, Non Tender, Non Distended and Normal Bowel Sounds
Musculoskeletal: Minimal lower extremity edema, no deformity
Skin: Warm and dry
: NO Perez
Neuro: Awake, Alert, Nonfocal/grossly intact
Psych: Calm and Intact Judgment/Insight
Mr. Clarke is an 89-year-old male with a medical history of CAD (he SUNDEEP to LAD and D1 12/20/2023), paroxysmal A-fib, sick sinus syndrome (PPM), HFpEF, obstructive sleep apnea, and GERD who presented in acute heart failure. He had been traveling to
[place] and [place] the week prior to arrival and had not been consistently taking his diuretic. He has been started on IV diuresis and admitted for further evaluation and management.
Acute on chronic HFpEF:
- Continue IV diuresis with Lasix 40 mg IV daily (uses 20 mg p.o. every other day at home)
- Monitor I's and O's and daily weights
- Beta-blockade with sotalol 80 mg twice daily
- Afterload reduction with Entresto
Troponin elevation:
- Suspect nonischemic myocardial injury in the setting of acute HFpEF
- Cardiology following, on Xarelto
Paroxysmal A-fib:
- Currently rate controlled
- Continue beta-blockade with sotalol 80 mg twice daily
- Anticoagulation with Xarelto
- DCCV V 06/09/2025 with scientologist of normal sinus rhythm
- PVI 2019 and 2021
SERGIO:
- CPAP at night 8 mmH2O
DVT prophylaxis: Xarelto
CODE STATUS: Full code
Anticipated Discharge: 24 - 48 hours
Subjective/Interval History
-
Date of Service: July 05, 2025
Patient was seen and examined at bedside. Comfortable. Continuing IV diuresis.
Objective Data
-
Labs:
Laboratory Results
07/05/25
05:58
WBC 9.2
Hgb 13.8
Hct 41.4
Plt Count 177
Sodium 137
Potassium 3.4 L
Chloride 101
Carbon Dioxide 28
BUN 21 H
Creatinine 0.7
Glucose 96
Calcium 8.8
Vital Signs:
Vital Signs
Temp Pulse Resp BP Pulse Ox
97.5 F 60 20 125/67 94
07/05/25 14:52 07/05/25 14:53 07/05/25 14:52 07/05/25 14:53 07/05/25 14:52
I&O
07/04/25 07/05/25 07/06/25
06:59 06:59 06:59
Intake Total 250 / 250
Output Total 2400 / 2400 900 / 900
Balance -2150 / -2150 -900 / -900
Review of Systems
-
History Source: Patient
All other systems: Reviewed and negative
Physical Exam
-
General: No Apparent Distress
--- NOTE | 2025-07-05 21:30 | PTCARENOTE ---
Received pt at change of shift resting in bed. A-paced on tele, HR 60's-70's. Updated pt on plan of care. Encouraged pt to void in urinal, provided at bedside. Reinforced fluid restriction, pt verbalizes understanding. Offered CHF booklet, pt states
he already received one. Encouraged pt to call RN w/ any questions/concerns. Call oliver within reach.
[2025-07-06] VITALS (7 sets, daily range): BP systolic 131–156; BP diastolic 70–91; BMI 26.3
[2025-07-06 04:58] LABS: ALT (SGPT) 21 U/L (0-50); AST (SGOT) 26 U/L (17-59); Albumin 3.9 g/dl (3.5-5.0); Alkaline Phosphatase 84 U/L (38-126); Blood Urea Nitrogen 20 mg/dl (9-20); Calcium 9.4 mg/dl (8.4-10.2); Carbon Dioxide 30 mmol/L (22-30); Chloride 102 mmol/L (98-107); Estimated Creatinine Clearance 72 ml/min; Glucose 107 mg/dl (70-99); Potassium 3.9 mmol/L (3.5-5.1); Sodium 138 mmol/L (135-145); Total Protein 6.7 g/dl (6.3-8.2); eGFR > 60.00
[2025-07-06] MEDS: LASIX 40 MG IV (07:48)
[2025-07-06] MEDS: ENTRESTO 24 MG/26 MG 1 TAB PO ×2 (07:51→20:47)
[2025-07-06] MEDS: FARXIGA 10 MG PO (07:52)
[2025-07-06] MEDS: BETAPACE 80 MG PO ×2 (07:52→20:49)
[2025-07-06] MEDS: PROTONIX 40 MG PO (07:53)
--- NOTE | 2025-07-06 08:10 | W.PN.CD ---
Addendum entered and electronically signed by Jorje Araujo MD 07/06/25 08:37:
Correction: takes lasix 40mg PO daily at home, but missed several doses due to travel.
Original Note:
Today's Communication / Plan
-
IV lasix
echo
Impression / Plan
-
89 year old male with (primarily known to Dr. Bey) CAD (drug-eluting stent to tandem lesions in the mid LAD and D1 12/20/2023), paroxysmal atrial fibrillation (on Xarelto) s/p AF ablation (2019 - PVI; 2021 - PWI) and recent cardioversion
(06/09/2025), permanent pacemaker implantation, chronic HFpEF, moderate to severe TR, pulmonary hypertension (followed by Dr. Lopes at [place]), hypertension, hyperlipidemia (statin-intolerant; on Repatha), and SERGIO (on CPAP) presenting with
progressive dyspnea for the past few days and fatigue. The patient has been traveling a lot via airplane and recently returned last night. He has not taken Lasix over the past 2 days. He has been noticing progressive dyspnea and some increased
abdominal girth and mild lower extremity swelling. He has gained approximately 10 pounds since being discharged from the hospital 3 weeks ago. His cardiac BNP is now high as it has ever been at
Acute on chronic HFpEF/HOCM:
-Severe, requiring hospitalization for IV diuresis and close monitoring of labs/tele
- The patient has gained approximately 10 pounds since being discharged from the hospital 3 weeks ago.
- Cardiac BNP is now as high as its ever been at 7130 (it was 1270 on 06/09/2025).
- Patient has been traveling and had not taken Lasix over the past 2 days prior to admission.
- Continue Lasix 40 mg IV daily (the patient typically takes Lasix 20 mg QOD).
- Continue dapagliflozin.
- Continue Entresto.
Moderate to severe TR/pulmonary hypertension:
- Contributing to the above.
- Continue diuresis as above.
-echo
Troponin elevation:
- Most likely chronic nonischemic myocardial injury in the setting of CHF.
CAD:
- Drug-eluting stent to tandem lesions in the mid LAD and D1 on 12/20/2023.
- Appears to be stable currently; denies any chest pain.
- On Xarelto at home.
PPM:
- Stable.
PAF:
- Continue sotalol and Xarelto.
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
Physical Exam
Vital Signs/Labs
Vital Signs
Temp Pulse Resp BP Pulse Ox
97.5 F 63 18 156/91 95
07/06/25 07:38 07/06/25 07:38 07/06/25 07:38 07/06/25 03:51 07/06/25 07:38
07/05/25 07/06/25 07/07/25
06:59 06:59 06:59
Actual Weight 79.1 kg 78.5 kg
07/05/25 05:58
07/06/25 03:57
Magnesium 1.8 mg/dl (1.6-2.3) 07/05/25 05:58
Triglycerides 54 mg/dl (10-149) 07/05/25 05:58
LDL Cholesterol, Calc 22 mg/dl 07/05/25 05:58
VLDL Cholesterol, Calc 10 mg/dl (0-30) 07/05/25 05:58
HDL Cholesterol 39 mg/dl 07/05/25 05:58
07/04/25
11:06
Rpd-I-Kukdlbhmkqv Pept 7130
LAB Results
07/04/25 07/04/25 07/04/25
11:06 18:34 23:43
Troponin I 0.037 H* 0.037 H* 0.028
07/05/25
05:58
Troponin I 0.029
Physical Exam
Constitutional: No acute distress and Comfortable
EENT: Moist mucous membranes
Cardiovascular: Rhythm & rate is regular, Pedal edema present, JVD present and Systolic murmur present
Respiratory: Respiratory effort normal and Lungs clear to auscul.
Neuro/Psych: AO x 3
Data Reviewed
-
Date of Service: July 06, 2025
EKG: Other (A paced, PVC's)
Labs: Labs Reviewed by me
--- NOTE | 2025-07-06 09:25 | W.PN.HOSP.TC ---
Today's Communication/Plan
-
.
Assessment / Plan
Assessment / Plan
Physical exam:
General: No Apparent Distress, Comfortable and Conversant
HEENT: NormoCephalic, Moist mucous membranes, Atraumatic
Respiratory: No wheezes. Non Labored Respirations
Cardiac: S1/S2 and Regular Rhythm; No Rub or Gallop
GI: Soft, Non Tender, Non Distended and Normal Bowel Sounds
Musculoskeletal: Minimal lower extremity edema, no deformity
Skin: Warm and dry
: NO Perez
Neuro: Awake, Alert, Nonfocal/grossly intact
Psych: Calm and Intact Judgment/Insight
Mr. Clarke is an 89-year-old male with a medical history of CAD (he SUNDEEP to LAD and D1 12/20/2023), paroxysmal A-fib, sick sinus syndrome (PPM), HFpEF, obstructive sleep apnea, and GERD who presented in acute heart failure. He had been traveling to
[place] and [place] the week prior to arrival and had not been consistently taking his diuretic. He has been started on IV diuresis and admitted for further evaluation and management.
Acute on chronic HFpEF:
- Continue IV diuresis with Lasix 40 mg IV daily (uses 20 mg p.o. every other day at home)
- Monitor I's and O's and daily weights
- Beta-blockade with sotalol 80 mg twice daily
- Afterload reduction with Entresto
Appreciate cardiology help
CAD:
- Drug-eluting stent to tandem lesions in the mid LAD and D1 on 12/20/2023.
- No chest pain.
- On Xarelto at home.
Paroxysmal A-fib/PPM:
- Currently rate controlled
- Continue beta-blockade with sotalol 80 mg twice daily
- Anticoagulation with Xarelto
- DCCV V 06/09/2025 with quaker of normal sinus rhythm
- PVI 2019 and 2021
SERGIO:
- CPAP at night 8 mmH2O
Non ischemic troponin elevation due to heart failure
Per cardiology: chronic nonischemic myocardial injury in the setting of CHF.
Hypokalemia
replace
DVT prophylaxis: Xarelto
CODE STATUS: Full code
Total time spent to see the patient, examine the patient, review data and lab results, discuss treatment plan with patient,cardiology, nursing staff around 57 minutes
Anticipated Discharge: 24 - 48 hours
Subjective/Interval History
-
Date of Service: July 06, 2025
No chest pain
No sob
No fevers
Objective Data
-
Labs:
Laboratory Results
07/06/25
03:57
Sodium 138
Potassium 3.9
Chloride 102
Carbon Dioxide 30
BUN 20
Creatinine 0.7
Glucose 107 H
Calcium 9.4
Total Bilirubin 2.3 H
AST 26
ALT 21
Alkaline Phosphatase 84
Vital Signs:
Vital Signs
Temp Pulse Resp BP Pulse Ox
97.5 F 63 18 156/91 95
07/06/25 07:38 07/06/25 07:38 07/06/25 07:38 07/06/25 03:51 07/06/25 07:38
I&O
07/05/25 07/06/25 07/07/25
06:59 06:59 06:59
Intake Total 250 / 250 240 / 240
Output Total 2400 / 2400 2225 / 2225
Balance -2149 / -2149 -1984 /
[2025-07-06] MEDS: XARELTO 20 MG PO (17:49)
--- NOTE | 2025-07-06 17:55 | PTCARENOTE ---
Pt received this am with no c/o of any pain or sob. Room air sat 95%. Ambulating in the room and hallway, gait steady. No c/o offered.
--- NOTE | 2025-07-06 23:21 | PTCARENOTE ---
Received pt at change of shift resting in bed. A-paced on tele, HR 60's-80's. Updated pt on plan of care. Encouraged pt to void in urinal. Reinforced fluid restriction, pt verbalizes understanding. Encouraged pt to call RN w/ any questions/concerns.
Call oliver within reach.
--- NOTE | 2025-07-06 23:41 | PTCARENOTE ---
Received pt at change of shift resting in bed. A-paced w/ PVC's on tele, HR 60's-80's. Updated pt on plan of care. Encouraged pt to void in urinal. Reinforced fluid restriction, pt verbalizes understanding. Encouraged pt to call RN w/ any
questions/concerns. Call oliver within reach.
[2025-07-07 04:02] VITALS: BP 160/97
[2025-07-07 04:12] VITALS: BMI 26.1
[2025-07-07 04:36] VITALS: BP 161/84
[2025-07-07 06:00] LABS: Blood Urea Nitrogen 23 mg/dl (9-20); Calcium 9.0 mg/dl (8.4-10.2); Carbon Dioxide 28 mmol/L (22-30); Chloride 99 mmol/L (98-107); Estimated Creatinine Clearance 72 ml/min; Glucose 96 mg/dl (70-99); Potassium 3.3 mmol/L (3.5-5.1); Sodium 136 mmol/L (135-145); eGFR > 60.00
[2025-07-07] MEDS: KCL 40 MEQ PO (06:39)
[2025-07-07 08:01] VITALS: BP 167/95
[2025-07-07] MEDS: PROTONIX 40 MG PO (08:37)
[2025-07-07] MEDS: BETAPACE 80 MG PO (08:38)
[2025-07-07] MEDS: ENTRESTO 24 MG/26 MG 1 TAB PO (08:38)
[2025-07-07] MEDS: FARXIGA 10 MG PO (08:38)
[2025-07-07] MEDS: LASIX 40 MG IV (08:39)
--- NOTE | 2025-07-07 09:25 | W.PN.HOSP.TC ---
Today's Communication/Plan
-
dc if ok with cardiology
Assessment / Plan
Assessment / Plan
Physical exam:
General: No Apparent Distress, Comfortable and Conversant
HEENT: NormoCephalic, Moist mucous membranes, Atraumatic
Respiratory: No wheezes. Non Labored Respirations
Cardiac: S1/S2 and Regular Rhythm; No Rub or Gallop
GI: Soft, Non Tender, Non Distended and Normal Bowel Sounds
Musculoskeletal: Minimal lower extremity edema, no deformity
Skin: Warm and dry
: NO Perez
Neuro: Awake, Alert, Nonfocal/grossly intact
Psych: Calm and Intact Judgment/Insight
Mr. Clarke is an 89-year-old male with a medical history of CAD (he SUNDEEP to LAD and D1 12/20/2023), paroxysmal A-fib, sick sinus syndrome (PPM), HFpEF, obstructive sleep apnea, and GERD who presented in acute heart failure. He had been traveling to
[place] and [place] the week prior to arrival and had not been consistently taking his diuretic. He has been started on IV diuresis and admitted for further evaluation and management.
Acute on chronic HFpEF:
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
- Continue IV diuresis with Lasix 40 mg IV daily (uses 20 mg p.o. every other day at home)
- Monitor I's and O's and daily weights
- Beta-blockade with sotalol 80 mg twice daily
- Afterload reduction with Entresto
Appreciate cardiology help
CAD:
- Drug-eluting stent to tandem lesions in the mid LAD and D1 on 12/20/2023.
- No chest pain.
- On Xarelto at home.
Paroxysmal A-fib/PPM:
- Currently rate controlled
- Continue beta-blockade with sotalol 80 mg twice daily
- Anticoagulation with Xarelto
- DCCV V 06/09/2025 with buddhism of normal sinus rhythm
- PVI 2019 and 2022
Hypokalemia, replaced
SERGIO:
- CPAP at night 8 mmH2O
Non ischemic troponin elevation due to heart failure
Per cardiology: chronic nonischemic myocardial injury in the setting of CHF.
Hypokalemia
replace
DVT prophylaxis: Xarelto
CODE STATUS: Full code
Total discharge time spent to see the patient, examine the patient, review data and lab results, discuss discharge plan with patient,nursing staff around 57 minutes
Anticipated Discharge: Today
Subjective/Interval History
-
Date of Service: July 07, 2025
no sob
no chest pain
Objective Data
-
Labs:
Laboratory Results
07/07/25
04:08
Sodium 136
Potassium 3.3 L
Chloride 99
Carbon Dioxide 28
BUN 23 H
Creatinine 0.7
Glucose 96
Calcium 9.0
Vital Signs:
Vital Signs
Temp Pulse Resp BP Pulse Ox
97.5 F 68 16 160/97 93
07/07/25 07:58 07/07/25 07:58 07/07/25 07:58 07/07/25 04:02 07/07/25 07:58
I&O
07/06/25 07/07/25 07/08/25
06:59 06:59 06:59
Intake Total 240 / 240 360 / 360
Output Total 2225 / 2225 1525 / 1525
Balance -1984 / -1984 -1165 / -1165
[2025-07-07 11:21] VITALS: BP 136/81
--- NOTE | 2025-07-07 12:03 | W.PN.CD ---
Today's Communication / Plan
-
- Continue IV lasix today.
- Switch to PO tomorrow and likely discharge.
Impression / Plan
-
89 year old male with (primarily known to Dr. Bey) CAD (drug-eluting stent to tandem lesions in the mid LAD and D1 12/20/2023), paroxysmal atrial fibrillation (on Xarelto) s/p AF ablation (2019 - PVI; 2021 - PWI) and recent cardioversion
(06/09/2025), permanent pacemaker implantation, chronic HFpEF, moderate to severe TR, pulmonary hypertension (followed by Dr. Lopes at [place]), hypertension, hyperlipidemia (statin-intolerant; on Repatha), and SERGIO (on CPAP) presenting with
progressive dyspnea for the past few days and fatigue. The patient has been traveling a lot via airplane and recently returned last night. He has not taken Lasix over the past 2 days. He has been noticing progressive dyspnea and some increased
abdominal girth and mild lower extremity swelling. He has gained approximately 10 pounds since being discharged from the hospital 3 weeks ago. His cardiac BNP is now high as it has ever been at
Acute on chronic HFpEF/HOCM:
-Severe, requiring hospitalization for IV diuresis and close monitoring of labs/tele
- The patient has gained approximately 10 pounds since being discharged from the hospital 3 weeks ago.
- Cardiac BNP is now as high as its ever been at 7130 (it was 1270 on 06/09/2025).
- Patient has been traveling and had not taken Lasix over the past 2 days prior to admission.
- Continue Lasix 40 mg IV daily (the patient typically takes Lasix 20 mg QOD).
- Continue dapagliflozin.
- Continue Entresto.
- Echo 07/06/25: LVEF 70%. Asymmetric septal hypertrophy: IVS 1.8cm, LVPW 1.5cm.
- Balance -2L -> -2 L -> and today is - 1.1 L.
- Slowing down. Likely can switch to PO tomorrow and discharge home.
Moderate to severe TR/pulmonary hypertension:
- Contributing to the above.
- Continue diuresis as above.
- echo 07/06/25 - Hyperdynamic LV systolic function. Estimated LVEF 70-75%.
- Compared to 03/23/25: tricuspid regurgitation has improved from moderate/severe to mild/moderate, and PASP has decreased from 75 mmHg to 62 mmHg.
Troponin elevation:
- Most likely chronic nonischemic myocardial injury in the setting of CHF.
CAD:
- Drug-eluting stent to tandem lesions in the mid LAD and D1 on 12/20/2023.
- Appears to be stable currently; denies any chest pain.
- On Xarelto at home.
PPM:
- Stable.
PAF:
- Continue sotalol and Xarelto.
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
Physical Exam
Vital Signs/Labs
Vital Signs
Temp Pulse Resp BP Pulse Ox
97.4 F 60 18 136/81 95
07/07/25 11:24 07/07/25 11:24 07/07/25 11:24 07/07/25 11:21 07/07/25 11:24
07/06/25 07/07/25 07/08/25
06:59 06:59 06:59
Actual Weight 78.5 kg 77.9 kg
07/05/25 05:58
07/07/25 04:08
Magnesium 1.8 mg/dl (1.6-2.3) 07/05/25 05:58
Triglycerides 54 mg/dl (10-149) 07/05/25 05:58
LDL Cholesterol, Calc 22 mg/dl 07/05/25 05:58
VLDL Cholesterol, Calc 10 mg/dl (0-30) 07/05/25 05:58
HDL Cholesterol 39 mg/dl 07/05/25 05:58
07/04/25
11:06
Hap-U-Cdwpdzhbwop Pept 7130
LAB Results
07/04/25 07/04/25 07/04/25
11:06 18:34 23:43
Troponin I 0.037 H* 0.037 H* 0.028
07/05/25
05:58
Troponin I 0.029
Physical Exam
Constitutional: No acute distress and Comfortable
EENT: Anicteric and Moist mucous membranes
Cardiovascular: Rhythm & rate is regular, Pedal edema is absent, Pedal edema present and JVD present
Respiratory: Respiratory effort normal, Lungs clear to auscul. and Wheeze Absent
GI: Soft, Non tender and Normal bowel sounds
Neuro/Psych: Alert, Oriented and AO x 3
Data Reviewed
-
Date of Service: July 07, 2025
Medical Decision Making: Reviewed Test Results, Test Interpretation and Review of Case with other Provider
EKG: Tracing Personally Visualized and interpreted
Echo: Report Reviewed by me
Labs: Labs Reviewed by me
Old Records: Reviewed
--- NOTE | 2025-07-07 12:46 | PTCARENOTE ---
Ambulating in room and halls , abril well, offers no complaints.
--- NOTE | 2025-07-07 16:25 | W.DCSUMMARY ---
Discharge Summary
Discharge Data
Date of Admission: 07/04/25
Date of Discharge: 07/07/25
-
Pending Results: No
Hospital Course
89years old male presented with increasing fatigue and shortness of breath. He reported weight gain, fatigue, no chest pain or fever. Patient was evaluated by air support control officer. He was diagnosed with acute on chronic heart failure with a preserved
ejection fraction. He was started on intravenous furosemide therapy. He had mild troponin inflation without to be chronic nonischemic myocardial injury in the setting of congestive heart failure. Echocardiogram showed hyperdynamic left
ventricular systolic function with estimated ejection fraction of 70 to 75%, asymmetric septal hypertrophy, mild to moderate tricuspid regurgitation with estimated PASP of 62 mmHg. Patient started to feel better. He lost weight. He was able to
ambulate without shortness of breath. Cold Reduction Roller recommended outpatient follow-up with continuation of daily Lasix around 20 mg daily. Patient remained hemodynamically stable. He was discharged home in a stable condition.
Discharge Plan
-
Patient Disposition: Home (Routine Discharge)
Discharge Diagnosis/Procedures: Acute on chronic HFpEF/HOCM:
He was given IV Lasix. He was seen and followed by air support control officer.
Diet: Low Sodium
Instructions: *CBC Heart Failure Instructions
Referrals:
Santo العلي MD [Active, Cardiology] - 07/22/25 1:00 pm
Ros Hernadez MD [Family Provider, Internal Medicine]
Prescriptions:
Continued
cholecalciferol (vitamin D3) [Vitamin D3] 1,000 UNIT capsule
1,000 unit PO DAILY
cyanocobalamin (vitamin B-12) 1,000 MCG capsule
1,000 mcg PO DAILY
therapeutic multivitamin Tablet
1 tab PO DAILY
ascorbic acid (vitamin C) [Vitamin C] 1,000 mg Tablet
1,000 mg PO DAILY
glucosamine sulfate [Glucosamine] 500 mg Tablet
1,000 mg PO DAILY
omeprazole 40 mg Capsule,Delayed Release(Dr/Ec)
40 mg PO DAILY
zinc sulfate 50 mg zinc (220 mg) Tablet
50 mg PO DAILY
fluticasone propionate 50 mcg/actuation Unity,Suspension
1 spray INTRANASAL HS
Systane (PF) 0.4-0.3 % Dropperette
1 drp BOTH EYES DAILYPRN PRN (Reason: dry eyes)
dapagliflozin propanediol [Farxiga] 5 mg Tablet
10 mg PO DAILY
sacubitril-valsartan [Entresto] 24-26 mg Tablet
1 tab PO BID
Repatha SureClick 140 mg/mL Pen Injector
140 mg SC Q2W
diphenhydramine-acetaminophen 12.5-500 mg Tablet
1 tab PO DAILYPRN PRN (Reason: allergies)
Xarelto 20 mg tablet
20 mg PO QPM
potassium chloride 10 mEq Tablet Extended Release
20 meq PO Q OTHER DAY Qty: 0 0RF
Rx Instructions:
2 tab by mouth every other day with lasix dosing
sotalol 80 mg Tablet
80 mg PO Q12H Qty: 60 3RF
Changed
furosemide [Lasix] 40 mg tablet
20 mg PO DAILY Qty: 0 0RF
Discharge Orders:
Discharge Patient (As Directed); Ordered 07/07/25
Ordered By: Inder Marte
Care Plan Goals
Care Plan Goals:
Problem: Readiness for enhanced knowledge related to diagnosis and treatment plan
Goal: Understand your diagnosis and treatment plan needs, including medications if applicable.
Instructions: Know your diagnosis, underlying causes and treatment plan options, including medications if applicable. Consult with your health care team to learn about your diagnosis and treatment plan, including medications if applicable.
Discharge Date and Time
Discharge Date/Time: 07/07/25 14:01
Print Language: GREENLANDIC
--- NOTE | 2025-07-08 09:42 | W.HF.CON ---
Heart Failure
- LV Function
Left ventricular function study result: LV Ejection fraction >/= 50%
Ejection Fraction Percentage: 70-75
- ARNI
Patient already on ARNI: Yes
- ACEI/ARB
Patient already on ACEI/ARB: No
Heart Failure ACEI/ARB Not Indicated: Patient ordered/on ARNI
- Beta Cassidy
Patient already on Evidence Based Beta Cassidy: No
Heart Failure Evidence Based Beta Cassidy Not Indicated: LV Ejection Fraction > 40%
- Mineralocorticord Receptor Antagonist
Patient already on MRA: No
Heart Failure MRA Not Indicated: LV Ejection Fraction > 40%
- SGLT-2 Inhibitor
Patient already on SGLT-2 Inhibitor: Yes
- Afib Anticoagulation
Patient already on Anticoagulation for Afib: Yes
- NYHA CHF Classification
NYHA CHF Classification Level: Class III - Symptoms w/ min exertion, interferes w/ nml daily activity
- ACC/AHA Stage
ACC/AHA Stage: Stage C: Symptomatic Heart Failure
== END 2025-07-07 14:01 | disposition home or self-care (01) | DRG 291 ==
LOC: IVU 12:52
PROVIDERS: Registered Nurse; ADMITTING PHYSICIAN Internal Medicine; ATTENDING PHYSICIAN Internal Medicine; CONSULT PHYSICIAN Internal Medicine; EMERGENCY PHYSICIAN Emergency Medicine; FAMILY PHYSICIAN Student in an Organized Health Care Education/Training Program
DX: I11.0 Hypertensive heart disease with heart failure (principal); I50.33 Acute on chronic diastolic (congestive) heart failure; I48.19 Other persistent atrial fibrillation; I47.20 Ventricular tachycardia, unspecified; E87.6 Hypokalemia; I08.1 Rheumatic disorders of both mitral and tricuspid valves; I25.10 Atherosclerotic heart disease of native coronary artery without angina pectoris; K21.9 Gastro-esophageal reflux disease without esophagitis; I42.1 Obstructive hypertrophic cardiomyopathy; I27.20 Pulmonary hypertension, unspecified; I5A Non-ischemic myocardial injury (non-traumatic); G47.33 Obstructive sleep apnea (adult) (pediatric); E78.00 Pure hypercholesterolemia, unspecified; I49.5 Sick sinus syndrome; Z11.52 Encounter for screening for COVID-19; Z79.01 Long term (current) use of anticoagulants; Z79.899 Other long term (current) drug therapy; Z87.891 Personal history of nicotine dependence; Z95.0 Presence of cardiac pacemaker; Z95.5 Presence of coronary angioplasty implant and graft
CPT/HCPCS: 71046; 80048; 80053; 80061; 81003; 81015; 82248; 83735; 83880; 84443; 84484; 85025; 85027; 87086; 87502; 87811; 93005; 93306; 96374; 99285

== ENCOUNTER 2025-07-14 12:37 | Outpatient (REF) | payer MEDICARE, SELFPAY | END 2025-07-14 23:59 | disposition home or self-care (01) | LOC: WOUND 12:37 | PROVIDERS: ATTENDING PHYSICIAN Registered Nurse; FAMILY PHYSICIAN Student in an Organized Health Care Education/Training Program | DX: I80.8 Phlebitis and thrombophlebitis of other sites (principal); Z79.01 Long term (current) use of anticoagulants | CPT/HCPCS: 99203 ==